=== PATIENT | female | born 1980 | race Caucasian/White ===

== ENCOUNTER 2017-06-19 17:09 | Emergency (ER) | payer MEDICARE, OTHER ==
[2017-06-19 17:26] VITALS: BP 144/94; PULSE 99; RESP 18; TEMP 98
--- NOTE | 2017-06-19 17:54 | ED ---
ENT HPI - General Chief complaint: Dental/Oral Stated complaint: dental pain Time Seen by Provider: 06/19/17 17:31 Source: patient, RN notes reviewed Mode of arrival: ambulatory Limitations: no limitations - History of Present Illness Initial comments: This is a 36-year-old female who presents to the emergency department with chief complaint of dental pain. Patient states that she has been experiencing dental pain in her right lower molars for the past year and a half intermittently. Patient states that yesterday she had an increase in the pain of a right lower molar. Patient denies any drainage. She denies any radiation of pain to jaw or neck. Patient states that she does not regularly see a dentist. Denies fever, chills, chest pain, shortness of breath, abdominal pain, nausea or vomiting, constipation or diarrhea, dysuria or hematuria, numbness or tingling, headache or vision changes. - Related Data Home Medications Medication Instructions Recorded Confirmed Gabapentin 600 mg PO TID 05/07/16 05/07/16 Gabapentin [Neurontin] 400 mg PO TID 05/07/16 05/07/16 QUEtiapine [SEROquel] 100 mg PO HS 05/07/16 05/07/16 clonazePAM [KlonoPIN] 0.5 mg PO TID 05/07/16 05/07/16 rOPINIRole HCL [Requip] 0.25 mg PO HS 05/07/16 05/07/16 traZODone HCL 300 mg PO HS 05/07/16 05/07/16 Previous Rx's Medication Instructions Recorded Ibuprofen 600 mg PO Q6HR #20 tablet 06/19/17 Penicillin V Potassium [Pen Vee K] 500 mg PO QID 10 Days tab 06/19/17 Allergies Allergy/AdvReac Type Severity Reaction Status Date / Time No Known Allergies Allergy Verified 06/19/17 17:24 Review of Systems ROS Statement: Those systems with pertinent positive or pertinent negative responses have been documented in the HPI. ROS Other: All systems not noted in ROS Statement are negative. 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 History of Any Multi-Drug Resistant Organisms: None Reported Past Surgical History: Tonsillectomy Additional Past Surgical History / Comment(s): right knee surgery, Additional Past Anesthesia/Blood Transfusion Reaction / Comment(s): n/a Past Psychological History: Anxiety, Bipolar, Depression, No Psychological Hx Reported Smoking Status: Current every day smoker Past Alcohol Use History: Occasional Past Drug Use History: None Reported - Past Family History Mother Family Medical History: Hypertension General Exam - General Exam Comments Initial Comments: General: Awake and alert, well-developed; in no apparent distress. HEENT: Head atraumatic, normocephalic. Pupils are equal, round and reactive to light. Extraocular movements intact. Oropharynx moist without erythema or exudate. Poor dentition throughout with multiple fractured teeth and dental caries. Tooth #31 is fractured and black in color. No masses or areas of fluctuance noted. Neck: Supple. Normal ROM. No adenopathy. Cardiovascular: Regular rate and rhythm. No murmurs, rubs or gallops. Chest symmetrical. Respiratory: Lungs clear to auscultation bilaterally. No wheezes, rales or rhonchi. Normal respiratory effort with no use of accessory muscles. Musculoskeletal: Normal ROM, no tenderness bilateral upper and lower extremities. Ambulating normally. Skin: Mullins, warm and dry without rashes or lesions. Neurological: Alert and oriented x3. CN II-XII grossly intact. Speech is fluent and answers are appropriate. No focal neuro deficits. Psychiatric: Normal mood and affect. No overt signs of depression or anxiety noted. Limitations: no limitations Course Vital Signs 06/19/17 17:24 Temperature 98 F Pulse Rate 99 Respiratory 18 Rate Blood Pressure 144/94 O2 Sat by Pulse 95 Oximetry Medical Decision Making - Medical Decision Making This is a 36-year-old female who presents to the emergency department with chief complaint of dental pain. Tooth #31 is fractured. There is no evidence of abscess. Patient will be discharged home with a prescription for ibuprofen and antibiotics. She will be provided contact information for a dentist. Patient is in agreement with plan and voices understanding. All questions were answered. Disposition Clinical Impression: Toothache, Fracture of tooth Disposition: HOME SELF-CARE Condition: Good Instructions: Toothache (ED), Dental Caries (ED) Additional Instructions: Please follow up with the [facility] dental clinic. [facility] [id number] [address]. Phone number for new patients or for existing patients. Please take medications as prescribed. Please follow up with primary care provider within 1-2 days. Return to emergency department if symptoms should worsen or any concerns arise. Prescriptions: Ibuprofen 600 mg PO Q6HR #20 tablet Penicillin V Potassium [Pen Vee K] 500 mg PO QID 10 Days tab Referrals: None,Stated [Primary Care Provider] - 1-2 days Time of Disposition: 17:49
== END 2017-06-19 18:01 | disposition home or self-care (01) ==
LOC: EC 17:09
DX: S02.5XXA Fracture of tooth (traumatic), initial encounter for closed fracture (principal); F31.9 Bipolar disorder, unspecified; F41.9 Anxiety disorder, unspecified; F60.3 Borderline personality disorder; F17.200 Nicotine dependence, unspecified, uncomplicated; Z79.899 Other long term (current) drug therapy
CPT/HCPCS: 99282

== ENCOUNTER 2018-04-19 02:51 | Emergency (ER) | payer MEDICARE, OTHER ==
[2018-04-19] MEDS ORDERED: clonazePAM 0.5 MG TAB PO STA (03:23)
--- NOTE | 2018-04-19 04:43 | ED ---
Psych HPI - General Chief Complaint: Psychiatric Symptoms Stated Complaint: Petition Time Seen by Provider: 04/19/18 03:03 Source: patient Mode of arrival: ambulatory - History of Present Illness Initial Comments: This patient is a 37-year-old woman who presents to the hospital after being brought here by police to have psychiatric evaluation. The patient had reportedly called the third floor mental health unit to speak with her partner. When she was not allowed to speak with her partner, there was over the phone and the patient admits to making a suicidal statement. The patient however states that this was something she had just said out of anger and she states that she is not having any suicidal ideation. She is elzbieta for safety here. Complaint: other -: hour(s) Associated Psychiatric Symptoms: other History of same: Yes Improves With: none Worsens With: none Context: significant life stressor - Related Data Home Medications Medication Instructions Recorded Confirmed Gabapentin 600 mg PO TID 05/07/16 05/07/16 Gabapentin [Neurontin] 400 mg PO TID 05/07/16 05/07/16 QUEtiapine [SEROquel] 100 mg PO HS 05/07/16 05/07/16 clonazePAM [KlonoPIN] 0.5 mg PO TID 05/07/16 05/07/16 rOPINIRole HCL [Requip] 0.25 mg PO HS 05/07/16 05/07/16 traZODone HCL 300 mg PO HS 05/07/16 05/07/16 Previous Rx's Medication Instructions Recorded Ibuprofen 600 mg PO Q6HR #20 tablet 06/19/17 Penicillin V Potassium [Pen Vee K] 500 mg PO QID 10 Days tab 06/19/17 Allergies Allergy/AdvReac Type Severity Reaction Status Date / Time No Known Allergies Allergy Verified 04/19/18 02:59 Review of Systems ROS Statement: Those systems with pertinent positive or pertinent negative responses have been documented in the HPI. ROS Other: All systems not noted in ROS Statement are negative. Respiratory: Denies: cough, dyspnea Cardiovascular: Denies: chest pain Gastrointestinal: Denies: abdominal pain Skin: Denies: rash Neurological: Denies: headache Psychiatric: Reports: anxiety. 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 History of Any Multi-Drug Resistant Organisms: None Reported Past Surgical History: Tonsillectomy Additional Past Surgical History / Comment(s): right knee surgery, Additional Past Anesthesia/Blood Transfusion Reaction / Comment(s): n/a Past Psychological History: Anxiety, Bipolar, Depression, No Psychological Hx Reported Smoking Status: Current every day smoker Past Alcohol Use History: Occasional Past Drug Use History: None Reported - Past Family History Mother Family Medical History: Hypertension General Exam Limitations: no limitations General appearance: alert, in no apparent distress, anxious Head exam: Present: atraumatic, normocephalic Eye exam: Present: normal appearance Respiratory exam: Present: normal lung sounds bilaterally. Absent: respiratory distress, wheezes, rales, rhonchi, stridor Cardiovascular Exam: Present: regular rate, normal rhythm, normal heart sounds. Absent: systolic murmur, diastolic murmur, rubs, gallop GI/Abdominal exam: Present: soft. Absent: distended, tenderness, guarding, rebound, rigid, mass Extremities exam: Present: normal inspection, normal capillary refill. Absent: pedal edema, calf tenderness Back exam: Present: normal inspection. Absent: CVA tenderness (R), CVA tenderness (L) Neurological exam: Present: alert, oriented X3, normal gait Psychiatric exam: Present: anxious. Absent: depressed, flat affect, manic, homicidal ideation, suicidal ideation Skin exam: Present: warm, dry, intact, normal color. Absent: rash Course Vital Signs 04/19/18 02:54 Temperature 99 F Pulse Rate 89 Respiratory 18 Rate Blood Pressure 159/108 O2 Sat by Pulse 100 Oximetry Disposition Clinical Impression: Adjustment reaction Disposition: HOME SELF-CARE Condition: Fair Instructions: Mood Disorders (ED) Is patient prescribed a controlled substance at d/c from ED?: No Referrals: [facility] [Primary Care Provider] - 1-2 days
[2018-04-19 04:51] VITALS: BP 132/72; PULSE 88; RESP 20; TEMP 98
== END 2018-04-19 04:51 | disposition home or self-care (01) ==
LOC: EC 02:51
DX: F43.20 Adjustment disorder, unspecified (principal); F60.3 Borderline personality disorder; F31.9 Bipolar disorder, unspecified; F41.9 Anxiety disorder, unspecified; F17.200 Nicotine dependence, unspecified, uncomplicated; Z98.890 Other specified postprocedural states; Z79.899 Other long term (current) drug therapy
CPT/HCPCS: 99285

== ENCOUNTER 2018-07-12 23:56 | Emergency (ER) | payer MEDICARE, OTHER ==
[2018-07-13 00:03] VITALS: PULSE 95; RESP 18; TEMP 99.1
[2018-07-13] MEDS ORDERED: LORazepam 1 MG TAB PO STA (00:13)
--- NOTE | 2018-07-13 00:16 | ED ---
Anxiety HPI - General Source: patient Mode of arrival: ambulatory <Karlie Benitez - Last Filed: 07/13/18 01:39> <Jocelyne Montez - Last Filed: 07/13/18 02:46> - General Chief Complaint: Anxiety Stated Complaint: anxiety Time Seen by Provider: 07/13/18 00:04 - History of Present Illness Initial Comments: 37 year-old female patient presents to the emergency department today with chief complaint of increased anxiety. She states that her significant other is in the ICU after a suicide attempt which is making her very anxious and upset. States that she does have a history of anxiety and does take a daily medication for this. She denies having any abortive medications. Patient denies any suicidal or homicidal ideation. States that she just feels very anxious and upset. She denies any physical symptoms or concerns. Patient denies any recent rash, fever, chills, shortness breath, chest pain, abdominal pain, nausea, vomiting, diarrhea, constipation, back pain, numbness, tingling, dizziness, weakness, hematuria, dysuria, urinary urgency, urinary frequency, headache, visual changes, or any other complaints. (Karlie Benitez) - Related Data Home Medications: Home Medications Medication Instructions Recorded Confirmed Gabapentin 600 mg PO TID 05/07/16 05/07/16 Gabapentin [Neurontin] 400 mg PO TID 05/07/16 05/07/16 QUEtiapine [SEROquel] 100 mg PO HS 05/07/16 05/07/16 clonazePAM [KlonoPIN] 0.5 mg PO TID 05/07/16 05/07/16 rOPINIRole HCL [Requip] 0.25 mg PO HS 05/07/16 05/07/16 traZODone HCL 300 mg PO HS 05/07/16 05/07/16 Previous Rx's Medication Instructions Recorded Ibuprofen 600 mg PO Q6HR #20 tablet 06/19/17 Penicillin V Potassium [Pen Vee K] 500 mg PO QID 10 Days tab 06/19/17 Allergies/Adverse Reactions: Allergies Allergy/AdvReac Type Severity Reaction Status Date / Time No Known Allergies Allergy Verified 07/13/18 00:03 Review of Systems ROS Other: All systems not noted in ROS Statement are negative. <Karlie Benitez - Last Filed: 07/13/18 01:39> ROS Other: All systems not noted in ROS Statement are negative. <Jocelyne Montez P - Last Filed: 07/13/18 02:46> ROS Statement: Those systems with pertinent positive or pertinent negative responses have been documented in the HPI. 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 History of Any Multi-Drug Resistant Organisms: None Reported Past Surgical History: Tonsillectomy Additional Past Surgical History / Comment(s): right knee surgery, Additional Past Anesthesia/Blood Transfusion Reaction / Comment(s): n/a Past Psychological History: Anxiety, Bipolar, Depression, No Psychological Hx Reported Smoking Status: Current every day smoker Past Alcohol Use History: Occasional Past Drug Use History: None Reported - Past Family History Mother Family Medical History: Hypertension <Karlie Benitez M - Last Filed: 07/13/18 01:39> General Exam Limitations: no limitations General appearance: alert, in no apparent distress, anxious, other (Physical well-developed, well-nourished adult female patient in no acute distress. Vital signs upon presentation are temperature 99.1F, pulse 95, respirations 18 , blood pressure 182/110, pulse ox 97% on room air.) Eye exam: Present: normal appearance, PERRL, EOMI. Absent: scleral icterus, conjunctival injection, periorbital swelling ENT exam: Present: normal exam, normal oropharynx Respiratory exam: Present: normal lung sounds bilaterally. Absent: respiratory distress, wheezes, rales, rhonchi, stridor Cardiovascular Exam: Present: regular rate, normal rhythm, normal heart sounds. Absent: systolic murmur, diastolic murmur, rubs, gallop, clicks Neurological exam: Present: alert, oriented X3, CN II-XII intact Psychiatric exam: Present: anxious, other (Tearful). Absent: homicidal ideation , suicidal ideation Skin exam: Present: warm, dry, intact, normal color. Absent: rash <Karlie Benitez M - Last Filed: 07/13/18 01:39> Vital Signs 07/13/18 07/13/18 00:00 00:22 Temperature 99.1 F Pulse Rate 95 Respiratory 18 Rate Blood Pressure 182/110 138/95 O2 Sat by Pulse 97 Oximetry Medical Decision Making <Karlie Benitez - Last Filed: 07/13/18 01:39> <Jocelyne Montez - Last Filed: 07/13/18 02:46> - Medical Decision Making 37-year-old male patient presents to the emergency department today for evaluation of increased anxiety. She reports her significant other is in the ICU. States that she is feeling very anxious and upset but denies any other symptoms. Physical examination is unremarkable. We will administer Ativan here in the emergency department and discharge. She is experiencing no suicidal or homicidal ideation. She is instructed to follow-up with her primary care physician for recheck in 1-2 days. Return parameters discussed in detail. She verbalizes understanding and agrees with this plan. (Karlie Benitez) I was available for consultation in the emergency department. The history and physical exam were done by the Midlevel Provider. Medical decision making was done by the Midlevel Provider. The Midlevel Provider did not contact me for this patient's care. I was not directly involved in this patient's care. (Jocelyne Montez) Disposition Is patient prescribed a controlled substance at d/c from ED?: No Time of Disposition: 00:15 <Karlie Benitez - Last Filed: 07/13/18 01:39> <Jocelyne Montez - Last Filed: 07/13/18 02:46> Clinical Impression: Anxiety Disposition: HOME SELF-CARE Condition: Good Instructions (If sedation given, give patient instructions): Generalized Anxiety Disorder (ED) Additional Instructions: Follow up with primary care physician for recheck in 1-2 days. Return to the emergency department for any new, worsening, or concerning symptoms. Referrals: [facility] [Primary Care Provider] - 1-2 days
[2018-07-13 00:39] VITALS: BP 138/95
== END 2018-07-13 00:23 | disposition home or self-care (01) ==
LOC: EC 23:56
DX: F41.9 Anxiety disorder, unspecified (principal); F31.9 Bipolar disorder, unspecified; F17.200 Nicotine dependence, unspecified, uncomplicated; Z79.899 Other long term (current) drug therapy
CPT/HCPCS: 99283

== ENCOUNTER 2018-09-21 12:23 | Day surgery (SDC) | payer MEDICARE, OTHER ==
[2018-09-21 12:42] VITALS: TEMP 97.8
[2018-09-21] MEDS ORDERED: LIDOCAINE 1% 20 ML VIAL (10MG/ML) FOR IV START INTRADERMA PRN (12:53)
[2018-09-21] MEDS ORDERED: LACTATED RINGERS 1,000 ML IV SCH (12:53)
[2018-09-21] MEDS ORDERED: PROPOFOL 10 MG/ML 20 ML VIAL IV ONE (13:53)
[2018-09-21] MEDS ORDERED: LIDOCAINE 1% INJ 10MG/ML (20 ML MDV) ONE (13:53)
[2018-09-21] MEDS ORDERED: LACTATED RINGERS 250 ML IV ONE (13:54)
--- NOTE | 2018-09-21 14:38 | P.PCN ---
Date of Procedure: 09/21/18 Procedure(s) Performed: Procedures: 1. Esophagogastroduodenoscopy and biopsy. 2. Total colonoscopy. Preoperative diagnosis: Abdominal pain, vomiting, unexplained weight loss and iron deficiency anemia. Postoperative diagnosis: 1. Antral gastritis but no ulcers or bleeding. 2. Normal colon and terminal ileum. 3. Biopsies obtained from the duodenum, antrum and esophagus. Preparation: HalfLytely prep. Sedation: Was provided by anesthesia. Brief clinical history: The patient is a 37-year-old female who I have evaluated earlier this month in the office regarding the above complaints. She was seen by hematology who recommended both an upper endoscopy and colonoscopy. Procedure: With the patient on her left lateral decubitus position and after informed consent and adequate sedation, I passed a Olympus-GIF H190 video upper endoscope through the cricopharyngeus down the esophagus. The esophagus appeared healthy. No obvious hiatal hernia. The endoscope was then passed into the stomach which was insufflated with air and inspected in detail including the retroflex view in the cardia. There was mottling and erythema in the antrum and some friability but no obvious ulcers or bleeding. Pyloric channel, duodenal bulb, post bulbar area and descending duodenum appeared healthy. I obtained biopsies from the duodenum, antrum and esophagus then the endoscope was withdrawn and I proceeded to perform the colonoscopy. Perianal area did not show any fissures or fistulas. There were no masses felt on digital rectal examination. The Olympus CF H190L video colonoscope was then inserted in the rectum in the usual fashion and advanced to the cecum. I intubated the ileocecal valve and examined the terminal ileum. Terminal ileum and colon appeared healthy. No polyps or tumors were seen or any obvious diverticular disease or evidence of inflammatory bowel disease. I retroflexed the endoscope in the rectum before the endoscope was withdrawn. The patient tolerated the procedure well. Plan: The patient was reassured. She will follow-up up with PCP and further plans can be made based on her course and biopsy results. It is likely that her anemia is related to her monthly menstrual losses. We would be happy to see in follow-up if needed.
[2018-09-21 14:41] VITALS: BP 125/81; PULSE 56; RESP 16
== END 2018-09-21 14:52 | disposition home or self-care (01) ==
LOC: ORWHC2ENDO 12:23
DX: K31.9 Disease of stomach and duodenum, unspecified (principal); K21.0 Gastro-esophageal reflux disease with esophagitis; D50.9 Iron deficiency anemia, unspecified; R10.9 Unspecified abdominal pain; R63.4 Abnormal weight loss; Z68.24 Body mass index [BMI] 24.0-24.9, adult; J45.909 Unspecified asthma, uncomplicated; F17.210 Nicotine dependence, cigarettes, uncomplicated; F19.11 Other psychoactive substance abuse, in remission; Z79.899 Other long term (current) drug therapy; Z79.891 Long term (current) use of opiate analgesic
CPT/HCPCS: 81025; 88305; 45378; 43239; J2001; J2704

== ENCOUNTER 2020-02-03 09:27 | Inpatient (IN) | payer MEDICARE, MEDICAID ==
--- NOTE | 2020-02-03 11:50 | ED ---
General Adult HPI - General Source: patient, EMS, RN notes reviewed, old records reviewed Mode of arrival: EMS Limitations: no limitations <Rob Morton - Last Filed: 02/03/20 11:50> <George Castaneda - Last Filed: 02/03/20 17:47> - General Chief complaint: Psychiatric Symptoms Stated complaint: Mental Health Time Seen by Provider: 02/03/20 09:57 - History of Present Illness Initial comments: 39-year-old female patient presents to ED for psychiatric evaluation. Patient reports that last night she took about 6 of her Seroquel and laid in the bath hoping that she would fall asleep and drown. Patient reports that her girlfriend removed her from the bath she did not lose consciousness. Patient also reports that she injected a gram of heroin she states she thought might be a fatal dose. She reports that she is very depressed. She denies any other acute complaints. (Rob Morton) - Related Data Home Medications Medication Instructions Recorded Confirmed traZODone HCL 300 mg PO HS 05/07/16 02/03/20 Albuterol Sulfate [Proair Hfa] 2 puff INHALATION RT-Q6H PRN 02/03/20 02/03/20 Baclofen 10 mg PO DAILY PRN 02/03/20 02/03/20 Cholecalciferol [Vitamin D3 (25 5,000 unit PO DAILY 02/03/20 02/03/20 Mcg = 1000 Iu)] Ferrous Sulfate Ec 324mg 2 tab PO DAILY 02/03/20 02/03/20 Gabapentin [Neurontin] 300 mg PO TID 02/03/20 02/03/20 Lisinopril [Zestril] 10 mg PO DAILY 02/03/20 02/03/20 Loratadine [Claritin] 10 mg PO DAILY PRN 02/03/20 02/03/20 Montelukast Sodium [Singulair] 10 mg PO HS 02/03/20 02/03/20 Omeprazole 20 mg PO DAILY 02/03/20 02/03/20 Prazosin HCl 2 mg PO HS PRN 02/03/20 02/03/20 QUEtiapine FUMARATE [SEROquel] 300 mg PO HS 02/03/20 02/03/20 Varenicline Tartrate [Chantix 0.5 mg PO DIRECTED 02/03/20 02/03/20 Starter Pack] Venlafaxine HCl ER [Effexor Xr] 300 mg PO QAM 02/03/20 02/03/20 hydrOXYzine pamoate [hydrOXYzine 25 mg PO BID PRN 02/03/20 02/03/20 PAMOATE] lamoTRIgine See Taper PO DIRECTED 02/03/20 02/03/20 Allergies Allergy/AdvReac Type Severity Reaction Status Date / Time No Known Allergies Allergy Verified 02/03/20 11:54 Review of Systems ROS Other: All systems not noted in ROS Statement are negative. <Rob Morton - Last Filed: 02/03/20 11:50> ROS Other: All systems not noted in ROS Statement are negative. <George Castaneda - Last Filed: 02/03/20 17:47> ROS Statement: Those systems with pertinent positive or pertinent negative responses have been documented in the HPI. 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 History of Any Multi-Drug Resistant Organisms: None Reported Past Surgical History: Tonsillectomy Additional Past Surgical History / Comment(s): right knee surgery, Additional Past Anesthesia/Blood Transfusion Reaction / Comment(s): n/a Past Psychological History: No Psychological Hx Reported, Anxiety, Bipolar, Depression, PTSD Smoking Status: Current every day smoker Past Alcohol Use History: Occasional Past Drug Use History: Heroin, Marijuana - Past Family History Mother Family Medical History: Hypertension <Rob Morton Last Filed: 02/03/20 11:50> General Exam Limitations: no limitations <Rob Morton Last Filed: 02/03/20 11:50> Course Vital Signs 02/03/20 09:30 Temperature 98 F Pulse Rate 84 Respiratory 18 Rate Blood Pressure 138/85 O2 Sat by Pulse 98 Oximetry Medical Decision Making - Lab Data Result diagrams: 02/03/20 10:50 02/03/20 10:50 <George Castaneda - Last Filed: 02/03/20 17:47> - Medical Decision Making The patient was evaluated by the EPS service and will be admitted for inpatient treatment (George Castaneda) - Lab Data Lab Results 02/03/20 02/03/20 Range/Units 10:50 10:50 WBC 5.7 (3.8-10.6) k/uL RBC 4.35 (3.80-5.40) m/uL Hgb 11.9 (11.4-16.0) gm/dL Hct 37.8 (34.0-46.0) % MCV 86.9 (80.0-100.0) fL MCH 27.4 (25.0-35.0) pg MCHC 31.6 (31.0-37.0) g/dL RDW 13.7 (11.5-15.5) % Plt Count 105 L (150-450) k/uL Neutrophils % 69 % Lymphocytes % 19 % Monocytes % 6 % Eosinophils % 3 % Basophils % 1 % Neutrophils # 3.9 (1.3-7.7) k/uL Lymphocytes # 1.1 (1.0-4.8) k/uL Monocytes # 0.4 (0-1.0) k/uL Eosinophils # 0.2 (0-0.7) k/uL Basophils # 0.1 (0-0.2) k/uL Manual Slide Review Performed Large Platelets Present RBC Morphology Normal Hypochromasia Slight Sodium 141 (137-145) mmol/L Potassium 4.2 (3.5-5.1) mmol/L Chloride 110 H (98-107) mmol/L Carbon Dioxide 24 (22-30) mmol/L Anion Gap 7 mmol/L BUN 17 (7-17) mg/dL Creatinine 0.77 (0.52-1.04) mg/dL Est GFR (CKD-EPI)AfAm >90 (>60 ml/min/1.73 sqM) Est GFR (CKD-EPI)NonAf >90 (>60 ml/min/1.73 sqM) Glucose 102 H (74-99) mg/dL Calcium 8.9 (8.4-10.2) mg/dL Total Bilirubin 0.4 (0.2-1.3) mg/dL AST 148 H (14-36) U/L ALT 165 H (4-34) U/L Alkaline Phosphatase 55 (38-126) U/L Total Protein 6.2 L (6.3-8.2) g/dL Albumin 3.6 (3.5-5.0) g/dL Salicylates <1.0 mg/dL Acetaminophen <10.0 ug/mL Serum Alcohol <10 mg/dL Disposition <Rob Morton - Last Filed: 02/03/20 11:50> <George Castaneda - Last Filed: 02/03/20 17:47> Clinical Impression: Depression, Suicidal ideation Disposition: TRANSFER TO PSYCH HOSP/UNIT Condition: Stable
[2020-02-03 12:14] LABS: Basophils # (A) 0.1 k/uL (0-0.2); Basophils % (A) 1 %; Eosinophils # (A) 0.2 k/uL (0-0.7); Eosinophils % (A) 3 %; HCT 37.8 % (34.0-46.0); HGB 11.9 gm/dL (11.4-16.0); Hypochromasia Slight; Lymphocytes # (A) 1.1 k/uL (1.0-4.8); Lymphocytes % (A) 19 %; MCH 27.4 pg (25.0-35.0); MCHC 31.6 g/dL (31.0-37.0); MCV 86.9 fL (80.0-100.0); Mean Platelet Volume 15.6; Monocytes # (A) 0.4 k/uL (0-1.0); Monocytes % (A) 6 %; Neutrophils # (A) 3.9 k/uL (1.3-7.7); Neutrophils % (A) 69 %; Platelet Count 105 k/uL (150-450); RBC 4.35 m/uL (3.80-5.40); RDW 13.7 % (11.5-15.5); WBC 5.7 k/uL (3.8-10.6)
[2020-02-03 12:16] LABS: ALT 165 U/L (4-34); AST 148 U/L (14-36); Acetaminophen <10.0 ug/mL; African American GFR (CKD) >90 (>60 ml/min/1.73 sqM); Albumin 3.6 g/dL (3.5-5.0); Alcohol <10 mg/dL; Alkaline Phosphatase 55 U/L (38-126); Anion Gap 7 mmol/L; Blood Urea Nitrogen 17 mg/dL (7-17); Calcium 8.9 mg/dL (8.4-10.2); Carbon Dioxide 24 mmol/L (22-30); Chloride 110 mmol/L (98-107); Glucose 102 mg/dL (74-99); Non-African American GFR(CKD) >90 (>60 ml/min/1.73 sqM); Potassium 4.2 mmol/L (3.5-5.1); Salicylate <1.0 mg/dL; Sodium 141 mmol/L (137-145); Total Bilirubin 0.4 mg/dL (0.2-1.3); Total Protein 6.2 g/dL (6.3-8.2)
[2020-02-03 12:30] LABS: Large Platelets Present
[2020-02-03] MEDS ORDERED: ZIPRASIDONE 20 MG VIAL IM STA (17:08)
[2020-02-03] MEDS ORDERED: MAG HYDROX/AL HYDROX/SIMETH 30 ML CUP PO PRN (17:40)
[2020-02-03] MEDS ORDERED: MAGNESIUM HYDROXIDE 2,400 MG/10 ML CUP PO PRN (17:40)
[2020-02-03] MEDS ORDERED: LORazepam 2 MG/ML INJ IM PRN (17:44)
[2020-02-03 18:13] LABS: Amphetamine Screen,Urine Not Detected (NotDetected); Barbiturate Screen,Urine Not Detected (NotDetected); Benzodiazepines Screen,Urine Detected (NotDetected); Cocaine Screen,Urine Detected (NotDetected); Methadone Screen, Urine Not Detected (NotDetected); Opiate Screen,Urine Not Detected (NotDetected); Oxycodone Screen, Urine Not Detected (NotDetected); Phencyclidine Screen,Urine Not Detected (NotDetected); Tricyclic Antidepressant,Urine Not Detected (NotDetected); Urn Cannabinoid Scrn Not Detected (NotDetected)
[2020-02-03] MEDS: NICOTINE 21MG/24HR PATCH TRANSDERM SCH (18:45)
[2020-02-03] MEDS ORDERED: QUEtiapine 100 MG TAB PO SCH (21:00)
[2020-02-03] MEDS: LORazepam 1 MG TAB PO PRN (23:49)
[2020-02-04] MEDS: ZIPRASIDONE 20 MG VIAL IM PRN (03:13)
[2020-02-04] MEDS: NICOTINE 21MG/24HR PATCH TRANSDERM SCH (09:55)
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
[2020-02-04] MEDS: NICOTINE POLACRILEX 2 MG GUM BUCCAL PRN ×2 (16:02→19:23)
[2020-02-04] MEDS: LORazepam 1 MG TAB PO PRN (16:39)
[2020-02-04] MEDS ORDERED: ALBUTEROL INHALER 60 PUFF/8 GM INHALER (MHU) INHALATION PRN (18:18)
[2020-02-04] MEDS ORDERED: LORATADINE 10 MG TAB PO PRN (18:18)
--- NOTE | 2020-02-04 18:23 | P.MDCNMH ---
History of Present Illness H&P Date: 02/04/20 39-year-old female with PMH of asthma, neuropathy, hypertension presents to the ED for psychiatric evaluation. She has been admitted to mental health unit for further management and observation. [facility] as being consulted for medical management of this patient. Patient reports pins and needle sensation in all 4 extremities. States that this happened after developing mono. She is requesting albuterol inhaler for her history of asthma. She denies any headache, lower extremity edema, nausea or vomiting, fever or chills, cough, chest pain, shortness of breath, palpitations, changes in urination or bowel habits. No changes in appetite or weight. She denies any dizziness. Her vital signs show slightly elevated blood pressure 135/71. CBC shows low platelet count of 105. CMP shows chloride of 110, glucose of 102, AST of 148, ALT of 165. Review of Systems Pertinent positives and negatives as discussed in HPI, a complete review of systems was performed and all other systems are negative. 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 History of Any Multi-Drug Resistant Organisms: None Reported Past Surgical History: Tonsillectomy Additional Past Surgical History / Comment(s): right knee surgery, Additional Past Anesthesia/Blood Transfusion Reaction / Comment(s): n/a Past Psychological History: No Psychological Hx Reported, Anxiety, Bipolar, Depression, PTSD Smoking Status: Current every day smoker Past Alcohol Use History: Occasional Past Drug Use History: Heroin, Marijuana - Past Family History Mother Family Medical History: Hypertension Medications and Allergies Home Medications Medication Instructions Recorded Confirmed Type traZODone HCL 300 mg PO HS 05/07/02/03/20 History Albuterol Sulfate [Proair Hfa] 2 puff INHALATION RT-Q6H PRN 02/03/20 02/03/20 History Baclofen 10 mg PO DAILY PRN 02/03/20 02/03/20 History Cholecalciferol [Vitamin D3 (25 5,000 unit PO DAILY 02/03/20 02/03/20 History Mcg = 1000 Iu)] Ferrous Sulfate Ec 324mg 2 tab PO DAILY 02/03/20 02/03/20 History Gabapentin [Neurontin] 300 mg PO TID 02/03/20 02/03/20 History Lisinopril [Zestril] 10 mg PO DAILY 02/03/20 02/03/20 History Loratadine [Claritin] 10 mg PO DAILY PRN 02/03/20 02/03/20 History Montelukast Sodium [Singulair] 10 mg PO HS 02/03/20 02/03/20 History Omeprazole 20 mg PO DAILY 02/03/20 02/03/20 History Prazosin HCl 2 mg PO HS PRN 02/03/20 02/03/20 History QUEtiapine FUMARATE [SEROquel] 300 mg PO HS 02/03/20 02/03/20 History Varenicline Tartrate [Chantix 0.5 mg PO DIRECTED 02/03/20 02/03/20 History Starter Pack] Venlafaxine HCl ER [Effexor Xr] 300 mg PO QAM 02/03/20 02/03/20 History hydrOXYzine pamoate [hydrOXYzine 25 mg PO BID PRN 02/03/20 02/03/20 History PAMOATE] lamoTRIgine See Taper PO DIRECTED 02/03/20 02/03/20 History Allergies Allergy/AdvReac Type Severity Reaction Status Date / Time nicotine Allergy Intermediate Rash/Hives Verified 02/04/20 12:36 Physical Exam Vitals: Vital Signs Temp Pulse Resp BP Pulse Ox 02/04/20 02:14 98.4 F 72 16 135/71 98 02/03/20 18:40 97.4 F L 68 18 116/69 98 General: [non toxic], [no distress], [appears at stated age] Derm: [warm], [dry] Head: [atraumatic], [normocephalic], [symmetric] Eyes: [EOMI], [no lid lag], [anicteric sclera] Mouth: [no lip lesion], [mucus membranes moist] Cardiovascular: [S1S2 reg], [no murmur], [positive posterior tibial pulse bilateral], Lungs: [CTA bilateral], [no rhonchi, no rales] , [no accessory muscle use] Abdominal: [soft], [ nontender to palpation], [no guarding], [no appreciable organomegaly] Ext: [no gross muscle atrophy], [no edema], [no contractures] Neuro: [ CN II-XI grossly intact], [no focal neuro deficits] Psych: [Alert], [oriented], [appropriate affect] Cranial Nerve Examination - Cranial Nerves Cranial Nerve II- Optic: Intact Cranial Nerve III- Oculomotor: Intact Cranial Nerve IV- Trochlear: Intact Cranial Nerve V- Trigeminal: Intact Cranial Nerve - Abducens: Intact Cranial Nerve VII- Facial: Intact Cranial Nerve VIII- Auditory: Intact Cranial Nerve IX- Glossopharyngeal: Intact Cranial Nerve X- Vagus: Intact Cranial Nerve XI- Accessory: Intact Cranial Nerve XII- Hypoglossal: Intact Results CBC & Chem 7: 02/03/20 10:50 02/03/20 10:50 Assessment and Plan Assessment: Asthma Hypertension Neuropathy Seasonal ALLERGIES Transaminitis Plans: Albuterol inhaler as needed. Restart Singulair. Plans: Continue lisinopril. Plans: Resume gabapentin. Plans: Resume Claritin. Unknown etiology. Plans: Follow hepatitis panel especially given thrombocytopenia and history of IV drug use. Thank you for this consult. Please call with any additional questions or concerns.
[2020-02-04] MEDS ORDERED: PRAZOSIN 1 MG CAP PO PRN (21:00)
[2020-02-04] MEDS: OLANZapine 10 MG TAB PO SCH (21:44)
[2020-02-04] MEDS: MONTELUKAST 10 MG TAB PO SCH (21:44)
[2020-02-04] MEDS: GABAPENTIN 300 MG CAP PO SCH (21:44)
[2020-02-05] MEDS: LORazepam 1 MG TAB PO PRN ×3 (04:37→22:55)
[2020-02-05] MEDS: NICOTINE POLACRILEX 2 MG GUM BUCCAL PRN ×5 (04:38→21:16)
[2020-02-05 08:18] LABS: ALT 220 U/L (4-34); AST 249 U/L (14-36); African American GFR (CKD) >90 (>60 ml/min/1.73 sqM); Albumin 4.2 g/dL (3.5-5.0); Alkaline Phosphatase 69 U/L (38-126); Anion Gap 8 mmol/L; Blood Urea Nitrogen 12 mg/dL (7-17); Calcium 9.1 mg/dL (8.4-10.2); Carbon Dioxide 23 mmol/L (22-30); Chloride 110 mmol/L (98-107); Cholesterol 116 mg/dL (<200); Glucose 105 mg/dL (74-99); HDL Cholesterol 53 mg/dL (40-60); LDL Cholesterol,Calculated 45 mg/dL (0-99); Non-African American GFR(CKD) >90 (>60 ml/min/1.73 sqM); Potassium 4.3 mmol/L (3.5-5.1); Sodium 141 mmol/L (137-145); Total Protein 7.1 g/dL (6.3-8.2); Triglycerides 92 mg/dL (<150)
[2020-02-05 08:20] LABS: Basophils # (A) 0.1 k/uL (0-0.2); Basophils % (A) 2 %; Eosinophils # (A) 0.3 k/uL (0-0.7); Eosinophils % (A) 4 %; HCT 42.3 % (34.0-46.0); HGB 12.9 gm/dL (11.4-16.0); Hypochromasia Moderate; Lymphocytes # (A) 1.3 k/uL (1.0-4.8); Lymphocytes % (A) 17 %; MCHC 30.5 g/dL (31.0-37.0); MCV 88.4 fL (80.0-100.0); Mean Platelet Volume 13.7; Monocytes # (A) 0.5 k/uL (0-1.0); Monocytes % (A) 7 %; Neutrophils # (A) 4.8 k/uL (1.3-7.7); Neutrophils % (A) 66 %; Platelet Count 111 k/uL (150-450); RBC 4.78 m/uL (3.80-5.40); RDW 13.8 % (11.5-15.5); WBC 7.2 k/uL (3.8-10.6)
[2020-02-05] MEDS: lisinopriL 10 MG TAB PO SCH (08:32)
[2020-02-05] MEDS: FERROUS SULFATE 325 MG TAB PO SCH (08:32)
[2020-02-05] MEDS: buPROPion XL 150 MG TAB.ER.24H PO SCH (08:32)
[2020-02-05] MEDS: SERTRALINE 100 MG TAB PO SCH (08:32)
[2020-02-05] MEDS: PANTOPRAZOLE 40 MG TABLET PO SCH (08:32)
[2020-02-05] MEDS: GABAPENTIN 300 MG CAP PO SCH ×3 (08:32→21:16)
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
[2020-02-05 18:34] LABS: Hepatitis A Antibody IgM Non-Reactive (Non-Reactive); Hepatitis B Core IgM Non-Reactive (Non-Reactive); Hepatitis B Surface Antigen Non-Reactive (Non-Reactive); Hepatitis C IgG Antibody Non-Reactive (Non-Reactive)
[2020-02-05] MEDS: OLANZapine 10 MG TAB PO SCH (21:16)
[2020-02-05] MEDS: MONTELUKAST 10 MG TAB PO SCH (21:16)
[2020-02-05] MEDS: ACETAMINOPHEN TAB 325 MG TAB PO PRN (21:16)
[2020-02-06 00:14] LABS: Hemoglobin A1C 5.5 % (4.0-6.0)
[2020-02-06] MEDS: OLANZapine 5 MG TAB PO PRN (02:17)
[2020-02-06] MEDS: NICOTINE POLACRILEX 2 MG GUM BUCCAL PRN ×5 (02:17→23:08)
[2020-02-06] MEDS: lisinopriL 10 MG TAB PO SCH (08:37)
[2020-02-06] MEDS: FERROUS SULFATE 325 MG TAB PO SCH (08:37)
[2020-02-06] MEDS: PANTOPRAZOLE 40 MG TABLET PO SCH (08:37)
[2020-02-06] MEDS: buPROPion XL 150 MG TAB.ER.24H PO SCH (08:37)
[2020-02-06] MEDS: GABAPENTIN 300 MG CAP PO SCH ×3 (08:37→21:27)
[2020-02-06] MEDS: SERTRALINE 100 MG TAB PO SCH (08:38)
[2020-02-06] MEDS: LORazepam 1 MG TAB PO PRN ×2 (15:00→22:12)
[2020-02-06] MEDS: MONTELUKAST 10 MG TAB PO SCH (21:27)
[2020-02-06] MEDS: OLANZapine 10 MG TAB PO SCH (21:27)
[2020-02-06] MEDS: ZIPRASIDONE 20 MG VIAL IM PRN (23:08)
--- NOTE | 2020-02-07 09:23 | PN ---
PROGRESS NOTE DATE OF SERVICE: 02/06/2020. CHIEF COMPLAINT: The patient was admitted for depression and relapse to heroin. INTERVAL HISTORY: Patient has been doing fair. She had a quiet day yesterday. She said she was doing fairly well yesterday. Her mood was better. She had a better outlook. She attended groups. I refer the reader to group notes as the patient did have ups and downs in different groups during the day yesterday. She said she had quite a bit of anxiety last night and took Ativan 1 mg at 11:00 pm. In addition, she woke up at 2 in the morning and was apparently in a distressed state. She ended up taking Zyprexa 5 mg p.r.n. She said the Zyprexa helped her get back to sleep and she slept the rest of the night. Today she has been up. She says today her mood is somewhat down compared to yesterday. She cannot really identify issues one way or another. Overall, she feels that she has been making progress. She acknowledges that she does get stressed out some where she will get tight in her shoulders and neck. She has been cooperative with care. She tolerates her psychotropic medications. MENTAL STATUS: Patient sat without restlessness. She gave good eye contact. Psychomotor activity was a little slowed. She answered questions with brief responses. She had a somewhat anxious affect. She was a little withdrawn. Her mood was reserved. She seemed somewhat distressed though had an appropriate conversation about treatment. There was no indication of thought disorder. She voiced no thoughts of harm. Cognition was clear. ASSESSMENT: I will continue the current diagnosis and treatment plan, continue psychotropic medications the same. I reviewed psychotropic medications with the patient as noted. She is on a complex medication regimen. I encouraged the patient to avoid Ativan given her issues of substance dependence and relapse. I encouraged the patient to do a physical activity program to help relax her body. We will continue to focus on stabilization and discharge planning. MMMATHEUSL / ANTHONYN: [id number] /
[2020-02-07] MEDS: buPROPion XL 150 MG TAB.ER.24H PO SCH (09:34)
[2020-02-07] MEDS: FERROUS SULFATE 325 MG TAB PO SCH (09:34)
[2020-02-07] MEDS: lisinopriL 10 MG TAB PO SCH (09:34)
[2020-02-07] MEDS: PANTOPRAZOLE 40 MG TABLET PO SCH (09:34)
[2020-02-07] MEDS: GABAPENTIN 300 MG CAP PO SCH ×3 (09:34→21:03)
[2020-02-07] MEDS: SERTRALINE 100 MG TAB PO SCH (09:34)
[2020-02-07] MEDS: NICOTINE POLACRILEX 2 MG GUM BUCCAL PRN ×5 (09:38→21:46)
[2020-02-07] MEDS ORDERED: buPROPion XL 300 MG TAB.ER.24H PO SCH (10:30)
[2020-02-07] MEDS: LORazepam 1 MG TAB PO PRN ×2 (10:39→19:42)
[2020-02-07] MEDS: ACETAMINOPHEN TAB 325 MG TAB PO PRN (10:39)
[2020-02-07] MEDS ORDERED: buPROPion XL 150 MG TAB.ER.24H PO ONE (11:00)
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
[2020-02-07] MEDS: OLANZapine 10 MG TAB PO SCH (20:32)
[2020-02-07] MEDS: MONTELUKAST 10 MG TAB PO SCH (20:32)
[2020-02-07] MEDS: OLANZapine 5 MG TAB PO PRN (22:21)
[2020-02-07] MEDS ORDERED: ZIPRASIDONE 20 MG VIAL IM ONE (22:48)
[2020-02-07] MEDS: ZIPRASIDONE 20 MG VIAL IM PRN (22:55)
[2020-02-08] MEDS: PANTOPRAZOLE 40 MG TABLET PO SCH (08:59)
[2020-02-08] MEDS: lisinopriL 10 MG TAB PO SCH (08:59)
[2020-02-08] MEDS: FERROUS SULFATE 325 MG TAB PO SCH (08:59)
[2020-02-08] MEDS: GABAPENTIN 300 MG CAP PO SCH ×3 (08:59→20:44)
[2020-02-08] MEDS: NICOTINE POLACRILEX 2 MG GUM BUCCAL PRN ×4 (09:00→20:04)
[2020-02-08] MEDS: buPROPion XL 300 MG TAB.ER.24H PO SCH (09:00)
[2020-02-08] MEDS: SERTRALINE 100 MG TAB PO SCH (09:00)
--- NOTE | 2020-02-08 11:31 | P.PN ---
Subjective Progress Note Date: 02/08/20 Principal diagnosis: Major depression recurrent severe Polysubstance abuse Subjective: The patient did not sleep well last night and that she'll be back in the hospital shortly if she doesn't get a good night sleep otherwise she plans on going and stay with her and work hard in outpatient therapy. Objective: The patient has been attending groups noted to participate well both with patients and staff focused is fair does not need much help Staff assessment patient is up on the unit bright and social with staff was somewhat preoccupied with whether she had to go to rehab or not feeling she could go home and be able to not use substances her has been able get off of drugs and can be a support for takes care of her hygiene adequately is oriented or some place time and circumstance denies hallucinations or delusions is somewhat anxious but feels that she can get a good night's sleep she will be able to function. Assessment plan we are going to give her increased dose of Zyprexa tonight she should sleep well and discharge her Objective - Vital Signs Vital signs: Vital Signs Temp 98.4 F 02/06/20 02:21 Pulse 96 02/08/20 09:03 Resp 18 02/08/20 09:03 BP 123/69 02/08/20 09:03 Pulse Ox 98 02/04/20 02:14 - Labs CBC & Chem 7: 02/05/20 07:44 02/05/20 07:44
[2020-02-08] MEDS: LORazepam 1 MG TAB PO PRN ×2 (15:22→22:26)
[2020-02-08] MEDS: ACETAMINOPHEN TAB 325 MG TAB PO PRN (17:44)
[2020-02-08] MEDS: MONTELUKAST 10 MG TAB PO SCH (20:44)
[2020-02-08] MEDS ORDERED: OLANZapine 10 MG TAB PO SCH (21:00)
[2020-02-08] MEDS: ZIPRASIDONE 20 MG VIAL IM PRN (23:12)
--- NOTE | 2020-02-09 08:46 | P.DS ---
Providers Date of admission: 02/03/20 17:26 Expected date of discharge: 02/09/20 Attending physician: Lauren Carreon MD Consults: 02/03/20 19:44 Consult Physician Routine Consulting Provider: Johny Terry Consult Reason/Comments: medical management Do you want consulting provider notified?: Already Contacted Primary care physician: Stated None Hospital Course: Patient was admitted to the psychiatric unit on 02/02 being discharged on 02/08 Diagnosis on admission and discharge: Cruz. depression recurrent severe Polysubstance use disorder Hospital course: The patient was restarted on Zoloft at 100 a day plus Wellbutrin XL 300. She took both in the morning because slight difficulty with sleep she had been on Seroquel and changing over to olanzapine due to restless leg syndrome on olanzapine 20 she did not have restless leg syndrome but she does still has some difficulty sleeping. Trazodone worked in the past. Restless leg syndrome so were going to try Ambien 10 when necessary Groups: The patient has attended well and does participate. She is somewhat restless coming in and out but staying most of the group. She is compliant and talks with staff and patient Staff assessment: The patient is calm and composed somewhat anxious. She asked for extra Geodon last night. She is oriented to person place time and circumstance does not require help with ADLs denies suicidal or homicidal thoughts does not have any iesha psychotic symptoms she had a strange complaint that when she closes her eyes she can see things as if her eyes were open. Mental status exam: Patient is pleasant good eye contact quicker response time gait and station are normal psychomotor activity is normal self-care is good she was positive about wanting to get out and work on her relationship with . Her abstract skills are good we discussed steps in attaining her goals and she was able to retain them appreciate them and repeat them. He is not aggressive is oriented to person place time and circumstances tearfulness. She denies any suicidal or homicidal thoughts does not appear to be responding to voices Plan discharge the patient has follow-up for medications and counseling and I'll give her a month's supply of medication Assessment: Assessment: The patient is calm down a good attention logical committed to do the work necessary to make her relationship work after discharge willing to go to groups and take medication and is positive about the benefit of the medication. I believe that she is safe for discharge Health Concerns: Patient has a history of asthma but has not had much trouble in here also anemia no acute problems while in the hospital Pertinent Studies: Vital signs: Temperature 98.6 heart rate 96 respiration 18 blood pressure 123/69 Labs: Hematology was fine on 912 except for slightly and platelet count and she have 115 minutes 111 and had come up some, probably due to nutrition General chemistry showed liver enzyme problems and drug screen was positive for cocaine Procedures: None Patient Condition at Discharge: Fair Plan - Discharge Summary New Discharge Prescriptions: No Action traZODone HCL 300 mg PO HS Cholecalciferol [Vitamin D3 (25 Mcg = 1000 Iu)] 5,000 unit PO DAILY QUEtiapine FUMARATE [SEROquel] 300 mg PO HS Montelukast Sodium [Singulair] 10 mg PO HS Prazosin HCl 2 mg PO HS PRN PRN Reason: NIGHTMARES Omeprazole 20 mg PO DAILY Gabapentin [Neurontin] 300 mg PO TID Albuterol Sulfate [Proair Hfa] 2 puff INHALATION RT-Q6H PRN PRN Reason: Shortness Of Breath Lisinopril [Zestril] 10 mg PO DAILY lamoTRIgine See Taper PO DIRECTED hydrOXYzine pamoate [hydrOXYzine PAMOATE] 25 mg PO BID PRN PRN Reason: Anxiety Ferrous Sulfate Ec 324mg 2 tab PO DAILY Venlafaxine HCl ER [Effexor Xr] 300 mg PO QAM Varenicline Tartrate [Chantix Starter Pack] 0.5 mg PO DIRECTED Loratadine [Claritin] 10 mg PO DAILY PRN PRN Reason: Allergy Symptoms Baclofen 10 mg PO DAILY PRN PRN Reason: Muscle Pain Discharge Medication List traZODone HCL 300 mg PO HS 05/07/16 [History] Albuterol Sulfate [Proair Hfa] 2 puff INHALATION RT-Q6H PRN 02/03/20 [History] Baclofen 10 mg PO DAILY PRN 02/03/20 [History] Cholecalciferol [Vitamin D3 (25 Mcg = 1000 Iu)] 5,000 unit PO DAILY 02/03/20 [History] Ferrous Sulfate Ec 324mg 2 tab PO DAILY 02/03/20 [History] Gabapentin [Neurontin] 300 mg PO TID 02/03/20 [History] Lisinopril [Zestril] 10 mg PO DAILY 02/03/20 [History] Loratadine [Claritin] 10 mg PO DAILY PRN 02/03/20 [History] Montelukast Sodium [Singulair] 10 mg PO HS 02/03/20 [History] Omeprazole 20 mg PO DAILY 02/03/20 [History] Prazosin HCl 2 mg PO HS PRN 02/03/20 [History] QUEtiapine FUMARATE [SEROquel] 300 mg PO HS 02/03/20 [History] Varenicline Tartrate [Chantix Starter Pack] 0.5 mg PO DIRECTED 02/03/20 [History] Venlafaxine HCl ER [Effexor Xr] 300 mg PO QAM 02/03/20 [History] hydrOXYzine pamoate [hydrOXYzine PAMOATE] 25 mg PO BID PRN 02/03/20 [History] lamoTRIgine See Taper PO DIRECTED 02/03/20 [History] Follow up Appointment(s)/Referral(s): [facility] [Outside] - 02/10/20 2:30 pm (02-10-20 @ 2:30 with Emily Payne by phone 02-14-20 @ 9:[address] Byrd at [facility] office) None,Stated [Primary Care Provider] - 1-2 days Activity/Diet/Wound Care/Special Instructions: Activity and diet as tolerated. Avoid the use of street drugs and alcohol. Take all medications as prescribed. When you are in need of refills on your medications please contact your medical provider and/or outpatient psychiatrist to have this done. Please go to scheduled outpatient appointment for aftercare treatment. If symptoms return or become worse, call the crisis line at and/or go to the nearest emergency room for evaluation.
[2020-02-09] MEDS ORDERED: ZOLPIDEM 5 MG TAB PO PRN (08:53)
[2020-02-09] MEDS: buPROPion XL 300 MG TAB.ER.24H PO SCH (09:04)
[2020-02-09] MEDS: FERROUS SULFATE 325 MG TAB PO SCH (09:04)
[2020-02-09] MEDS: SERTRALINE 100 MG TAB PO SCH (09:05)
[2020-02-09] MEDS: PANTOPRAZOLE 40 MG TABLET PO SCH (09:05)
[2020-02-09] MEDS: lisinopriL 10 MG TAB PO SCH (09:05)
[2020-02-09] MEDS: NICOTINE POLACRILEX 2 MG GUM BUCCAL PRN (09:05)
[2020-02-09] MEDS: GABAPENTIN 300 MG CAP PO SCH (09:05)
[2020-02-09 09:08] VITALS: BP 150/78; PULSE 90; RESP 20; TEMP 99.2
== END 2020-02-09 10:14 | disposition home or self-care (01) | DRG 885 ==
LOC: EC 09:27 → 3MHU 17:26
PROVIDERS: ADMIT Psychiatry & Neurology Psychiatry; ATTEND Psychiatry & Neurology Psychiatry
DX: F33.2 Major depressive disorder, recurrent severe without psychotic features (principal); D69.42 Congenital and hereditary thrombocytopenia purpura; R45.851 Suicidal ideations; Z91.14 Patient's other noncompliance with medication regimen; F60.3 Borderline personality disorder; F19.10 Other psychoactive substance abuse, uncomplicated; J45.909 Unspecified asthma, uncomplicated; F41.9 Anxiety disorder, unspecified; F43.10 Post-traumatic stress disorder, unspecified; K21.9 Gastro-esophageal reflux disease without esophagitis; F17.200 Nicotine dependence, unspecified, uncomplicated; G25.81 Restless legs syndrome; F11.90 Opioid use, unspecified, uncomplicated; G47.9 Sleep disorder, unspecified; R74.0 Nonspecific elevation of levels of transaminase and lactic acid dehydrogenase [LDH]; G62.9 Polyneuropathy, unspecified; Z79.899 Other long term (current) drug therapy; Z98.890 Other specified postprocedural states; Z91.5 Personal history of self-harm; Z82.49 Family history of ischemic heart disease and other diseases of the circulatory system; Z81.1 Family history of alcohol abuse and dependence
CPT/HCPCS: 36415; 80053; 80061; 80074; 80306; 80320; 80329; 81025; 82075; 83036; 83520; 84443; 85025; 93005; 99285

== ENCOUNTER → 2020-02-14 | Outpatient (CLI) | payer MEDICARE, MEDICAID ==
--- NOTE | 2020-02-14 13:57 | XR ---
EXAMINATION TYPE: XR chest 2V DATE OF EXAM: 02/14/2020 COMPARISON: Prior chest x-ray 12/30/2011 HISTORY: Chest pain TECHNIQUE: Frontal and lateral views of the chest are obtained. FINDINGS: There is no focal air space opacity, pleural effusion, or pneumothorax seen. The cardiac silhouette size is within normal limits. The osseous structures are intact, there is a slight spina l curvature. IMPRESSION: No acute cardiopulmonary process.
== END | disposition home or self-care (01) ==
LOC: RADXRMAIN 12:43
PROVIDERS: ATTEND Nurse Practitioner
DX: R07.9 Chest pain, unspecified (principal)
CPT/HCPCS: 71046

== ENCOUNTER 2020-02-29 21:03 | Inpatient (IN) | payer MEDICARE, MEDICAID ==
[2020-02-29 22:40] LABS: Appearance,Urine Clear (Clear); Bilirubin,Urine Negative (Negative); Blood,Urine Negative (Negative); Color,Urine Yellow; Glucose,Urine (UA) Negative (Negative); Ketones,Urine Negative (Negative); Leukocyte Esterase,Urine Negative (Negative); Nitrite,Urine Negative (Negative); PH, Urine 6.5 (5.0-8.0); Protein,Urine Negative (Negative); Specific Gravity,Urine 1.024 (1.001-1.035)
[2020-02-29 22:54] LABS: Amphetamine Screen,Urine Not Detected (NotDetected); Barbiturate Screen,Urine Not Detected (NotDetected); Benzodiazepines Screen,Urine Detected (NotDetected); Cocaine Screen,Urine Detected (NotDetected); Methadone Screen, Urine Not Detected (NotDetected); Opiate Screen,Urine Not Detected (NotDetected); Phencyclidine Screen,Urine Not Detected (NotDetected); Tricyclic Antidepressant,Urine Not Detected (NotDetected); Urn Cannabinoid Scrn Not Detected (NotDetected)
[2020-02-29 22:55] LABS: Oxycodone Screen, Urine Not Detected (NotDetected)
--- NOTE | 2020-02-29 23:19 | ED ---
Psych HPI - General Chief Complaint: Psychiatric Symptoms Stated Complaint: Mental Health Time Seen by Provider: 02/29/20 21:10 Source: patient, EMS Mode of arrival: ambulatory - History of Present Illness Initial Comments: Patient is a 39-year-old female presenting to the emergency department for psychiatric evaluation. Patient was brought in by police and was petitioned. Patient states she is having suicidal thoughts and does have a plan to take a lot of pills or to slit her wrists. She states she is also hearing voices as well as seeing people in front of her that are not in the same room. Patient states her medications were recently changed and she does not feel like they're strong enough. She denies any homicidal thoughts. She denies any alcohol today, she states that she has had relapses in the past with other drugs. She denies any pain, recent fever or chills. She has no further complaints. - Related Data Home Medications Medication Instructions Recorded Confirmed Albuterol Sulfate [Proair Hfa] 2 puff INHALATION RT-Q6H PRN 02/03/20 03/01/20 Baclofen 10 mg PO DAILY PRN 02/03/20 03/01/20 Cholecalciferol [Vitamin D3 (25 5,000 unit PO DAILY 02/03/20 03/01/20 Mcg = 1000 Iu)] Gabapentin [Neurontin] 300 mg PO TID 02/03/20 03/01/20 Lisinopril [Zestril] 10 mg PO DAILY 02/03/20 03/01/20 Loratadine [Claritin] 10 mg PO DAILY PRN 02/03/20 03/01/20 Montelukast Sodium [Singulair] 10 mg PO HS 02/03/20 03/01/20 Omeprazole 20 mg PO DAILY 02/03/20 03/01/20 Prazosin HCl 2 mg PO HS PRN 02/03/20 03/01/20 OLANZapine 20 mg PO HS 02/29/20 03/01/20 Sertraline HCl [Zoloft] 200 mg PO DAILY 02/29/20 03/01/20 Previous Rx's Medication Instructions Recorded Ferrous Sulfate [Iron (65 MG 325 mg PO DAILY tab 02/09/20 Elemental)] Zolpidem [Ambien] 5 mg PO HS PRN 30 Days #20 tab 02/09/20 buPROPion XL [Wellbutrin XL] 300 mg PO DAILY 30 Days #30 02/09/20 tab.er.24h hydrOXYzine pamoate [hydrOXYzine 25 mg PO BID PRN 30 Days #60 cap 02/09/20 PAMOATE] Allergies Allergy/AdvReac Type Severity Reaction Status Date / Time nicotine Allergy Intermediate Rash/Hives Verified 03/01/20 01:58 Review of Systems ROS Statement: Those systems with pertinent positive or pertinent negative responses have been documented in the HPI. ROS Other: All systems not noted in ROS Statement are negative. 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 History of Any Multi-Drug Resistant Organisms: None Reported Past Surgical History: Tonsillectomy Additional Past Surgical History / Comment(s): right knee surgery, Additional Past Anesthesia/Blood Transfusion Reaction / Comment(s): n/a Past Psychological History: Anxiety, Bipolar, Depression, PTSD Smoking Status: Current every day smoker Past Alcohol Use History: Occasional Past Drug Use History: Heroin, Marijuana - Past Family History Mother Family Medical History: Hypertension General Exam - General Exam Comments Initial Comments: GENERAL: Patient is well-developed and well-nourished. Patient is nontoxic and in no acute distress. HEAD: Atraumatic, normocephalic. EYES: Pupils equal round and reactive to light, extraocular movements intact, sclera anicteric, conjunctiva are normal. Eyelids were unremarkable. ENT: TMs normal, nares patent, oropharynx clear without exudates. Moist mucous membranes. NECK: Normal range of motion, supple without lymphadenopathy or JVD. LUNGS: Unlabored respirations. Breath sounds clear to auscultation bilaterally and equal. No wheezes rales or rhonchi. HEART: Regular rate and rhythm without murmurs, rubs or gallops. ABDOMEN: Soft, nontender, normoactive bowel sounds. No guarding, no rebound. No masses appreciated. : Deferred MUSCULOSKELETAL: Normal extremities with adequate strength and normal range of motion, no pitting or edema. No clubbing or cyanosis. NEUROLOGICAL: Patient is alert and oriented x 3. Motor and sensory are also intact. Cranial nerves II through XII grossly intact. Symmetrical smile. Normal speech, normal gait. PSYCH: Normal mood. SKIN: Warm, Dry, normal turgor, no rashes or lesions noted. Limitations: no limitations Course Vital Signs 02/29/20 03/01/20 21:05 01:00 Temperature 97.8 F 98.5 F Pulse Rate 103 H 84 Respiratory 18 18 Rate Blood Pressure 117/69 124/84 O2 Sat by Pulse 98 98 Oximetry - Reevaluation(s) Reevaluation #1: 02/29/20 23:19 Patient's care was transferred to Dr. Clemente at 11:19 PM. Patient is awaiting EPS evaluation. Medical Decision Making - Medical Decision Making Patient is a 39-year-old female here for psychiatric evaluation. She was petitioned by police after stating she is having suicidal thoughts and does have a plan to take a lot of pills or slit her wrist. Denies any homicidal thoughts. Patient's urine is negative for , and is positive for benzos and cocaine. Patient was evaluated by EPS and will be admitted in the psychiatric unit. - Lab Data Result diagrams: 03/02/20 06:51 03/02/20 06:51 Lab Results 02/29/20 02/29/20 Range/Units 22:25 22:25 Urine Color Yellow Urine Appearance Clear (Clear) Urine pH 6.5 (5.0-8.0) Ur Specific [place] 1.024 (1.001-1.035) Urine Protein Negative (Negative) Urine Glucose (UA) Negative (Negative) Urine Ketones Negative (Negative) Urine Blood Negative (Negative) Urine Nitrite Negative (Negative) Urine Bilirubin Negative (Negative) Urine Urobilinogen 2.0 (<2.0) mg/dL Ur Leukocyte Esterase Negative (Negative) Urine HCG, Qual Not Detected (Not Detectd) Urine Opiates Screen Not Detected (NotDetected) Ur Oxycodone Screen Not Detected (NotDetected) Urine Methadone Screen Not Detected (NotDetected) Ur Propoxyphene Screen Not Detected (NotDetected) Ur Barbiturates Screen Not Detected (NotDetected) U Tricyclic Antidepress Not Detected (NotDetected) Ur Phencyclidine Scrn Not Detected (NotDetected) Ur Amphetamines Screen Not Detected (NotDetected) U Methamphetamines Scrn Not Detected (NotDetected) U Benzodiazepines Scrn Detected H (NotDetected) Urine Cocaine Screen Detected H (NotDetected) U Marijuana (THC) Screen Not Detected (NotDetected) Disposition Clinical Impression: Suicidal ideation Disposition: TRANSFER TO PSYCH HOSP/UNIT
[2020-03-01] MEDS ORDERED: LORazepam 1 MG TAB PO STA (00:20)
[2020-03-01] MEDS ORDERED: MAGNESIUM HYDROXIDE 2,400 MG/10 ML CUP PO PRN (01:40)
[2020-03-01] MEDS ORDERED: ACETAMINOPHEN TAB 325 MG TAB PO PRN (01:40)
[2020-03-01] MEDS ORDERED: PRAZOSIN 1 MG CAP PO PRN (01:46)
[2020-03-01] MEDS ORDERED: ALBUTEROL NEBULIZED 2.5 MG/3 ML INHALATION PRN (01:46)
[2020-03-01] MEDS ORDERED: BACLOFEN 10 MG TAB PO PRN (01:46)
[2020-03-01] MEDS ORDERED: LORATADINE 10 MG TAB PO PRN (01:46)
--- NOTE | 2020-03-01 02:03 | P.EN ---
notified by RN of new consult, however, patient not appropriate for evaluation at this time due to sedation please notify [facility] physicians group when patient is ready
[2020-03-01] MEDS: hydrOXYzine pamoate 25 MG CAP PO PRN ×3 (03:10→22:56)
[2020-03-01] MEDS: NICOTINE POLACRILEX 2 MG GUM BUCCAL PRN ×4 (04:29→22:01)
[2020-03-01] MEDS: lisinopriL 10 MG TAB PO SCH (07:35)
[2020-03-01] MEDS: CHOLECALCIFEROL 1,000 UNIT TAB PO SCH (07:35)
[2020-03-01] MEDS: GABAPENTIN 300 MG CAP PO SCH ×4 (07:37→21:59)
[2020-03-01] MEDS: PANTOPRAZOLE 40 MG TABLET PO SCH (07:37)
[2020-03-01] MEDS: FERROUS SULFATE 325 MG TAB PO SCH (07:37)
[2020-03-01] MEDS: ZIPRASIDONE 20 MG VIAL IM PRN (07:50)
[2020-03-01] MEDS ORDERED: buPROPion XL 300 MG TAB.ER.24H PO SCH (09:00)
--- NOTE | 2020-03-01 12:27 | P.HP ---
Psychiatric H&P - . H&P Date: 03/01/20 History & Physical: Allergies Allergy/AdvReac Type Severity Reaction Status Date / Time nicotine Allergy Intermediate Rash/Hives Verified 03/01/20 01:58 Vital Signs Temp 98.2 F 03/01/20 01:10 Pulse 97 03/01/20 07:40 Resp 14 03/01/20 01:10 BP 134/70 03/01/20 07:40 Pulse Ox 96 03/01/20 01:10 Intake & Output 02/29/20 03/01/20 03/01/20 18:59 06:59 18:59 Weight 84.623 kg Laboratory Last Values Urine Color Yellow 02/29/20 22:25 Urine Appearance Clear (Clear) 02/29/20 22:25 Urine pH 6.5 (5.0-8.0) 02/29/20 22:25 Ur Specific [place] 1.024 (1.001-1.035) 02/29/20 22:25 Urine Protein Negative (Negative) 02/29/20 22:25 Urine Glucose (UA) Negative (Negative) 02/29/20 22:25 Urine Ketones Negative (Negative) 02/29/20 22:25 Urine Blood Negative (Negative) 02/29/20 22:25 Urine Nitrite Negative (Negative) 02/29/20 22:25 Urine Bilirubin Negative (Negative) 02/29/20 22:25 Urine Urobilinogen 2.0 mg/dL (<2.0) 02/29/20 22:25 Ur Leukocyte Esterase Negative (Negative) 02/29/20 22:25 Urine HCG, Qual Not Detected (Not Detectd) 02/29/20 22:25 Urine Opiates Screen Not Detected (NotDetected) 02/29/20 22:25 Ur Oxycodone Screen Not Detected (NotDetected) 02/29/20 22:25 Urine Methadone Screen Not Detected (NotDetected) 02/29/20 22:25 Ur Propoxyphene Screen Not Detected (NotDetected) 02/29/20 22:25 Ur Barbiturates Screen Not Detected (NotDetected) 02/29/20 22:25 U Tricyclic Antidepress Not Detected (NotDetected) 02/29/20 22:25 Ur Phencyclidine Scrn Not Detected (NotDetected) 02/29/20 22:25 Ur Amphetamines Screen Not Detected (NotDetected) 02/29/20 22:25 U Methamphetamines Scrn Not Detected (NotDetected) 02/29/20 22:25 U Benzodiazepines Scrn Detected (NotDetected) H 02/29/20 22:25 Urine Cocaine Screen Detected (NotDetected) H 02/29/20 22:25 U Marijuana (THC) Screen Not Detected (NotDetected) 02/29/20 22:25 03/01/20 12:18 IDENTIFYING DATA: Patient is a 39-year-old female with a history of polysubstance abuse who currently lives with her and now as has 4 children that were taken away from her. Patient currently collects Social Security and is unemployed. HPI: Patient presented to the hospital for a psychiatric evaluation brought in by the police. Patient was endorsing suicidal thoughts with a plan to cut her wrists and overdose. Patient was apparently complaining of auditory halluc inations and visual hallucinations stating that she was seeing people in front of her in the ER. Patient did claim to ER staff that her medications that recently been changed. Patient's UDS is positive for benzodiazepines and cocaine. Patient had received a IM Geodon earlier this morning prior to being interviewed for agitation and acute psychosis. Patient was seen by mortgage or loan underwriter in the quiet room as patient was attending asleep. Patient initially appeared to be confused and lethargic and question mortgage or loan underwriter several times "what happened to me". She claims that she was remembering wandering down the hallways however does not know why she is in the hospital. She had slurred speech during the conversation. She attempted to walk briefly however stumbled and had to sit back down. She states that she was having "weird thoughts" and states that her mood has been up and down. She also described ongoing depression and anxiety. She states that her sleep has been poor. She spoke about abusing Xanax as she had "old prescriptions" and when questioned about her other drug use patient denied any other drug use and denied any cocaine use. Patient denies any current suicidal or homicidal ideations intent or plan. At this time patient denies any auditory or visual hallucinations. Patient denies any flight of ideas racing thoughts and increased in goal directed behavior. Patient admits to using Xanax more than what's prescribed and also claims to use cigarettes. She currently denies using any other recreational drugs however does have a history of heroin and marijuana abuse along with cocaine abuse. PAST PSYCHIATRIC HISTORY: Patient states that she has history of bipolar disorder and borderline personality disorder along with polysubstance abuse. Patient was previously on Zyprexa, Zoloft and Vistaril. Patient has been psychiatrically hospitalized several times in the past. Patient currently follows up with Dr. lFores at [facility]. She is claiming that she is had "many suicide attempts" in the past however was guarded. PMH: Asthma ALLERGIES: as per EMR CHEMICAL DEPENDENCY HISTORY: as per HPI FAMILY PSYCHIATRIC/SUBSTANCE USE HISTORY: denies SOCIAL HISTORY: Patient was born and raised in [place] and now currently lives in [place]. She states that she committed high school is not currently working at this time and is collecting Social Security. She states that she lives in a house with her and is had 4 children the past however they have been taken away. She claims that she has a legal history in [facility] 2 years ago for fraud and assault.. MENTAL STATUS EXAM: General Appearance: Patient appears to be stated age is lethargic, difficult to redirect and appears to be confused at times. Patient appears to have poor hygiene and grooming. Behavior: Patient is seated without any agitated behavior. Stumbling and lethargic/confused. Speech: Patient's speech is Slurred speech Mood/Affect: Patient reports their mood is "up and down", affect is congruent and constricted. Suicidality/Homicidality: Patient denies having any homicidal ideation intent or plan. Denies any suicidal ideations intent or plan Perceptions: Patient denies any visual hallucinations and denies any auditory hallucinations Though content/process: Positive content, poverty of speech. Guarded/evasive. Denies any delusions. Memory and concentration: AOX3, poor attention span. Cannot spell "WORLD" backwards Judgment and insight: Chronically poor STRENGTHS/WEAKNESSES: strength is that patient is resilient. Weakness is that patient has poor judgment and is impulsive INTELLECT: average IMPRESSIONS: Bipolar disorder, current episode depressed Borderline personality disorder Cocaine abuse Benzodiazepine abuse Nicotine dependence PLAN: -Patient is admitted under voluntary status to [facility] for stabilization of psychiatric symptoms and safety. Patient has not signed medication consent and is placed in patient's chart. -Medications : Will start patient on Zyprexa 10 mg daily at bedtime for mood stabilization/insomnia. Will also start patient on Prozac 20 mg daily for mood/anxiety. Continue with Vistaril when necessary for anxiety. -Geodon IM PRN for agitation/aggression -Patient was counselled on substance abuse and was superficial about her drug use and desire to cut back. -Patient was informed of the risks, benefits and side effects of the medication and patient verbally consented to taking the medications. Patient signed med consent form and was placed in chart. -Internal Medicine consult to perform medical evaluation and physical. -NRT - nicotine patch -SW on board for discharge planning. Encourage patient to participate in groups to work on coping skills. Patient is currently on a WILL order through [facility]. Patient has relapsed back on drugs and will offer patient rehab when she is improved psychiatrically. 03/01/20 12:25 03/01/20 12:26
[2020-03-01] MEDS: FLUoxetine HCL 20 MG CAP PO SCH ×3 (12:37→16:52)
[2020-03-01] MEDS ORDERED: OLANZapine 10 MG TAB PO SCH (21:00)
[2020-03-01] MEDS: MONTELUKAST 10 MG TAB PO SCH (21:59)
[2020-03-01] MEDS: OLANZapine 10 MG TAB PO SCH (21:59)
[2020-03-02] MEDS: NICOTINE POLACRILEX 2 MG GUM BUCCAL PRN ×3 (06:16→23:58)
[2020-03-02 07:43] LABS: HCT 39.6 % (34.0-46.0); HGB 12.4 gm/dL (11.4-16.0); Hypochromasia Moderate; MCH 28.8 pg (25.0-35.0); MCHC 31.4 g/dL (31.0-37.0); MCV 91.7 fL (80.0-100.0); Platelet Count 100 k/uL (150-450); RBC 4.32 m/uL (3.80-5.40); RDW 14.6 % (11.5-15.5); WBC 7.9 k/uL (3.8-10.6)
[2020-03-02 07:54] LABS: ALT 138 U/L (4-34); AST 124 U/L (14-36); African American GFR (CKD) >90 (>60 ml/min/1.73 sqM); Albumin 3.7 g/dL (3.5-5.0); Alkaline Phosphatase 62 U/L (38-126); Anion Gap 7 mmol/L; Bilirubin, Delta 0.4 mg/dL (0.0-0.2); Bilirubin,Unconjugated 0.2 mg/dL (0.0-1.1); Blood Urea Nitrogen 13 mg/dL (7-17); Carbon Dioxide 22 mmol/L (22-30); Chloride 111 mmol/L (98-107); Cholesterol 151 mg/dL (<200); Glucose 100 mg/dL (74-99); HDL Cholesterol 66 mg/dL (40-60); LDL Cholesterol,Calculated 67 mg/dL (0-99); Non-African American GFR(CKD) >90 (>60 ml/min/1.73 sqM); Potassium 4.5 mmol/L (3.5-5.1); Sodium 140 mmol/L (137-145); Total Bilirubin 0.6 mg/dL (0.2-1.3); Total Protein 6.5 g/dL (6.3-8.2); Triglycerides 92 mg/dL (<150)
[2020-03-02] MEDS: FERROUS SULFATE 325 MG TAB PO SCH (08:01)
[2020-03-02] MEDS: FLUoxetine HCL 20 MG CAP PO SCH (08:01)
[2020-03-02] MEDS: PANTOPRAZOLE 40 MG TABLET PO SCH (08:01)
[2020-03-02] MEDS: CHOLECALCIFEROL 1,000 UNIT TAB PO SCH (08:01)
[2020-03-02] MEDS: GABAPENTIN 300 MG CAP PO SCH ×3 (08:01→21:53)
[2020-03-02] MEDS: lisinopriL 10 MG TAB PO SCH (08:01)
[2020-03-02 08:54] LABS: Band Neutrophils % 2 %; Basophils # (M) 0.08 k/uL (0-0.2); Eosinophils # (M) 0.47 k/uL (0-0.7); Lymphocytes # (M) 1.34 k/uL (1.0-4.8); Monocytes # (M) 0.47 k/uL (0-1.0); Neutrophils % (M) 68 %; Nucleated Red Blood Cells 0 /100 WBC (0-0); Total Cells Counted 100
[2020-03-02 09:03] LABS: Large Platelets Present
[2020-03-02] MEDS ORDERED: ZIPRASIDONE 20 MG VIAL IM ONE (11:05)
[2020-03-02] MEDS ORDERED: WATER FOR INJECTION, STERILE 10 ML IV ONE (11:05)
[2020-03-02] MEDS: hydrOXYzine pamoate 25 MG CAP PO PRN ×2 (11:07→23:56)
[2020-03-02] MEDS: ZIPRASIDONE 20 MG VIAL IM PRN (11:11)
[2020-03-02 11:36] LABS: Hemoglobin A1C 5.3 % (4.0-6.0)
[2020-03-02] MEDS: OLANZapine 5 MG TAB PO SCH ×2 (12:51→17:13)
[2020-03-02] MEDS ORDERED: OLANZapine 5 MG TAB PO SCH ×2 (14:00→21:00)
--- NOTE | 2020-03-02 16:32 | PN ---
PROGRESS NOTE DATE OF SERVICE: 03/02/2020 CHIEF COMPLAINT: The patient had auditory and visual hallucinations. She had depression with suicidal thoughts of cutting her wrists and overdose. She was positive for benzodiazepines and cocaine. INTERVAL HISTORY: The patient has been doing fair. She had a quiet day yesterday. She comes out in the day area. She wonders about. She will interact some with others. She has on and off complaints of anxiety. She received some p.r.n. medications yesterday including Geodon in the morning for agitation and Vistaril in the evening for anxiety. She did not attend any groups yesterday. She slept fair today, she has been up. She attended groups today. In one group the note read "the patient while supportive of others in sharing openly appeared defeated due to return to hospital and decline after discharge. The patient notes a long history of substance use issues including marijuana, opioids, cocaine, methamphetamine and benzodiazepines on her last admission of February 03. She apparently had overdosed on its Seroquel and said she injected a g of heroin, which she thought might be fatal. On discharge in spite of her substance use issues, she was prescribed Ambien 5 mg a day. She saw Sayed he had on February 13. Saylara noted that she had been taking Ambien 10 mg a day. She also stated that coming into her last hospital stay, she had taken an excessive amount of Xanax stating stating "I was high on Xanax. They say I took 20 Xanax. I was calling police and ambulance showed up in took me to the hospital." Noted the patient had been on Suboxone since August 2018 and when off Suboxone with her last prescription being October 21, 2019. Patient stated that she had a diagnosis of seizure disorder. 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 She stated she was in the basement of her house and having a full conversation with her , though the was not there. She has also made the statement as follows "doesn't understand point of being alive, thoughts about killing people to stop their suffering." Patient acknowledged that she has not used cocaine at least 1 time within the last day or 2 leading up to this hospitalization. She stated that she had otherwise not been using abusive substances. She acknowledged continued to have struggle with depression and worthless feelings. She dates that back to the last 6 months at least. She said medicines that have worked the best for her have included Effexor and Cymbalta. She stated she had a period of being clean of all abusive substances for about 18 months, during a and . She notes that she has been sleeping poorly. Physical complaints have included swollen lymph nodes, sore throat and a diagnosis of EBV. I had a telephone conversation with the patient's on speaker phone with the patient. The was aware that she had done the cocaine. The confirmed the recent events that she had been apparently sleeping and then had in usual events of seeing flashes and people. She acknowledged that the patient has had some people that she has had contacts with that likely had provided drugs to her. The two of them have had conflicts in their relationship including relating to other people that the felt were a bad influence on her. At her last [facility] appointment on the , she was prescribed Zyprexa 20 mg a day and Zoloft 100 mg a day. The patient reported no problems or issues with her current psychotropic medications. MENTAL STATUS: Patient was quite restless. She answered questions with direct responses at times. Her answers were vague and she was unable to provide accurate details. She did have complaint of memory issues. Her affect was blunted. Her mood depressed. She was moderately distressed. There was no immediate evidence of thought disorder, though she described hallucinations and delusional thoughts leading up to her hospitalization. She acknowledged some passive thoughts about being better off , though she denied any plan or impulse. On cognitive exam, she did make an effort to answer formal cognitive questions. She also stated during the interview that she could not remember specific details over the last several days leading up to her hospitalization. ASSESSMENT: I will continue the current diagnosis and treatment plan. Will continue to make efforts to engage the patient in individual and group therapeutic activities. I will discontinue p.r.n. Ativan given the patient's long-term substance use history. Patient has been having some anxiety complaints, I will add Zyprexa 5 mg in the morning, 5 mg in the afternoon in addition to her 10 mg at bedtime. This would be equivalent to the dose that she received at [facility] of 20 mg a day. I will continue Prozac 20 mg a day. I had an extensive discussion with the patient regarding substance withdrawal issues. She likely is in the early acute withdrawal from multiple abusive substances that led up to her last hospitalization February 03 as well as her current hospitalization. We discussed time course of withdrawal and nonpharmacologic interventions to help manage early withdrawal over the next 6-12 weeks. We discussed a therapeutic walking program and other activities to help manage withdrawal. We will focus on stabilization and discharge planning. CHAR / ANTHONYN: [id number] /
[2020-03-02] MEDS: MONTELUKAST 10 MG TAB PO SCH (21:53)
[2020-03-02] MEDS: OLANZapine 10 MG TAB PO SCH (21:53)
[2020-03-03] MEDS: ZIPRASIDONE 20 MG VIAL IM PRN ×2 (01:23→16:08)
[2020-03-03] MEDS: NICOTINE POLACRILEX 2 MG GUM BUCCAL PRN ×5 (03:31→22:35)
[2020-03-03] MEDS: PANTOPRAZOLE 40 MG TABLET PO SCH (08:22)
[2020-03-03] MEDS: lisinopriL 10 MG TAB PO SCH (08:23)
[2020-03-03] MEDS: FERROUS SULFATE 325 MG TAB PO SCH (08:23)
[2020-03-03] MEDS: CHOLECALCIFEROL 1,000 UNIT TAB PO SCH (08:23)
[2020-03-03] MEDS: GABAPENTIN 300 MG CAP PO SCH ×3 (08:23→21:20)
[2020-03-03] MEDS: FLUoxetine HCL 20 MG CAP PO SCH (08:23)
[2020-03-03] MEDS: OLANZapine 5 MG TAB PO SCH ×2 (08:24→13:35)
--- NOTE | 2020-03-03 11:13 | PN ---
PROGRESS NOTE DATE OF SERVICE: 03/03/2020 CHIEF COMPLAINT: The patient had auditory and visual hallucination. She had depression with suicidal thoughts of cutting her wrists and overdose. She was positive for benzodiazepines and cocaine. INTERVAL HISTORY: Patient has been doing fair. She had a quiet day yesterday. She attended 2 groups. At times she did seem quite distracted in the groups. She also made references to her poor self-esteem. She comes out in the day area. She will interact some with others. She tends to have a quiet, reserved manner. She said she barely slept at all last night. Nursing documented that as of 6 am she had slept 45 minutes in intervals. She was out and engaging in conversation with staff. Today she remains up. She has been out in the day area. She was seen early in the morning. She noted that her mood is fair. She continues to have some down mood. When I discussed issues about her substance use, she acknowledged that she was not fully aware of what was going on with her previous admission, at that time in January she said she had done some heroin, though did not recall doing Xanax. Today she said she remembered that someone had a handful of Xanax and she just started taking one after another, though really was not clear how much she had taken in total as she essentially had a blackout. She says since the discharge February 08, she tends to minimize the substance use that she has had. She is concerned about weight gain on her last admission. Her weight was 176 pounds. on this admission, it is 186 pounds. She is aware that Zyprexa has likely increased her appetite, though she was not aware how much her eating habits may have changed. She otherwise tolerates her psychotropic medications. MENTAL STATUS: Patient sat with a little restlessness. She gave good eye contact. She answered questions appropriately. Her thoughts were clear. She was interactive. Her affect was a little constricted. Her mood was quiet and not clearly down or depressed. She smiled a little during the interview. There was no indication of thought disorder. She voiced no thoughts of harm. Cognition was clear. ASSESSMENT: I will continue the current diagnosis and treatment plan. I will initiate trazodone 100 mg at bedtime for sleep. I discussed at length issues related to Zyprexa and appetite increase. Patient does feel that she could work on better managing her diet and that her appetite has not increased to the point of her not being able to manage her food intake. At this point, she said that she would continue on Zyprexa to help primarily with early withdrawal from her abusive substances. We again discussed that the target date for her would be on Halloween when she could at anticipate at least a moderate relief from acute withdrawal symptoms. We discussed that Prozac at this point is not likely to have significant benefit on her mood, though beyond Halloween if she remains free of abusive substances, she may start seeing more benefit. Also beyond that point, she may be able to taper off Zyprexa without too much difficulty. We will continue to focus on stabilization and discharge planning. CHAR / ANTHONYN: [id number] /
[2020-03-03] MEDS: hydrOXYzine pamoate 25 MG CAP PO PRN ×2 (13:35→21:53)
[2020-03-03] MEDS: BENZOCAINE/MENTHOL LOZENG 1 EACH LOZENGE MUCOUS MEM PRN (14:29)
--- NOTE | 2020-03-03 17:18 | P.MDCNMH ---
History of Present Illness H&P Date: 03/03/20 39-year-old female with PMH of asthma, hypertension, EBV infection presentsto the ED for psychiatric evaluation. She is admitted to mental health unit for further observation and management. Son physicians has been consulted for medical management of this patient. Patient reports being diagnosed with EBV over the summer. She reports swollen lymph nodes as seen on previous computed tomography scan that was ordered for her. She is requesting lozenges for sore throat. She denies any abdominal pain. She denies any headache, lower extremity edema, nausea or vomiting, fever or chills, cough, chest pain, shortness of breath, palpitations, changes in urination or bowel habits. No changes in appetite or weight. She denies any dizziness, numbness/weakness/tingling of extremities. Her vital signs remained stable. CBC shows platelet count of 100. CMP shows chloride of 111, glucose of 100, bilirubin of 0.4, AST of 124, ALT 138. Lipid panel shows HDL of 66. UDS positive for benzodiazepine and cocaine. Review of Systems Pertinent positives and negatives as discussed in HPI, a complete review of systems was performed and all other systems are negative. 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 History of Any Multi-Drug Resistant Organisms: None Reported Past Surgical History: Tonsillectomy Additional Past Surgical History / Comment(s): right knee surgery, Additional Past Anesthesia/Blood Transfusion Reaction / Comment(s): n/a Past Psychological History: Anxiety, Bipolar, Depression, PTSD Smoking Status: Current every day smoker Past Alcohol Use History: Occasional Past Drug Use History: Heroin, Marijuana - Past Family History Mother Family Medical History: Hypertension Medications and Allergies Home Medications Medication Instructions Recorded Confirmed Type RX: Albuterol Sulfate [Proair Hfa] 2 puff INHALATION RT-Q6H PRN 02/03/20 03/01/20 History RX: Baclofen 10 mg PO DAILY PRN 02/03/20 03/01/20 History RX: Cholecalciferol [Vitamin D3 5,000 unit PO DAILY 02/03/20 03/01/20 History (25 Mcg = 1000 Iu)] RX: Gabapentin [Neurontin] 300 mg PO TID 02/03/20 03/01/20 History RX: Lisinopril [Zestril] 10 mg PO DAILY 02/03/20 03/01/20 History RX: Loratadine [Claritin] 10 mg PO DAILY PRN 02/03/20 03/01/20 History RX: Montelukast Sodium [Singulair] 10 mg PO HS 02/03/20 03/01/20 History RX: Omeprazole 20 mg PO DAILY 02/03/20 03/01/20 History RX: Prazosin HCl 2 mg PO HS PRN 02/03/20 03/01/20 History RX: Ferrous Sulfate [Iron (65 MG 325 mg PO DAILY tab 02/09/20 03/01/20 Rx Elemental)] RX: Zolpidem [Ambien] 5 mg PO HS PRN 30 Days #20 tab 02/09/20 03/01/20 Rx RX: buPROPion XL [Wellbutrin XL] 300 mg PO DAILY 30 Days #30 02/09/20 03/01/20 Rx tab.er.24h RX: hydrOXYzine pamoate 25 mg PO BID PRN 30 Days #60 cap 02/09/20 03/01/20 Rx [hydrOXYzine PAMOATE] RX: OLANZapine 20 mg PO HS 02/29/20 03/01/20 History Sertraline HCl [Zoloft] 200 mg PO DAILY 02/29/20 03/01/20 History Allergies Allergy/AdvReac Type Severity Reaction Status Date / Time nicotine Allergy Intermediate Rash/Hives Verified 03/01/20 01:58 Physical Exam Vitals: Vital Signs Temp Pulse Resp BP Pulse Ox 03/03/20 04:47 98.2 F 84 17 128/71 98 General: [non toxic], [no distress], [appears at stated age] Derm: [warm], [dry] Head: [atraumatic], [normocephalic], [symmetric] Eyes: [EOMI], [no lid lag], [anicteric sclera] Mouth: [no lip lesion], [mucus membranes moist] Cardiovascular: [S1S2 reg], [no murmur], [positive DP pulse bilateral], Lungs: [CTA bilateral], [no rhonchi, no rales] , [no accessory muscle use] Abdominal: [soft], [ nontender to palpation], [no guarding], [no appreciable organomegaly] Ext: [no gross muscle atrophy], [no edema], [no contractures] Neuro: [ CN II-XI grossly intact], [no focal neuro deficits] Psych: [Alert], [oriented], [appropriate affect] Cranial Nerve Examination - Cranial Nerves Cranial Nerve II- Optic: Intact Cranial Nerve III- Oculomotor: Intact Cranial Nerve IV- Trochlear: Intact Cranial Nerve V- Trigeminal: Intact Cranial Nerve - Abducens: Intact Cranial Nerve VII- Facial: Intact Cranial Nerve VIII- Auditory: Intact Cranial Nerve IX- Glossopharyngeal: Intact Cranial Nerve X- Vagus: Intact Cranial Nerve XI- Accessory: Intact Cranial Nerve XII- Hypoglossal: Intact Results CBC & Chem 7: 03/02/20 06:51 03/02/20 06:51 Assessment and Plan Assessment: Sore throat Asthma Hypertension Polysubstance abuse Elevated liver enzymes Thrombocytopenia Likely related to recent diagnosis of EBV. Plans: Cepachol lozenges as needed. Plans: Albuterol inhaler as needed. Plans: Continue lisinopril. Monitor vitals, adjust medications if necessary. UDS positive for benzodiazepine and cocaine. Plans: Ativan as needed for agitation. Patient advised to quit. Unknown etiology. Plans: Obtain hepatitis panel. Unknown etiology. No signs of bleeding. Plans: Obtain hepatitis panel. Continue to monitor. Thank you for this consult. Please call with additional questions or concerns.
[2020-03-03] MEDS ORDERED: BENZTROPINE MESYLATE 1 MG TAB PO PRN ×2 (18:27→19:53)
[2020-03-03] MEDS ORDERED: BENZTROPINE MESYLATE 1 MG TAB PO ONE (20:00)
[2020-03-03] MEDS: MONTELUKAST 10 MG TAB PO SCH (21:12)
[2020-03-03] MEDS: traZODone HCL 100 MG TAB PO SCH (21:12)
[2020-03-03] MEDS: OLANZapine 10 MG TAB PO SCH (21:13)
[2020-03-04] MEDS: BENZOCAINE/MENTHOL LOZENG 1 EACH LOZENGE MUCOUS MEM PRN ×5 (01:27→18:39)
[2020-03-04] MEDS: hydrOXYzine pamoate 25 MG CAP PO PRN ×4 (03:58→21:54)
[2020-03-04] MEDS: NICOTINE POLACRILEX 2 MG GUM BUCCAL PRN ×6 (05:07→20:39)
[2020-03-04] MEDS: PANTOPRAZOLE 40 MG TABLET PO SCH (08:47)
[2020-03-04] MEDS: CHOLECALCIFEROL 1,000 UNIT TAB PO SCH (08:47)
[2020-03-04] MEDS: FLUoxetine HCL 20 MG CAP PO SCH (08:49)
[2020-03-04] MEDS: FERROUS SULFATE 325 MG TAB PO SCH (08:49)
[2020-03-04] MEDS: GABAPENTIN 300 MG CAP PO SCH ×3 (08:50→20:39)
[2020-03-04] MEDS: lisinopriL 10 MG TAB PO SCH (08:50)
[2020-03-04] MEDS: OLANZapine 5 MG TAB PO SCH (09:40)
--- NOTE | 2020-03-04 09:41 | P.PN ---
Progress Note - Text Progress Note Date: 03/04/20 Interval history: Patient was seen wandering the hallways and was directable and agreeable to speak with creative services writer. Patient expresses that she has been feeling some muscle tightness around her jaw and throat which she attributes to the increase in Zyprexa as well as requiring Geodon to help her with some agitation. She states that Cogentin has been beneficial. At this time patient denies any suicidal or homicidal ideations intent or plan. Denies any Auditory or visual casanova llucinations. She has been adherent with her medications. She appears to be somewhat med seeking and requesting if she can get something stronger than Vistaril. She does report restlessness at night. Mental status exam: General Appearance: Patient appears to be stated age is alert, directable, and cooperative. Behavior: No agitated behavior. Patient is calm and directable Speech: Patient's speech is fluent and nonpressured. Mood/Affect: Mood is improving mildly, affect is congruent and constricted. Suicidality/Homicidality: Patient denies having any suicidal or homicidal ideation intent or plan. Perceptions: Patient denies any auditory or visual hallucinations. Though content/process: There is no evidence of any delusional thought content and thought process is linear and goal-directed. Memory and concentration: AOX3, grossly intact for the purposes of this session Judgment and insight: improving mildly Assessment/Plan: Continue with current diagnosis. Patient continues to meet criteria for inpatient psychiatric admission for symptom stabilization and safety. We will discontinue patient's daytime Zyprexa and continue Zyprexa 10 mg at bedtime. We will continue Cogentin as needed at this time. No other psychiatric medication adjustment. Discussed with patient decreasing the frequency at which she receives Geodon as it may contribute to akathisia and other EPS symptoms. Monitor for medication compliance and for any psychotropic medication side effects. Will continue to monitor ongoing response to treatment. Encouraged participation in milieu.
[2020-03-04] MEDS: BENZTROPINE MESYLATE 1 MG TAB PO PRN ×3 (10:31→20:39)
[2020-03-04 13:32] LABS: Hepatitis A Antibody IgM Non-Reactive (Non-Reactive); Hepatitis B Core IgM Non-Reactive (Non-Reactive); Hepatitis B Surface Antigen Non-Reactive (Non-Reactive); Hepatitis C IgG Antibody Reactive (Non-Reactive)
--- NOTE | 2020-03-04 15:09 | P.PN ---
Subjective Progress Note Date: 03/04/20 Principal diagnosis: elevated liver function patient is a 39-year-old female admitted to the mental health unit. We saw her for medical H&P yesterday and noted that liver enzymes were elevated and subsequently a ordered hepatitis profile. Patient seen and examined. She reports that she's been having some right upper quadrant pain intermittently. She does have a history of intravenous drug use and had to use. She has been having some fatigue which she had attributed to casanova denise mono early in the summer. General: [non toxic], [no distress], [appears at stated age] Derm: [warm], [dry] Head: [atraumatic], [normocephalic], [symmetric] Eyes: [EOMI], [no lid lag], [anicteric sclera] Mouth: [no lip lesion], [mucus membranes moist] Hepatitis C antibody positive with transaminitis -Suspect recent transmission of hepatitis C as her antibody was negative approximately one month ago and checked -We'll need outpatient follow-up with gastroenterology ORALIA Ware -Patient is aware of diagnosis need for treatment -Patient is aware that she is infected and needs to be careful to prevent transmission -We'll print patient informational packet on hepatitis C. chronic conditions: Asthma Hypertension Polysubstance abuse Chronic thrombocytopenia Thank you for allowing us to participate in the care of this pleasant patient. Do not hesitate to contact us with questions. Someone can be reached from the [facility] hospitalist group all hours of the day at [phone] or via [employer]. Objective - Vital Signs Vital signs: Vital Signs Temp 98.3 F 03/04/20 06:26 Pulse 80 03/04/20 06:26 Resp 16 03/04/20 06:26 BP 138/90 03/04/20 06:26 Pulse Ox 97 03/03/20 20:12 - Labs CBC & Chem 7: 03/02/20 06:51 03/02/20 06:51 Labs: Abnormal Lab Results - Last 24 Hours (Table) 03/04/20 Range/Units 07:14 Hep C IgG Ab Reactive H (Non-Reactive)
[2020-03-04] MEDS: traZODone HCL 100 MG TAB PO SCH (20:39)
[2020-03-04] MEDS: OLANZapine 10 MG TAB PO SCH (20:39)
[2020-03-04] MEDS: MONTELUKAST 10 MG TAB PO SCH (20:40)
[2020-03-05] MEDS: BENZOCAINE/MENTHOL LOZENG 1 EACH LOZENGE MUCOUS MEM PRN ×3 (00:49→21:21)
[2020-03-05] MEDS: CHOLECALCIFEROL 1,000 UNIT TAB PO SCH (07:39)
[2020-03-05] MEDS: PANTOPRAZOLE 40 MG TABLET PO SCH (07:39)
[2020-03-05] MEDS: FERROUS SULFATE 325 MG TAB PO SCH (07:40)
[2020-03-05] MEDS: FLUoxetine HCL 20 MG CAP PO SCH (07:40)
[2020-03-05] MEDS: GABAPENTIN 300 MG CAP PO SCH ×3 (07:40→21:20)
[2020-03-05] MEDS: lisinopriL 10 MG TAB PO SCH (07:41)
[2020-03-05] MEDS: NICOTINE POLACRILEX 2 MG GUM BUCCAL PRN ×3 (07:42→21:20)
[2020-03-05 07:43] VITALS: RESP 20
[2020-03-05] MEDS: MAG HYDROX/AL HYDROX/SIMETH 30 ML CUP PO PRN ×2 (09:16→22:08)
[2020-03-05] MEDS: BENZTROPINE MESYLATE 1 MG TAB PO PRN ×2 (10:03→16:13)
[2020-03-05] MEDS: hydrOXYzine pamoate 25 MG CAP PO PRN ×2 (10:03→16:13)
--- NOTE | 2020-03-05 10:57 | P.PN ---
Progress Note - Text Progress Note Date: 03/05/20 Interval history: Patient was seen wandering the hallways and was directable and agreeable to speak with blog writer. Patient reports ongoing issues with restlessness. She states that this has been ongoing even prior to this admission. She has expressed mild EPS symptoms yesterday say that they're slightly better with the addition of benztropine. At this time patient denies any suicidal or homicidal ideations intent or plan. Denies any Auditory or visual hallucinations. Patient denies any side effects from the medications and has been compliant with meds. Mental status exam: General Appearance: Patient appears to be stated age is alert, directable, and cooperative. Behavior: No agitated behavior. Patient is calm and directable Speech: Patient's speech is fluent and nonpressured. Mood/Affect: Mood is improving mildly, affect is congruent and constricted. Suicidality/Homicidality: Patient denies having any suicidal or homicidal ideation intent or plan. Perceptions: Patient denies any auditory or visual hallucinations. Though content/process: There is no evidence of any delusional thought content and thought process is linear and goal-directed. Memory and concentration: AOX3, grossly intact for the purposes of this session Judgment and insight: improving mildly Assessment/Plan: Continue with current diagnosis. Patient continues to meet criteria for inpatient psychiatric admission for symptom stabilization and safety. Patient will be maintained on current psychotropic medication regimen. Consider the addition of propranolol for possible akathisia. Monitor for medication compliance and for any psychotropic medication side effects. Will con tinue to monitor ongoing response to treatment. Encouraged participation in milieu.
[2020-03-05] MEDS: OLANZapine 10 MG TAB PO SCH (21:20)
[2020-03-05] MEDS: traZODone HCL 100 MG TAB PO SCH (21:20)
[2020-03-05] MEDS: MONTELUKAST 10 MG TAB PO SCH (21:21)
[2020-03-06] MEDS: NICOTINE POLACRILEX 2 MG GUM BUCCAL PRN ×4 (01:46→22:18)
[2020-03-06] MEDS: BENZOCAINE/MENTHOL LOZENG 1 EACH LOZENGE MUCOUS MEM PRN ×3 (01:46→22:18)
[2020-03-06] MEDS: FLUoxetine HCL 20 MG CAP PO SCH (08:18)
[2020-03-06] MEDS: GABAPENTIN 300 MG CAP PO SCH ×3 (08:18→22:18)
[2020-03-06] MEDS: FERROUS SULFATE 325 MG TAB PO SCH (08:18)
[2020-03-06] MEDS: PANTOPRAZOLE 40 MG TABLET PO SCH (08:18)
[2020-03-06] MEDS: lisinopriL 10 MG TAB PO SCH (08:18)
[2020-03-06] MEDS: CHOLECALCIFEROL 1,000 UNIT TAB PO SCH (08:18)
[2020-03-06] MEDS: MAG HYDROX/AL HYDROX/SIMETH 30 ML CUP PO PRN (08:38)
[2020-03-06] MEDS: busPIRone HCl 10 MG TAB PO SCH ×2 (10:34→20:31)
[2020-03-06] MEDS: PROPRANOLOL 20 MG TAB PO SCH ×2 (10:34→20:31)
--- NOTE | 2020-03-06 11:28 | P.PN ---
Progress Note - Text Progress Note Date: 03/06/20 Interval History: Patient was seen sitting in a group this morning and was directable and agreea ble to speak with typewriter ribbon winder in the office. Patient appeared to be calmer and more appropriate typewriter ribbon winder today during the interview. She spoke significantly today about her substance use issues and states that "I keep on messing up with heroin". She went on to describe having a friend that comes over to her house that "gets me high for free". She claims that she has struggled on Suboxone in the past and does not want to go back onto it. She was fairly open to going to rehab at this point. She did speak of having significant restlessness/anxiety during the day and finding it hard to concentrate in group. She states that she is agreeable ever medications adjusted and to try BuSpar and propranolol. She states that she had poor sleep last night approximately one to 2 hours and was agreeable to have her trazodone increased. She states that she is getting along with most people on the unit and states that her mood has been gradually improving. She admits to fair energy during the day. At this time patient denies any suicidal or homical ideations, intent or plan. Patient denies any auditory, visual hallucinations and denies any paranoia or delusions. Patient denies any side effects from the medications and has been compliant with meds. Mental Status Exam: General Appearance: Patient appears to be stated age is l more directable today, superficial at times. Patient appears to have improving hygiene and grooming. Behavior: Patient is seated without any agitated behavior. Speech: Patient's speech is fluent with normal rate. Mood/Affect: Patient reports their mood is "a bit better", affect is congruent and constricted. Suicidality/Homicidality: Patient denies having any homicidal ideation intent or plan. Denies any suicidal ideations intent or plan Perceptions: Patient denies any visual hallucinations and denies any auditory hallucinations Though content/process: Patient is superficial at times, more goal oriented and logical today. Denies any delusions. Memory and concentration: AOX3, poor attention span. Judgment and insight: Chronically poor, improving mildly Assessment Bipolar disorder, current episode depressed Borderline personality disorder Cocaine abuse Benzodiazepine abuse Nicotine dependence Plan: -Patient continues to meet criteria for inpatient psychiatric admission for symptom stabilization and safety. Patient has signed adult voluntary form and was placed in patient's chart. -Medications: Patient is agreeable to continue on with Zyprexa 10 mg nightly for mood stabilization/insomnia. Increased trazodone to 150 mg daily at bedtime for mood/insomnia. Increase Prozac to 40 mg daily for mood/anxiety. Cogentin when necessary for EPS prophylaxis. Vistaril was discontinued as it is not helping with anxiety and will start BuSpar 10 mg twice a day for anxiety. Will start propranolol 20 mg twice a day for akathisia/restlessness. -When necessary Geodon for agitation/aggression. -NRT - nicotine patch -SW on board for discharge planning. Encouraged the patient to participate in milieu. Patient is currently on a WILL order through [facility]. Patient has relapsed back on drugs and will offer patient rehab upon discharge. Likely discharge in 2-3 days.
[2020-03-06] MEDS: ZIPRASIDONE 20 MG VIAL IM PRN (19:28)
[2020-03-06] MEDS: BENZTROPINE MESYLATE 1 MG TAB PO PRN (19:29)
[2020-03-06] MEDS: MONTELUKAST 10 MG TAB PO SCH (20:31)
[2020-03-06] MEDS: OLANZapine 10 MG TAB PO SCH (20:31)
[2020-03-06] MEDS ORDERED: traZODone HCL 50 MG TAB PO SCH (21:00)
[2020-03-07] MEDS: NICOTINE POLACRILEX 2 MG GUM BUCCAL PRN ×4 (00:37→19:47)
[2020-03-07] MEDS: hydrOXYzine pamoate 25 MG CAP PO PRN (01:13)
[2020-03-07] MEDS: BENZOCAINE/MENTHOL LOZENG 1 EACH LOZENGE MUCOUS MEM PRN ×2 (03:46→15:35)
[2020-03-07] MEDS: FLUoxetine HCL 20 MG CAP PO SCH (11:04)
[2020-03-07] MEDS: GABAPENTIN 300 MG CAP PO SCH ×3 (11:04→21:33)
[2020-03-07] MEDS: FERROUS SULFATE 325 MG TAB PO SCH (11:04)
[2020-03-07] MEDS: CHOLECALCIFEROL 1,000 UNIT TAB PO SCH (11:04)
[2020-03-07] MEDS: PANTOPRAZOLE 40 MG TABLET PO SCH (11:04)
[2020-03-07] MEDS: busPIRone HCl 10 MG TAB PO SCH ×3 (11:05→21:33)
[2020-03-07] MEDS: PROPRANOLOL 20 MG TAB PO SCH ×2 (11:05→21:33)
[2020-03-07] MEDS: lisinopriL 10 MG TAB PO SCH (11:05)
--- NOTE | 2020-03-07 11:07 | P.PN ---
Progress Note - Text Progress Note Date: 03/07/20 Interval History: Patient was seen lying in bed this morning and was directable and agreeable to speak with ad copy writer in the office. Patient appeared to be calmer and more appropriate ad copy writer today during the interview. patient continues to have limited insight in judgment and today claims that she is refusing to go to rehab She claims that she feels she cannot be away from her for 2 long as she is scared that she will become depressed and relapsed on drugs. She claims that she had poor sleep last night and "didn't sleep a wink" Kendy states that today she feels anxious and irritable. She did speak of having significant anxiety during the day and finding it hard to concentrate in group. She states that she is getting along with most people on the unit and states that her mood has been gradually improving. At this time patient denies any suicidal or homical ideations, intent or plan. Patient denies any auditory, visual hallucinations and denies any paranoia or delusions. Patient denies any side effects from the medications and has been compliant with meds. Mental Status Exam: General Appearance: Patient appears to be stated age is directable today, superficial at times. Patient appears to have improving hygiene and grooming. Behavior: Patient is seated without any agitated behavior. superficial. Speech: Patient's speech is fluent with normal rate. Mood/Affect: Patient reports their mood is "a bit better", affect is congruent Suicidality/Homicidality: Patient denies having any homicidal ideation intent or plan. Denies any suicidal ideations intent or plan Perceptions: Patient denies any visual hallucinations and denies any auditory hallucinations Though content/process: Patient is superficial at times, more goal oriented and logical today. Denies any delusions. Memory and concentration: AOX3, poor attention span. Judgment and insight: Chronically poor, improving mildly Assessment Bipolar disorder, current episode depressed Borderline personality disorder Cocaine abuse Benzodiazepine abuse Nicotine dependence Plan: -Patient continues to meet criteria for inpatient psychiatric admission for symptom stabilization and safety. Patient has signed adult voluntary form and was placed in patient's chart. -Medications: continue with Zyprexa 10 mg nightly for mood stabilization/insomnia. Increased trazodone to 200 mg daily at bedtime for mood/insomnia. continue Prozac to 40 mg daily for mood/anxiety. Cogentin when necessary for EPS prophylaxis. increased BuSpar 15 mg twice a day for anxiety. continue with propranolol 20 mg twice a day for akathisia/restlessness. -When necessary Geodon for agitation/aggression. -NRT - nicotine patch -SW on board for discharge planning. Encouraged the patient to participate in milieu. Patient is currently on a WILL order through [facility]. PAtient is currently refusing rehab at this time which is the recommendation from [facility] therefore a non-compliance form will be filed with court by [facility] and patient will have to appear in court after discharge.
[2020-03-07] MEDS: MAG HYDROX/AL HYDROX/SIMETH 30 ML CUP PO PRN (11:40)
[2020-03-07 17:21] VITALS: TEMP 99.1
[2020-03-07] MEDS ORDERED: MELATONIN 5 MG TABLET PO SCH (21:00)
[2020-03-07] MEDS ORDERED: traZODone HCL 100 MG TAB PO SCH (21:00)
[2020-03-07] MEDS ORDERED: busPIRone HCl 5 MG TAB PO SCH (21:00)
[2020-03-07] MEDS: MONTELUKAST 10 MG TAB PO SCH (21:33)
[2020-03-07] MEDS: OLANZapine 10 MG TAB PO SCH (21:34)
[2020-03-08] MEDS: CHOLECALCIFEROL 1,000 UNIT TAB PO SCH (09:07)
[2020-03-08] MEDS: busPIRone HCl 10 MG TAB PO SCH (09:08)
[2020-03-08] MEDS: PANTOPRAZOLE 40 MG TABLET PO SCH (09:08)
[2020-03-08] MEDS: lisinopriL 10 MG TAB PO SCH (09:08)
[2020-03-08] MEDS: PROPRANOLOL 20 MG TAB PO SCH (09:08)
[2020-03-08] MEDS: GABAPENTIN 300 MG CAP PO SCH (09:08)
[2020-03-08] MEDS: FLUoxetine HCL 20 MG CAP PO SCH (09:08)
[2020-03-08] MEDS: FERROUS SULFATE 325 MG TAB PO SCH (09:08)
[2020-03-08] MEDS: NICOTINE POLACRILEX 2 MG GUM BUCCAL PRN (09:10)
--- NOTE | 2020-03-08 09:51 | P.DS ---
Providers Date of admission: 03/01/20 01:03 Expected date of discharge: 03/08/20 Attending physician: Ajay Ann MD Consults: 03/01/20 01:40 Consult Physician Routine Consulting Provider: Johny Terry Consult Reason/Comments: For H & P for Medical Follow Up Do you want consulting provider notified?: Yes Primary care physician: [facility] - Discharge Diagnosis(es) (1) Bipolar disorder current episode depressed Current Visit: Yes Status: Acute Priority: High (2) Borderline personality disorder Current Visit: Yes Status: Acute Priority: Medium (3) Cocaine abuse Current Visit: Yes Status: Acute Priority: Medium (4) Benzodiazepine abuse Current Visit: Yes Status: Acute Priority: Medium (5) Nicotine dependence Current Visit: Yes Status: Acute Priority: Low Hospital Course: Admission HPI: Patient is a 39-year-old female with a history of polysubstance abuse who currently lives with her and now as has 4 children that were taken away from her. Patient currently collects Social Security and is unemployed. Patient presented to the hospital for a psychiatric evaluation brought in by the police. Patient was endorsing suicidal thoughts with a plan to cut her wrists and overdose. Patient was apparently complaining of auditory hallucinations and visual hallucinations stating that she was seeing people in front of her in the ER. Patient did claim to ER staff that her medications that recently been changed. Patient's UDS is positive for benzodiazepines and cocaine. Patient had received a IM Geodon earlier this morning prior to being interviewed for agitation and acute psychosis. Patient was seen by designer/writer in the quiet room as patient was attending asleep. Patient initially appeared to be confused and lethargic and question designer/writer several times "what happened to me". She claims that she was remembering wandering down the hallways however does not know why she is in the hospital. She had slurred speech during the conversation. She attempted to walk briefly however stumbled and had to sit back down. She states that she was having "weird thoughts" and states that her mood has been up and down. She also described ongoing depression and anxiety. She states that her sleep has been poor. She spoke about abusing Xanax as she had "old prescriptions" and when questioned about her other drug use patient denied any other drug use and denied any cocaine use. Patient denies any current suicidal or homicidal ideations intent or plan. At this time patient denies any auditory or visual hallucinations. Patient denies any flight of ideas racing thoughts and increased in goal directed behavior. Patient admits to using Xanax more than what's prescribed and also claims to use cigarettes. She currently denies using any other recreational drugs however does have a history of heroin and marijuana abuse along with cocaine abuse. Hospital course: Upon admission to the unit patient was initially bizarre, depressed and disorganized. Patient was however directable and agreeable to commence treatment. Patient got along well with other patients on the unit and followed unit protocol. Patient was compliant with the medications and denied any side effects throughout hospital course. Patient was started on Zyprexa and titrated up to a dose of 10 mg daily at bedtime for mood stabilization/insomnia, patient was also started on trazodone increased to a dose of 200 mg daily at bedtime for insomnia/mood, Prozac was started and increased to a dose of 40 mg daily for mood/anxiety. Patient was also placed on Cogentin when necessary for EPS prophylaxis and also started on BuSpar titrated up to dose of 10 mg 3 times a day for anxiety. Propranolol was also started 20 mg twice a day for akathisia/restlessness.. Patient spoke of her stressors and engaged in therapy both group and individual. Patient was also seen by medical team for history and physical exam. Throughout the course of the hospitalization patient gradually improved with regards to mood, anxiety, sleep and became future oriented with improved insight and judgment. On the day of discharge patient denied any suicidal or homicidal ideations intent or plan denied any auditory or visual hallucinations. Patient endorsed wanting to live for her health and her . The patient denied any access to guns or weapons. Patient denied any paranoia and did not endorse any delusions. Patient does have a significant history of substance abuse and was counseled on abstaining from all substances including alcohol and marijuana. Patient was offered several times during the course of hospitalization however declined inpatient substance-abuse rehab. Patient is on an active WILL treatment in order and is refusing rehab therefore [facility] will be filing for noncompliance to treatment to the court and patient will have to attend court date in the near future. Patient was also counseled on the medications and need for regular compliance and was encouraged to follow-up with their outpatient appointment for mental health and also for primary care. Mental status exam: General Appearance: Patient appears to be stated age is alert, pleasant, and cooperative. Patient is in no acute distress and has improved hygiene and grooming Behavior: Patient is calmly seated without any agitated behavior. Speech: Patient's speech is fluent and nonpressured. Mood/Affect: Patient reports their mood is "good", affect is congruent and euthymic. Suicidality/Homicidality: Patient denies having any suicidal or homicidal ideation intent or plan. Perceptions: Patient denies any auditory or visual hallucinations. Though content/process: There is no evidence of any delusional thought content and thought process is linear and goal-directed. Memory and concentration: AOX3, grossly intact for the purposes of this session. Can spell "WORLD" backwards correctly. Judgment and insight: chronically poor, however has improved with guarded prognosis Impression: Polar disorder, current episode depressed Borderline personality disorder Cocaine abuse Nicotine dependence Benzodiazepine abuse Plan: -Continue with discharge today as patient has improved and stabilized psychiatrically and is not currently an imminent threat to herself and/or ot hers. Patient will remain at chronically elevated risk for harm to self and/or others due to her impulsivity and polysubstance abuse. -Continue medications: Continue with Zyprexa 10 mg daily at bedtime for mood stabilization/insomnia, trazodone 200 mg nightly for mood/insomnia, Prozac 40 mg daily for mood/anxiety, BuSpar 10 mg 3 times a day for anxiety, Cogentin 1 mg daily for EPS prophylaxis when necessary, propranolol 20 mg twice a day for akathisia -Patient was counseled on the need for medication compliance and appropriate follow-up at mental health and also primary care for medical issues. Patient verbalized understanding and agreed. -Social work to arrange for and conduct family meeting to ensure safety upon discharge and answer any questions/concerns. Social work also to arrange for patients follow up appointments with [facility] for psychiatric care along with follow up with primary care provider. -Patient counseled on abstaining from recreational drugs and marijuana and alcohol. Was informed/educated on the adverse effects on their physical and mental health. Patient verbally agreed and understood. Patient was offered substance abuse treatment however declined at this time. Patient is on an active WILL treatment in order and is refusing rehab therefore [facility] will be filing for noncompliance to treatment to the court and patient will have to attend court date in the near future. -Patient was instructed to return to the hospital or seek immediate medical care if their psychiatric or medical symptoms do worsen or reoccur. Allergies Allergy/AdvReac Type Severity Reaction Status Date / Time nicotine Allergy Intermediate Rash/Hives Verified 03/01/20 01:58 Laboratory Results WBC 7.9 k/uL (3.8-10.6) 03/02/20 06:51 RBC 4.32 m/uL (3.80-5.40) 03/02/20 06:51 Hgb 12.4 gm/dL (11.4-16.0) 03/02/20 06:51 Hct 39.6 % (34.0-46.0) 03/02/20 06:51 MCV 91.7 fL (80.0-100.0) 03/02/20 06:51 MCH 28.8 pg (25.0-35.0) 03/02/20 06:51 MCHC 31.4 g/dL (31.0-37.0) 03/02/20 06:51 RDW 14.6 % (11.5-15.5) 03/02/20 06:51 Plt Count 100 k/uL (150-450) L 03/02/20 06:51 Neutrophils % (Manual) 68 % 03/02/20 06:51 Band Neuts % (Manual) 2 % 03/02/20 06:51 Lymphocytes % (Manual) 17 % 03/02/20 06:51 Monocytes % (Manual) 6 % 03/02/20 06:51 Eosinophils % (Manual) 6 % 03/02/20 06:51 Basophils % (Manual) 1 % 03/02/20 06:51 Neutrophils # (Manual) 5.50 k/uL (1.3-7.7) 03/02/20 06:51 Lymphocytes # (Manual) 1.34 k/uL (1.0-4.8) 03/02/20 06:51 Monocytes # (Manual) 0.47 k/uL (0-1.0) 03/02/20 06:51 Eosinophils # (Manual) 0.47 k/uL (0-0.7) 03/02/20 06:51 Basophils # (Manual) 0.08 k/uL (0-0.2) 03/02/20 06:51 Nucleated RBCs 0 /100 WBC (0-0) 03/02/20 06:51 Manual Slide Review Performed 03/02/20 06:51 Large Platelets Present 03/02/20 06:51 Hypochromasia Moderate 03/02/20 06:51 Sodium 140 mmol/L (137-145) 03/02/20 06:51 Potassium 4.5 mmol/L (3.5-5.1) 03/02/20 06:51 Chloride 111 mmol/L (98-107) H 03/02/20 06:51 Carbon Dioxide 22 mmol/L (22-30) 03/02/20 06:51 Anion Gap 7 mmol/L 03/02/20 06:51 BUN 13 mg/dL (7-17) 03/02/20 06:51 Creatinine 0.68 mg/dL (0.52-1.04) 03/02/20 06:51 Est GFR (CKD-EPI)AfAm >90 (>60 ml/min/1.73 sqM) 03/02/20 06:51 Est GFR (CKD-EPI)NonAf >90 (>60 ml/min/1.73 sqM) 03/02/20 06:51 Glucose 100 mg/dL (74-99) H 03/02/20 06:[address] Glu mg/dL 105 03/02/20 06:51 Hemoglobin A1c 5.3 % (4.0-6.0) 03/02/20 06:51 Calcium 9.0 mg/dL (8.4-10.2) 03/02/20 06:51 Total Bilirubin 0.6 mg/dL (0.2-1.3) 03/02/20 06:51 Conjugated Bilirubin 0.0 mg/dL (0.0-0.3) 03/02/20 06:51 Unconjugated Bilirubin 0.2 mg/dL (0.0-1.1) 03/02/20 06:51 Delta Bilirubin 0.4 mg/dL (0.0-0.2) H 03/02/20 06:51 AST 124 U/L (14-36) H 03/02/20 06:51 ALT 138 U/L (4-34) H 03/02/20 06:51 Alkaline Phosphatase 62 U/L (38-126) 03/02/20 06:51 Total Protein 6.5 g/dL (6.3-8.2) 03/02/20 06:51 Albumin 3.7 g/dL (3.5-5.0) 03/02/20 06:51 Triglycerides 92 mg/dL (<150) 03/02/20 06:51 Cholesterol 151 mg/dL (<200) 03/02/20 06:51 LDL Cholesterol, Calc 67 mg/dL (0-99) 03/02/20:51 HDL Cholesterol 66 mg/dL (40-60) H 03/02/20 06:51 TSH 0.700 mIU/L (0.465-4.680) 03/02/20 06:51 Urine Color Yellow 02/29/20: Urine Appearance Clear (Clear) 02/29/20: Urine pH 6.5 (5.0-8.0) 02/29/20: Ur Specific [place] 1.024 (1.001-1.035) 02/29/20 22:25 Urine Protein Negative (Negative) 02/29/20: Urine Glucose (UA) Negative (Negative) 02/29/20 22:25 Urine Ketones Negative (Negative) 02/29/20 22:25 Urine Blood Negative (Negative) 02/29/20:25 Urine Nitrite Negative (Negative) 02/29/20: Urine Bilirubin Negative (Negative) 02/29/20 22:25 Urine Urobilinogen 2.0 mg/dL (<2.0) 02/29/20 22:25 Ur Leukocyte Esterase Negative (Negative) 02/29/20 22:25 Urine HCG, Qual Not Detected (Not Detectd) 02/29/20 22:25 Urine Opiates Screen Not Detected (NotDetected) 02/29/20 22:25 Ur Oxycodone Screen Not Detected (NotDetected) 02/29/20 22:25 Urine Methadone Screen Not Detected (NotDetected) 02/29/20 22:25 Ur Propoxyphene Screen Not Detected (NotDetected) 02/29/20 22:25 Ur Barbiturates Screen Not Detected (NotDetected) 02/29/20 22:25 U Tricyclic Antidepress Not Detected (NotDetected) 02/29/20 22:25 Ur Phencyclidine Scrn Not Detected (NotDetected) 02/29/20 22:25 Ur Amphetamines Screen Not Detected (NotDetected) 02/29/20 22:25 U Methamphetamines Scrn Not Detected (NotDetected) 02/29/20 22:25 U Benzodiazepines Scrn Detected (NotDetected) H 02/29/20 22:25 Urine Cocaine Screen Detected (NotDetected) H 02/29/20 22:25 U Marijuana (THC) Screen Not Detected (NotDetected) 02/29/20 22:25 Hepatitis A IgM Ab Non-Reactive (Non-Reactive) 03/04/20 07:14 Hep Bs Antigen Non-Reactive (Non-Reactive) 03/04/20 07:14 Hep B Core IgM Ab Non-Reactive (Non-Reactive) 03/04/20 07:14 Hep C IgG Ab Reactive (Non-Reactive) H 03/04/20 07:14 Vital Signs Temp 99.1 F 03/07/20 17:20 Pulse 73 03/08/20 09:05 Resp 20 03/07/20 11:05 BP 124/64 03/08/20 09:05 Pulse Ox 96 03/07/20 11:05 Abnormal Labs 02/29/20 03/02/20 03/02/20 22:25 06:51 06:51 Plt Count 100 L Chloride 111 H Glucose 100 H Delta Bilirubin 0.4 H AST 124 H ALT 138 H HDL Cholesterol 66 H U Benzodiazepines Scrn Detected H Urine Cocaine Screen Detected H Hep C IgG Ab 03/04/20 07:14 Plt Count Chloride Glucose Delta Bilirubin AST ALT HDL Cholesterol U Benzodiazepines Scrn Urine Cocaine Screen Hep C IgG Ab Reactive H Patient Condition at Discharge: Stable Plan - Discharge Summary New Discharge Prescriptions: New busPIRone HCl [Buspar] 10 mg PO TID 30 Days tab Benzocaine/Menthol Lozeng [Cepacol lozenge] 1 each MUCOUS MEM Q4HR PRN 14 Days lozenge PRN Reason: Sore Throat Benztropine Mesylate [Cogentin] 1 mg PO DAILY PRN #14 tab PRN Reason: Extrapyramidal Effects traZODone HCL [Desyrel] 200 mg PO HS 30 Days tab Propranolol [Inderal] 20 mg PO BID 30 Days tab Ferrous Sulfate [Iron (65 MG Elemental)] 325 mg PO DAILY 30 Days tab Melatonin 5 mg PO HS 30 Days tablet Gabapentin [Neurontin] 300 mg PO TID #14 cap Nicotine Polacrilex [Nicorette] 2 mg BUCCAL Q2HR PRN 30 Days gum PRN Reason: Nicotine Cravings Pantoprazole [Protonix] 40 mg PO DAILY@0730 30 Days tablet.dr FLUoxetine HCL [PROzac] 40 mg PO DAILY 30 Days cap Acetaminophen Tab [Tylenol] 650 mg PO Q4HR PRN tab PRN Reason: Pain/Discomfort hydrOXYzine pamoate [Vistaril] 25 mg PO Q6HR PRN cap PRN Reason: Anxiety Cholecalciferol [Vitamin D3 (25 Mcg = 1000 Iu)] 5,000 unit PO DAILY 30 Days tab lisinopriL [Zestril] 10 mg PO DAILY 30 Days tab OLANZapine [ZyPREXA] 10 mg PO HS 30 Days tab Continue Albuterol Sulfate [Proair Hfa] 2 puff INHALATION RT-Q6H PRN PRN Reason: Shortness Of Breath Loratadine [Claritin] 10 mg PO DAILY PRN PRN Reason: Allergy Symptoms Baclofen 10 mg PO DAILY PRN 14 Days tab PRN Reason: Muscle Pain Montelukast Sodium [Singulair] 10 mg PO HS 30 Days tab Discontinued Cholecalciferol [Vitamin D3 (25 Mcg = 1000 Iu)] 5,000 unit PO DAILY Prazosin HCl 2 mg PO HS PRN PRN Reason: NIGHTMARES Omeprazole 20 mg PO DAILY Gabapentin [Neurontin] 300 mg PO TID Lisinopril [Zestril] 10 mg PO DAILY Zolpidem [Ambien] 5 mg PO HS PRN 30 Days #20 tab PRN Reason: Insomnia Ferrous Sulfate [Iron (65 MG Elemental)] 325 mg PO DAILY tab buPROPion XL [Wellbutrin XL] 300 mg PO DAILY 30 Days #30 tab.er.24h hydrOXYzine pamoate [hydrOXYzine PAMOATE] 25 mg PO BID PRN 30 Days #60 cap PRN Reason: Anxiety Sertraline HCl [Zoloft] 200 mg PO DAILY OLANZapine 20 mg PO HS Discharge Medication List Albuterol Sulfate [Proair Hfa] 2 puff INHALATION RT-Q6H PRN 02/03/20 [History] Loratadine [Claritin] 10 mg PO DAILY PRN 02/03/20 [History] Acetaminophen Tab [Tylenol] 650 mg PO Q4HR PRN tab 03/08/20 [Rx] Baclofen 10 mg PO DAILY PRN 14 Days tab 03/08/20 [Rx] Benzocaine/Menthol Lozeng [Cepacol lozenge] 1 each MUCOUS MEM Q4HR PRN 14 Days lozenge 03/08/20 [Rx] Benztropine Mesylate [Cogentin] 1 mg PO DAILY PRN #14 tab 03/08/20 [Rx] Cholecalciferol [Vitamin D3 (25 Mcg = 1000 Iu)] 5,000 unit PO DAILY 30 Days tab 03/08/20 [Rx] FLUoxetine HCL [PROzac] 40 mg PO DAILY 30 Days cap 03/08/20 [Rx] Ferrous Sulfate [Iron (65 MG Elemental)] 325 mg PO DAILY 30 Days tab 03/08/20 [Rx] Gabapentin [Neurontin] 300 mg PO TID #14 cap 03/08/20 [Rx] Melatonin 5 mg PO HS 30 Days tablet 03/08/20 [Rx] Montelukast Sodium [Singulair] 10 mg PO HS 30 Days tab 03/08/20 [Rx] Nicotine Polacrilex [Nicorette] 2 mg BUCCAL Q2HR PRN 30 Days gum 03/08/20 [Rx] OLANZapine [ZyPREXA] 10 mg PO HS 30 Days tab 03/08/20 [Rx] Pantoprazole [Protonix] 40 mg PO DAILY@0730 30 Days tablet. 03/08/20 [Rx] Propranolol [Inderal] 20 mg PO BID 30 Days tab 03/08/20 [Rx] busPIRone HCl [Buspar] 10 mg PO TID 30 Days tab 03/08/20 [Rx] hydrOXYzine pamoate [Vistaril] 25 mg PO Q6HR PRN cap 03/08/20 [Rx] lisinopriL [Zestril] 10 mg PO DAILY 30 Days tab 03/08/20 [Rx] traZODone HCL [Desyrel] 200 mg PO HS 30 Days tab 03/08/20 [Rx] Follow up Appointment(s)/Referral(s): [facility] [Outside] - 03/13/20 11:30 am (03-13-20 @ 11:[address] Byrd at [facility] office 03-14-20 @ 4:00 with Jennifer Lima by phone) Maci Puentes PAC [REFERRING] - 1 Week [facility] [Primary Care Provider] - 1-2 days Patient Instructions/Handouts: Hepatitis C (GEN) Activity/Diet/Wound Care/Special Instructions: Activity and diet as tolerated. Avoid the use of street drugs and alcohol. Take all medications as prescribed. When you are in need of refills on your medications please contact your medical provider and/or outpatient psychiatrist to have this done. Please go to scheduled outpatient appointment for aftercare treatment. If symptoms return or become worse, call the crisis line at and/or go to the nearest emergency room for evaluation. Discharge Disposition: HOME SELF-CARE
[2020-03-08 09:56] VITALS: BP 124/64; PULSE 73
== END 2020-03-08 11:15 | disposition home or self-care (01) | DRG 885 ==
LOC: EC 21:03 → 3MHU 03-01 01:03
PROVIDERS: ADMIT Psychiatry & Neurology Psychiatry; ATTEND Psychiatry & Neurology Psychiatry
DX: F31.30 Bipolar disorder, current episode depressed, mild or moderate severity, unspecified (principal); G40.919 Epilepsy, unspecified, intractable, without status epilepticus; D69.6 Thrombocytopenia, unspecified; F17.200 Nicotine dependence, unspecified, uncomplicated; F43.10 Post-traumatic stress disorder, unspecified; F60.3 Borderline personality disorder; I10 Essential (primary) hypertension; J45.909 Unspecified asthma, uncomplicated; F22 Delusional disorders; B19.20 Unspecified viral hepatitis C without hepatic coma; F14.10 Cocaine abuse, uncomplicated; F13.10 Sedative, hypnotic or anxiolytic abuse, uncomplicated; G47.00 Insomnia, unspecified; Z79.899 Other long term (current) drug therapy; Z88.8 Allergy status to other drugs, medicaments and biological substances; Z90.49 Acquired absence of other specified parts of digestive tract; Z98.890 Other specified postprocedural states; Z82.49 Family history of ischemic heart disease and other diseases of the circulatory system; Z91.19 Patient's noncompliance with other medical treatment and regimen
CPT/HCPCS: 80053; 80061; 80074; 80306; 81003; 81025; 82075; 82248; 83036; 84443; 85025; 99285

== ENCOUNTER 2020-04-23 02:55 | Emergency (ER) | payer MEDICARE, OTHER ==
--- NOTE | 2020-04-23 03:36 | ED ---
Overdose HPI - General Source: patient, EMS Mode of arrival: EMS - History of Present Illness Complaint: accidental overdose -: minutes(s) Intent: want to go to sleep How Overdose Was Discovered: family/friend present at time <Justus Gaviria - Last Filed: 04/23/20 03:37> <George Castaneda - Last Filed: 04/23/20 09:57> - General Chief Complaint: Overdose Stated Complaint: Overdose Time Seen by Provider: 04/23/20 02:57 - History of Present Illness Initial Comments: This patient is a 39-year-old woman brought by ambulance to be evaluated after suspected overdose. The patient's had phoned EMS as the patient was report edly unresponsive. EMS arrived and did give Narcan and the patient became awake and alert. When I interview the patient, she states that she has been having difficulty sleeping. She states that she is not a habitual user but states that she does take street drugs to help her sleep. She asked if she needed go home and we discussed the risk of Narcan wearing off she stated that she did not care if she went to sleep and didn't wake up. She states she has had long-standing depression related to the inability sleep. (Justus Gaviria) - Related Data Home Medications Medication Instructions Recorded Confirmed Albuterol Sulfate [Proair Hfa] 2 puff INHALATION RT-Q6H PRN 02/03/20 04/23/20 Loratadine [Claritin] 10 mg PO DAILY PRN 02/03/20 04/23/20 Benzocaine/Menthol Lozeng [Cepacol 1 lozenge MUCOUS MEM Q4HR PRN 04/23/20 04/23/20 lozenge] Gabapentin [Neurontin] 400 mg PO TID 04/23/20 04/23/20 Venlafaxine HCl [Effexor XR] See Taper PO DIRECTED 04/23/20 04/23/20 hydrOXYzine pamoate [Vistaril] 25 mg PO DAILY PRN 04/23/20 04/23/20 traZODone HCL [Desyrel] 300 mg PO HS PRN 04/23/20 04/23/20 Previous Rx's Medication Instructions Recorded Acetaminophen Tab [Tylenol] 650 mg PO Q4HR PRN tab 03/08/20 Baclofen 10 mg PO DAILY PRN 14 Days tab 03/08/20 Benztropine Mesylate [Cogentin] 1 mg PO DAILY PRN #14 tab 03/08/20 Cholecalciferol [Vitamin D3 (25 5,000 unit PO DAILY 30 Days tab 03/08/20 Mcg = 1000 Iu)] FLUoxetine HCL [PROzac] 40 mg PO DAILY 30 Days cap 03/08/20 Ferrous Sulfate [Iron (65 MG 325 mg PO DAILY 30 Days tab 03/08/20 Elemental)] Melatonin 5 mg PO HS 30 Days tablet 03/08/20 Montelukast Sodium [Singulair] 10 mg PO HS 30 Days tab 03/08/20 Nicotine Polacrilex [Nicorette] 2 mg BUCCAL Q2HR PRN 30 Days gum 03/08/20 OLANZapine [ZyPREXA] 10 mg PO HS 30 Days tab 03/08/20 Pantoprazole [Protonix] 40 mg PO DAILY@0730 30 Days 03/08/20 tablet. Propranolol [Inderal] 20 mg PO BID 30 Days tab 03/08/20 busPIRone HCl [Buspar] 10 mg PO TID 30 Days tab 03/08/20 lisinopriL [Zestril] 10 mg PO DAILY 30 Days tab 03/08/20 Allergies Allergy/AdvReac Type Severity Reaction Status Date / Time nicotine Allergy Intermediate Rash/Hives Verified 03/01/20 01:58 Review of Systems ROS Other: All systems not noted in ROS Statement are negative. Constitutional: Denies: fever, chills, weakness Eyes: Denies: vision change Respiratory: Denies: cough, dyspnea Cardiovascular: Denies: chest pain, palpitations, edema Gastrointestinal: Reports: abdominal pain, nausea. Denies: vomiting, diarrhea Genitourinary: Denies: dysuria, hematuria Musculoskeletal: Denies: back pain Skin: Denies: rash Neurological: Reports: headache. Denies: weakness, numbness, paresthesias Psychiatric: Reports: depression, suicidal thoughts. Denies: auditory hallucinations, visual hallucinations, homicidal thoughts <Justus Gaviria - Last Filed: 04/23/20 03:37> ROS Other: All systems not noted in ROS Statement are negative. <George Castaneda - Last Filed: 04/23/20 09:57> ROS Statement: Those systems with pertinent positive or pertinent negative responses have been documented in the HPI. 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 History of Any Multi-Drug Resistant Organisms: None Reported Past Surgical History: Tonsillectomy Additional Past Surgical History / Comment(s): right knee surgery, Additional Past Anesthesia/Blood Transfusion Reaction / Comment(s): n/a Past Psychological History: Anxiety, Bipolar, Depression, PTSD Smoking Status: Current every day smoker Past Alcohol Use History: Occasional Past Drug Use History: Heroin, Marijuana - Past Family History Mother Family Medical History: Hypertension <EveretteJustus - Last Filed: 04/23/20 03:37> General Exam General appearance: alert, in no apparent distress Head exam: Present: atraumatic, normocephalic Eye exam: Present: normal appearance. Absent: scleral icterus, conjunctival injection ENT exam: Present: normal oropharynx Respiratory exam: Present: normal lung sounds bilaterally. Absent: respiratory distress, wheezes, rales, rhonchi, stridor Cardiovascular Exam: Present: regular rate, normal rhythm, normal heart sounds. Absent: systolic murmur, diastolic murmur, rubs, gallop GI/Abdominal exam: Present: soft. Absent: distended, tenderness, guarding, rebound, rigid, mass Extremities exam: Present: normal inspection, normal capillary refill. Absent: pedal edema, calf tenderness Neurological exam: Present: alert Psychiatric exam: Present: depressed, flat affect, suicidal ideation. Absent: agitated, anxious, manic, homicidal ideation Skin exam: Present: warm, dry, intact, normal color. Absent: rash <EveretteJustus - Last Filed: 04/23/20 03:37> Course Vital Signs 04/23/20 04/23/20 02:58 07:42 Temperature 97.8 F 97.9 F Pulse Rate 73 69 Respiratory 14 16 Rate Blood Pressure 132/96 116/79 O2 Sat by Pulse 96 97 Oximetry Medical Decision Making - EKG Data -: EKG Interpreted by Me EKG shows normal: sinus rhythm, axis (Normal), intervals (Normal), QRS complexes, ST-T waves (Normal) Rate: normal (Rate 73 bpm) <Justus Gaviria - Last Filed: 04/23/20 03:37> <George Castaneda - Last Filed: 11/29/20 09:57> - Medical Decision Making Patient is resting currently throughout the morning was evaluated by the EPS service found not to be wrist herself or anyone else at this time. She'll be discharged (George Castaneda) Disposition <Justus Gaviria - Last Filed: 04/23/20 03:37> Is patient prescribed a controlled substance at d/c from ED?: No <George Castaneda - Last Filed: 04/23/20 09:57> Clinical Impression: Accidental drug overdose Disposition: HOME SELF-CARE Condition: Good Instructions (If sedation given, give patient instructions): Adult Overdose (ED) Referrals: [facility] [Primary Care Provider] - 1-2 days
[2020-04-23] MEDS ORDERED: ONDANSETRON 4 MG/2 ML VIAL IVP STA (03:50)
[2020-04-23] MEDS ORDERED: IBUPROFEN 600 MG TAB PO STA (03:50)
[2020-04-23 07:44] VITALS: PULSE 69
[2020-04-23 10:36] VITALS: BP 102/67; RESP 18; TEMP 98.7
== END 2020-04-23 10:36 | disposition home or self-care (01) ==
LOC: EC 02:55
DX: T50.991A Poisoning by other drugs, medicaments and biological substances, accidental (unintentional), initial encounter (principal); R45.851 Suicidal ideations; F32.9 Major depressive disorder, single episode, unspecified; J45.909 Unspecified asthma, uncomplicated; F41.9 Anxiety disorder, unspecified; F43.10 Post-traumatic stress disorder, unspecified; F17.200 Nicotine dependence, unspecified, uncomplicated; Z79.51 Long term (current) use of inhaled steroids; Z79.899 Other long term (current) drug therapy; Z88.5 Allergy status to narcotic agent
CPT/HCPCS: 82075; 96374; 99285; J2405; 93005

== ENCOUNTER 2020-04-29 23:58 | Emergency (ER) | payer MEDICARE, OTHER ==
[2020-04-30 00:07] VITALS: BP 135/88; PULSE 92; RESP 22; TEMP 99.1
--- NOTE | 2020-04-30 00:40 | ED ---
Psych HPI - General Chief Complaint: Psychiatric Symptoms Stated Complaint: Mental health Time Seen by Provider: 04/30/20 00:09 Source: patient, police, RN notes reviewed, old records reviewed Mode of arrival: ambulatory - History of Present Illness Initial Comments: This is a 39-year-old female brought by EMS and PD under court petition for psychiatric evaluation history of psychiatric illness. Patient denying active abuse. Patient did have an overdose a few days ago which prompted meeting with counselor which then prompted the court order. Patient denies homicidal or s uicidal thoughts currently. MD Complaint: feels depressed, other (Patient not suicidal no more depressed and an average day) Associated Psychiatric Symptoms: depression History of same: Yes Quality: intermittent Improves With: none Worsens With: none Context: recent drug abuse Associated Symptoms: denies other symptoms Treatments Prior to Arrival: placed on mental health hold - Related Data Home Medications Medication Instructions Recorded Confirmed Albuterol Sulfate [Proair Hfa] 2 puff INHALATION RT-Q6H PRN 02/03/20 04/23/20 Loratadine [Claritin] 10 mg PO DAILY PRN 02/03/20 04/23/20 Benzocaine/Menthol Lozeng [Cepacol 1 lozenge MUCOUS MEM Q4HR PRN 04/23/20 04/23/20 lozenge] Gabapentin [Neurontin] 400 mg PO TID 04/23/20 04/23/20 Venlafaxine HCl [Effexor XR] See Taper PO DIRECTED 04/23/20 04/23/20 hydrOXYzine pamoate [Vistaril] 25 mg PO DAILY PRN 04/23/20 04/23/20 traZODone HCL [Desyrel] 300 mg PO HS PRN 04/23/20 04/23/20 Previous Rx's Medication Instructions Recorded Acetaminophen Tab [Tylenol] 650 mg PO Q4HR PRN tab 03/08/20 Baclofen 10 mg PO DAILY PRN 14 Days tab 03/08/20 Benztropine Mesylate [Cogentin] 1 mg PO DAILY PRN #14 tab 03/08/20 Cholecalciferol [Vitamin D3 (25 5,000 unit PO DAILY 30 Days tab 03/08/20 Mcg = 1000 Iu)] FLUoxetine HCL [PROzac] 40 mg PO DAILY 30 Days cap 03/08/20 Ferrous Sulfate [Iron (65 MG 325 mg PO DAILY 30 Days tab 03/08/20 Elemental)] Melatonin 5 mg PO HS 30 Days tablet 03/08/20 Montelukast Sodium [Singulair] 10 mg PO HS 30 Days tab 03/08/20 Nicotine Polacrilex [Nicorette] 2 mg BUCCAL Q2HR PRN 30 Days gum 03/08/20 OLANZapine [ZyPREXA] 10 mg PO HS 30 Days tab 03/08/20 Pantoprazole [Protonix] 40 mg PO DAILY@0730 30 Days 03/08/20 tablet. Propranolol [Inderal] 20 mg PO BID 30 Days tab 03/08/20 busPIRone HCl [Buspar] 10 mg PO TID 30 Days tab 03/08/20 lisinopriL [Zestril] 10 mg PO DAILY 30 Days tab 03/08/20 Allergies Allergy/AdvReac Type Severity Reaction Status Date / Time No Known Allergies Allergy Verified 04/30/20 00:07 Review of Systems ROS Statement: Those systems with pertinent positive or pertinent negative responses have been documented in the HPI. ROS Other: All systems not noted in ROS Statement are negative. 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 MOno, leandro Horne History of Any Multi-Drug Resistant Organisms: None Reported Past Surgical History: Tonsillectomy Additional Past Surgical History / Comment(s): right knee surgery, Additional Past Anesthesia/Blood Transfusion Reaction / Comment(s): n/a Past Psychological History: Anxiety, Bipolar, Depression, PTSD Smoking Status: Current every day smoker Past Alcohol Use History: Occasional Past Drug Use History: Heroin, Marijuana - Past Family History Mother Family Medical History: Hypertension General Exam Limitations: no limitations General appearance: alert, in no apparent distress Head exam: Present: atraumatic, normocephalic, normal inspection Eye exam: Present: normal appearance, PERRL, EOMI. Absent: scleral icterus, conjunctival injection, periorbital swelling ENT exam: Present: normal exam, mucous membranes moist Neck exam: Present: normal inspection. Absent: tenderness, meningismus, lymphadenopathy Respiratory exam: Present: normal lung sounds bilaterally. Absent: respiratory distress, wheezes, rales, rhonchi, stridor Cardiovascular Exam: Present: regular rate, normal rhythm, normal heart sounds. Absent: systolic murmur, diastolic murmur, rubs, gallop, clicks GI/Abdominal exam: Present: soft, normal bowel sounds. Absent: distended, tenderness, guarding, rebound, rigid Extremities exam: Present: normal inspection, full ROM, normal capillary refill. Absent: tenderness, pedal edema, joint swelling, calf tenderness Back exam: Present: normal inspection Neurological exam: Present: alert, oriented X3, CN II-XII intact Psychiatric exam: Present: normal affect, normal mood Skin exam: Present: warm, dry, intact, normal color. Absent: rash Course Vital Signs 04/30/20 00:02 Temperature 99.1 F Pulse Rate 92 Respiratory 22 Rate Blood Pressure 135/88 O2 Sat by Pulse 96 Oximetry - Reevaluation(s) Reevaluation #1: 04/30/20 01:13 Medical records reviewed Reevaluation #2: 04/30/20 01:13 Medical clear for psychiatric evaluation Reevaluation #3: 04/30/20 01:13 Patient seen and evaluated by psychiatry here in the emergency department, she is made stable for discharge, she not homicidal or suicidal Medical Decision Making - Medical Decision Making 89 female DF for evaluation of crepitation regarding depression suicidal thoughts. Patient is without any issues here in the ER, significantly with psychiatry deemed stable for discharge home Disposition Clinical Impression: Depression, Bipolar disorder current episode depressed Disposition: HOME SELF-CARE Condition: Fair Instructions (If sedation given, give patient instructions): Depression (ED) Is patient prescribed a controlled substance at d/c from ED?: No Referrals: [facility] [Primary Care Provider] - 1-2 days
== END 2020-04-30 01:33 | disposition home or self-care (01) ==
LOC: EC 23:58
DX: F31.30 Bipolar disorder, current episode depressed, mild or moderate severity, unspecified (principal); J45.909 Unspecified asthma, uncomplicated; F41.9 Anxiety disorder, unspecified; F17.200 Nicotine dependence, unspecified, uncomplicated; Z79.899 Other long term (current) drug therapy
CPT/HCPCS: 82075; 99284

== ENCOUNTER 2020-06-15 05:04 | Inpatient (IN) | payer MEDICARE, MEDICAID ==
--- NOTE | 2020-06-15 06:43 | ED ---
Psych HPI - General Chief Complaint: Psychiatric Symptoms Stated Complaint: Mental Health Time Seen by Provider: 06/15/20 06:02 Source: patient, RN notes reviewed, old records reviewed Mode of arrival: ambulatory Limitations: no limitations - History of Present Illness Initial Comments: This is a 39-year-old female DF for evaluation of psychiatric illness. Patient comes in with known history of polysubstance abuse. Patient has denied any recent drug abuse. Patient does states she is depressed and suicidal and wouldn't kill himself by overdose MD Complaint: suicidal ideation, feels depressed -: unknown Associated Psychiatric Symptoms: depression, suicidal ideation History of same: Yes Quality: constant, getting worse Improves With: none Worsens With: drug use Context: recent drug abuse, significant life stressor Associated Symptoms: denies other symptoms Treatments Prior to Arrival: placed on mental health hold If Self Harm: admits thoughts of self harm - Related Data Home Medications Medication Instructions Recorded Confirmed Albuterol Sulfate [Proair Hfa] 2 puff INHALATION RT-Q6H PRN 02/03/20 06/15/20 Loratadine [Claritin] 10 mg PO DAILY PRN 02/03/20 06/15/20 Gabapentin [Neurontin] 400 mg PO TID 04/23/20 06/15/20 traZODone HCL [Desyrel] 300 mg PO HS 04/23/20 06/15/20 Docusate [Colace] 100 mg PO BID 06/15/20 06/15/20 Ferrous Sulfate [Iron (65 MG 650 mg PO DAILY 06/15/20 06/15/20 Elemental)] Naltrexone HCl [Revia] 50 mg PO DAILY 06/15/20 06/15/20 Omeprazole 20 mg PO DAILY 06/15/20 06/15/20 Polyethylene Glycol 3350 [Miralax] 17 gm PO DAILY PRN 06/15/20 06/15/20 Venlafaxine HCl [Effexor XR] See Taper PO DAILY 06/15/20 06/15/20 Previous Rx's Medication Instructions Recorded Cholecalciferol [Vitamin D3 (25 5,000 unit PO DAILY 30 Days tab 03/08/20 Mcg = 1000 Iu)] Montelukast Sodium [Singulair] 10 mg PO HS 30 Days tab 03/08/20 lisinopriL [Zestril] 10 mg PO DAILY 30 Days tab 03/08/20 Allergies Allergy/AdvReac Type Severity Reaction Status Date / Time No Known Allergies Allergy Verified 06/15/20 07:37 Review of Systems ROS Statement: Those systems with pertinent positive or pertinent negative responses have been documented in the HPI. ROS Other: All systems not noted in ROS Statement are negative. 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 MOno, leandro Horne History of Any Multi-Drug Resistant Organisms: None Reported Past Surgical History: Tonsillectomy Additional Past Surgical History / Comment(s): right knee surgery, Additional Past Anesthesia/Blood Transfusion Reaction / Comment(s): n/a Past Psychological History: Anxiety, Bipolar, Depression, PTSD Smoking Status: Current every day smoker Past Alcohol Use History: Occasional Past Drug Use History: Heroin, Marijuana - Past Family History Mother Family Medical History: Hypertension General Exam Limitations: no limitations General appearance: alert, in no apparent distress Head exam: Present: atraumatic, normocephalic, normal inspection Eye exam: Present: normal appearance, PERRL, EOMI. Absent: scleral icterus, conjunctival injection, periorbital swelling ENT exam: Present: normal exam, mucous membranes moist Neck exam: Present: normal inspection. Absent: tenderness, meningismus, lymphadenopathy Respiratory exam: Present: normal lung sounds bilaterally. Absent: respiratory distress, wheezes, rales, rhonchi, stridor Cardiovascular Exam: Present: regular rate, normal rhythm, normal heart sounds. Absent: systolic murmur, diastolic murmur, rubs, gallop, clicks GI/Abdominal exam: Present: soft, normal bowel sounds. Absent: distended, tenderness, guarding, rebound, rigid Extremities exam: Present: normal inspection, full ROM, normal capillary refill. Absent: tenderness, pedal edema, joint swelling, calf tenderness Back exam: Present: normal inspection Neurological exam: Present: alert, oriented X3, CN II-XII intact Psychiatric exam: Present: normal affect, normal mood Skin exam: Present: warm, dry, intact, normal color. Absent: rash Course Vital Signs 06/15/20 06/15/20 05:08 10:24 Temperature 98.3 F 97.9 F Pulse Rate 91 88 Respiratory 18 16 Rate Blood Pressure 137/91 128/89 O2 Sat by Pulse 97 98 Oximetry - Reevaluation(s) Reevaluation #1: 06/15/20 06:39 Medical record is reviewed Reevaluation #2: 06/15/20 06:39 Patient clear for psychiatric evaluation Medical Decision Making - Medical Decision Making 39 female to the ED for mental health, will admit for psychiatric evaluation and treatment. - Lab Data Result diagrams: 06/16/20 10:35 06/16/20 10:35 Lab Results 06/15/20 06/15/20 Range/Units 08:26 08:26 Urine Color Yellow Urine Appearance Cloudy H (Clear) Urine pH 5.5 (5.0-8.0) Ur Specific [place] 1.018 (1.001-1.035) Urine Protein Negative (Negative) Urine Glucose (UA) Negative (Negative) Urine Ketones Negative (Negative) Urine Blood Negative (Negative) Urine Nitrite Negative (Negative) Urine Bilirubin Negative (Negative) Urine Urobilinogen <2.0 (<2.0) mg/dL Ur Leukocyte Esterase Negative (Negative) Urine RBC <1 (0-5) /hpf Urine WBC 2 (0-5) /hpf Ur Squamous Epith Cells 4 (0-4) /hpf Hyaline Casts 1 (0-2) /lpf Urine Mucus Rare H (None) /hpf Urine HCG, Qual Not Detected (Not Detectd) Urine Opiates Screen Detected H (NotDetected) Ur Oxycodone Screen Not Detected (NotDetected) Urine Methadone Screen Not Detected (NotDetected) Ur Propoxyphene Screen Not Detected (NotDetected) Ur Barbiturates Screen Not Detected (NotDetected) U Tricyclic Antidepress Not Detected (NotDetected) Ur Phencyclidine Scrn Not Detected (NotDetected) Ur Amphetamines Screen Not Detected (NotDetected) U Methamphetamines Scrn Not Detected (NotDetected) U Benzodiazepines Scrn Detected H (NotDetected) Urine Cocaine Screen Detected H (NotDetected) U Marijuana (THC) Screen Detected H (NotDetected) Disposition Clinical Impression: Suicidal ideation, Depression, Borderline personality disorder, Overdose Disposition: TRANSFER TO PSYCH HOSP/UNIT Condition: Fair Is patient prescribed a controlled substance at d/c from ED?: No
[2020-06-15 08:36] LABS: Appearance,Urine Cloudy (Clear); Bilirubin,Urine Negative (Negative); Blood,Urine Negative (Negative); Color,Urine Yellow; Glucose,Urine (UA) Negative (Negative); Hyaline Casts,Urine 1 /lpf (0-2); Ketones,Urine Negative (Negative); Leukocyte Esterase,Urine Negative (Negative); Mucus,Urine Rare /hpf; Nitrite,Urine Negative (Negative); PH, Urine 5.5 (5.0-8.0); Protein,Urine Negative (Negative); RBC,Urine <1 /hpf (0-5); Specific Gravity,Urine 1.018 (1.001-1.035); Squamous Epithelial Cell,Urine 4 /hpf (0-4); Urobilinogen,Urine <2.0 mg/dL (<2.0); WBC,Urine 2 /hpf (0-5)
[2020-06-15 08:45] LABS: Cocaine Screen,Urine Detected (NotDetected); Opiate Screen,Urine Detected (NotDetected); Phencyclidine Screen,Urine Not Detected (NotDetected); Urn Cannabinoid Scrn Detected (NotDetected)
[2020-06-15 08:46] LABS: Amphetamine Screen,Urine Not Detected (NotDetected); Barbiturate Screen,Urine Not Detected (NotDetected); Benzodiazepines Screen,Urine Detected (NotDetected); Methadone Screen, Urine Not Detected (NotDetected); Oxycodone Screen, Urine Not Detected (NotDetected); Tricyclic Antidepressant,Urine Not Detected (NotDetected)
[2020-06-15] MEDS ORDERED: MAGNESIUM HYDROXIDE 2,400 MG/10 ML CUP PO PRN (11:02)
[2020-06-15] MEDS ORDERED: LORazepam 1 MG TAB PO PRN (11:02)
[2020-06-15] MEDS ORDERED: HALOPERIDOL LACTATE 5 MG/ML 1 ML VIAL ONE (11:04)
[2020-06-15] MEDS ORDERED: LORazepam 2 MG/ML INJ ONE (11:05)
[2020-06-15] MEDS ORDERED: LORATADINE 10 MG TAB PO PRN (11:06)
[2020-06-15] MEDS ORDERED: HALOPERIDOL LACTATE 5 MG/ML 1 ML VIAL IM PRN (11:08)
[2020-06-15] MEDS ORDERED: LORazepam 2 MG/ML INJ IM PRN (11:08)
[2020-06-15] MEDS ORDERED: haloperidoL 5 MG TAB PO PRN (11:16)
[2020-06-15] MEDS: NICOTINE 14MG/24HR PATCH TRANSDERM SCH (11:17)
[2020-06-15] MEDS ORDERED: HALOPERIDOL LACTATE 5 MG/ML 1 ML VIAL IM STA (12:46)
--- NOTE | 2020-06-15 13:32 | P.HP ---
Psychiatric H&P - . H&P Date: 06/15/20 History & Physical: Allergies Allergy/AdvReac Type Severity Reaction Status Date / Time No Known Allergies Allergy Verified 06/15/20 07:37 Vital Signs Temp 97.9 F 06/15/20 10:24 Pulse 88 06/15/20 10:24 Resp 16 06/15/20 10:24 BP 128/89 06/15/20 10:24 Pulse Ox 98 06/15/20 10:24 Intake & Output 06/14/20 06/15/20 06/15/20 18:59 06:59 18:59 Weight 81.647 kg Laboratory Last Values Urine Color Yellow 06/15/20 08:26 Urine Appearance Cloudy (Clear) H 06/15/20 08:26 Urine pH 5.5 (5.0-8.0) 06/15/20 08:26 Ur Specific [place] 1.018 (1.001-1.035) 06/15/20 08:26 Urine Protein Negative (Negative) 06/15/20 08:26 Urine Glucose (UA) Negative (Negative) 06/15/20 08:26 Urine Ketones Negative (Negative) 06/15/20 08:26 Urine Blood Negative (Negative) 06/15/20 08:26 Urine Nitrite Negative (Negative) 06/15/20 08:26 Urine Bilirubin Negative (Negative) 06/15/20 08:26 Urine Urobilinogen <2.0 mg/dL (<2.0) 06/15/20 08:26 Ur Leukocyte Esterase Negative (Negative) 06/15/20 08:26 Urine RBC <1 /hpf (0-5) 06/15/20 08:26 Urine WBC 2 /hpf (0-5) 06/15/20 08:26 Ur Squamous Epith Cells 4 /hpf (0-4) 06/15/20 08:26 Hyaline Casts 1 /lpf (0-2) 06/15/20 08:26 Urine Mucus Rare /hpf (None) H 06/15/20 08:26 Urine HCG, Qual Not Detected (Not Detectd) 06/15/20 08:26 Urine Opiates Screen Detected (NotDetected) H 06/15/20 08:26 Ur Oxycodone Screen Not Detected (NotDetected) 06/15/20 08:26 Urine Methadone Screen Not Detected (NotDetected) 06/15/20 08:26 Ur Propoxyphene Screen Not Detected (NotDetected) 06/15/20 08:26 Ur Barbiturates Screen Not Detected (NotDetected) 06/15/20 08:26 U Tricyclic Antidepress Not Detected (NotDetected) 06/15/20 08:26 Ur Phencyclidine Scrn Not Detected (NotDetected) 06/15/20 08:26 Ur Amphetamines Screen Not Detected (NotDetected) 06/15/20 08:26 U Methamphetamines Scrn Not Detected (NotDetected) 06/15/20 08:26 U Benzodiazepines Scrn Detected (NotDetected) H 06/15/20 08:26 Urine Cocaine Screen Detected (NotDetected) H 06/15/20 08:26 U Marijuana (THC) Screen Detected (NotDetected) H 06/15/20 08:26 06/15/20 12:39 IDENTIFYING DATA: Patient is a 39-year-old female with a history of polysubstance abuse who currently lives with her and now as has 4 children that were taken away from her. Patient currently collects Social Security and is unemployed. HPI: Patient presented to the hospital and apparently walked into the ER and was endorsing depression and suicidal thoughts according to ER report. Patient has a chronic history of bipolar disorder and polysubstance abuse and has been hospitalized several times. Patient's UDS was positive for benzodiazepines, cocaine, THC and opiates. Patient was admitted to the mental health floor for evaluation and treatment. Patient was given prn medications IM for agitation and aggression. Patient was noted by nursing staff to be pacing the hallways and acting bizarre and aggressive towards others. She appears to have poor hygiene and grooming. Patient was seen wandering the hallways and agreeable to speak briefly in her room. Patient appeared to be agitated and responding to internal stimuli. She also was confused and did not know where she was. She had poor frustration tolerance and asked adjusto writer operator why she is here on the unit. She demanded discharge. She was illogical and bizarre. She denied any paranoia and did not endorse any delusions. She did not endorse any auditory or visual hallucinations and denies any suicidal or homicidal ideations intent or plan tod ay. She is currently smoking cigarettes and abusing several recreational drugs. PAST PSYCHIATRIC HISTORY: Patient states that she has history of bipolar disorder and borderline personality disorder along with polysubstance abuse. Patient was previously on Zyprexa, Zoloft and Vistaril. Patient has been psychiatrically hospitalized several times in the past. Patient currently follows up with Dr. Byrd at [facility]. She has a hx of several suicide attempts in the past. PMH: Asthma ALLERGIES: as per EMR CHEMICAL DEPENDENCY HISTORY: as per HPI FAMILY PSYCHIATRIC/SUBSTANCE USE HISTORY: denies SOCIAL HISTORY: Patient was born and raised in [place] and now currently lives in [place]. she completed high school is not currently working at this time and is collecting Social Security. She lives in a house with her and is had 4 children the past however they have been taken away. She claims that she has a legal history in alf 2 years ago for fraud and assault. MENTAL STATUS EXAM: General Appearance: Patient appears to be stated age is lethargic, difficult to redirect and appears to be confused at times. Patient appears to have poor hygiene and grooming. Behavior: Patient is seated without any agitated behavior. Stumbling and lethargic/confused. Speech: Patient's speech is Slurred speech Mood/Affect: Patient reports their mood is "not good", affect is congruent and constricted. Suicidality/Homicidality: Patient denies having any homicidal ideation intent or plan. Denies any suicidal ideations intent or plan Perceptions: Patient denies any visual hallucinations and denies any auditory hallucinations Though content/process: poverty of speech. Guarded/evasive. illogical. Denies any delusions. Memory and concentration: Unable to participate in cognitive exam Judgment and insight: Chronically poor STRENGTHS/WEAKNESSES: strength is that patient is resilient. Weakness is that patient has poor judgment and is impulsive INTELLECT: average IMPRESSIONS: Bipolar disorder unspecified Borderline personality disorder opioid use disorder, currently in withdrawal cannabis abuse Benzodiazepine abuse Nicotine dependence PLAN: -Patient is admitted under voluntary status to MHU for stabilization of psychiatric symptoms and safety. Patient refused to sign for medication consent and is placed in patient's chart. -Medications : Will start patient on Zyprexa 10 mg daily at bedtime for mood stabilization/insomnia. Will also start patient on Prozac 20 mg daily for mood/anxiety tomorrow. start buspar 10mg tid for anxiety. -Zyprexa IM PRN for agitation/aggression. -Patient was counselled on substance abuse and was superficial about her drug use and desire to cut back -Patient was informed of the risks, benefits and side effects of the medication and patient verbally consented to taking the medications. Patient signed med consent form and was placed in chart. -Internal Medicine consult to perform medical evaluation and physical. -NRT - nicotine patch -SW on board for discharge planning. Encourage patient to participate in groups to work on coping skills. Patient is currently on a WILL order, will check when it is active until. Patient has relapsed back on drugs and will offer patient rehab when she is improved psychiatrically. 06/15/20 13:31
[2020-06-15] MEDS: cloNIDine HCL 0.1 MG TAB PO PRN (14:30)
[2020-06-15] MEDS ORDERED: OLANZapine 10 MG VIAL IM PRN (16:00)
[2020-06-15] MEDS: OLANZapine 10 MG TAB PO SCH ×3 (22:35→23:07)
[2020-06-15] MEDS: DOCUSATE 100 MG CAP PO SCH ×3 (22:35→23:07)
[2020-06-15] MEDS: MONTELUKAST 10 MG TAB PO SCH ×3 (22:35→23:07)
[2020-06-15] MEDS: busPIRone HCl 10 MG TAB PO SCH ×3 (22:35→23:07)
[2020-06-16] MEDS: CHOLECALCIFEROL 25 MCG (1000 IU) TABLET PO SCH (09:30)
[2020-06-16] MEDS: lisinopriL 10 MG TAB PO SCH ×2 (09:30→09:38)
[2020-06-16] MEDS: FERROUS SULFATE 325 MG TAB PO SCH (09:30)
[2020-06-16] MEDS: DOCUSATE 100 MG CAP PO SCH ×2 (09:30→21:24)
[2020-06-16] MEDS: FLUoxetine HCL 20 MG CAP PO SCH ×2 (09:30→09:39)
[2020-06-16] MEDS: busPIRone HCl 10 MG TAB PO SCH ×3 (09:30→21:24)
[2020-06-16] MEDS: NICOTINE 14MG/24HR PATCH TRANSDERM SCH (09:30)
[2020-06-16] MEDS ORDERED: OLANZapine 7.5 MG TAB PO PRN (10:02)
--- NOTE | 2020-06-16 10:02 | P.PN ---
Progress Note - Text Progress Note Date: 06/16/20 Interval History: Patient was seen laying in her bed today. Patient appeared to be fairly alberta rgic this morning and was difficult to awaken. She states that she did not want to get out of bed today however was appearing to be more calmer and attempting to cooperate with aligner typewriter. She continues to appear to be confused and bizarre. She answered only some questions appropriately. She has poor/minimal insight and judgment. She states that she came in to the hospital because "I'm sick of being sick". She states that she is currently living with her at home. She admitted to drug abuse prior to coming in the hospital. She states that she is feeling confused however was alert and oriented to her name and also place however does not know today's date. She states her mood is depressed and was having fleeting thoughts of suicide however no intent or plan. She claims that she was able to sleep fairly throughout the night and has been taking her medications. At this time patient denies any homical ideations, intent or plan. Patient denies any auditory, visual hallucinations and denies any paranoia or delusions. Mental Status Exam: General Appearance: Patient appears to be stated age is lethargic, difficult to engage with in conversation and appears to be confused at times. Patient appears to have poor hygiene and grooming. Behavior: Patient is lying in bed without any agitated behavior. lethargic/confused. Speech: Patient's speech is Slurred speech. concrete Mood/Affect: Patient reports their mood is "depressed", affect is congruent and constricted. Suicidality/Homicidality: Patient denies having any homicidal ideation intent or plan. Denies any suicidal ideations intent or plan Perceptions: Patient denies any visual hallucinations and denies any auditory hallucinations Though content/process: poverty of speech. Guarded/evasive. illogical. Denies any delusions. Memory and concentration: Unable to participate in cognitive exam Judgment and insight: Chronically poor Assessment Bipolar disorder unspecified Borderline personality disorder opioid use disorder, currently in withdrawal cannabis abuse Benzodiazepine abuse Nicotine dependence Plan: -Patient continues to meet criteria for inpatient psychiatric admission for symptom stabilization and safety. Patient has not signed medication consent and was placed in patient's chart. Patient is currently on active treatment order which expires in June 2020. -Medications: Continue Zyprexa 10 mg daily at bedtime for mood stabilization/insomnia. Continue with Prozac 20 mg daily for mood/anxiety, BuSpar 10 mg 3 times a day for anxiety. -When necessary Zyprexa IM for agitation/aggression. -NRT - nicotine patch -SW on board for discharge planning. Encouraged the patient to participate in milieu. Patient is currently on a WILL order, will check when it is active until. Patient has relapsed back on drugs and will offer patient rehab when she is improved psychiatrically.
[2020-06-16 11:23] LABS: Basophils # (A) 0.1 k/uL (0-0.2); Basophils % (A) 1 %; Eosinophils # (A) 0.2 k/uL (0-0.7); Eosinophils % (A) 4 %; HCT 43.8 % (34.0-46.0); HGB 13.7 gm/dL (11.4-16.0); Lymphocytes # (A) 1.2 k/uL (1.0-4.8); Lymphocytes % (A) 20 %; MCH 27.7 pg (25.0-35.0); MCHC 31.3 g/dL (31.0-37.0); MCV 88.4 fL (80.0-100.0); Mean Platelet Volume 13.8; Monocytes # (A) 0.3 k/uL (0-1.0); Monocytes % (A) 5 %; Neutrophils # (A) 4.1 k/uL (1.3-7.7); Neutrophils % (A) 68 %; RBC 4.95 m/uL (3.80-5.40); RDW 15.2 % (11.5-15.5)
[2020-06-16 11:39] LABS: Platelet Count 86 k/uL (150-450)
[2020-06-16 11:40] LABS: Large Platelets Present
[2020-06-16 12:09] LABS: ALT 77 U/L (4-34); AST 98 U/L (14-36); African American GFR (CKD) >90 (>60 ml/min/1.73 sqM); Albumin 3.7 g/dL (3.5-5.0); Alkaline Phosphatase 50 U/L (38-126); Anion Gap 5 mmol/L; Blood Urea Nitrogen 18 mg/dL (7-17); Calcium 9.4 mg/dL (8.4-10.2); Carbon Dioxide 24 mmol/L (22-30); Chloride 110 mmol/L (98-107); Glucose 89 mg/dL (74-99); Non-African American GFR(CKD) >90 (>60 ml/min/1.73 sqM); Potassium 4.1 mmol/L (3.5-5.1); Sodium 139 mmol/L (137-145); Total Bilirubin 0.7 mg/dL (0.2-1.3); Total Protein 6.7 g/dL (6.3-8.2)
[2020-06-16] MEDS: ACETAMINOPHEN TAB 325 MG TAB PO PRN (18:22)
[2020-06-16] MEDS: MAG HYDROX/AL HYDROX/SIMETH 30 ML CUP PO PRN (18:22)
[2020-06-16] MEDS: NICOTINE POLACRILEX 2 MG GUM BUCCAL PRN (20:04)
[2020-06-16] MEDS: OLANZapine 10 MG TAB PO SCH (21:24)
[2020-06-16] MEDS: MONTELUKAST 10 MG TAB PO SCH (21:24)
[2020-06-16] MEDS: GABAPENTIN 400 MG CAP PO SCH (21:26)
--- NOTE | 2020-06-16 23:05 | P.MDCNMH ---
History of Present Illness H&P Date: 06/16/20 Chief Complaint: medical evaluation 39 year old female with polysubstance abuse, and depression patient comes in with depression, suicidal ideation, and history of polysubst ance abuse. she reports overwhelming life stressors. she otherwise denies any active medical issues. denies any fever, chills, URI symptom, GI symptoms. patient does report history of thrombocytopenia , hepatitis C. and also reports history of restless legs. Review of Systems Pertinent positives as noted in HPI. 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 MOno, leandro Horne History of Any Multi-Drug Resistant Organisms: None Reported Past Surgical History: Tonsillectomy Additional Past Surgical History / Comment(s): right knee surgery, Additional Past Anesthesia/Blood Transfusion Reaction / Comment(s): n/a Past Psychological History: Anxiety, Bipolar, Depression, PTSD Smoking Status: Current every day smoker Past Alcohol Use History: Occasional Past Drug Use History: Heroin, Marijuana - Past Family History Mother Family Medical History: Hypertension Medications and Allergies Home Medications Medication Instructions Recorded Confirmed Type Albuterol Sulfate [Proair Hfa] 2 puff INHALATION RT-Q6H PRN 02/03/20 06/15/20 History Loratadine [Claritin] 10 mg PO DAILY PRN 02/03/20 06/15/20 History Cholecalciferol [Vitamin D3 (25 5,000 unit PO DAILY 30 Days tab 03/08/20 Rx Mcg = 1000 Iu)] Montelukast Sodium [Singulair] 10 mg PO HS 30 Days tab 03/08/20 06/15/20 Rx lisinopriL [Zestril] 10 mg PO DAILY 30 Days tab 03/08/20 06/15/20 Rx Gabapentin [Neurontin] 400 mg PO TID 04/23/20 06/15/20 History traZODone HCL [Desyrel] 300 mg PO HS 04/23/20 06/15/20 History Docusate [Colace] 100 mg PO BID 06/15/20 06/15/20 History Ferrous Sulfate [Iron (65 MG 650 mg PO DAILY 06/15/20 06/15/20 History Elemental)] Naltrexone HCl [Revia] 50 mg PO DAILY 06/15/20 06/15/20 History Omeprazole 20 mg PO DAILY 06/15/20 06/15/20 History Polyethylene Glycol 3350 [Miralax] 17 gm PO DAILY PRN 06/15/20 06/15/20 History Venlafaxine HCl [Effexor XR] See Taper PO DAILY 06/15/20 06/15/20 History Allergies Allergy/AdvReac Type Severity Reaction Status Date / Time No Known Allergies Allergy Verified 06/15/20 07:37 Physical Exam Vitals: Vital Signs Temp Pulse Resp BP 06/16/20 18:34 97.6 F 06/16/20 09:39 9 F L 16 100/58 06/16/20 07:36 96 134/75 06/15/20 23:11 97 132/77 Constitutional: No acute distress, conversant, pleasant Eyes: Anicteric sclerae, moist conjunctiva, Pupils equal round reactive to light ENMT: NC/AT Oropharynx clear, no erythema, or exudates Neck: Supple, FROM, no masses, or JVD No carotid bruits No thyromegaly Lungs: Clear to auscultation Clear to percussion Normal respiratory effort, no accessory muscle use Cardiovascular: Heart regular in rate and rhythm, No murmurs, gallops, or rubs No peripheral edema Abdominal: Soft Nontender, no guarding, rebound or rigidity Abdomen moving with respiration Normoactive bowel sounds No hepatomegaly, No splenomegaly No palpable mass No abdominal wall hernia noted Skin: Normal temperature, tone, texture, turgor No induration No subcutaneous nodules No rash, lesions No ulcers Extremities: No digital cyanosis No clubbing Pedal pulses intact and symmetrical Radial pulses intact and symmetrical No calf tenderness Psychiatric: Alert and oriented to person, place and time depreseed affect fair judgement Neuro Muscles Strength 5/5 in all 4 extremities Sensation to light touch grossly present throughout Cranial nerves II-XII grossly intact No focal sensory deficits Lymphatics: no palpable cervical or supraclavicular , or inguinal lymph nodes Cranial Nerve Examination - Cranial Nerves Cranial Nerve II- Optic: Intact Cranial Nerve III- Oculomotor: Intact Cranial Nerve IV- Trochlear: Intact Cranial Nerve V- Trigeminal: Intact Cranial Nerve - Abducens: Intact Cranial Nerve VII- Facial: Intact Cranial Nerve VIII- Auditory: Intact Cranial Nerve IX- Glossopharyngeal: Intact Cranial Nerve X- Vagus: Intact Cranial Nerve XI- Accessory: Intact Cranial Nerve XII- Hypoglossal: Intact Results CBC & Chem 7: 06/16/20 10:35 06/16/20 10:35 Labs: Abnormal Lab Results - Last 24 Hours (Table) 06/16/20 06/16/20 Range/Units 10:35 10:35 Plt Count 86 L (150-450) k/uL Chloride 110 H (98-107) mmol/L BUN 18 H (7-17) mg/dL AST 98 H (14-36) U/L ALT 77 H (4-34) U/L Assessment and Plan Assessment: depression , suicide ideation polysubstance abuse management per psych elevated liver enzymes, possible history of hepatitis C check hepatitis panel thrombocytopenia , could be secondary to hepatitis C no evidence of bleeding restless leg syndrome check iron profile GOal ferritin > 75, if lower , then replace with PO iron supplement Follow-up labs Thank you for allowing us to participate in the care of this patient. We will follow peripherally. Do not hesitate to contact us with questions. Someone can be reached from the [facility] hospitalist group at all hours of the day at [phone].
[2020-06-17] MEDS: NICOTINE POLACRILEX 2 MG GUM BUCCAL PRN ×4 (03:00→18:23)
[2020-06-17] MEDS: busPIRone HCl 10 MG TAB PO SCH ×3 (08:17→21:00)
[2020-06-17] MEDS: FLUoxetine HCL 20 MG CAP PO SCH (08:17)
[2020-06-17] MEDS: CHOLECALCIFEROL 25 MCG (1000 IU) TABLET PO SCH (08:19)
[2020-06-17] MEDS: GABAPENTIN 400 MG CAP PO SCH ×3 (08:19→21:00)
[2020-06-17] MEDS: DOCUSATE 100 MG CAP PO SCH ×2 (08:19→20:59)
[2020-06-17] MEDS: lisinopriL 10 MG TAB PO SCH (08:19)
[2020-06-17] MEDS: NICOTINE 14MG/24HR PATCH TRANSDERM SCH (08:19)
[2020-06-17] MEDS: ACETAMINOPHEN TAB 325 MG TAB PO PRN ×4 (08:19→23:22)
[2020-06-17] MEDS: FERROUS SULFATE 325 MG TAB PO SCH (08:19)
[2020-06-17 09:39] LABS: % Iron Saturation 23.89 (12.00-45.00)
[2020-06-17 09:47] LABS: Ferritin 75.7 ng/mL (10.0-291.0)
--- NOTE | 2020-06-17 10:29 | P.PN ---
Progress Note - Text Progress Note Date: 06/17/20 Interval History: Patient was seen taking part in group today. Patient was directable and agree able to speak to read in the office. She appears to be more cooperative today however was medication seeking. Patient was preoccupied with controlled medication such as Neurontin and Ativan and Xanax and wanting doctor to prescribe this for her at nighttime. She claims that she has had insomnia issues for several years now and claims that "that's the only thing that works for me". She states that last night she was unable to sleep "at all" and claims that she was wandering the hallways and now feels very tired. She states that her mood is "not that good because I can't sleep". She states that she has been trying to go to groups and concentrate However she is not able to do this due to her lack of sleep last night. At this time patient denies any homical ideations, intent or plan. Patient denies any auditory, visual hallucinations and denies any paranoia or delusions. Mental Status Exam: General Appearance: Patient appears to be stated age is lethargic, directable however is manipulative. Patient appears to have improving hygiene and grooming. Behavior: Patient is lying in bed without any agitated behavior. Directable Speech: Patient's speech is fluent, nonpressured. Mood/Affect: Patient reports their mood is "not good", affect is congruent and constricted. Suicidality/Homicidality: Patient denies having any homicidal ideation intent or plan. Denies any suicidal ideations intent or plan Perceptions: Patient denies any visual hallucinations and denies any auditory hallucinations Though content/process: poverty of speech. Guarded/evasive. Preoccupied with her medications and obtaining controlled medications from Memory and concentration: Alert and oriented 3, fair attention span. Judgment and insight: Chronically poor Assessment Bipolar disorder unspecified Borderline personality disorder opioid use disorder, currently in withdrawal cannabis abuse Benzodiazepine abuse Nicotine dependence Plan: -Patient continues to meet criteria for inpatient psychiatric admission for symptom stabilization and safety. Patient has not signed medication consent and was placed in patient's chart. Patient is currently on active treatment order which expires in June 2020. -Medications: Discontinued Zyprexa at this time is patient claims is causing her restless leg symptoms and not helping with sleep. Started doxepin 10 mg daily at bedtime for insomnia/mood. Discontinued Prozac at this time. Continue with BuSpar 10 mg 3 times a day for anxiety. Added Benadryl 50 mg daily at bedtime when necessary for insomnia. Added Requip 0.5 mg daily at bedtime for restless leg symptoms. -When necessary Zyprexa IM and PO for agitation/aggression. -NRT - nicotine patch -SW on board for discharge planning. Encouraged the patient to participate in milieu. Patient is currently on a WILL order. Patient has relapsed back on drugs and will offer patient rehab when she is improved psychiatrically.
[2020-06-17 10:55] LABS: Hepatitis A Antibody IgM Non-Reactive (Non-Reactive); Hepatitis B Core IgM Non-Reactive (Non-Reactive); Hepatitis B Surface Antigen Non-Reactive (Non-Reactive); Hepatitis C IgG Antibody Reactive (Non-Reactive)
[2020-06-17] MEDS: IBUPROFEN 600 MG TAB PO PRN ×2 (12:32→21:34)
[2020-06-17] MEDS ORDERED: WATER FOR INJECTION, STERILE 10 ML IV ONE (15:55)
[2020-06-17] MEDS: MONTELUKAST 10 MG TAB PO SCH (20:59)
[2020-06-17] MEDS ORDERED: DOXEPIN 10 MG CAP PO SCH ×2 (21:00)
[2020-06-17] MEDS: diphenhydrAMINE 50 MG CAP PO PRN (21:34)
[2020-06-17] MEDS ORDERED: OLANZapine 10 MG VIAL IM STA ×2 (23:53→23:56)
[2020-06-18] MEDS: NICOTINE POLACRILEX 2 MG GUM BUCCAL PRN ×3 (01:56→21:52)
[2020-06-18] MEDS: IBUPROFEN 600 MG TAB PO PRN ×2 (07:50→19:01)
[2020-06-18] MEDS: NICOTINE 14MG/24HR PATCH TRANSDERM SCH (07:50)
[2020-06-18] MEDS: busPIRone HCl 10 MG TAB PO SCH ×3 (07:51→21:52)
[2020-06-18] MEDS: DOCUSATE 100 MG CAP PO SCH ×2 (07:51→20:29)
[2020-06-18] MEDS: GABAPENTIN 400 MG CAP PO SCH ×3 (07:51→21:51)
[2020-06-18] MEDS: FERROUS SULFATE 325 MG TAB PO SCH (07:51)
[2020-06-18] MEDS: CHOLECALCIFEROL 25 MCG (1000 IU) TABLET PO SCH (07:52)
[2020-06-18] MEDS: lisinopriL 10 MG TAB PO SCH (07:52)
[2020-06-18] MEDS ORDERED: OLANZapine 10 MG VIAL IM PRN (10:32)
[2020-06-18] MEDS: ACETAMINOPHEN TAB 325 MG TAB PO PRN ×2 (12:44→21:51)
--- NOTE | 2020-06-18 12:46 | P.PN ---
Progress Note - Text Progress Note Date: 06/18/20 Interval History: Patient was seen lying in her bed this morning sleeping and handbook writer returned la ter on in the afternoon to speak with handbook writer who was agreeable to speak with handbook writer in her room. She appears to be tired today and states that "I didn't sleep much at all last night". She states that she was pacing the hallway and that her feet were hurting and was starting to get agitated on the unit. She states that "nothing works" regarding her sleep. She appeared to be frustrated at times during the interview and was asking about several different medication options. She did appear to be more cooperative with handbook writer today and have a calmer affect. Process Assistant spoke with patient about the option of Depakote and nighttime and increasing her doxepin which patient was agreeable to. She states that she is not on control however she does not plan on getting in the future and handbook writer discussed the possibility of neurological and try to teratogenic effects of Depakote on the fetus if she does become and to speak with her outpatient psychiatrist about this medication. She states that her mood is "hopeless" today and continues to endorse depression. She states that she has been trying to go to groups and concentrate however states that she is having racing thoughts at times. At this time patient denies any homical ideations, intent or plan. Patient denies any auditory, visual hallucinations and denies any paranoia or delusions. Mental Status Exam: General Appearance: Patient appears to be stated age is lethargic, directable however is more cooperative today. Patient appears to have improving hygiene and grooming. Behavior: Patient is lying in bed without any agitated behavior. Directable and more cooperative today. Speech: Patient's speech is fluent, nonpressured. Mood/Affect: Patient reports their mood is "hopeless" and endorsing depression, affect is congruent and constricted. Suicidality/Homicidality: Patient denies having any homicidal ideation intent or plan. Denies any suicidal ideations intent or plan Perceptions: Patient denies any visual hallucinations and denies any auditory hallucinations Though content/process: poverty of speech and content. Preoccupied with her medications and obtaining controlled medications. Memory and concentration: Alert and oriented 3, fair attention span. Judgment and insight: Chronically poor, improving mildly Assessment Bipolar disorder unspecified Borderline personality disorder opioid use disorder, currently in withdrawal cannabis abuse Benzodiazepine abuse Nicotine dependence Plan: -Patient continues to meet criteria for inpatient psychiatric admission for symptom stabilization and safety. Patient has not signed medication consent and was placed in patient's chart. Patient is currently on active treatment order which expires in June 2020. -Medications: Increased doxepin 20 mg daily at bedtime for insomnia/mood. Continue with BuSpar 10 mg 3 times a day for anxiety. Continue with Benadryl 50 mg daily at bedtime when necessary for insomnia. Continue Requip 0.5 mg daily at bedtime for restless leg symptoms. Added Depakote ER 1000 mg daily at bedtime for mood stabilization/aggression/insomnia. Patient was warned of the side effects including possibly teratogenic effects however patient states that she does not plan on getting in the future. -When necessary Zyprexa IM and PO for agitation/aggression. -NRT - nicotine patch -SW on board for discharge planning. Encouraged the patient to participate in milieu. Patient is currently on a WILL order. Patient has relapsed back on drugs and will offer patient rehab when she is improved psychiatrically.
[2020-06-18] MEDS: MAG HYDROX/AL HYDROX/SIMETH 30 ML CUP PO PRN (14:58)
[2020-06-18] MEDS: diphenhydrAMINE 50 MG CAP PO PRN (17:13)
[2020-06-18] MEDS: ALBUTEROL HFA INHALER INHALATION PRN (17:59)
[2020-06-18] MEDS ORDERED: BENZTROPINE MESYLATE 1 MG TAB PO ONE (18:17)
[2020-06-18] MEDS: MONTELUKAST 10 MG TAB PO SCH (20:30)
[2020-06-18] MEDS ORDERED: DOXEPIN 10 MG CAP PO SCH (21:00)
[2020-06-18] MEDS ORDERED: DIVALPROEX ER 500 MG TAB.ER.24H PO SCH (21:00)
[2020-06-18] MEDS: cloNIDine HCL 0.1 MG TAB PO PRN (23:05)
[2020-06-19] MEDS: NICOTINE POLACRILEX 2 MG GUM BUCCAL PRN ×3 (04:36→22:46)
[2020-06-19] MEDS ORDERED: OLANZapine 10 MG TAB PO PRN (07:07)
[2020-06-19] MEDS: NICOTINE 14MG/24HR PATCH TRANSDERM SCH (08:39)
[2020-06-19] MEDS: busPIRone HCl 10 MG TAB PO SCH (08:39)
[2020-06-19] MEDS: GABAPENTIN 400 MG CAP PO SCH ×3 (08:40→20:46)
[2020-06-19] MEDS: IBUPROFEN 600 MG TAB PO PRN (08:40)
[2020-06-19] MEDS: FERROUS SULFATE 325 MG TAB PO SCH (08:40)
[2020-06-19] MEDS: lisinopriL 10 MG TAB PO SCH (08:40)
[2020-06-19] MEDS: CHOLECALCIFEROL 25 MCG (1000 IU) TABLET PO SCH (08:40)
[2020-06-19] MEDS: DOCUSATE 100 MG CAP PO SCH ×2 (08:40→20:46)
[2020-06-19] MEDS: MAG HYDROX/AL HYDROX/SIMETH 30 ML CUP PO PRN (10:17)
[2020-06-19] MEDS: ACETAMINOPHEN TAB 325 MG TAB PO PRN (11:21)
[2020-06-19] MEDS ORDERED: BENZTROPINE 2 MG/2 ML AMP IM PRN (12:22)
--- NOTE | 2020-06-19 13:29 | P.PN ---
Progress Note - Text Progress Note Date: 06/19/20 Interval History: Patient was seen lying in her bed today and was agreeable to speak with jingle writer in the office. Patient was able to take her benadrly prn last night and did not need zyprexa IM and was able to fall asleep at 1230am. Patient claims that she was furious at the nurse yesterday for "lying to me" about calling the doctor. She states that she was not trying to "look for medications" and was attempting to sleep on her own. Patient was irritable at times during the interview and f airly argumentative towards jingle writer. She continues to be impulsive at times. She states that her mood is "fine" however has an incongruent affect. She appears to have an improvement in her hygiene and grooming. She asked several questions about her medications and what she will be taking for sleep tonight. She continues to demonstrate poor insight and judgment when speaking about her substance abuse and also her substance use order which she has currently violated. She claims that she does not want to go to [facility] and states that "I'll hide out if the police come to look for me". At this time patient denies any homical ideations, intent or plan. Patient denies any auditory, visual hallucinations and denies any paranoia or delusions. Mental Status Exam: General Appearance: Patient appears to be stated age is alert, argumentative today. Patient appears to have improving hygiene and grooming. Behavior: Patient is lying in bed without any agitated behavior. Directable however was argumentative and uncooperative today. Speech: Patient's speech is fluent, nonpressured. Mood/Affect: Patient reports their mood is "ok", affect is incongruent Suicidality/Homicidality: Patient denies having any homicidal ideation intent or plan. Denies any suicidal ideations intent or plan Perceptions: Patient denies any visual hallucinations and denies any auditory hallucinations Though content/process: poverty of speech and content. Preoccupied with her medications and obtaining controlled medications. Minimizing her need for hospitalization and treatment. Memory and concentration: Alert and oriented 3, fair attention span. Judgment and insight: Chronically poor Assessment Bipolar disorder unspecified Borderline personality disorder opioid use disorder, currently in withdrawal cannabis abuse Benzodiazepine abuse Nicotine dependence Plan: -Patient continues to meet criteria for inpatient psychiatric admission for symptom stabilization and safety. Patient has not signed medication consent and was placed in patient's chart. Patient is currently on active treatment order which expires in June 2020. -Medications: Increased doxepin 25 mg daily at bedtime for insomnia/mood. Increased BuSpar 15 mg 3 times a day for anxiety. Continue with Benadryl 50 mg daily at bedtime when necessary for insomnia. Added Cogentin 1 mg daily when necessary for EPS reaction. Continue Requip 0.5 mg daily at bedtime for restless leg symptoms. Increased Depakote ER 1500 mg daily at bedtime for mood stabilization/aggression/insomnia. -When necessary Zyprexa IM and PO for agitation/aggression. -NRT - nicotine patch -SW on board for discharge planning. Encouraged the patient to participate in milieu. Patient is currently on a WILL order. Patient has relapsed back on drugs and violated her substance use order. Patient at this time is claiming that she does not want to go to rehab or a sober house upon discharge. We'll continue communications with the courts. Likely discharge in 2-3 days.
[2020-06-19] MEDS: busPIRone HCl 5 MG TAB PO SCH ×2 (15:56→20:46)
[2020-06-19] MEDS: ALBUTEROL HFA INHALER INHALATION PRN (19:36)
[2020-06-19] MEDS: DIVALPROEX ER 500 MG TAB.ER.24H PO SCH (20:46)
[2020-06-19] MEDS: MONTELUKAST 10 MG TAB PO SCH (20:46)
[2020-06-19] MEDS ORDERED: DOXEPIN 25 MG CAP PO SCH (21:00)
[2020-06-19] MEDS: cloNIDine HCL 0.1 MG TAB PO PRN (21:30)
[2020-06-19] MEDS: diphenhydrAMINE 50 MG CAP PO PRN (23:49)
[2020-06-20] MEDS: NICOTINE POLACRILEX 2 MG GUM BUCCAL PRN ×4 (04:17→20:12)
[2020-06-20] MEDS: ALBUTEROL HFA INHALER INHALATION PRN (05:22)
[2020-06-20] MEDS: FERROUS SULFATE 325 MG TAB PO SCH (07:58)
[2020-06-20] MEDS: NICOTINE 14MG/24HR PATCH TRANSDERM SCH (07:58)
[2020-06-20] MEDS: lisinopriL 10 MG TAB PO SCH (07:58)
[2020-06-20] MEDS: busPIRone HCl 5 MG TAB PO SCH ×3 (07:58→20:08)
[2020-06-20] MEDS: CHOLECALCIFEROL 25 MCG (1000 IU) TABLET PO SCH (07:58)
[2020-06-20] MEDS: DOCUSATE 100 MG CAP PO SCH ×2 (07:58→20:21)
[2020-06-20] MEDS: GABAPENTIN 400 MG CAP PO SCH ×3 (07:59→20:08)
[2020-06-20] MEDS ORDERED: traZODone HCL 100 MG TAB PO PRN (10:35)
[2020-06-20] MEDS ORDERED: haloperidoL 5 MG TAB PO PRN (11:02)
[2020-06-20] MEDS ORDERED: HALOPERIDOL LACTATE 5 MG/ML 1 ML VIAL IM PRN (11:02)
[2020-06-20] MEDS ORDERED: diphenhydrAMINE 50 MG/ML 1 ML VIAL IM PRN (11:03)
[2020-06-20] MEDS ORDERED: OLANZapine 7.5 MG TAB PO ONE (11:08)
--- NOTE | 2020-06-20 11:16 | P.PN ---
Progress Note - Text Progress Note Date: 06/20/20 Interval History: Patient was seen sitting in on a group today and was agreeable to speak with maxi corbett in the office. Patient was initially guarded with pattern chart writer and superficial about her day yesterday. She states that "everything's fine I'm okay". She claimed initially that she slept fairly last night however when pattern chart writer asked her to clarify she states that "I only got 2 hours". She states that she feels the doxepin has not been helping her and claims that she feels frustrated with her medications. She states that "I can't shut my brain off". She was fairly argumentative with pattern chart writer about her medications and states that "you don't believe anything I say I wanted different doctor". She then proceeded to call pattern chart writer a "quack". She continues to be impulsive at times and appears to be frustrated. She states that her mood is "fine" however has an incongruent affect. She appears to have an improvement in her hygiene and grooming. She continues to demonstrate very poor insight and judgment when speaking about her substance abuse and also her substance use order which she has currently violated. She continues to state that she wants to go home and does not want to go to a [facility]. At this time patient denies any homical ideations, intent or plan. Patient denies any auditory, visual hallucinations and denies any paranoia or delusions. Mental Status Exam: General Appearance: Patient appears to be stated age is alert, argumentative today. Superficial at times. Patient appears to have improving hygiene and grooming. Behavior: Patient is lying in bed without any agitated behavior. Directable however was argumentative Speech: Patient's speech is fluent, nonpressured. Mood/Affect: Patient reports their mood is "fine", affect is incongruent Suicidality/Homicidality: Patient denies having any homicidal ideation intent or plan. Denies any suicidal ideations intent or plan Perceptions: Patient denies any visual hallucinations and denies any auditory hallucinations Though content/process: poverty of speech and content. Preoccupied with obtaining controlled medications and also with discharge back home. Minimizing her need for hospitalization and treatment. Memory and concentration: Alert and oriented 3, fair attention span. Judgment and insight: Chronically poor and impulsive Assessment Bipolar disorder unspecified Borderline personality disorder opioid use disorder, currently in withdrawal cannabis abuse Benzodiazepine abuse Nicotine dependence Plan: -Patient continues to meet criteria for inpatient psychiatric admission for symptom stabilization and safety. Patient has not signed medication consent and was placed in patient's chart. Patient is currently on active treatment order which expires in June 2020. -Medications: Discontinue doxepin. Continue with BuSpar 15 mg 3 times a day for anxiety. Continue with Benadryl 50 mg daily at bedtime when necessary for insomnia. Continue with Cogentin 1 mg daily when necessary for EPS reaction. Continue Requip 0.5 mg daily at bedtime for restless leg symptoms. Continue with Depakote ER 1500 mg daily at bedtime for mood stabilization/aggression/insomnia. Added trazodone 100 mg daily at bedtime +100 mg when necessary for insomnia. -When necessary Haldol IM and PO + Benadryl IM for agitation/aggression. -NRT - nicotine patch - on board for discharge planning. Encouraged the patient to participate in milieu. Patient is currently on a WILL order. Patient has relapsed back on drugs and violated her substance use order. Patient at this time is claiming that she does not want to go to rehab or a sober house upon discharge. We'll continue communications with the courts and with [facility] to enforce that patient be discharged to a [facility]. Banquet Chef spoke with Dr. Byrd over the phone today for further collateral and to collaborate care and who also agrees that patient should be going to a [facility] and is a high risk to relapse and be rehospitalized if she does not.
[2020-06-20] MEDS: DIVALPROEX ER 500 MG TAB.ER.24H PO SCH (20:08)
[2020-06-20] MEDS: MONTELUKAST 10 MG TAB PO SCH (20:08)
[2020-06-20] MEDS ORDERED: DOXEPIN 25 MG CAP PO SCH (21:00)
[2020-06-20] MEDS ORDERED: traZODone HCL 100 MG TAB PO SCH (21:00)
[2020-06-20] MEDS: IBUPROFEN 600 MG TAB PO PRN (21:27)
[2020-06-20] MEDS: diphenhydrAMINE 50 MG CAP PO PRN (23:19)
[2020-06-21] MEDS: NICOTINE POLACRILEX 2 MG GUM BUCCAL PRN ×4 (00:34→21:25)
[2020-06-21 07:03] VITALS: RESP 16
[2020-06-21] MEDS: NICOTINE 14MG/24HR PATCH TRANSDERM SCH (08:20)
[2020-06-21] MEDS: GABAPENTIN 400 MG CAP PO SCH ×3 (08:21→20:55)
[2020-06-21] MEDS: busPIRone HCl 5 MG TAB PO SCH ×3 (08:21→20:52)
[2020-06-21] MEDS: CHOLECALCIFEROL 25 MCG (1000 IU) TABLET PO SCH (08:21)
[2020-06-21] MEDS: lisinopriL 10 MG TAB PO SCH (08:21)
[2020-06-21] MEDS: FERROUS SULFATE 325 MG TAB PO SCH (08:21)
[2020-06-21] MEDS: DOCUSATE 100 MG CAP PO SCH ×2 (08:21→20:54)
--- NOTE | 2020-06-21 10:09 | P.PN ---
Progress Note - Text Progress Note Date: 06/21/20 Interval History: Patient was seen wandering the hallways this morning and was agreeable to speak with financial underwriter in the office. Patient appeared to be calmer today with financial underwriter and more appropriate during the conversation. She states that she is feeling better today and states that she was apologetic for yesterday as she was feeling very irritable. She claims that "that's what happens when I can't sleep". She states that she was talking with her girlfriend over the phone yesterday and was yelling at her and states that "does not like me". She claims that the trazodone helped her sleep last night and had to take 200 mg total. She appears to have an improvement in her hygiene and grooming. She continues to demonstrate very poor insight and judgment when speaking about her substance abuse and also her substance use order however today states that she is more willing to go to either rehab or the [facility] upon discharge however states that "it's up to the housing court judge to decide that". At this time patient denies any homical ideations, intent or plan. Patient denies any auditory, visual hallucinations and denies any paranoia or delusions. Mental Status Exam: General Appearance: Patient appears to be stated age is alert, more directable today. Superficial. Patient appears to have improving hygiene and grooming. Behavior: Patient is lying in bed without any agitated behavior. More directable today Speech: Patient's speech is fluent, nonpressured. Mood/Affect: Patient reports their mood is "ok", affect is congruent Suicidality/Homicidality: Patient denies having any homicidal ideation intent or plan. Denies any suicidal ideations intent or plan Perceptions: Patient denies any visual hallucinations and denies any auditory hallucinations Though content/process: poverty of speech and content. Preoccupied with discharge. Minimizing her need for hospitalization and treatment, improving mildly Memory and concentration: Alert and oriented 3, fair attention span. Judgment and insight: Chronically poor and impulsive, improving mildly Assessment Bipolar disorder unspecified Borderline personality disorder opioid use disorder, currently in withdrawal cannabis abuse Benzodiazepine abuse Nicotine dependence Plan: -Patient continues to meet criteria for inpatient psychiatric admission for symptom stabilization and safety. Patient has not signed medication consent and was placed in patient's chart. Patient is currently on active treatment order which expires in June 2020. -Medications: Continue with BuSpar 15 mg 3 times a day for anxiety. Continue with Benadryl 50 mg daily at bedtime when necessary for insomnia. Continue with Cogentin 1 mg daily when necessary for EPS reaction. Continue Requip 0.5 mg daily at bedtime for restless leg symptoms. Continue with Depakote ER 1500 mg daily at bedtime for mood stabilization/aggression/insomnia. Changed trazodone 200 mg daily at bedtime for insomnia/mood. -When necessary Haldol IM and PO + Benadryl IM for agitation/aggression. -NRT - nicotine patch -SW on board for discharge planning. Encouraged the patient to participate in milieu. Patient is currently on a WILL order. Patient has relapsed back on drugs and violated her substance use order. Surfacing Machine Operator spoke with Dr. Byrd over the phone today for further collateral and to collaborate care and who also agrees that patient should be going to a [facility] and is a high risk to relapse and be rehospitalized if she does not. At this time patient is willing to either go to a [facility] or substance rehab
[2020-06-21] MEDS: DIVALPROEX ER 500 MG TAB.ER.24H PO SCH (20:52)
[2020-06-21] MEDS: MONTELUKAST 10 MG TAB PO SCH (20:52)
[2020-06-21] MEDS ORDERED: traZODone HCL 100 MG TAB PO SCH (21:00)
[2020-06-21] MEDS: diphenhydrAMINE 50 MG CAP PO PRN (22:38)
[2020-06-22 06:55] VITALS: BP 112/57; PULSE 71
[2020-06-22] MEDS: NICOTINE 14MG/24HR PATCH TRANSDERM SCH (08:17)
[2020-06-22] MEDS: busPIRone HCl 5 MG TAB PO SCH (08:18)
[2020-06-22] MEDS: lisinopriL 10 MG TAB PO SCH (08:18)
[2020-06-22] MEDS: FERROUS SULFATE 325 MG TAB PO SCH (08:18)
[2020-06-22] MEDS: CHOLECALCIFEROL 25 MCG (1000 IU) TABLET PO SCH (08:18)
[2020-06-22] MEDS: GABAPENTIN 400 MG CAP PO SCH (08:18)
[2020-06-22] MEDS: DOCUSATE 100 MG CAP PO SCH (08:19)
[2020-06-22] MEDS: NICOTINE POLACRILEX 2 MG GUM BUCCAL PRN (08:20)
--- NOTE | 2020-06-22 09:22 | P.DS ---
Providers Date of admission: 06/15/20 10:26 Expected date of discharge: 06/22/20 Attending physician: Ajay Ann MD Consults: 06/15/20 11:02 Consult Physician Routine Consulting Provider: Johny Physician Consult Reason/Comments: H & P and medical care Do you want consulting provider notified?: Yes Primary care physician: [facility] [place] - Discharge Diagnosis(es) (1) Bipolar disorder, mixed Current Visit: Yes Status: Acute Priority: High (2) Borderline personality disorder Current Visit: Yes Status: Acute Priority: Medium (3) Opioid abuse Current Visit: Yes Status: Acute Priority: High (4) Cannabis use disorder, mild, abuse Current Visit: Yes Status: Acute Priority: Medium (5) Benzodiazepine abuse Current Visit: Yes Status: Acute Priority: Medium (6) Nicotine dependence Current Visit: Yes Status: Acute Priority: Low Hospital Course: Admission HPI: Admission note was completed by telegraphic typewriter installer "Patient is a 39-year-old female with a history of polysubstance abuse who currently lives with her and now as has 4 children that were taken away from her. Patient currently collects Social Security and is unemployed. Patient presented to the hospital and apparently walked into the ER and was endorsing depression and suicidal thoughts according to ER report. Patient has a chronic history of bipolar disorder and polysubstance abuse and has been hospitalized several times. Patient's UDS was positive for benzodiazepines, cocaine, THC and opiates. Patient was admitted to the mental health floor for evaluation and treatment. Patient was given prn medications IM for agitation and aggression. Patient was noted by nursing staff to be pacing the hallways and acting bizarre and aggressive towards others. She appears to have poor hygiene and grooming. Patient was seen wandering the hallways and agreeable to speak briefly in her room. Patient appeared to be agitated and responding to internal stimuli. She also was confused and did not know where she was. She had poor frustration tolerance and asked telegraphic typewriter installer why she is here on the unit. She demanded discharge. She was illogical and bizarre. She denied any paranoia and did not endorse any delusions. She did not endorse any auditory or visual hallucinations and denies any suicidal or homicidal ideations intent or plan today. She is currently smoking cigarettes and abusing several recreational drugs." Hospital course: Upon admission to the unit patient was initially bizarre, aggressive and confused. Patient was however directable and agreeable to commence treatment and signed adult voluntary form. Patient eventually got along well with other patients on the unit and followed unit protocol. Patient was compliant with the medications. Patient was started on BuSpar 15 mg 3 times a day for anxiety, Benadryl 50 mg daily at bedtime when necessary for insomnia, Requip 0.5 mg daily at bedtime for restless leg symptoms, Depakote ER 1500 mg daily at bedtime for mood stabilization/aggression/insomnia, trazodone 200 mg daily at bedtime for mood/insomnia. The decision was made to discontinue Zyprexa and doxepin due to patient reporting ineffectiveness. Patient spoke of her stressors and engaged in therapy both group and individual. Patient was also seen by medical team for history and physical exam. Throughout the course of the hospitalization patient gradually improved with regards to mood lability, aggression, anxiety, sleep. Patient's insight and judgment showed some modest improvement however remains chronically poor with regards to her treatment order, her need for psychiatric care and also her need for substance abuse treatment. Patient had claimed that even though she is on the substance use disorder that she will not be going to rehab and will "look into" going to a [facility]-quarter house and await the bottle line worker's decision during Court next week. On the day of discharge patient denied any suicidal or homicidal ideations intent or plan denied any auditory or visual hallucinations. Patient endorsed wanting to live for her future and her family. The patient denied any access to guns or weapons. Patient denied any paranoia and did not endorse any delusions. Patient does have a significant history of substance abuse and was counseled on abstaining from all substances including alcohol and marijuana. Patient was offered however declined inpatient substance- abuse rehab. Patient was also counseled on the medications and need for regular compliance and was encouraged to follow-up with their outpatient appointment for mental health and also for primary care. Mental status exam: General Appearance: Patient appears to be overweight, stated age is alert, directable, and superficially cooperative. Patient is in no acute distress and has improved hygiene and grooming Behavior: Patient is calmly seated without any agitated behavior. Superficially cooperative. Speech: Patient's speech is fluent and nonpressured. Mood/Affect: Patient reports their mood is "better", affect is congruent Suicidality/Homicidality: Patient denies having any suicidal or homicidal ideation intent or plan. Perceptions: Patient denies any auditory or visual hallucinations. Though content/process: There is no evidence of any delusional thought content and thought process is linear and goal-directed. Memory and concentration: AOX3, grossly intact for the purposes of this session. Can spell "WORLD" backwards correctly. Judgment and insight: chronically poor, however has improved with guarded prognosis Impression: Bipolar disorder, current episode mixed Borderline personality disorder Opioid abuse Cannabis use disorder Benzodiazepine abuse Nicotine dependence Plan: -Continue with discharge today as patient has improved and stabilized psychiatrically and is not currently an imminent threat to herself and/or others. Patient will remain at chronically elevated risk for harm to self and/or others due to her impulsivity, chronically poor insight and judgment and polysubstance abuse. -Continue medications: Continue with BuSpar 15 mg 3 times a day for anxiety, Benadryl 50 mg daily at bedtime when necessary for insomnia, Requip 0.5 mg daily at bedtime for restless leg symptoms, Depakote ER 1500 mg daily at bedtime for mood stabilization/aggression/insomnia, trazodone 200 mg daily at bedtime for insomnia/mood. -Patient was counseled on the need for medication compliance and appropriate follow-up at mental health and also primary care for medical issues. Patient verbalized understanding and agreed. -Social work to help arrange for discharge today. workers compensation analyst contacted [facility] about patient's violation of her substance use court order however the order was not enforced and patient refused to go to rehab or the [facility]-quarter house as recommended by the order. Instead she wants to be discharged back home and appear in court next week with Performance Instructor Neeraj. Social work also to arrange for patients follow up appointments with [facility] for psychiatric care along with follow up with primary care provider. Would recommend that patient be added to the ACT team -Patient was informed of her hepatitis C status and she states that she is aware of this and is planning to follow up with her PCP. -Patient counseled on abstaining from recreational drugs and marijuana and alcohol. Was informed/educated on the adverse effects on their physical and mental health. Patient verbally agreed and understood. Patient was offered substance abuse treatment however declined at this time. -Patient was instructed to return to the hospital or seek immediate medical care if their psychiatric or medical symptoms do worsen or reoccur. Allergies Allergy/AdvReac Type Severity Reaction Status Date / Time No Known Allergies Allergy Verified 06/15/20 07:37 Laboratory Results WBC 6.0 k/uL (3.8-10.6) 06/16/20 10:35 RBC 4.95 m/uL (3.80-5.40) 06/16/20 10:35 Hgb 13.7 gm/dL (11.4-16.0) 06/16/20 10:35 Hct 43.8 % (34.0-46.0) 06/16/20 10:35 MCV 88.4 fL (80.0-100.0) 06/16/20 10:35 MCH 27.7 pg (25.0-35.0) 06/16/20 10:35 MCHC 31.3 g/dL (31.0-37.0) 06/16/20 10:35 RDW 15.2 % (11.5-15.5) 06/16/20 10:35 Plt Count 86 k/uL (150-450) L 06/16/20 10:35 MPV 13.8 06/16/20 10:35 Neutrophils % 68 % 06/16/20 10:35 Lymphocytes % 20 % 06/16/20 10:35 Monocytes % 5 % 06/16/20 10:35 Eosinophils % 4 % 06/16/20 10:35 Basophils % 1 % 06/16/20 10:35 Neutrophils # 4.1 k/uL (1.3-7.7) 06/16/20 10:35 Lymphocytes # 1.2 k/uL (1.0-4.8) 06/16/20 10:35 Monocytes # 0.3 k/uL (0-1.0) 06/16/20 10:35 Eosinophils # 0.2 k/uL (0-0.7) 06/16/20 10:35 Basophils # 0.1 k/uL (0-0.2) 06/16/20 10:35 Manual Slide Review Performed 06/16/20 10:35 Large Platelets Present 06/16/20 10:35 Sodium 139 mmol/L (137-145) 06/16/20 10:35 Potassium 4.1 mmol/L (3.5-5.1) 06/16/20 10:35 Chloride 110 mmol/L (98-107) H 06/16/20 10:35 Carbon Dioxide 24 mmol/L (22-30) 06/16/20 10:35 Anion Gap 5 mmol/L 06/16/20 10:35 BUN 18 mg/dL (7-17) H 06/16/20 10:35 Creatinine 0.60 mg/dL (0.52-1.04) 06/16/20 10:35 Est GFR (CKD-EPI)AfAm >90 (>60 ml/min/1.73 sqM) 06/16/20 10:35 Est GFR (CKD-EPI)NonAf >90 (>60 ml/min/1.73 sqM) 06/16/20 10:35 Glucose 89 mg/dL (74-99) 06/16/20 10:35 Calcium 9.4 mg/dL (8.4-10.2) 06/16/20 10:35 Iron 102 ug/dL (50-170) 06/17/20 00:22 TIBC 427 ug/dL (228-460) 06/17/20 00:22 % Saturation 23.89 (12.00-45.00) 06/17/20 00:22 Ferritin 75.7 ng/mL (10.0-291.0) 06/17/20 00:22 Total Bilirubin 0.7 mg/dL (0.2-1.3) 06/16/20 10:35 AST 98 U/L (14-36) H 06/16/20 10:35 ALT 77 U/L (4-34) H 06/16/20 10:35 Alkaline Phosphatase 50 U/L (38-126) 06/16/20 10:35 Total Protein 6.7 g/dL (6.3-8.2) 06/16/20 10:35 Albumin 3.7 g/dL (3.5-5.0) 06/16/20 10:35 TSH 1.170 mIU/L (0.465-4.680) 06/16/20 10:35 Urine Color Yellow 06/15/20 08:26 Urine Appearance Cloudy (Clear) H 06/15/20 08:26 Urine pH 5.5 (5.0-8.0) 06/15/20 08:26 Ur Specific Keyser 1.018 (1.001-1.035) 06/15/20 08:26 Urine Protein Negative (Negative) 06/15/20 08:26 Urine Glucose (UA) Negative (Negative) 06/15/20 08:26 Urine Ketones Negative (Negative) 06/15/20 08:26 Urine Blood Negative (Negative) 06/15/20 08:26 Urine Nitrite Negative (Negative) 06/15/20 08:26 Urine Bilirubin Negative (Negative) 06/15/20 08:26 Urine Urobilinogen <2.0 mg/dL (<2.0) 06/15/20 08:26 Ur Leukocyte Esterase Negative (Negative) 06/15/20 08:26 Urine RBC <1 /hpf (0-5) 06/15/20 08:26 Urine WBC 2 /hpf (0-5) 06/15/20 08:26 Ur Squamous Epith Cells 4 /hpf (0-4) 06/15/20 08:26 Hyaline Casts 1 /lpf (0-2) 06/15/20 08:26 Urine Mucus Rare /hpf (None) H 06/15/20 08:26 Urine HCG, Qual Not Detected (Not Detectd) 06/15/20 08:26 Urine Opiates Screen Detected (NotDetected) H 06/15/20 08:26 Ur Oxycodone Screen Not Detected (NotDetected) 06/15/20 08:26 Urine Methadone Screen Not Detected (NotDetected) 06/15/20 08:26 Ur Propoxyphene Screen Not Detected (NotDetected) 06/15/20 08:26 Ur Barbiturates Screen Not Detected (NotDetected) 06/15/20 08:26 U Tricyclic Antidepress Not Detected (NotDetected) 06/15/20 08:26 Ur Phencyclidine Scrn Not Detected (NotDetected) 06/15/20 08:26 Ur Amphetamines Screen Not Detected (NotDetected) 06/15/20 08:26 U Methamphetamines Scrn Not Detected (NotDetected) 06/15/20 08:26 U Benzodiazepines Scrn Detected (NotDetected) H 06/15/20 08:26 Urine Cocaine Screen Detected (NotDetected) H 06/15/20 08:26 U Marijuana (THC) Screen Detected (NotDetected) H 06/15/20 08:26 Coronavirus (PCR) Not Detected (Not Detectd) 06/15/20 16:20 Hepatitis A IgM Ab Non-Reactive (Non-Reactive) 06/17/20 00:22 Hep Bs Antigen Non-Reactive (Non-Reactive) 06/17/20 00:22 Hep B Core IgM Ab Non-Reactive (Non-Reactive) 06/17/20 00:22 Hep C IgG Ab Reactive (Non-Reactive) A 06/17/20 00:22 Patient Condition at Discharge: Stable Plan - Discharge Summary New Discharge Prescriptions: New diphenhydrAMINE [Benadryl] 50 mg PO HS PRN 14 Days cap PRN Reason: Insomnia busPIRone HCL [Buspar] 15 mg PO TID 14 Days tablet Loratadine [Claritin] 10 mg PO DAILY PRN tab PRN Reason: Allergy Symptoms Divalproex ER [Depakote ER] 1,500 mg PO HS 14 Days tab.er.24h traZODone HCL [Desyrel] 200 mg PO HS 14 Days tab Nicotine 14Mg/24Hr Patch [Habitrol] 1 patch TRANSDERM DAILY 14 Days patch Ferrous Sulfate [Iron (65 MG Elemental)] 650 mg PO DAILY tab Ibuprofen [Motrin] 600 mg PO TID PRN tab PRN Reason: Mild Pain Nicotine Polacrilex [Nicorette] 2 mg BUCCAL Q4HR PRN 14 Days gum PRN Reason: Nicotine Cravings rOPINIRole HCL [Requip] 0.5 mg PO HS 14 Days tab Montelukast [Singulair] 10 mg PO HS tab Acetaminophen Tab [Tylenol] 650 mg PO Q4HR PRN tab PRN Reason: Pain/Discomfort lisinopriL [Zestril] 10 mg PO DAILY tab Continue Albuterol Sulfate [Proair Hfa] 2 puff INHALATION RT-Q6H PRN PRN Reason: Shortness Of Breath Cholecalciferol [Vitamin D3 (25 Mcg = 1000 Iu)] 5,000 unit PO DAILY 30 Days tab Gabapentin [Neurontin] 400 mg PO TID Discontinued Loratadine [Claritin] 10 mg PO DAILY PRN PRN Reason: Allergy Symptoms lisinopriL [Zestril] 10 mg PO DAILY 30 Days tab Montelukast Sodium [Singulair] 10 mg PO HS 30 Days tab traZODone HCL [Desyrel] 300 mg PO HS Omeprazole 20 mg PO DAILY Polyethylene Glycol 3350 [Miralax] 17 gm PO DAILY PRN PRN Reason: Constipation Naltrexone HCl [Revia] 50 mg PO DAILY Docusate [Colace] 100 mg PO BID Ferrous Sulfate [Iron (65 MG Elemental)] 650 mg PO DAILY Venlafaxine HCl [Effexor XR] See Taper PO DAILY Discharge Medication List Albuterol Sulfate [Proair Hfa] 2 puff INHALATION RT-Q6H PRN 02/03/20 [History] Cholecalciferol [Vitamin D3 (25 Mcg = 1000 Iu)] 5,000 unit PO DAILY 30 Days tab 03/08/20 [Rx] Gabapentin [Neurontin] 400 mg PO TID 04/23/20 [History] Acetaminophen Tab [Tylenol] 650 mg PO Q4HR PRN tab 06/22/20 [Rx] Divalproex ER [Depakote ER] 1,500 mg PO HS 14 Days tab.er.24h 06/22/20 [Rx] Ferrous Sulfate [Iron (65 MG Elemental)] 650 mg PO DAILY tab 06/22/20 [Rx] Ibuprofen [Motrin] 600 mg PO TID PRN tab 06/22/20 [Rx] Loratadine [Claritin] 10 mg PO DAILY PRN tab 06/22/20 [Rx] Montelukast [Singulair] 10 mg PO HS tab 06/22/20 [Rx] Nicotine 14Mg/24Hr Patch [Habitrol] 1 patch TRANSDERM DAILY 14 Days patch 06/22/20 [Rx] Nicotine Polacrilex [Nicorette] 2 mg BUCCAL Q4HR PRN 14 Days gum 06/22/20 [Rx] busPIRone HCL [Buspar] 15 mg PO TID 14 Days tablet 06/22/20 [Rx] diphenhydrAMINE [Benadryl] 50 mg PO HS PRN 14 Days cap 06/22/20 [Rx] lisinopriL [Zestril] 10 mg PO DAILY tab 06/22/20 [Rx] rOPINIRole HCL [Requip] 0.5 mg PO HS 14 Days tab 06/22/20 [Rx] traZODone HCL [Desyrel] 200 mg PO HS 14 Days tab 06/22/20 [Rx] Follow up Appointment(s)/Referral(s): [facility] [Outside] - 06/26/20 10:00 am (06-26-20 @ 10:00 with Emily Payne by phone 06-27-20 @ 4:00 with Jennifer Lima by phone 06-28-20 @ 12:[address] Byrd at [facility] office) [facility] [Primary Care Provider] - 1-2 days Patient Instructions/Handouts: How to Stop Smoking (DC), Mood Disorders (DC), Benzodiazepine Overdose (DC) Activity/Diet/Wound Care/Special Instructions: Activity and diet as tolerated. Avoid the use of street drugs and alcohol. Take all medications as prescribed. When you are in need of refills on your medications please contact your medical provider and/or outpatient psychiatrist to have this done. Please go to scheduled outpatient appointment for aftercare treatment. If symptoms return or become worse, call the crisis line at and/or go to the nearest emergency room for evaluation. Discharge Disposition: HOME SELF-CARE
[2020-06-22 10:47] VITALS: TEMP 98.1
== END 2020-06-22 10:50 | disposition home or self-care (01) | DRG 885 ==
LOC: EC 05:04 → 3MHU 10:26
PROVIDERS: ADMIT Psychiatry & Neurology Psychiatry; ATTEND Psychiatry & Neurology Psychiatry
DX: F31.60 Bipolar disorder, current episode mixed, unspecified (principal); R45.851 Suicidal ideations; F11.10 Opioid abuse, uncomplicated; F12.10 Cannabis abuse, uncomplicated; F13.10 Sedative, hypnotic or anxiolytic abuse, uncomplicated; B19.20 Unspecified viral hepatitis C without hepatic coma; F17.210 Nicotine dependence, cigarettes, uncomplicated; F43.10 Post-traumatic stress disorder, unspecified; Z20.822 Contact with and (suspected) exposure to COVID-19; F60.3 Borderline personality disorder; G25.81 Restless legs syndrome; G47.00 Insomnia, unspecified; J45.909 Unspecified asthma, uncomplicated; Z91.5 Personal history of self-harm; Z82.49 Family history of ischemic heart disease and other diseases of the circulatory system; Z79.899 Other long term (current) drug therapy
CPT/HCPCS: 80053; 80074; 80306; 81001; 81025; 82075; 82728; 83540; 83550; 84443; 85025; 87635; 99285

== ENCOUNTER 2020-07-07 21:08 | Emergency (ER) | payer MEDICARE, OTHER ==
[2020-07-07 21:20] VITALS: BP 113/81; PULSE 87; RESP 16; TEMP 99.3
--- NOTE | 2020-07-07 21:36 | ED ---
Psych HPI - General Chief Complaint: Psychiatric Symptoms Stated Complaint: Grab Setter Order Time Seen by Provider: 07/07/20 21:21 Source: patient Mode of arrival: ambulatory - History of Present Illness Initial Comments: 39-year-old feel presents today for chief complaint of brought in by police for pickup order. Patient states she missed an appointment with her psychiatrist Dr. Byrd she states she did reschedule his appointment however there must have been a miscommunication. Patient states she is brought in today secondary to missing this appointment. Patient states she's been compliant with her medications as well as her appointments aside from having to reschedule the most recent. Denies any complaints, denies suicidal and homicidal ideations. patient appears well, very cooperative and pleasant. Does not appear acutely psychotic. - Related Data Home Medications Medication Instructions Recorded Confirmed Albuterol Sulfate [Proair Hfa] 2 puff INHALATION RT-Q6H PRN 02/03/20 06/15/20 Gabapentin [Neurontin] 400 mg PO TID 04/23/20 06/15/20 Previous Rx's Medication Instructions Recorded Cholecalciferol [Vitamin D3 (25 5,000 unit PO DAILY 30 Days tab 03/08/20 Mcg = 1000 Iu)] Acetaminophen Tab [Tylenol] 650 mg PO Q4HR PRN tab 06/22/20 Divalproex ER [Depakote ER] 1,500 mg PO HS 14 Days tab.er.24h 06/22/20 Ferrous Sulfate [Iron (65 MG 650 mg PO DAILY tab 06/22/20 Elemental)] Ibuprofen [Motrin] 600 mg PO TID PRN tab 06/22/20 Loratadine [Claritin] 10 mg PO DAILY PRN tab 06/22/20 Montelukast [Singulair] 10 mg PO HS tab 06/22/20 Nicotine 14Mg/24Hr Patch [Habitrol] 1 patch TRANSDERM DAILY 14 Days 06/22/20 patch Nicotine Polacrilex [Nicorette] 2 mg BUCCAL Q4HR PRN 14 Days gum 06/22/20 busPIRone HCL [Buspar] 15 mg PO TID 14 Days tablet 06/22/20 diphenhydrAMINE [Benadryl] 50 mg PO HS PRN 14 Days cap 06/22/20 lisinopriL [Zestril] 10 mg PO DAILY tab 06/22/20 rOPINIRole HCL [Requip] 0.5 mg PO HS 14 Days tab 06/22/20 traZODone HCL [Desyrel] 200 mg PO HS 14 Days tab 06/22/20 Allergies Allergy/AdvReac Type Severity Reaction Status Date / Time No Known Allergies Allergy Verified 07/07/20 21:20 Review of Systems ROS Statement: Those systems with pertinent positive or pertinent negative responses have been documented in the HPI. ROS Other: All systems not noted in ROS Statement are negative. 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 MOno, leandro Horne History of Any Multi-Drug Resistant Organisms: None Reported Past Surgical History: Tonsillectomy Additional Past Surgical History / Comment(s): right knee surgery, Additional Past Anesthesia/Blood Transfusion Reaction / Comment(s): n/a Past Psychological History: Anxiety, Bipolar, Depression, PTSD Smoking Status: Current every day smoker Past Alcohol Use History: Occasional Past Drug Use History: Heroin, Marijuana - Past Family History Mother Family Medical History: Hypertension General Exam - General Exam Comments Initial Comments: General: The patient is awake and alert, in no distress Eye: Pupils are equal, round and reactive to light, extra-ocular movements are intact. No nystagmus. There is normal conjunctiva bilaterally. No signs of icterus. Cardiovascular: There is a regular rate and rhythm. No murmur, rub or gallop is appreciated. Respiratory: Lungs are clear to auscultation, respirations are non-labored, breath sounds are equal. No wheezes, stridor, rales, or rhonchi. Gastrointestinal: Soft, non-distended, non-tender abdomen without masses or organomegaly noted. There is no rebound or guarding present. Musculoskeletal: Normal ROM, no tenderness. Strength 5/5. Sensation intact. Radial pulses equal bilaterally 2+. Neurological: A&O x 3. CN II-XII intact grossly, There are no obvious motor or sensory deficits. Coordination appears grossly intact. Speech is normal. Skin: Skin is warm and dry and no rashes or lesions are noted. Psychiatric: Cooperative, appropriate mood & affect, normal judgment. Limitations: no limitations Course Vital Signs 07/07/20 21:17 Temperature 99.3 F Pulse Rate 87 Respiratory 16 Rate Blood Pressure 113/81 O2 Sat by Pulse 96 Oximetry Medical Decision Making - Medical Decision Making Pt medically clear. does not appear psychotic. pt missed appointment. patient evaluated by EPS who contacted psychiatrist and Mobile crisis unit and it was deemed patient was safe for discharge. at this time patient does not appear psychotic nor a threat to herself or others and will be discharged with psychiatry f/u. Disposition Clinical Impression: Encounter for psychiatric assessment Disposition: HOME SELF-CARE Condition: Good Is patient prescribed a controlled substance at d/c from ED?: No [facility] - 1-2 days Time of Disposition: 21:36
== END 2020-07-07 21:41 | disposition home or self-care (01) ==
LOC: EC 21:08
DX: Z13.39 Encounter for screening examination for other mental health and behavioral disorders (principal); J45.909 Unspecified asthma, uncomplicated; F41.9 Anxiety disorder, unspecified; F31.9 Bipolar disorder, unspecified; F17.200 Nicotine dependence, unspecified, uncomplicated; Z79.899 Other long term (current) drug therapy
CPT/HCPCS: 82075; 99284

== ENCOUNTER 2021-07-02 19:58 | Emergency (ER) | payer MEDICARE, OTHER ==
[2021-07-02 20:14] VITALS: BP 138/97; PULSE 107; RESP 18; TEMP 98.1
[2021-07-02] MEDS ORDERED: LIDOCAINE 1% INJ 10MG/ML (20 ML MDV) SQ ONE (23:03)
[2021-07-02] MEDS ORDERED: SULFAMETHOX-TMP 800-160MG 1 EACH TAB PO STA (23:05)
[2021-07-02] MEDS ORDERED: CEPHALEXIN 500 MG CAP PO STA (23:05)
--- NOTE | 2021-07-03 00:26 | ED ---
General Adult HPI - General Chief complaint: Skin/Abscess/Foreign Body Stated complaint: Boil under arm Source: patient Mode of arrival: ambulatory Limitations: no limitations - History of Present Illness Initial comments: 40 year old female presents emergency Department with multiple abscesses under her left arm. States that they have been present for the past month. She was previously seen at [facility] and had incision and drainage of 1 abscess. She was placed on Bactrim at that time and finished the course. States that the wounds never healed and she subsequently developed 3 additional lesions. Has been getting some purulent drainage. Denies history of MRSA. No fevers. No involvement of the other axilla or groin. - Related Data Home Medications Medication Instructions Recorded Confirmed Albuterol Sulfate [Proair Hfa] 2 puff INHALATION RT-Q6H PRN 02/03/20 06/15/20 Gabapentin [Neurontin] 400 mg PO TID 04/23/20 06/15/20 Previous Rx's Medication Instructions Recorded Cholecalciferol [Vitamin D3 (25 5,000 unit PO DAILY 30 Days tab 03/08/20 Mcg = 1000 Iu)] Acetaminophen Tab [Tylenol] 650 mg PO Q4HR PRN tab 06/22/20 Divalproex ER [Depakote ER] 1,500 mg PO HS 14 Days tab.er.24h 06/22/20 Ferrous Sulfate [Iron (65 MG 650 mg PO DAILY tab 06/22/20 Elemental)] Ibuprofen [Motrin] 600 mg PO TID PRN tab 06/22/20 Loratadine [Claritin] 10 mg PO DAILY PRN tab 06/22/20 Montelukast [Singulair] 10 mg PO HS tab 06/22/20 Nicotine 14Mg/24Hr Patch [Habitrol] 1 patch TRANSDERM DAILY 14 Days 06/22/20 patch Nicotine Gum (Polacrilex) 2 mg BUCCAL Q4HR PRN 14 Days gum 06/22/20 [Nicorette] busPIRone HCL [Buspar] 15 mg PO TID 14 Days tablet 06/22/20 diphenhydrAMINE [Benadryl] 50 mg PO HS PRN 14 Days cap 06/22/20 lisinopriL [Zestril] 10 mg PO DAILY tab 06/22/20 rOPINIRole HCL [Requip] 0.5 mg PO HS 14 Days tab 06/22/20 traZODone HCL [Desyrel] 200 mg PO HS 14 Days tab 06/22/20 Cephalexin [Keflex] 500 mg PO Q6HR #28 cap 07/03/21 Sulfamethox-Tmp 800-160Mg [Bactrim 2 tab PO Q12HR #28 tab 07/03/21 DS 800-160 mg] Allergies Allergy/AdvReac Type Severity Reaction Status Date / Time No Known Allergies Allergy Verified 07/02/21 20:14 Review of Systems ROS Statement: Those systems with pertinent positive or pertinent negative responses have been documented in the HPI. ROS Other: All systems not noted in ROS Statement are negative. 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 MOno, leandro Horne History of Any Multi-Drug Resistant Organisms: None Reported Past Surgical History: Tonsillectomy Additional Past Surgical History / Comment(s): right knee surgery, Additional Past Anesthesia/Blood Transfusion Reaction / Comment(s): n/a Past Psychological History: Anxiety, Bipolar, Depression, PTSD Smoking Status: Current every day smoker Past Alcohol Use History: Occasional Past Drug Use History: Heroin, Marijuana - Past Family History Mother Family Medical History: Hypertension General Exam Limitations: no limitations Course Vital Signs 07/02/21 20:10 Temperature 98.1 F Pulse Rate 107 H Respiratory 18 Rate Blood Pressure 138/97 O2 Sat by Pulse 96 Oximetry Medical Decision Making - Medical Decision Making Upon arrival patient's placed into room 23. There are history of physical exam is performed. Incision and drainage is performed of the patient's for axillary abscesses. Cultures obtained. Patient will be started on Bactrim and Keflex. Instructed to place warm compresses to the site and expressed the lesions for any further drainage. Recommend that she follow up with her primary care doctor within 2-4 days for reevaluation. Return for any worsening symptoms. Agree with the treatment plan was discharged in stable condition Disposition Clinical Impression: Skin abscess Disposition: HOME SELF-CARE Condition: Stable Instructions (If sedation given, give patient instructions): Abscess (ED), Abscess Incision and Drainage (DC) Additional Instructions: Please follow-up with your pcp in 2-4 days. Return to the ED for any new or worsening symptoms. Place warm compresses to the site and continue to express the wounds. Don't shave until areas are healed Prescriptions: Sulfamethox-Tmp 800-160Mg [Bactrim DS 800-160 mg] 2 tab PO Q12HR #28 tab Cephalexin [Keflex] 500 mg PO Q6HR #28 cap Is patient prescribed a controlled substance at d/c from ED?: No Referrals: [facility] [Primary Care Provider] - 1-2 days Time of Disposition: 00:25
== END 2021-07-03 00:35 | disposition home or self-care (01) ==
LOC: EC 19:58
DX: L02.412 Cutaneous abscess of left axilla (principal); J45.909 Unspecified asthma, uncomplicated; F31.9 Bipolar disorder, unspecified; F41.9 Anxiety disorder, unspecified; F17.200 Nicotine dependence, unspecified, uncomplicated; F11.90 Opioid use, unspecified, uncomplicated; F12.90 Cannabis use, unspecified, uncomplicated; Z79.51 Long term (current) use of inhaled steroids; Z79.899 Other long term (current) drug therapy
CPT/HCPCS: 87070; 87205; 10060; 99283; J2001

== ENCOUNTER 2021-11-16 22:32 | Emergency (ER) | payer MEDICARE, OTHER ==
[2021-11-17 00:08] VITALS: BP 137/93; PULSE 68; RESP 16; TEMP 98.1
--- NOTE | 2021-11-17 00:09 | ED ---
Skin/Abscess/FB HPI - General Stated complaint: LT arm abscess Time Seen by Provider: 11/17/21 00:06 Source: patient Mode of arrival: ambulatory Limitations: no limitations - History of Present Illness Initial comments: Becky frias MD complaint: rash, abscess/boil -: days(s) Tetanus Up to Date: yes Location: LUE Consistency: constant Improves with: none Worsens with: none Context: none Associated symptoms: fever Treatments Prior to Arrival: attempted to drain pus at home - Related Data Home Medications Medication Instructions Recorded Confirmed Albuterol Sulfate [Proair Hfa] 2 puff INHALATION RT-Q6H PRN 02/03/20 06/15/20 Gabapentin [Neurontin] 400 mg PO TID 04/23/20 06/15/20 Previous Rx's Medication Instructions Recorded Cholecalciferol [Vitamin D3 (25 5,000 unit PO DAILY 30 Days tab 03/08/20 Mcg = 1000 Iu)] Acetaminophen Tab [Tylenol] 650 mg PO Q4HR PRN tab 06/22/20 Divalproex ER [Depakote ER] 1,500 mg PO HS 14 Days tab.er.24h 06/22/20 Ferrous Sulfate [Iron (65 MG 650 mg PO DAILY tab 06/22/20 Elemental)] Ibuprofen [Motrin] 600 mg PO TID PRN tab 06/22/20 Loratadine [Claritin] 10 mg PO DAILY PRN tab 06/22/20 Montelukast [Singulair] 10 mg PO HS tab 06/22/20 Nicotine 14Mg/24Hr Patch [Habitrol] 1 patch TRANSDERM DAILY 14 Days 06/22/20 patch Nicotine Gum (Polacrilex) 2 mg BUCCAL Q4HR PRN 14 Days gum 06/22/20 [Nicorette] busPIRone HCL [Buspar] 15 mg PO TID 14 Days tablet 06/22/20 diphenhydrAMINE [Benadryl] 50 mg PO HS PRN 14 Days cap 06/22/20 lisinopriL [Zestril] 10 mg PO DAILY tab 06/22/20 rOPINIRole HCL [Requip] 0.5 mg PO HS 14 Days tab 06/22/20 traZODone HCL [Desyrel] 200 mg PO HS 14 Days tab 06/22/20 Cephalexin [Keflex] 500 mg PO Q6HR #28 cap 07/03/21 Sulfamethox-Tmp 800-160Mg [Bactrim 2 tab PO Q12HR #28 tab 07/03/21 DS 800-160 mg] Ibuprofen [Motrin] 600 mg PO Q8HR PRN #20 tab 11/17/21 Sulfamethox-Tmp 800-160Mg [Bactrim 2 each PO Q12HR #28 tab 11/17/21 Ds] Allergies Allergy/AdvReac Type Severity Reaction Status Date / Time No Known Allergies Allergy Verified 11/17/21 00:04 Review of Systems ROS Statement: Those systems with pertinent positive or pertinent negative responses have been documented in the HPI. ROS Other: All systems not noted in ROS Statement are negative. Constitutional: Reports: fever. 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 MOno, leandro Horne History of Any Multi-Drug Resistant Organisms: None Reported Date of last positivie culture/infection: 07/03/21 MDRO Source:: AXILLA MRSA Past Surgical History: Tonsillectomy Additional Past Surgical History / Comment(s): right knee surgery, Additional Past Anesthesia/Blood Transfusion Reaction / Comment(s): n/a Past Psychological History: Anxiety, Bipolar, Depression, PTSD Smoking Status: Current every day smoker Past Alcohol Use History: Occasional Past Drug Use History: Heroin, Marijuana - Past Family History Mother Family Medical History: Hypertension General Exam General appearance: alert, in no apparent distress Head exam: Present: atraumatic, normocephalic Eye exam: Present: normal appearance Respiratory exam: Present: normal lung sounds bilaterally. Absent: respiratory distress, wheezes, rales, rhonchi, stridor Cardiovascular Exam: Present: regular rate, normal rhythm, normal heart sounds. Absent: systolic murmur, diastolic murmur, rubs, gallop Course Vital Signs 11/17/21 00:04 Temperature 98.1 F Pulse Rate 68 Respiratory 16 Rate Blood Pressure 137/93 O2 Sat by Pulse 98 Oximetry Medical Decision Making - Medical Decision Making Patient's 41-year-old woman with forearm infection. She appears to have drained most of the fluid collection at home prior to coming in. There is no fluctuance. Discussed appropriate further care and follow-up and started antibiotic Disposition Clinical Impression: Cellulitis Disposition: HOME SELF-CARE Condition: Good Instructions (If sedation given, give patient instructions): Cellulitis (ED) Prescriptions: Sulfamethox-Tmp 800-160Mg [Bactrim Ds] 2 each PO Q12HR #28 tab Ibuprofen [Motrin] 600 mg PO Q8HR PRN #20 tab PRN Reason: Pain Is patient prescribed a controlled substance at d/c from ED?: No Referrals: [facility] [Primary Care Provider] - 1-2 days
[2021-11-17] MEDS ORDERED: SULFAMETHOX-TMP 800-160MG 1 EACH TAB PO STA (00:30)
[2021-11-17] MEDS ORDERED: IBUPROFEN 600 MG TAB PO STA (02:05)
== END 2021-11-17 02:27 | disposition home or self-care (01) ==
LOC: EC 22:32
DX: L03.114 Cellulitis of left upper limb (principal); J45.909 Unspecified asthma, uncomplicated; F17.200 Nicotine dependence, unspecified, uncomplicated

== ENCOUNTER 2022-06-05 17:45 | Inpatient (IN) | payer MEDICARE, MEDICAID ==
[2022-06-05 21:55] LABS: Appearance,Urine Clear (Clear); Bilirubin,Urine Negative (Negative); Blood,Urine Negative (Negative); Color,Urine Light Yellow; Glucose,Urine (UA) Negative (Negative); Ketones,Urine Negative (Negative); Leukocyte Esterase,Urine Negative (Negative); Nitrite,Urine Negative (Negative); Protein,Urine Negative (Negative); Specific Gravity,Urine 1.006 (1.001-1.035); Urobilinogen,Urine <2.0 mg/dL (<2.0)
[2022-06-05 22:04] LABS: Amphetamine Screen,Urine Detected (NotDetected); Benzodiazepines Screen,Urine Detected (NotDetected); Cocaine Screen,Urine Detected (NotDetected); Methadone Screen, Urine Not Detected (NotDetected); Opiate Screen,Urine Not Detected (NotDetected); Phencyclidine Screen,Urine Not Detected (NotDetected); Tricyclic Antidepressant,Urine Detected (NotDetected); Urn Cannabinoid Scrn Not Detected (NotDetected)
[2022-06-05 22:05] LABS: Barbiturate Screen,Urine Not Detected (NotDetected); Oxycodone Screen, Urine Not Detected (NotDetected)
--- NOTE | 2022-06-05 22:26 | ED ---
Psych HPI - General Chief Complaint: Psychiatric Symptoms Stated Complaint: mental health Time Seen by Provider: 06/05/22 18:30 Source: patient Mode of arrival: ambulatory - History of Present Illness Initial Comments: 41-year-old female with past medical history of borderline personality disorder who presents to the emergency department reporting suicidal ideations. She states that she has not taken her medications in 2 weeks. States that this is partially due to [facility] "not delivering her medications last week because they thought she was incarcerated." Reports that the week before that she was not taking her medications as directed. She has been increasingly more depressed. Using cocaine because of depression. Has suicidal thoughts with plan that she could take all of her medications. States that she is hopeless and "hopes that she doesn't wake up in the morning". She denies alcohol use. No homicidal ideations. No hallucinations. No other alleviating, precipitating or modifying factors - Related Data Home Medications Medication Instructions Recorded Confirmed Albuterol Sulfate [Proair Hfa] 2 puff INHALATION RT-Q6H PRN 02/03/20 06/05/22 Buprenorphine/Naloxone 8Mg/2Mg 3 film SL DAILY 06/05/22 06/05/22 [Suboxone 8-2Mg Film] Cholecalciferol [Vitamin D3 (125 125 mcg PO DAILY 06/05/22 06/05/22 Mcg = 5000 Iu)] Loratadine [Claritin] 10 mg PO DAILY 06/05/22 06/05/22 Melatonin 5 mg PO HS PRN 06/05/22 06/05/22 Montelukast [Singulair] 10 mg PO DAILY 06/05/22 06/05/22 Omeprazole [PriLOSEC] 20 mg PO DAILY 06/05/22 06/05/22 Previous Rx's Medication Instructions Recorded Ferrous Sulfate [Iron (65 MG 650 mg PO DAILY tab 06/22/20 Elemental)] Doxepin [SINEquan] 50 mg PO HS 1 Days #15 cap 06/11/22 Gabapentin [Neurontin] 200 mg PO TID 15 Days #45 cap 06/11/22 QUEtiapine [SEROquel] 300 mg PO HS 30 Days #45 tablet 06/11/22 Allergies Allergy/AdvReac Type Severity Reaction Status Date / Time No Known Allergies Allergy Verified 06/05/22 18:18 Review of Systems ROS Statement: Those systems with pertinent positive or pertinent negative responses have been documented in the HPI. ROS Other: All systems not noted in ROS Statement are negative. 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 MOno, leandro Horne History of Any Multi-Drug Resistant Organisms: None Reported Date of last positivie culture/infection: 07/03/21 MDRO Source:: AXILLA MRSA Past Surgical History: Tonsillectomy Additional Past Surgical History / Comment(s): right knee surgery, Additional Past Anesthesia/Blood Transfusion Reaction / Comment(s): n/a Past Psychological History: Anxiety, Bipolar, Depression, PTSD Smoking Status: Current every day smoker Past Alcohol Use History: Occasional Past Drug Use History: Heroin, Marijuana - Past Family History Mother Family Medical History: Hypertension General Exam General appearance: alert, in no apparent distress Head exam: Present: atraumatic, normocephalic, normal inspection Eye exam: Present: normal appearance, PERRL, EOMI. Absent: scleral icterus, conjunctival injection, periorbital swelling ENT exam: Present: normal exam, mucous membranes moist Neck exam: Present: normal inspection. Absent: tenderness, meningismus, lymphadenopathy Respiratory exam: Present: normal lung sounds bilaterally. Absent: respiratory distress, wheezes, rales, rhonchi, stridor Cardiovascular Exam: Present: regular rate, normal rhythm, normal heart sounds. Absent: systolic murmur, diastolic murmur, rubs, gallop, clicks GI/Abdominal exam: Present: soft, normal bowel sounds. Absent: distended, tenderness, guarding, rebound, rigid Extremities exam: Present: normal inspection, full ROM, normal capillary refill. Absent: tenderness, pedal edema, joint swelling, calf tenderness Back exam: Present: normal inspection Neurological exam: Present: alert, oriented X3, CN II-XII intact Psychiatric exam: Present: depressed, flat affect Skin exam: Present: warm, dry, intact, normal color. Absent: rash Course Vital Signs 06/05/22 18:15 Temperature 98.0 F Pulse Rate 69 Respiratory 16 Rate Blood Pressure 151/73 O2 Sat by Pulse 98 Oximetry Medical Decision Making - Medical Decision Making Was pt. sent in by a medical professional or institution? [facility] Did you speak to anyone other than the patient for history? no Did you review nursing and triage notes? yes and I agree Were old charts reviewed? yes, previous hospitalizations Differential Diagnosis? depression, anxiety, SI, HI, drug use, alcoholism EKG interpreted by me (3pts min.)? no X-rays interpreted by me (1pt min.)? no CT interpreted by me (1pt min.)? no U/S interpreted by me (1pt. min.)? no What testing was considered but not performed? (CT, X-rays, U/S, labs)? Why? none What meds were considered but not given? Why? none Did you discuss the management of the patient with other professionals? EPS nurse Did you reconcile home meds? yes Was smoking cessation discussed for >3mins.? no Was critical care preformed (if so, how long)? no Were there social determinants of health that impacted care today? How? (Homelessness, low income, unemployed, alcoholism, drug addiction, transportation, low edu. Level, literacy, decrease access to med. care, group home, rehab)? no Was there de-escalation of care discussed even if they declined? (Discuss DNR or withdrawal of care, Hospice)? no What co-morbidities impacted this encounter? (DM, HTN, Smoking, COPD, CAD, Cancer, CVA, Hep., AIDS, mental health diagnosis, sleep apnea, morbid obesity)? borderline personality disorder Was patient admitted / discharged? Upon arrival patient is placed into room 13. Thorough history and physical exam was performed. Patient is not intoxicated. She will be evaluated by EPS and we are currently awaiting the recommendations Undiagnosed new problem with uncertain prognosis? yes Drug Therapy requiring intensive monitoring for toxicity (Heparin, Nitro, Insulin, Cardizem)? no Were any procedures done? no Diagnosis/symptom? acute depression Acute, or Chronic, or Acute on Chronic? acute on chronic Uncomplicated (without systemic symptoms) or Complicated (systemic symptoms)? complicated Side effects of treatment? sedation Exacerbation, Progression, or Severe Exacerbation] exacerbation Poses a threat to life or bodily function? yes - Lab Data Lab Results 06/05/22 06/05/22 06/05/22 Range/Units 21:01 21:31 21:31 Urine Color Light Yellow Urine Appearance Clear (Clear) Urine pH 6.0 (5.0-8.0) Ur Specific [place] 1.006 (1.001-1.035) Urine Protein Negative (Negative) Urine Glucose (UA) Negative (Negative) Urine Ketones Negative (Negative) Urine Blood Negative (Negative) Urine Nitrite Negative (Negative) Urine Bilirubin Negative (Negative) Urine Urobilinogen <2.0 (<2.0) mg/dL Ur Leukocyte Esterase Negative (Negative) Urine HCG, Qual Not Detected (Not Detectd) Urine Opiates Screen Not Detected (NotDetected) Ur Oxycodone Screen Not Detected (NotDetected) Urine Methadone Screen Not Detected (NotDetected) Ur Propoxyphene Screen Not Detected (NotDetected) Ur Barbiturates Screen Not Detected (NotDetected) U Tricyclic Antidepress Detected H (NotDetected) Ur Phencyclidine Scrn Not Detected (NotDetected) Ur Amphetamines Screen Detected H (NotDetected) U Methamphetamines Scrn Detected H (NotDetected) U Benzodiazepines Scrn Detected H (NotDetected) Urine Cocaine Screen Detected H (NotDetected) U Marijuana (THC) Screen Not Detected (NotDetected) Coronavirus (PCR) Not Detected (Not Detectd) Disposition Clinical Impression: Depression Disposition: ADMITTED IP TO THIS [facility] Condition: Stable Is patient prescribed a controlled substance at d/c from ED?: No
[2022-06-05] MEDS ORDERED: MAGNESIUM HYDROXIDE 2,400 MG/10 ML CUP PO PRN (23:13)
[2022-06-05] MEDS ORDERED: MAG HYDROX/AL HYDROX/SIMETH 30 ML CUP PO PRN (23:13)
[2022-06-05] MEDS ORDERED: HALOPERIDOL LACTATE 5 MG/ML 1 ML VIAL IM PRN (23:20)
[2022-06-05] MEDS ORDERED: ALBUTEROL INHALER 60 PUFF/8 GM INHALER (MHU) INHALATION PRN (23:21)
[2022-06-05] MEDS ORDERED: QUEtiapine 50 MG TAB PO PRN (23:21)
[2022-06-05] MEDS ORDERED: haloperidoL 5 MG TAB PO PRN (23:23)
[2022-06-05] MEDS ORDERED: LORazepam 2 MG/ML INJ IM PRN (23:24)
[2022-06-06] MEDS: NICOTINE GUM (POLACRILEX) 2 MG GUM BUCCAL PRN ×6 (00:41→22:15)
[2022-06-06] MEDS: PANTOPRAZOLE 40 MG TABLET PO SCH (08:42)
[2022-06-06] MEDS: PERPHENAZINE 4 MG TAB PO SCH ×2 (08:42→21:34)
[2022-06-06] MEDS: MONTELUKAST 10 MG TAB PO SCH (08:42)
[2022-06-06] MEDS: AMITRIPTYLINE HCL 25 MG TAB PO SCH ×3 (08:42→21:34)
[2022-06-06] MEDS ORDERED: NON FORMULARY DRUG (Buprenorphine/Naloxone 8mg/2mg 1 EACH Film) SUBLINGUAL SCH (09:00)
[2022-06-06] MEDS ORDERED: NICOTINE 14MG/24HR PATCH TRANSDERM SCH (09:00)
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
[2022-06-06] MEDS ORDERED: BUPRENORPHINE SUBLINGUAL SCH (16:00)
[2022-06-06] MEDS ORDERED: NALOXONE SUBLINGUAL SCH (16:00)
[2022-06-06] MEDS: BUPRENORPHINE-NALOX 8-2 MG TAB 1 EACH TAB.SUBL SL SCH ×2 (16:08→21:33)
[2022-06-06] MEDS: QUEtiapine 100 MG TAB PO SCH (21:34)
--- NOTE | 2022-06-07 02:36 | P.PN ---
Progress Note - Text Progress Note Date: 06/06/22 patient refused medical evaluation
[2022-06-07] MEDS: PERPHENAZINE 4 MG TAB PO SCH ×2 (08:46→21:43)
[2022-06-07] MEDS: PANTOPRAZOLE 40 MG TABLET PO SCH (08:46)
[2022-06-07] MEDS: MONTELUKAST 10 MG TAB PO SCH (08:47)
[2022-06-07] MEDS: BUPRENORPHINE-NALOX 8-2 MG TAB 1 EACH TAB.SUBL SL SCH ×3 (08:47→21:43)
[2022-06-07] MEDS: AMITRIPTYLINE HCL 25 MG TAB PO SCH ×3 (08:47→21:43)
--- NOTE | 2022-06-07 11:35 | P.PN ---
Progress Note - Text Progress Note Date: 06/07/22 Interval History: Patient was seen resting in bed and was directable and agreeable to speak with process description writer in her room., The patient is not reporting any suicidal or homicidal ideation, intention, and/or plan. She is not reporting any auditory or visual hallucinations. She denies any paranoia or other delusions. She reports that she feels "tired." This provider discussed with the patient a possible transition to Prolixin decanoate due to her history of nonadherence to t reatment. The patient states that when she is on her psychotropic medications, she feels like the medications make her feel "blah." However, the patient was reminded that she is currently admitted on to the psychiatric unit due to her history of nonadherence with treatment and she initially came in with a desire to take medications again. Patient's reasoning is inconsistent. She denies any withdrawal symptoms. She reports no medical issues or concerns. Mental Status Exam: General Appearance: Patient appears to be stated age is alert, directable, and cooperative. Behavior: Patient is calmly seated without any agitated behavior. Speech: Patient's speech is fluent and nonpressured. Mood/Affect: Mood is improving mildly, affect is congruent and constricted. Suicidality/Homicidality: Patient denies having any suicidal or homicidal ideation intent or plan. Perceptions: Patient denies any visual hallucinations and denies any auditory hallucinations Though content/process: There is no evidence of any delusional thought content and thought process is linear and goal-directed. Memory and concentration: AOX3, grossly intact for the purposes of this session Judgment and insight: Improving mildly Vital Signs Temp 98.5 F 06/07/22 06:42 Pulse 58 L 06/07/22 06:42 Resp 14 06/07/22 06:42 BP 105/58 06/07/22 06:42 Pulse Ox 100 06/06/22 01:07 FiO2 Assessment Bipolar 2 disorder, mixed episode Borderline personality disorder Opiate use disorder, on agonist therapy. Stimulant use disorder Tobacco use disorder Plan: -Patient continues to meet criteria for inpatient psychiatric admission for symptom stabilization and safety. Patient has signed adult voluntary form and medication consent and was placed in patient's chart. -Medications: Perphenazine 4 mg by mouth twice a day for mood stabilization Seroquel 100 mg by mouth at bedtime for mood stabilization -Patient is currently undergoing dual psychotic treatment. Initial plan to transition her to Prolixin decanoate is met with hesitancy by the patient. We'll continue current regimen for now and likely taper Seroquel in the outpatient setting. Elavil 25 mg by mouth 3 times a day for depression/anxiety -When necessary Ativan and Haldol for agitation/aggression. -NRT - nicotine patch -SW on board for discharge planning. Encouraged the patient to participate in milieu.
[2022-06-07] MEDS: NICOTINE GUM (POLACRILEX) 2 MG GUM BUCCAL PRN ×2 (14:30→18:18)
--- NOTE | 2022-06-07 14:49 | P.MDCNMH ---
<Luciano Nettles - Last Filed: 06/07/22 14:34> History of Present Illness H&P Date: 06/07/22 History of Presenting Illness: Patient is a 41-year-old female with a past medical history asthma/COPD, polysubstance abuse, borderline personality disorder, bipolar disorder, anxiety, and depression. She is currently admitted to the inpatient until health unit and we have been consulted for medical management and medical H&P for this admission. Patient seen and fully evaluated on mental health unit. She was alert and oriented 4. Ambulatory with a steady gait. Patient admits to history of substance abuse. She reports she is a recovering IVDA with heroin and currently on Suboxone but admits to occasional crack cocaine and methamphetamine use/abuse with last time using being just prior to admission. Patient reports long-standing history of asthma/COPD and reports to continued smoking one pack of cigarettes daily. Patient reports using her rescue inhaler about one time per week. Patient denies any alcohol use and denies any further drug use. Patient reports difficulties with anxiety but currently denies having any visual or auditory hallucinations and denies having any suicidal or homicidal ideations. Patient denies having any headache, dizziness, lightheadedness, chest pain, palpitations, shortness of breath, or any other complaints at this time. Laboratory results reviewed: Urine drug screen positive for cocaine, benzodiazepines, methamphetamines, phencyclidine, and tricyclics. Urine hCG was negative for . Urinalysis negative for infection. Review of systems: Pertinent positives and negatives as discussed in HPI, a complete review of systems was performed and all other systems are negative. Physical exam: Vital signs reviewed and stable. General: Nontoxic, no distress and appears stated age. Derm: Skin warm and dry, normal coloration for ethnicity. Head: Atraumatic, normocephalic and symmetric. Eyes: EOMs intact, no lid lag, and anicteric sclera Mouth: no lip lesions, mucus membranes moist Cardiovascular: regular rate and rhythm with normal S1S2, no murmur Lungs: Respirations even, regular, and unlabored on room air. Lungs CTA bilaterally, no rhonchi, no rales, no wheezing, and no accessory muscle usage. Abdominal: soft, nontender to palpation, no guarding, no appreciable organomegaly Ext: ROM intact. No gross muscle atrophy, no edema, no contractures Neuro: Speech clear, face symmetrical and CN II-XII grossly intact with no noted focal neuro deficits. GCS 15. Psych: Alert and oriented to person, place, time, and situation. Appropriate and pleasant affect. Patient, and cooperative throughout assessment. Assessment and Plan of Care: Polysubstance abuse -Discussed with patient that it is highly recommended cessation of polysubstance abuse Including crack cocaine and methamphetamines. History of IVDA with heroin -Patient on Suboxone, this medication was continued by primary admitting psychiatric team. Mild persistent asthma with COPD and continued nicotine dependence -Recommend smoking cessation. -Nicotine patch -Recommend continuation of Symbicort and albuterol rescue inhaler to be used as needed for wheezing and/or shortness of breath. Borderline personality disorder Bipolar disorder Anxiety Depression -Management per primary admitting psychiatric team. Thank you for allowing us to participate in the care of this pleasant patient. Do not hesitate to contact us with questions. Someone can be reached from the [facility] hospitalist group all hours of the day at [phone] or via [employer]. 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 MOno, leandro Horne History of Any Multi-Drug Resistant Organisms: None Reported Date of last positivie culture/infection: 07/03/21 MDRO Source:: AXILLA MRSA Past Surgical History: Tonsillectomy Additional Past Surgical History / Comment(s): right knee surgery, Past Anesthesia/Blood Transfusion Reactions: No Reported Reaction Additional Past Anesthesia/Blood Transfusion Reaction / Comment(s): n/a Past Psychological History: Anxiety, Bipolar, Depression, PTSD Smoking Status: Current every day smoker Past Alcohol Use History: Occasional Past Drug Use History: Heroin, Marijuana - Past Family History Mother Family Medical History: Hypertension Medications and Allergies Home Medications Medication Instructions Recorded Confirmed Type Albuterol Sulfate [Proair Hfa] 2 puff INHALATION RT-Q6H PRN 02/03/20 06/05/22 History Ferrous Sulfate [Iron (65 MG 650 mg PO DAILY tab 06/22/20 06/05/22 Rx Elemental)] Nicotine Gum (Polacrilex) 2 mg BUCCAL Q4HR PRN 14 Days gum 06/22/20 06/05/22 Rx [Nicorette] Amitriptyline HCl [Elavil] 25 mg PO TID 06/05/22 06/05/22 History Buprenorphine/Naloxone 8Mg/2Mg 3 film SL DAILY 06/05/22 06/05/22 History [Suboxone 8-2Mg Film] Cholecalciferol [Vitamin D3 (125 125 mcg PO DAILY 06/05/22 06/05/22 History Mcg = 5000 Iu)] Loratadine [Claritin] 10 mg PO DAILY 06/05/22 06/05/22 History Melatonin 5 mg PO HS PRN 06/05/22 06/05/22 History Montelukast [Singulair] 10 mg PO DAILY 06/05/22 06/05/22 History Omeprazole [PriLOSEC] 20 mg PO DAILY 06/05/22 06/05/22 History Perphenazine [Trilafon] 4 mg PO BID 06/05/22 06/05/22 History QUEtiapine FUMARATE [SEROquel] 25 - 50 mg PO HS PRN 06/05/22 06/05/22 History Allergies Allergy/AdvReac Type Severity Reaction Status Date / Time No Known Allergies Allergy Verified 06/05/22 18:18 Physical Exam Vitals: Vital Signs Temp Pulse Resp BP 06/07/22 06:42 98.5 F 58 L 14 105/58 Cranial Nerve Examination - Cranial Nerves Cranial Nerve II- Optic: Intact Cranial Nerve III- Oculomotor: Intact Cranial Nerve IV- Trochlear: Intact Cranial Nerve V- Trigeminal: Intact Cranial Nerve - Abducens: Intact Cranial Nerve VII- Facial: Intact Cranial Nerve VIII- Auditory: Intact Cranial Nerve IX- Glossopharyngeal: Intact Cranial Nerve X- Vagus: Intact Cranial Nerve XI- Accessory: Intact Cranial Nerve XII- Hypoglossal: Intact <Shayy Dias - Last Filed: 06/07/22 19:18> History of Present Illness Luciano Nettles NP rendered care for this patient independently, reviewed the findings and plan as documented in the note above. I did not physically speak with or examine the patient on this date. Physical Exam Osteopathic Statement: *. No significant issues noted on an osteopathic structural exam other than those noted in the History and Physical/Consult. Vitals: Vital Signs Temp Pulse Resp BP 06/07/22 06:42 98.5 F 58 L 14 105/58
[2022-06-07] MEDS: QUEtiapine 100 MG TAB PO SCH (21:43)
[2022-06-07] MEDS: FERROUS SULFATE 325 MG TAB PO SCH (21:43)
[2022-06-08] MEDS: BUPRENORPHINE-NALOX 8-2 MG TAB 1 EACH TAB.SUBL SL SCH ×3 (08:50→20:43)
[2022-06-08] MEDS: PANTOPRAZOLE 40 MG TABLET PO SCH (08:51)
[2022-06-08] MEDS: FERROUS SULFATE 325 MG TAB PO SCH ×2 (08:51→20:43)
[2022-06-08] MEDS: AMITRIPTYLINE HCL 25 MG TAB PO SCH ×3 (08:51→20:43)
[2022-06-08] MEDS: MONTELUKAST 10 MG TAB PO SCH (08:51)
[2022-06-08] MEDS: PERPHENAZINE 4 MG TAB PO SCH ×2 (08:51→20:43)
[2022-06-08] MEDS: NICOTINE GUM (POLACRILEX) 2 MG GUM BUCCAL PRN ×3 (14:18→23:07)
[2022-06-08] MEDS: ACETAMINOPHEN TAB 325 MG TAB PO PRN (15:02)
[2022-06-08] MEDS: LORazepam 1 MG TAB PO PRN ×2 (15:02→20:55)
--- NOTE | 2022-06-08 16:15 | P.PN ---
Subjective Progress Note Date: 06/08/22 Principal diagnosis: PRogress note SHe was seen inperson and admission note and rpogress note was reviewed. She complained of being in a foggy state simialr to her resposne yesterday. She wwas lying in her bed when she was isnterviewed. She denied she exhibited loss of appetitle and decline in energy. She was not preoccupied with suicidal or homocidal ideaiton. She was not hallucination. She was ill convinced of her need to eb restarted on depot Rx to prvent further releaspe No outstanding management problem was identified. Diagnosis: Schizoaffective disroder, psychotic subtype, in relasep at admission MSE> she was slightly drowsy when lying in bed. cohrent in her speech. POverty of content of her speech. She was lacking motvation to improve her behavioral activation of participating in social groups on the unit. Affect; slightly blunted congruent with her thought content. She was evasive regarding her admission context. No hallucinations. She was not having any suicidal or homicidal ideations. Thought rpocess: poverty of contetn of speech. No loosening of assocation, Cognition. Oriented insight and judgement rated as highly marginal . management: She continued to fulfil the inpatient admission criteria She required stabilization for her to resume community living onces she was reastarted on Depot Rx reinforce her need to be on [facility] psychotropic Rx. . risk and benefits ration be highly distorted in her reality testing communicate with [facility] regarding update and enlarge her socail support system Objective - Vital Signs Vital signs: Vital Signs Temp 97.8 F 06/08/22 06:00 Pulse 55 L 06/08/22 06:00 Resp 17 06/08/22 06:00 BP 98/58 06/08/22 06:00 Pulse Ox 96 06/08/22 06:00 FiO2
[2022-06-08] MEDS: QUEtiapine 100 MG TAB PO SCH (20:43)
[2022-06-09] MEDS: NICOTINE GUM (POLACRILEX) 2 MG GUM BUCCAL PRN ×7 (01:12→21:41)
[2022-06-09] MEDS: LORazepam 1 MG TAB PO PRN ×4 (02:24→19:58)
[2022-06-09] MEDS: FERROUS SULFATE 325 MG TAB PO SCH ×2 (08:53→20:19)
[2022-06-09] MEDS: PANTOPRAZOLE 40 MG TABLET PO SCH (08:53)
[2022-06-09] MEDS: AMITRIPTYLINE HCL 25 MG TAB PO SCH ×3 (08:53→20:18)
[2022-06-09] MEDS: PERPHENAZINE 4 MG TAB PO SCH ×2 (08:53→20:18)
[2022-06-09] MEDS: MONTELUKAST 10 MG TAB PO SCH (08:53)
[2022-06-09] MEDS: BUPRENORPHINE-NALOX 8-2 MG TAB 1 EACH TAB.SUBL SL SCH ×3 (08:53→20:37)
--- NOTE | 2022-06-09 19:49 | P.PN ---
Subjective Progress Note Date: 06/09/22 Principal diagnosis: She was seen for review of her profress. her clinical picture varied as she later admitted she was heavily invovled in opiate use and may have been on opiate agonist therapy. She no longer exhbited any psycotic features with no hypomanic or active psychotic symptoms. The diagnosis of schizoaffective disorder will be revised to reflect the comorbid polysubstance use. She essentiall has undergo protracted withdrawal . Objective; More animlated and lucid , engaging readily at the session she talked about her discharge planning and her previous invovlement with opiate medicaiton assisted treatment which protected agianst her bipolar disroder acrive symptoms; No side effect was rerproted. Diagnosis; Atypical Bipolar disorder type II. comorbid substance use : opiate use in remission management :She asked for discharge. with sustained response, I would leave the discharge to my colleague > she was aware of the plan and discharge involved outpatient follow up. Objective - Vital Signs Vital signs: Vital Signs Temp 97.8 F 06/09/22 01:12 Pulse 87 06/09/22 08:56 Resp 16 06/09/22 01:12 BP 110/70 06/09/22 08:56 Pulse Ox 97 06/09/22 01:12 FiO2
[2022-06-09] MEDS: GABAPENTIN 100 MG CAP PO SCH (20:18)
[2022-06-09] MEDS: QUEtiapine 100 MG TAB PO SCH (20:19)
[2022-06-10] MEDS: LORazepam 1 MG TAB PO PRN ×4 (00:57→19:08)
[2022-06-10] MEDS: NICOTINE GUM (POLACRILEX) 2 MG GUM BUCCAL PRN ×8 (01:27→21:55)
[2022-06-10] MEDS: MONTELUKAST 10 MG TAB PO SCH (08:52)
[2022-06-10] MEDS: BUPRENORPHINE-NALOX 8-2 MG TAB 1 EACH TAB.SUBL SL SCH ×3 (08:52→20:47)
[2022-06-10] MEDS: AMITRIPTYLINE HCL 25 MG TAB PO SCH (08:52)
[2022-06-10] MEDS: PERPHENAZINE 4 MG TAB PO SCH ×2 (08:52→20:27)
[2022-06-10] MEDS: FERROUS SULFATE 325 MG TAB PO SCH ×2 (08:52→20:28)
[2022-06-10] MEDS: PANTOPRAZOLE 40 MG TABLET PO SCH (08:53)
[2022-06-10] MEDS: GABAPENTIN 100 MG CAP PO SCH ×3 (08:54→20:29)
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
[2022-06-10] MEDS ORDERED: QUEtiapine 100 MG TAB PO SCH (21:00)
[2022-06-10] MEDS ORDERED: DOXEPIN 25 MG CAP PO SCH (21:00)
[2022-06-10] MEDS: ACETAMINOPHEN TAB 325 MG TAB PO PRN (22:44)
[2022-06-11] MEDS: NICOTINE GUM (POLACRILEX) 2 MG GUM BUCCAL PRN ×3 (00:03→09:28)
[2022-06-11] MEDS: ACETAMINOPHEN TAB 325 MG TAB PO PRN (02:37)
[2022-06-11] MEDS: LORazepam 1 MG TAB PO PRN (02:37)
[2022-06-11 05:05] VITALS: BP 126/75; PULSE 110; RESP 17; TEMP 97.7
[2022-06-11] MEDS: PANTOPRAZOLE 40 MG TABLET PO SCH (08:37)
[2022-06-11] MEDS: FERROUS SULFATE 325 MG TAB PO SCH (08:37)
[2022-06-11] MEDS: MONTELUKAST 10 MG TAB PO SCH (08:37)
[2022-06-11] MEDS: GABAPENTIN 100 MG CAP PO SCH (08:37)
[2022-06-11] MEDS: BUPRENORPHINE-NALOX 8-2 MG TAB 1 EACH TAB.SUBL SL SCH (08:38)
[2022-06-11] MEDS: PERPHENAZINE 4 MG TAB PO SCH (08:39)
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
== END 2022-06-11 12:48 | disposition home or self-care (01) | DRG 885 ==
LOC: EC 17:45 → 3MHU 23:08
PROVIDERS: ADMIT Psychiatry & Neurology Psychiatry; ATTEND Psychiatry & Neurology Psychiatry
DX: F31.60 Bipolar disorder, current episode mixed, unspecified (principal); F11.20 Opioid dependence, uncomplicated; R45.851 Suicidal ideations; Z20.822 Contact with and (suspected) exposure to COVID-19; Z28.21 Immunization not carried out because of patient refusal; F60.2 Antisocial personality disorder; J45.20 Mild intermittent asthma, uncomplicated; Z76.5 Malingerer [conscious simulation]; F15.10 Other stimulant abuse, uncomplicated; F19.10 Other psychoactive substance abuse, uncomplicated; F41.9 Anxiety disorder, unspecified; J44.9 Chronic obstructive pulmonary disease, unspecified; R25.1 Tremor, unspecified; F14.10 Cocaine abuse, uncomplicated; F17.210 Nicotine dependence, cigarettes, uncomplicated; F43.10 Post-traumatic stress disorder, unspecified; F60.3 Borderline personality disorder; F60.89 Other specific personality disorders; R45.850 Homicidal ideations; Z79.899 Other long term (current) drug therapy; Z82.49 Family history of ischemic heart disease and other diseases of the circulatory system; Z91.51 Personal history of suicidal behavior; Z71.51 Drug abuse counseling and surveillance of drug abuser; Z71.6 Tobacco abuse counseling; Z81.8 Family history of other mental and behavioral disorders; Z86.69 Personal history of other diseases of the nervous system and sense organs; Z86.14 Personal history of Methicillin resistant Staphylococcus aureus infection; Z56.0 Unemployment, unspecified
CPT/HCPCS: 80306; 81003; 81025; 87635; 99285

== ENCOUNTER 2022-06-20 22:53 | Observation (INO) | payer MEDICARE, OTHER ==
--- NOTE | 2022-06-20 23:09 | ED ---
Chest Pain HPI - General Chief Complaint: Chest Pain Stated Complaint: chest pain Time Seen by Provider: 06/20/22 23:07 Source: patient, family, RN notes reviewed, old records reviewed Mode of arrival: ambulatory Limitations: no limitations - History of Present Illness Initial Comments: This is a 41-year-old female to the emergency department for evaluation today. Patient has no significant medical history complaining of left-sided chest pain left arm pain left arm numbness and tingling worse with movement worse with exertion. Shortness of breath mild sweating at times her pain is still worse. Patient does have family history of heart disease, patient has no history of high blood pressure doesn't history of high cholesterol, no diabetes and is a smoker MD Complaint: chest pain -: hour(s) Onset: during rest, during exertion Pain Location: substernal Pain Radiation: none Severity: moderate Severity scale (1-10): 5 Quality: tightness Consistency: constant Improves With: nothing Worsens With: nothing Anginal Symptoms: nausea Other Symptoms: cough Treatments Prior to Arrival: none - Related Data Home Medications Medication Instructions Recorded Confirmed Albuterol Sulfate [Proair Hfa] 2 puff INHALATION RT-Q6H PRN 02/03/20 06/05/22 Buprenorphine/Naloxone 8Mg/2Mg 3 film SL DAILY 06/05/22 06/05/22 [Suboxone 8-2Mg Film] Cholecalciferol [Vitamin D3 (125 125 mcg PO DAILY 06/05/22 06/05/22 Mcg = 5000 Iu)] Loratadine [Claritin] 10 mg PO DAILY 06/05/22 06/05/22 Melatonin 5 mg PO HS PRN 06/05/22 06/05/22 Montelukast [Singulair] 10 mg PO DAILY 06/05/22 06/05/22 Omeprazole [PriLOSEC] 20 mg PO DAILY 06/05/22 06/05/22 Previous Rx's Medication Instructions Recorded Ferrous Sulfate [Iron (65 MG 650 mg PO DAILY tab 06/22/20 Elemental)] Doxepin [SINEquan] 50 mg PO HS 1 Days #15 cap 06/11/22 Gabapentin [Neurontin] 200 mg PO TID 15 Days #45 cap 06/11/22 QUEtiapine [SEROquel] 300 mg PO HS 30 Days #45 tablet 06/11/22 Allergies Allergy/AdvReac Type Severity Reaction Status Date / Time haloperidol [From Haldol] Allergy Anaphylaxis Verified 06/20/22 22:59 Review of Systems ROS Statement: Those systems with pertinent positive or pertinent negative responses have been documented in the HPI. ROS Other: All systems not noted in ROS Statement are negative. 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 MOno, leandro Horne History of Any Multi-Drug Resistant Organisms: None Reported Date of last positivie culture/infection: 07/03/21 MDRO Source:: AXILLA MRSA Past Surgical History: Tonsillectomy Additional Past Surgical History / Comment(s): right knee surgery, Past Anesthesia/Blood Transfusion Reactions: No Reported Reaction Additional Past Anesthesia/Blood Transfusion Reaction / Comment(s): n/a Past Psychological History: Anxiety, Bipolar, Depression, PTSD Smoking Status: Current every day smoker Past Alcohol Use History: Occasional Past Drug Use History: Heroin, Marijuana - Past Family History Mother Family Medical History: Hypertension General Exam Limitations: no limitations General appearance: alert, in no apparent distress Head exam: Present: atraumatic, normocephalic, normal inspection Eye exam: Present: normal appearance, PERRL, EOMI. Absent: scleral icterus, conjunctival injection, periorbital swelling ENT exam: Present: normal exam, mucous membranes moist Neck exam: Present: normal inspection. Absent: tenderness, meningismus, lymphadenopathy Respiratory exam: Present: normal lung sounds bilaterally. Absent: respiratory distress, wheezes, rales, rhonchi, stridor Cardiovascular Exam: Present: regular rate, normal rhythm, normal heart sounds. Absent: systolic murmur, diastolic murmur, rubs, gallop, clicks GI/Abdominal exam: Present: soft, normal bowel sounds. Absent: distended, tenderness, guarding, rebound, rigid Extremities exam: Present: normal inspection, full ROM, normal capillary refill. Absent: tenderness, pedal edema, joint swelling, calf tenderness Back exam: Present: normal inspection Neurological exam: Present: alert, oriented X3, CN II-XII intact Psychiatric exam: Present: normal affect, normal mood Skin exam: Present: warm, dry, intact, normal color. Absent: rash Course Vital Signs 06/20/22 22:55 Temperature 98.1 F Pulse Rate 80 Respiratory 16 Rate Blood Pressure 148/99 O2 Sat by Pulse 99 Oximetry - Reevaluation(s) Reevaluation #1: 06/20/22 23:08 Medical record is reviewed Reevaluation #2: 06/20/22 23:08 Patient is informed of results and questions are answered Reevaluation #3: 06/21/22 01:18 Patient informed results questions have been answered Reevaluation #4: 06/20/22 23:08 Differential Chest Pain: Stable Angina, Unstable Angina, STEMI, NSTEMI Aortic Dissection, Pneumothorax, Musculoskeletal, Esophageal Spasm GERD, Cholecystitis, Pancreatitis, Zoster, this is not meant to be an all-inclusive list. Reevaluation #5: 06/20/22 23:08 Was pt. sent in by a medical professional or institution? @ -[by , PA, SALES SUPPORT REP, urgent care, hospital, or skilled nursing] Did you speak to anyone other than the patient for history? @ -[EMS, parent, family, police, friend?] Did you review nursing and triage notes? @ -[agree or disagree, why?] Were old charts reviewed? @ -[outside hosp., previous admissions, EMS record, old EKG, old radiological studies, urgent care reports/EKGs, skilled nursing records?] Differential Diagnosis? @ -[chest pain, altered mental status abdominal pain women, abdominal pain men, vaginal bleeding, weakness, fever, dyspnea, syncope, headache, dizziness, GI bleed, back pain, seizure] EKG interpreted by me (3pts min.)? @ -[none] X-rays interpreted by me (1pt min.)? @ -[none] CT interpreted by me (1pt min.)? @ -[none] U/S interpreted by me (1pt. min.)? @ -[none] What testing was considered but not performed? (CT, X-rays, U/S, labs)? Why? @ [CT, X-rays, U/S, labs? Why?] What meds were considered but not given? Why? @ -[none] Did you discuss the management of the patient with other professionals? @ -[professionals i.e. , PA, SALES SUPPORT REP, Lab, RT, Psych Nurse, Plant Production Worker, Traffic Worker, Teacher, Mechanical Product Design Engineer, family caseworker? Give summary] Did you reconcile home meds? @ -[none] Was smoking cessation discussed for >3mins.? @ -[none] Was critical care preformed (if so, how long)? @ -[none] Were there social determinants of health that impacted care today? How? (Homelessness, low income, unemployed, alcoholism, drug addiction, transportation, low edu. Level, literacy, decrease access to med. care, intermediate, rehab)? @ -[Homelessness, low income, unemployed, alcoholism, drug addiction, transportation, low edu. Level, literacy, decrease access to med. care, intermediate, rehab?] Was there de-escalation of care discussed even if they declined? (Discuss DNR or withdrawal of care, Hospice)? @ -[Discuss DNR or withdrawal of care, Hospice?] What co-morbidities impacted this encounter? (DM, HTN, Smoking, COPD, CAD, Cancer, CVA, Hep., AIDS, mental health diagnosis, sleep apnea, morbid obesity)? @ -[DM, HTN, Smoking, COPD, CAD, Cancer, CVA, Hep., AIDS, mental health diagnosis, sleep apnea, morbid obesity?] Was patient admitted / discharged? @ -[hospital course] Undiagnosed new problem with uncertain prognosis? @ -[none] Drug Therapy requiring intensive monitoring for toxicity (Heparin, Nitro, Insulin, Cardizem)? @ -[none] Were any procedures done? @ -[none] Diagnosis/symptom? @ -[default] Acute, or Chronic, or Acute on Chronic? @ -[default] Uncomplicated (without systemic symptoms) or Complicated (systemic symptoms)? @ -[default] Side effects of treatment? @ -[none] Exacerbation, Progression, or Severe Exacerbation] @ -[no] Poses a threat to life or bodily function? @ -[no] Chest Pain MDM - MDM 41 female will be admitted for chest pain observation, chest pain currently episodic. Currently resolved. Patient home in for cardiology to evaluate Disposition Clinical Impression: Atypical chest pain, Chest pain Disposition: ADMITTED IP TO THIS [facility] Condition: Undetermined Instructions (If sedation given, give patient instructions): Chest Pain (ED) Is patient prescribed a controlled substance at d/c from ED?: No Referrals: [facility] [Primary Care Provider] - 1-2 days Time of Disposition: 01:20
--- NOTE | 2022-06-21 | XR ---
EXAMINATION TYPE: XR chest 2V DATE OF EXAM: 06/20/2022 COMPARISON: 02/14/2020 HISTORY: Respiratory TECHNIQUE: 2 views FINDINGS: Heart and mediastinum are normal. Lungs are clear. Diaphragm is normal. Bony thorax appears normal there are chest leads. IMPRESSION: Normal chest. No change.
[2022-06-21 00:04] LABS: Basophils # (A) 0.1 k/uL (0-0.2); Basophils % (A) 1 %; Eosinophils # (A) 0.2 k/uL (0-0.7); Eosinophils % (A) 4 %; HCT 37.9 % (34.0-46.0); HGB 12.2 gm/dL (11.4-16.0); Lymphocytes # (A) 1.5 k/uL (1.0-4.8); Lymphocytes % (A) 31 %; MCH 26.9 pg (25.0-35.0); MCHC 32.2 g/dL (31.0-37.0); MCV 83.5 fL (80.0-100.0); Monocytes # (A) 0.2 k/uL (0-1.0); Monocytes % (A) 5 %; Neutrophils # (A) 2.7 k/uL (1.3-7.7); Neutrophils % (A) 57 %; RBC 4.54 m/uL (3.80-5.40); RDW 14.7 % (11.5-15.5); WBC 4.7 k/uL (3.8-10.6)
[2022-06-21 00:19] LABS: ALT 48 U/L (4-34); AST 43 U/L (14-36); African American GFR (CKD) >90 (>60 ml/min/1.73 sqM); Albumin 4.5 g/dL (3.5-5.0); Alkaline Phosphatase 44 U/L (38-126); Anion Gap 8 mmol/L; Blood Urea Nitrogen 13 mg/dL (7-17); Calcium 9.4 mg/dL (8.4-10.2); Carbon Dioxide 26 mmol/L (22-30); Chloride 107 mmol/L (98-107); Glucose 90 mg/dL (74-99); Lipase 105 U/L (23-300); Magnesium 1.9 mg/dL (1.6-2.3); Non-African American GFR(CKD) >90 (>60 ml/min/1.73 sqM); Potassium 4.2 mmol/L (3.5-5.1); Sodium 141 mmol/L (137-145); Total Bilirubin 0.5 mg/dL (0.2-1.3); Total Protein 7.7 g/dL (6.3-8.2)
[2022-06-21 00:24] LABS: INR 1.1 (<1.2); Partial Thromboplastin Time 25.5 sec (22.0-30.0); Prothrombin Time 11.6 sec (9.0-12.0)
[2022-06-21 00:45] LABS: Large Platelets Present; Platelet Count 89 k/uL (150-450)
[2022-06-21] MEDS ORDERED: NALOXONE 0.4 MG/ML 1 ML VIAL IV PRN (01:16)
[2022-06-21] MEDS ORDERED: ONDANSETRON 4 MG/2 ML VIAL IVP PRN (01:16)
[2022-06-21] MEDS ORDERED: MORPHINE SULFATE 4 MG/ML SYRINGE IV PRN (01:16)
[2022-06-21] MEDS ORDERED: SODIUM CHLORIDE 0.9% 1,000 ML IV SCH (01:30)
[2022-06-21] MEDS ORDERED: ALBUTEROL NEBULIZED 2.5 MG/3 ML INHALATION PRN (05:44)
--- NOTE | 2022-06-21 05:53 | P.HPIM ---
History of Present Illness H&P Date: 06/21/22 Chief Complaint: chest pain 41 year old female with intermittent asthma patient coming in due to chest pain . she reports having off / on episode of short lived chest pain for the past 1 year, however, she felt it was getting worse over the past 2 days , not related to activity , pain was over the left side, associated with heart racing, felt pressure like 6/10 in severity , associated with palpitations, no profuse sweating , no SOB, no nausea or vomting, no wheezing . pain was waxing and waning , she denies any cardiac history in the past , patient quit smoking 1 month ago, denies any illicit drugs or alcohol , denies any history of blood clots, no recent travel or hospital stay workup in the ED showed elevated liver enzymes , trops negative , vital signs st able , CXR no acute pathology , EKG no acute ST changes patient does admit to history of IVDA . Review of Systems Pertinent positives as noted in HPI. 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 [place], leandro Horne History of Any Multi-Drug Resistant Organisms: None Reported Date of last positivie culture/infection: 07/03/21 MDRO Source:: AXILLA MRSA Past Surgical History: Tonsillectomy Additional Past Surgical History / Comment(s): right knee surgery, Past Anesthesia/Blood Transfusion Reactions: No Reported Reaction Additional Past Anesthesia/Blood Transfusion Reaction / Comment(s): n/a Past Psychological History: Anxiety, Bipolar, Depression, PTSD Smoking Status: Current some day smoker Past Alcohol Use History: Occasional Past Drug Use History: Heroin, Marijuana - Past Family History Mother Family Medical History: Hypertension Medications and Allergies Home Medications Medication Instructions Recorded Confirmed Type Albuterol Sulfate [Proair Hfa] 2 puff INHALATION RT-Q6H PRN 02/03/20 06/05/22 History Ferrous Sulfate [Iron (65 MG 650 mg PO DAILY tab 06/22/20 06/05/22 Rx Elemental)] Buprenorphine/Naloxone 8Mg/2Mg 3 film SL DAILY 06/05/22 06/05/22 History [Suboxone 8-2Mg Film] Cholecalciferol [Vitamin D3 (125 125 mcg PO DAILY 06/05/22 06/05/22 History Mcg = 5000 Iu)] Loratadine [Claritin] 10 mg PO DAILY 06/05/22 06/05/22 History Melatonin 5 mg PO HS PRN 06/05/22 06/05/22 History Montelukast [Singulair] 10 mg PO DAILY 06/05/22 06/05/22 History Omeprazole [PriLOSEC] 20 mg PO DAILY 06/05/22 06/05/22 History Doxepin [SINEquan] 50 mg PO HS 1 Days #15 cap 06/11/22 Rx Gabapentin [Neurontin] 200 mg PO TID 15 Days #45 cap 06/11/22 Rx QUEtiapine [SEROquel] 300 mg PO HS 30 Days #45 tablet 06/11/22 Rx Allergies Allergy/AdvReac Type Severity Reaction Status Date / Time haloperidol [From Haldol] Allergy Anaphylaxis Verified 06/20/22 22:59 Physical Exam Vitals: Vital Signs Temp Pulse Pulse Resp BP BP BP 06/21/22 02:42 98.4 F 59 L 19 161/91 143/98 06/21/22 01:57 58 L 16 143/100 06/20/22 22:55 98.1 F 80 16 148/99 Pulse Ox 06/21/22 02:42 99 06/21/22 01:57 98 06/20/22 22:55 99 Intake and Output 06/20/22 06/20/22 06/21/22 14:59 22:59 06:59 Other: Weight 77.111 kg 77.111 kg Constitutional: No acute distress, conversant, pleasant Eyes: Anicteric sclerae, moist conjunctiva, Pupils equal round reactive to light ENMT: NC/AT Oropharynx clear, no erythema, or exudates Neck: Supple, no masses, or JVD No carotid bruits No thyromegaly Lungs: Clear to auscultation Clear to percussion Normal respiratory effort, no accessory muscle use Cardiovascular: Heart regular in rate and rhythm, No murmurs, gallops, or rubs No peripheral edema Abdominal: Soft Nontender, no guarding, rebound or rigidity Abdomen moving with respiration Normoactive bowel sounds No hepatomegaly, No splenomegaly No palpable mass No abdominal wall hernia noted Skin: Normal temperature, tone, texture, turgor No induration No subcutaneous nodules No rash, lesions No ulcers Extremities: No digital cyanosis No clubbing Pedal pulses intact and symmetrical Radial pulses intact and symmetrical No calf tenderness Psychiatric: Alert and oriented to person, place and time Appropriate affect fair judgement Neuro Muscles Strength 5/5 in all 4 extremities Sensation to light touch grossly present throughout Cranial nerves II-XII grossly intact Lymphatics: no palpable cervical or supraclavicular lymph nodes Results CBC & Chem 7: 06/20/22 23:36 06/20/22 23:36 Labs: Abnormal Lab Results - Last 24 Hours (Table) 06/20/22 06/20/22 Range/Units 23:36 23:36 Plt Count 89 L (150-450) k/uL AST 43 H (14-36) U/L ALT 48 H (4-34) U/L Assessment and Plan Assessment: chest pain cardiac consult EKG no acute ST changes Trops negative CXR no acute pathology aspirin daily check lipid panel pain control monitor vital signs cardiac tele check TSH elevated liver enzymes h/o IVDA check hepatitis panel full code dvt ppx heparin sc tid
[2022-06-21] MEDS ORDERED: PANTOPRAZOLE 40 MG TABLET PO SCH (07:30)
[2022-06-21] MEDS ORDERED: MONTELUKAST 10 MG TAB PO SCH (09:00)
[2022-06-21] MEDS ORDERED: ASPIRIN 81 MG PO SCH (09:00)
[2022-06-21] MEDS ORDERED: amLODIPine 10 MG TAB PO SCH (09:00)
[2022-06-21] MEDS: HEPARIN SODIUM,PORCINE/PF 5,000 UNIT/0.5 ML SYRINGE SQ SCH ×2 (09:06→15:55)
--- NOTE | 2022-06-21 10:43 | CONS ---
CONSULTATION CHIEF COMPLAINT: Chest pain. HISTORY OF PRESENT ILLNESS: Lashay is a 41-year-old lady with history of borderline personality disorder. There is intermittent asthma, who presented to hospital complaining of chest pain. She has been having chest discomfort for the last 1 year, but that has gotten somewhat worse over the last 2 days. It is precordial, mild intensity associated with some palpitations, but there is no history of shortness of breath or diaphoresis. No definite radiation to neck, arm, or back. She has history of smoking that she states she quit a month ago. There is no history of hypertension, diabetes, dyslipidemia. There is prior history of intravenous drug abuse. MEDICATIONS: At the moment include, 1. Albuterol. 2. Iron. 3. Suboxone. 4. Singulair. 5. Claritin. 6. Prilosec. 7. Doxepin. 8. Neurontin. ALLERGIES: As charted. FAMILY HISTORY: Negative for premature coronary artery disease. SOCIAL HISTORY: Negative for current smoking. There is a prior history of drug abuse. REVIEW OF SYSTEMS: A review of systems has been performed. Pertinents are as Documented. PHYSICAL EXAMINATION: GENERAL: The patient is afebrile. VITAL SIGNS: Stable. NECK: There is no jugular venous distention. Carotid upstroke is normal. There is no bruit. CHEST: Reveals good air entry bilaterally. HEART: Reveals first and second heart sounds. No gallop. No murmur. No rub. ABDOMEN: Soft, nontender. EXTREMITIES: Did not reveal any edema. Peripheral pulses are felt. LABORATORY DATA: Labs show that the hemoglobin is normal at 12.2, potassium is 4.2. Three sets of troponins are negative. D-dimer is negative. ASSESSMENT AND PLAN: Precordial chest pain. The patient's chest discomfort is atypical. I will obtain a stress test and echocardiogram on her. If this is negative, she can be discharged home and she will follow up with her primary care. MMODL / IJN: [id number] /
[2022-06-21 11:45] LABS: Chol/HDL Ratio 2.75 Ratio; LDL Cholesterol,Calculated 91.8 mg/dL (0.0-131.0)
[2022-06-21 11:56] LABS: Hepatitis A Antibody IgM Nonreactive (Nonreactive); Hepatitis B Core IgM Nonreactive (Nonreactive); Hepatitis B Surface Antigen Nonreactive (Nonreactive); Hepatitis C IgG Antibody Reactive (Nonreactive)
--- NOTE | 2022-06-21 12:02 | CA ---
Exercise Stress Test Report Name: Lashay De La Rosa Exam Date: 06/21/2022 11:24 Exam Location: [place] Stress Ht (in): 65 Wt (lb): 170 BSA: 1.85 Ordering Phys: Christian Wolf MD Referring Phys: RICCARDO, Technologist: Leonel Gomez Age: 41 Gender: F : 1980 Procedure CPT: Indications: CP ICD-10 Codes: Patient History: Chest Pain Medications: Meds past 24 hrs: Pretest Chest Pain: STRESS TEST Harlan Protocol Exercise Duration (min:sec): 09:[address] Depressions (mm): Angina Score: Liz Score: Resting HR (bpm): 58 Peak HR (bpm): 148 Resting BP (mmHg): 134 / 91 Peak BP (mmHg): 206 / 116 MPHR: 179 Target HR: 152 % MPHR: 83 METS: 10.6 Total Dose: Peak Dose: Atropine: Double Product: 10095 BP Response: Stress Termination: Patient stepped off of the treadmill Stress Symptoms: No chest pain or symptoms Stress Summary: ECG ANALYSIS Resting ECG: Normal sinus rhythm normal axis normal intervals Stress ECG: Patient exercised on Harlan protocol for 9 minutes achieving 10 mets 85% of predicted maximal heart rate without chest pain or diagnostic ST segment depression CONCLUSIONS Good exercise tolerance Negative stress test by EKG criteria Dr. Christian Wolf MD (Electronically Signed) Final Date: 21 June 2022 12:01
[2022-06-21 15:15] VITALS: BP 132/77; PULSE 69; RESP 16; TEMP 97.7
--- NOTE | 2022-06-21 16:39 | CA ---
Transthoracic Echo Report Name: Lashay De La Rosa Age: 41 Gender: F : 1980 Exam Date: 06/21/2022 13:00 Exam Location: [place] Echo Ht (in): 65 Wt (lb): 170 Ordering Physician: Christian Wolf MD ([id number]) Attending/Referring Phys: Maryann SHELTON [id number] Android Developer Norma Vasquez RDCS Procedure CPT: Indications: Chest Pain Cardiac Hx: Technical Quality: Fair Contrast 1: Total Dose (mL): Contrast 2: Total Dose (mL): MEASUREMENTS (Male / Female) Normal Values 2D ECHO LV Diastolic Diameter PLAX 4.8 cm 4.2 - 5.9 / 3.9 - 5.3 cm LV Systolic Diameter PLAX 3.1 cm IVS Diastolic Thickness 1.1 cm 0.6 - 1.0 / 0.6 - 0.9 cm LVPW Diastolic Thickness 1.1 cm 0.6 - 1.0 / 0.6 - 0.9 cm LV Relative Wall Thickness 0.5 RV Internal Dim ED PLAX 3.0 cm LA Volume 27.0 cm??? 18 - 58 / 22 - 52 cm??? M-MODE Aortic Root Diameter MM 3.1 cm LA Systolic Diameter MM 3.1 cm LA Ao Ratio MM 1.0 AV Cusp Separation MM 2.1 cm DOPPLER AV Peak Velocity 138.7 cm/s AV Peak Gradient 7.7 mmHg LVOT Peak Velocity 76.4 cm/s LVOT Peak Gradient 2.3 mmHg MV Area PHT 4.0 cm??? Mitral E Point Velocity 107.6 cm/s Mitral A Point Velocity 70.6 cm/s Mitral E to A Ratio 1.5 MV Deceleration Time 187.9 ms MV E' Velocity 7.6 cm/s Mitral E to MV E' Ratio 14.1 TR Peak Velocity 169.8 cm/s TR Peak Gradient 11.5 mmHg Right Ventricular Systolic Press 16.5 mmHg FINDINGS Left Ventricle M Normal left ventricular systolic function with no obvious regional wall motion abnormalities. Normal left ventricular diastolic filling pattern. Left ventricular cavity size normal. Left ventricular ejection fraction is estimated at 55-60 %. Right Ventricle Normal right ventricular size. Right ventricular systolic pressure within normal limits. Right Atrium Normal right atrial size. Left Atrium Normal left atrial size. Mitral Valve Structurally normal mitral valve. Mild mitral regurgitation. Aortic Valve Trileaflet aortic valve. No aortic valve stenosis or regurgitation. Tricuspid Valve Structurally normal tricuspid valve. Mild tricuspid regurgitation. Pulmonic Valve Trace pulmonic regurgitation. Pericardium No pericardial effusion. Aorta Normal size aortic root and proximal ascending aorta. CONCLUSIONS Normal LV systolic function Mild mitral regurgitation Previewed by: Dr. Christian Wolf MD (Electronically Signed) Final Date: 21 June 2022 16:39
--- NOTE | 2022-06-21 18:14 | P.DS ---
Providers Date of admission: 06/21/22 01:16 Expected date of discharge: 06/21/22 Attending physician: Jamarcus Shipman MD Consults: 06/21/22 01:16 Consult Physician Routine Consulting Provider: Jessica Crandall Consult Reason/Comments: cp Do you want consulting provider notified?: Yes Primary care physician: [facility] Hospital Course: Discharge Diagnosis: Chest pain, acute coronary event ruled out. Troponins trended all negative at less than 0.0123 draws. EKG sinus mechanism. Echo normal EF of 55-60%. Stres s test negative. Cardiology recommending outpatient follow-up in our office in 2 weeks. Hypertension. Patient started on amlodipine 10 mg daily. Vital signs stable with blood pressure 132/77 and heart rate of 69 upon discharge. Elevated liver enzymes with history of IVDA. Hepatitis C IgG antibody was reactive. Orders placed for hepatitis C virus RNA quantitative and hepatitis C virus genotype to be completed. Patient will need to follow up outpatient with infectious disease for these results and further management and if needed treatment options. History of IVDA with heroin. Continue home Suboxone Hospital Course: Patient is a very pleasant 41-year-old female with a past medical history of mild intermittent asthma on Singulair and Ventolin inhalers, borderline personality disorder, anxiety, type: Disorder, depression and previous IVDA with heroin currently on Suboxone. She presented to the emergency department with a chief complaint of chest pain. Patient reports intermittent chest pains occurring sporadically over the past year but reports over the past 2 days she has felt this pain much more often and was accompanied by palpitations feeling as though her heart was racing. She underwent full evaluation in the emergency department. An EKG was completed upon arrival showing normal sinus rhythm at 63 bpm with no noted T-wave or ST abnormalities showing no signs of acute ischemia when personally reviewed and interpreted. Chest x-ray negative for acute cardiopulmonary process. Labs completed and reviewed. CBC unremarkable. D- dimer negative at 0.38. CMP also unremarkable with the exception of mildly elevated AST of 43 and ALT of 48. Troponin negative at less than 0.012. Patient admitted under our services with consultation to cardiology at this time. Troponins trended overnight all negative at less than 0.0123 draws. Lipid profile was unremarkable. She was started on amlodipine 10 mg daily secondary to elevated blood pressures. Echocardiogram completed revealing normal EF of 55-60%. Patient was evaluated by cardiology and taken for a cardiac stress test and it was reported that patient had good exercise tolerance and a negative stress test by EKG criteria. Cardiology recommended patient follow-up outpatient in the office in 2 weeks. Secondary to Elevated liver enzymes with patient history of IVDA. Hepatitis panel was ordered and Hepatitis C IgG antibody was reactive. Orders placed for hepatitis C virus RNA quantitative and hepatitis C virus genotype to be drawn prior to discharge. Pat ient will need to follow up outpatient with infectious disease for these results and further management including treatment options if needed. Medically, patient is stable for discharge with blood pressure 132/77, heart rate 69, respiratory rate 16, SpO2 of 99% on room air. Patient discharged home with a prescription for amlodipine and follow up outpatient with PCP in 1-2 days and cardiology in 2 weeks. Physical exam: Vital signs reviewed and stable. General: Nontoxic, no distress and appears stated age. Derm: Skin warm and dry, normal coloration for ethnicity. Head: Atraumatic, normocephalic and symmetric. Eyes: EOMs intact, no lid lag, and anicteric sclera Mouth: no lip lesions, mucus membranes moist Cardiovascular: regular rate and rhythm with normal S1S2, no murmur, positive posterior tibial pulses bilaterally, and cap refill < 2 seconds. Lungs: Respirations even, regular, and unlabored on room air. Lungs CTA bilaterally, no rhonchi, no rales, no wheezing, and no accessory muscle usage. Abdominal: soft, nontender to palpation, no guarding, no appreciable organomegaly Ext: ROM intact. No gross muscle atrophy, no edema, no contractures Neuro: Speech clear, face symmetrical and CN II-XII grossly intact with no noted focal neuro deficits Psych: Alert and oriented to person, place, time, and situation. Appropriate and pleasant affect. A total of 31 minutes of time were spent preparing this complex discharge summary. Pt was discharged on 06/21/22 at 5:53 PM. I reviewed the documentation as provided by the MICAH above, who is the original author of this note. I agree with the documented assessment and plan, with the following changes: none Patient Condition at Discharge: Stable Plan - Discharge Summary New Discharge Prescriptions: New amLODIPine [Norvasc] 10 mg PO DAILY 30 Days #30 tab Continue Albuterol Sulfate [Proair Hfa] 2 puff INHALATION RT-Q6H PRN PRN Reason: Shortness Of Breath Ferrous Sulfate [Iron (65 MG Elemental)] 650 mg PO DAILY tab Montelukast [Singulair] 10 mg PO DAILY Cholecalciferol [Vitamin D3 (125 Mcg = 5000 Iu)] 125 mcg PO DAILY Buprenorphine/Naloxone 8Mg/2Mg [Suboxone 8-2Mg Film] 3 film SL DAILY Doxepin [SINEquan] 50 mg PO HS 1 Days #15 cap Omeprazole [PriLOSEC] 20 mg PO DAILY Melatonin 5 mg PO HS PRN PRN Reason: Insomnia Loratadine [Claritin] 10 mg PO DAILY Gabapentin [Neurontin] 200 mg PO TID 15 Days #45 cap QUEtiapine [SEROquel] 300 mg PO HS 30 Days #45 tablet Discharge Medication List Albuterol Sulfate [Proair Hfa] 2 puff INHALATION RT-Q6H PRN 02/03/20 [History] Ferrous Sulfate [Iron (65 MG Elemental)] 650 mg PO DAILY tab 06/22/20 [Rx] Buprenorphine/Naloxone 8Mg/2Mg [Suboxone 8-2Mg Film] 3 film SL DAILY 06/05/22 [History] Cholecalciferol [Vitamin D3 (125 Mcg = 5000 Iu)] 125 mcg PO DAILY 06/05/22 [History] Loratadine [Claritin] 10 mg PO DAILY 06/05/22 [History] Melatonin 5 mg PO HS PRN 06/05/22 [History] Montelukast [Singulair] 10 mg PO DAILY 06/05/22 [History] Omeprazole [PriLOSEC] 20 mg PO DAILY 06/05/22 [History] Doxepin [SINEquan] 50 mg PO HS 1 Days #15 cap 06/11/22 [Rx] Gabapentin [Neurontin] 200 mg PO TID 15 Days #45 cap 06/11/22 [Rx] QUEtiapine [SEROquel] 300 mg PO HS 30 Days #45 tablet 06/11/22 [Rx] amLODIPine [Norvasc] 10 mg PO DAILY 30 Days #30 tab 06/21/22 [Rx] Follow up Appointment(s)/Referral(s): [facility] - 1-2 days Romana Byrd MD [STAFF PHYSICIAN] - 1 Week Christian Wolf MD [STAFF PHYSICIAN] - 2 Weeks Patient Instructions/Handouts: Chest Pain (DC), Hepatitis C (DC), Hypertension (DC) Activity/Diet/Wound Care/Special Instructions: Activity: As tolerated. Take breaks as needed. Diet: Heart healthy and carb consistent diet. Avoid salts, or foods with hidden salts such as canned or boxed foods and frozen dinners. Extra salt makes your heart work harder and traps the fluid in your body for longer. Special Instructions: Take all of your medications as directed and remember to keep all of your doctor's appointments and follow-up as needed. We completed a hepatitis panel as your liver enzymes were slightly elevated and your hepatitis C IgG antibody was reactive, this means that you have been exposed to hepatitis C at some point in time. To verify or confirm active hepatitis C infection we have ordered additional labs to be completed and you will need to follow up with infectious disease specialist, Dr. Byrd to discuss these results and if needed a further plan of care. Thank you for allowing us to participate in your care, it was truly a pleasure having you for our patient!!! Discharge Disposition: HOME SELF-CARE
== END 2022-06-21 20:10 | disposition home or self-care (01) ==
LOC: EC 22:53 → 6NMEDSUR 06-21 01:16
PROVIDERS: ADMIT Internal Medicine; ATTEND Internal Medicine
DX: R07.89 Other chest pain (principal); I10 Essential (primary) hypertension; J45.20 Mild intermittent asthma, uncomplicated; R00.0 Tachycardia, unspecified; R00.2 Palpitations; I34.0 Nonrheumatic mitral (valve) insufficiency; R74.01 Elevation of levels of liver transaminase levels; D64.9 Anemia, unspecified; F31.9 Bipolar disorder, unspecified; F43.10 Post-traumatic stress disorder, unspecified; F60.3 Borderline personality disorder; F41.9 Anxiety disorder, unspecified; Z20.5 Contact with and (suspected) exposure to viral hepatitis; Z79.891 Long term (current) use of opiate analgesic; Z79.899 Other long term (current) drug therapy; Z88.8 Allergy status to other drugs, medicaments and biological substances; Z86.14 Personal history of Methicillin resistant Staphylococcus aureus infection; Z98.890 Other specified postprocedural states; Z87.891 Personal history of nicotine dependence; Z87.898 Personal history of other specified conditions; Z86.19 Personal history of other infectious and parasitic diseases; Z82.49 Family history of ischemic heart disease and other diseases of the circulatory system
CPT/HCPCS: 99285 ×2; 96372; 36415; 93005; 93017; 93306; 85379; 83880; 80061; 87522; 80053; 80074; 84443; 83690; 83735; 84484 ×2; 85025; 85610; 85730; 71046; G0378; J1644

== ENCOUNTER 2022-09-11 18:25 | Emergency (ER) | payer MEDICARE, OTHER ==
[2022-09-11] MEDS ORDERED: DEXAMETHASONE SOD PHOSPHATE 10 MG/ML 1 ML VIAL IM STA (19:18)
--- NOTE | 2022-09-11 19:49 | ED ---
ENT HPI - General Chief complaint: Dental/Oral Stated complaint: ENT Time Seen by Provider: 09/11/22 18:57 Source: patient, RN notes reviewed Mode of arrival: ambulatory Limitations: no limitations - History of Present Illness Initial comments: This is a 41-year-old female who presents to the emergency department for pain and swelling to the left side of the jaw. States that this has been present for the last 3 days. She also has a sore throat making it difficult to swallow. Denies any dental pain or history of dental infections. She has had similar problems in the past, however they've always gone away on their own and they have never been this severe. denies any fevers or chills. Denies any fevers, chills, cough, dyspnea, chest pain, palpitations, abdominal pain, nausea, vomiting, diarrhea, back pain, or headaches. MD complaint: other (left sided jaw pain) Onset/Timin -: days(s) - Related Data Home Medications Medication Instructions Recorded Confirmed Albuterol Sulfate [Proair Hfa] 2 puff INHALATION RT-Q6H PRN 02/03/20 06/21/22 Buprenorphine/Naloxone 8Mg/2Mg 3 film SL DAILY 06/05/22 06/21/22 [Suboxone 8-2Mg Film] Cholecalciferol [Vitamin D3 (125 125 mcg PO DAILY 06/05/22 06/21/22 Mcg = 5000 Iu)] Loratadine [Claritin] 10 mg PO DAILY 06/05/22 06/21/22 Melatonin 5 mg PO HS PRN 06/05/22 06/21/22 Montelukast [Singulair] 10 mg PO DAILY 06/05/22 06/21/22 Omeprazole [PriLOSEC] 20 mg PO DAILY 06/05/22 06/21/22 Previous Rx's Medication Instructions Recorded Ferrous Sulfate [Iron (65 MG 650 mg PO DAILY tab 06/22/20 Elemental)] Doxepin [SINEquan] 50 mg PO HS 1 Days #15 cap 06/11/22 Gabapentin [Neurontin] 200 mg PO TID 15 Days #45 cap 06/11/22 QUEtiapine [SEROquel] 300 mg PO HS 30 Days #45 tablet 06/11/22 amLODIPine [Norvasc] 10 mg PO DAILY 30 Days #30 tab 06/21/22 Amoxic-Pot Clav 875-125Mg 1 tab PO BID 10 Days #20 tab 09/11/22 [Augmentin 875-125] Ibuprofen 600 mg PO Q8H PRN #15 tab 09/11/22 Allergies Allergy/AdvReac Type Severity Reaction Status Date / Time haloperidol [From Haldol] AdvReac Body Verified 09/11/22 18:46 Cramps per OASIS Review of Systems ROS Statement: Those systems with pertinent positive or pertinent negative responses have been documented in the HPI. ROS Other: All systems not noted in ROS Statement are negative. 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 [place], leandro Horne History of Any Multi-Drug Resistant Organisms: None Reported Date of last positivie culture/infection: 07/03/21 MDRO Source:: AXILLA MRSA Past Surgical History: Tonsillectomy Additional Past Surgical History / Comment(s): left knee surgery Past Anesthesia/Blood Transfusion Reactions: No Reported Reaction Additional Past Anesthesia/Blood Transfusion Reaction / Comment(s): n/a Past Psychological History: Anxiety, Bipolar, Depression, PTSD Smoking Status: Vaper Past Alcohol Use History: Occasional Past Drug Use History: Heroin, Marijuana - Past Family History Mother Family Medical History: Hypertension General Exam Limitations: no limitations General appearance: alert, in no apparent distress Head exam: Present: atraumatic, normocephalic, normal inspection ENT exam: Present: other (Tender palpable lump in the left submental region. Scattered dental caries. No evidence of gingivitis or chipped teeth. Posterior pharyngeal erythema. No swelling at the floor of the mouth or tongue elevation.) Respiratory exam: Present: normal lung sounds bilaterally. Absent: respiratory distress, wheezes, rales, rhonchi, stridor Cardiovascular Exam: Present: regular rate, normal rhythm, normal heart sounds. Absent: systolic murmur, diastolic murmur, rubs, gallop, clicks Neurological exam: Present: alert, oriented X3, CN II-XII intact Psychiatric exam: Present: normal affect, normal mood Skin exam: Present: warm, dry, intact, normal color. Absent: rash Course Vital Signs 09/11/22 09/11/22 18:44 20:42 Temperature 98.5 F 98.9 F Pulse Rate 104 H 76 Respiratory 20 16 Rate Blood Pressure 138/85 136/72 O2 Sat by Pulse 99 97 Oximetry Medical Decision Making - Medical Decision Making This is a 41-year-old female who presents to the emergency department for left- sided jaw pain. Was pt. sent in by a medical professional or institution? @ -No Did you speak to anyone other than the patient for history? @ -No Did you review nursing and triage notes? @ -Yes, and I agree, it is accurate with regards to the patient's symptoms. Were old charts reviewed? @ -No Differential Diagnosis? @ -Differential Jaw Pain: Dental abscess, chipped tooth, dental carries, vicente's angina, lymphadenopathy, strep throat, trigeminal neuralgia, trismus, TMJ, this is not meant to be an all-inclusive list. What testing was considered but not performed? (CT, X-rays, U/S, labs)? Why? @ -None What meds were considered but not given? Why? @ -None Did you discuss the management of the patient with other professionals? @ -No Did you reconcile home meds? @ -No Was smoking cessation discussed for >3mins.? @ -No Was critical care preformed (if so, how long)? @ -No Were there social determinants of health that impacted care today? How? (Homelessness, low income, unemployed, alcoholism, drug addiction, transportation, low edu. Level, literacy, decrease access to med. care, group home, rehab)? @ -No Was there de-escalation of care discussed even if they declined? (Discuss DNR or withdrawal of care, Hospice)? @ -No What co-morbidities impacted this encounter? (DM, HTN, Smoking, COPD, CAD, C ancer, CVA, Hep., AIDS, mental health diagnosis, sleep apnea, morbid obesity)? @ -None Was patient admitted / discharged? @ -Discharged. Ultrasound of the lump on the left side of the jaw obtained. Findings consistent with an enlarged submandibular gland suggestive of sialoadenitis. Findings reviewed with the patient. She was given IM Decadron in the emergency department. Prescriptions for Augmentin and ibuprofen provided with dosing instructions reviewed. Advised she alternate with ibuprofen and Tylenol and apply warm compresses. She is advised to avoid the Augmentin for now and to start taking it if she develops fevers, overlying erythema, or the lump gets larger. She is also advised to suck on hard candy such as lemon drops to stimulate saliva production. Information for ENT follow-up provided as well. Instructed her to contact them for a follow-up appointment. Undiagnosed new problem with uncertain prognosis? @ -None Drug Therapy requiring intensive monitoring for toxicity (Heparin, Nitro, Insulin, Cardizem)? @ -None Were any procedures done? @ -None Diagnosis/symptom? @ -Sialoadenitis Acute, or Chronic, or Acute on Chronic? @ -Acute Uncomplicated (without systemic symptoms) or Complicated (systemic symptoms)? @ -Uncomplicated Side effects of treatment? @ -None Exacerbation, Progression, or Severe Exacerbation] @ -Not applicable Poses a threat to life or bodily function? @ -No Return precautions reviewed in depth, the patient is instructed to return to the emergency department with any new, worsening, or concerning symptoms. Patient verbalized understanding. This case was discussed in detail with the attending ED physician, Dr. Gaviria. Presentation, findings, and treatment plan discussed in detail as well. - Radiology Data Radiology results: report reviewed, image reviewed Disposition Clinical Impression: Sialoadenitis of submandibular gland Disposition: HOME SELF-CARE Instructions (If sedation given, give patient instructions): Sialoadenitis (ED) Additional Instructions: Return to the emergency department with any new, worsening, or concerning symptoms. Take the antibiotics as prescribed for 10 days if you develop fevers, overlying redness, or the area gets larger. Alternate with ibuprofen and Tylenol as needed for pain relief. Apply warm compresses. Also suck on hard candy like lemon drops to stimulate saliva production. Contact ENT as listed below for a follow-up appointment and reevaluation of symptoms. Prescriptions: Amoxic-Pot Clav 875-125Mg [Augmentin 875-125] 1 tab PO BID 10 Days #20 tab Ibuprofen 600 mg PO Q8H PRN #15 tab PRN Reason: Pain Is patient prescribed a controlled substance at d/c from ED?: No Referrals: [facility] [Primary Care Provider] - 1-2 days Kai Fuller DO [Doctor of Osteopathic Medicine] - 1-2 days
--- NOTE | 2022-09-11 20:11 | US ---
EXAMINATION TYPE: US thyroid st tissue head/neck DATE OF EXAM: 09/11/2022 COMPARISON: NONE CLINICAL INDICATION: Female, 41 years old with history of Mass on left side of jaw; Lump on left side of jaw. Pt states it comes and goes, but is more painful now. Technique: Grayscale imaging of the neck in the area of palpable abnormality. Findings: The lump in in the area of the left parotid gland. Left parotid gland appears heterogeneous and enlarged compared to right side. IMPRESSION: Heterogenous enlarged left submandibular gland. Correlate for sialoadenitis.
[2022-09-11] MEDS ORDERED: IBUPROFEN 600 MG STARTER PACK 4 TAB BTL PO STA (20:20)
[2022-09-11] MEDS ORDERED: AMOXIC-POT CLAV 875MG STARTER PACK 2 TAB BTL PO STA (20:20)
[2022-09-11] MEDS ORDERED: ACET/COD 300 MG/30 MG STARTER PACK 6 TAB BTL PO STA (20:20)
[2022-09-11 20:43] VITALS: BP 136/72; PULSE 76; RESP 16; TEMP 98.9
== END 2022-09-11 20:50 | disposition home or self-care (01) ==
LOC: EC 18:25
DX: K11.20 Sialoadenitis, unspecified (principal); J45.909 Unspecified asthma, uncomplicated; F41.9 Anxiety disorder, unspecified; F31.9 Bipolar disorder, unspecified; F17.290 Nicotine dependence, other tobacco product, uncomplicated; F11.90 Opioid use, unspecified, uncomplicated; F12.90 Cannabis use, unspecified, uncomplicated; Z79.899 Other long term (current) drug therapy; Z88.8 Allergy status to other drugs, medicaments and biological substances
CPT/HCPCS: 76536; 99283; 96372; J1100

== ENCOUNTER 2022-10-14 22:00 | Emergency (ER) | payer MEDICARE, OTHER ==
--- NOTE | 2022-10-14 22:11 | ED ---
General Adult HPI - General Source: RN notes reviewed <Amrita Hurst - Last Filed: 10/14/22 22:11> <George Glaser - Last Filed: 10/15/22 00:39> - General Stated complaint: Headache, Nausea Time Seen by Provider: 10/14/22 22:11 - History of Present Illness Initial comments: 42-year-old female with no significant past medical history presents to the emergency department with a complaint of headache. She reports headache for months. She reports coming symptoms of nausea and vomiting that started today. (Amrita Hurst) 42-year-old female presents for evaluation of left-sided headache. No focal numbness or weakness. Headache is been intermittent over the past several months and the patient does not have a primary care physician that she's been able to see but does have an appointment for 2 weeks. No fever. She had some associated photophobia as well as nausea and vomiting. (George Glaser) - Related Data Home Medications Medication Instructions Recorded Confirmed Albuterol Sulfate [Proair Hfa] 2 puff INHALATION RT-Q6H PRN 02/03/20 09/18/22 Buprenorphine/Naloxone 8Mg/2Mg 3 film SL DAILY 06/05/22 09/18/22 [Suboxone 8-2Mg Film] Cholecalciferol [Vitamin D3 (125 125 mcg PO DAILY 06/05/22 09/18/22 Mcg = 5000 Iu)] Loratadine [Claritin] 10 mg PO DAILY 06/05/22 09/18/22 Melatonin 5 mg PO HS PRN 06/05/22 09/18/22 Montelukast [Singulair] 10 mg PO DAILY 06/05/22 09/18/22 Omeprazole [PriLOSEC] 20 mg PO DAILY 06/05/22 09/18/22 Previous Rx's Medication Instructions Recorded Ferrous Sulfate [Iron (65 MG 650 mg PO DAILY tab 06/22/20 Elemental)] Amoxic-Pot Clav 875-125Mg 1 tab PO BID 10 Days #20 tab 09/11/22 [Augmentin 875-125] [place] Carbonate 450 mg PO HS 30 Days #90 cap 09/27/22 Nicotine Gum (Polacrilex) 2 mg BUCCAL Q2HR PRN 30 Days #120 09/27/22 [Nicorette] pieceofgum QUEtiapine FUMARATE [SEROquel] 300 mg PO HS 30 Days #30 tab 09/27/22 Venlafaxine HCl ER [Effexor XR] 225 mg PO DAILY 30 Days #90 cap 09/27/22 Allergies Allergy/AdvReac Type Severity Reaction Status Date / Time haloperidol [From Haldol] AdvReac Body Verified 09/18/22 21:04 Cramps per OASIS Review of Systems ROS Other: All systems not noted in ROS Statement are negative. <Amrita Hurst - Last Filed: 10/14/22 22:11> ROS Other: All systems not noted in ROS Statement are negative. <George Glaser - Last Filed: 10/15/22 00:39> ROS Statement: Those systems with pertinent positive or pertinent negative responses have been documented in the HPI. 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 [place], leandro Horne History of Any Multi-Drug Resistant Organisms: MRSA Date of last positivie culture/infection: 07/03/21 MDRO Source:: Axilla Past Surgical History: Tonsillectomy Additional Past Surgical History / Comment(s): left knee surgery Past Anesthesia/Blood Transfusion Reactions: No Reported Reaction Additional Past Anesthesia/Blood Transfusion Reaction / Comment(s): n/a Past Psychological History: Anxiety, Bipolar, Depression, PTSD Smoking Status: Vaper Past Alcohol Use History: Occasional Past Drug Use History: Heroin, Marijuana - Past Family History Mother Family Medical History: Hypertension <Amrita Hurst - Last Filed: 10/14/22 22:11> General Exam <Amrita Hurst - Last Filed: 10/14/22 22:11> General appearance: alert, in no apparent distress Head exam: Present: atraumatic, normocephalic Eye exam: Present: normal appearance, PERRL ENT exam: Present: normal exam Neck exam: Present: normal inspection. Absent: tenderness, meningismus Respiratory exam: Present: normal lung sounds bilaterally. Absent: respiratory distress, wheezes Cardiovascular Exam: Present: regular rate, normal rhythm GI/Abdominal exam: Present: soft. Absent: distended, tenderness, guarding Extremities exam: Present: normal inspection, normal capillary refill. Absent: pedal edema Neurological exam: Present: alert, oriented X3, CN II-XII intact. Absent: motor sensory deficit Psychiatric exam: Present: normal affect, normal mood Skin exam: Present: warm, dry, intact. Absent: cyanosis <George Glaser - Last Filed: 10/15/22 00:39> - General Exam Comments Initial Comments: Visual Physical Exam Vital signs reviewed General: Well-appearing, nontoxic, no acute distress. Head: Normocephalic, atraumatic Eyes: PERRLA, EOMI ENT: Airway patent Chest: Nonlabored breathing Skin: No visual rash, normal skin tone Neuro: Alert and oriented 3 Musculoskeletal: No gross abnormalities (Amrita Hurst) Course <George Glaser - Last Filed: 10/15/22 00:39> Vital Signs 10/14/22 10/15/22 22:10 00:33 Temperature 98.4 F Pulse Rate 89 63 Respiratory 16 18 Rate Blood Pressure 168/100 159/95 O2 Sat by Pulse 97 98 Oximetry - Reevaluation(s) Reevaluation #1: 10/15/22 00:38 Blood pressure is elevated, patient does not have a history of hypertension. She will monitor blood pressure closely and report this to the primary care physician in 2 weeks when she has her appointment. (George Glaser) Medical Decision Making - Lab Data Result diagrams: 10/14/22 22:38 10/14/22 22:38 <George Glaser - Last Filed: 10/15/22 00:39> - Medical Decision Making Was pt. sent in by a medical professional or institution (, PA, SPECTACLE [employer]ER, urgent care, hospital, or intermediate...) When possible be specific @ -No Did you speak to anyone other than the patient for history (EMS, parent, family, police, friend...)? What history was obtained from this source @ -No Did you review nursing and triage notes (agree or disagree)? Why? @ -I reviewed and agree with nursing and triage notes Were old charts reviewed (outside hosp., previous admission, EMS record, old EKG, old radiological studies, urgent care reports/EKG's, intermediate records)? Report findings @ -No old charts were reviewed Differential Diagnosis (chest pain, altered mental status, abdominal pain women, abdominal pain men, vaginal bleeding, weakness, fever, dyspnea, syncope, headache, dizziness, GI bleed, back pain, seizure, CVA, palpatations, mental health, musculoskeletal)? @ -not applicable EKG interpreted by me (3pts min.). @ -As above X-rays interpreted by me (1pt min.). @ -None done CT interpreted by me (1pt min.). @Reviewed and interpreted by myself, negative for intracranial hemorrhage or mass effect U/S interpreted by me (1pt. min.). @ -None done What testing was considered but not performed or refused? (CT, X-rays, U/S, labs)? Why? @ -None What meds were considered but not given or refused? Why? @ -None Did you discuss the management of the patient with other professionals (professionals i.e. , PA, S[employer]ACLE [employer], lab, RT, psych nurse, socially responsible investment adviser, belly dump driver, teacher, fisheries technical officer, watch caser)? Give summary @ -No Was smoking cessation discussed for >3mins.? @ -No Was critical care preformed (if so, how long)? @ -No Were there social determinants of health that impacted care today? How? (Homelessness, low income, unemployed, alcoholism, drug addiction, transportation, low edu. Level, literacy, decrease access to med. care, [facility], rehab)? @ -No Was there de-escalation of care discussed even if they declined (Discuss DNR or withdrawal of care, Hospice)? DNR status @ -No What co-morbidities impacted this encounter? (DM, HTN, Smoking, COPD, CAD, Ca ncer, CVA, ARF, Chemo, Hep., AIDS, mental health diagnosis, sleep apnea, morbid obesity)? @ -None Was patient admitted / discharged? Hospital course, mention meds given and route, prescriptions, significant lab abnormalities, going to OR and other pertinent info. @ -22-year-old female with intermittent left-sided headache with associated sy mptoms of nausea vomiting and light sensitivity. Patient had not previously had imaging or any evaluation for headaches. She has an appointment with her new primary care physician in [address] brain was ordered and was negative for intracranial hemorrhage or mass effect. Patient had normal laboratory testing with the exception of a chronic from cytopenia. Patient is stable for discharge from the emergency department with outpatient follow-up. Undiagnosed new problem with uncertain prognosis? @ -No Drug Therapy requiring intensive monitoring for toxicity (Heparin, Nitro, Insulin, Cardizem)? @ -No Were any procedures done? @ -No Diagnosis/symptom? @Headache Acute, or Chronic, or Acute on Chronic? @Acute Uncomplicated (without systemic symptoms) or Complicated (systemic symptoms)? @ -Uncomplicated Side effects of treatment? @ -No Exacerbation, Progression, or Severe Exacerbation? @ -No Poses a threat to life or bodily function? How? (Chest pain, [place], [place], pneumonia, PE, COPD, DKA, ARF, appy, cholecystitis, CVA, Diverticulitis, Homicidal, Suicidal, threat to staff... and all critical care pts) @ -No (George Glaser) - Lab Data Lab Results 10/14/22 10/14/22 10/14/22 Range/Units 22:38 22:38 22:38 WBC 6.0 (3.8-10.6) k/uL RBC 4.65 (3.80-5.40) m/uL Hgb 12.2 (11.4-16.0) gm/dL Hct 38.2 (34.0-46.0) % MCV 82.3 (80.0-100.0) fL MCH 26.3 (25.0-35.0) pg MCHC 32.0 (31.0-37.0) g/dL RDW 16.0 H (11.5-15.5) % Plt Count 83 L (150-450) k/uL MPV 13.7 Neutrophils % 62 % Lymphocytes % 25 % Monocytes % 5 % Eosinophils % 4 % Basophils % 1 % Neutrophils # 3.7 (1.3-7.7) k/uL Lymphocytes # 1.5 (1.0-4.8) k/uL Monocytes # 0.3 (0-1.0) k/uL Eosinophils # 0.2 (0-0.7) k/uL Basophils # 0.1 (0-0.2) k/uL Sodium (137-145) mmol/L Potassium (3.5-5.1) mmol/L Chloride (98-107) mmol/L Carbon Dioxide (22-30) mmol/L Anion Gap mmol/L BUN (7-17) mg/dL Creatinine (0.52-1.04) mg/dL Est GFR (CKD-EPI)AfAm (>60 ml/min/1.73 sqM) Est GFR (CKD-EPI)NonAf (>60 ml/min/1.73 sqM) Glucose (74-99) mg/dL Calcium (8.4-10.2) mg/dL Total Bilirubin (0.2-1.3) mg/dL AST (14-36) U/L ALT (4-34) U/L Alkaline Phosphatase (38-126) U/L Total Protein (6.3-8.2) g/dL Albumin (3.5-5.0) g/dL Urine Color Yellow Urine Appearance Cloudy H (Clear) Urine pH 5.0 (5.0-8.0) Ur Specific [place] 1.022 (1.001-1.035) Urine Protein Negative (Negative) Urine Glucose (UA) Negative (Negative) Urine Ketones Negative (Negative) Urine Blood Negative (Negative) Urine Nitrite Negative (Negative) Urine Bilirubin Negative (Negative) Urine Urobilinogen <2.0 (<2.0) mg/dL Ur Leukocyte Esterase Negative (Negative) Urine RBC 1 (0-5) /hpf Urine WBC 4 (0-5) /hpf Ur Squamous Epith Cells 17 H (0-4) /hpf Amorphous Sediment Occasional H (None) /hpf Urine Mucus Rare H (None) /hpf Urine HCG, Qual Not Detected (Not Detectd) Influenza Type A (PCR) (Not Detectd) Influenza Type B (PCR) (Not Detectd) RSV (PCR) (Not Detectd) SARS-CoV-2 (PCR) (Not Detectd) 10/14/22 10/14/22 Range/Units 22:38 22:38 WBC (3.8-10.6) k/uL RBC (3.80-5.40) m/uL Hgb (11.4-16.0) gm/dL Hct (34.0-46.0) % MCV (80.0-100.0) fL MCH (25.0-35.0) pg MCHC (31.0-37.0) g/dL RDW (11.5-15.5) % Plt Count (150-450) k/uL MPV Neutrophils % % Lymphocytes % % Monocytes % % Eosinophils % % Basophils % % Neutrophils # (1.3-7.7) k/uL Lymphocytes # (1.0-4.8) k/uL Monocytes # (0-1.0) k/uL Eosinophils # (0-0.7) k/uL Basophils # (0-0.2) k/uL Sodium 137 (137-145) mmol/L Potassium 3.9 (3.5-5.1) mmol/L Chloride 102 (98-107) mmol/L Carbon Dioxide 24 (22-30) mmol/L Anion Gap 11 mmol/L BUN 12 (7-17) mg/dL Creatinine 0.62 (0.52-1.04) mg/dL Est GFR (CKD-EPI)AfAm >90 (>60 ml/min/1.73 sqM) Est GFR (CKD-EPI)NonAf >90 (>60 ml/min/1.73 sqM) Glucose 105 H (74-99) mg/dL Calcium 9.4 (8.4-10.2) mg/dL Total Bilirubin 0.5 (0.2-1.3) mg/dL AST 35 (14-36) U/L ALT 32 (4-34) U/L Alkaline Phosphatase 45 (38-126) U/L Total Protein 7.7 (6.3-8.2) g/dL Albumin 4.5 (3.5-5.0) g/dL Urine Color Urine Appearance (Clear) Urine pH (5.0-8.0) Ur Specific [place] (1.001-1.035) Urine Protein (Negative) Urine Glucose (UA) (Negative) Urine Ketones (Negative) Urine Blood (Negative) Urine Nitrite (Negative) Urine Bilirubin (Negative) Urine Urobilinogen (<2.0) mg/dL Ur Leukocyte Esterase (Negative) Urine RBC (0-5) /hpf Urine WBC (0-5) /hpf Ur Squamous Epith Cells (0-4) /hpf Amorphous Sediment (None) /hpf Urine Mucus (None) /hpf Urine HCG, Qual (Not Detectd) Influenza Type A (PCR) Not Detected (Not Detectd) Influenza Type B (PCR) Not Detected (Not Detectd) RSV (PCR) Not Detected (Not Detectd) SARS-CoV-2 (PCR) Not Detected (Not Detectd) Disposition <Amrita Hurst - Last Filed: 10/14/22 22:11> Is patient prescribed a controlled substance at d/c from ED?: No Time of Disposition: 00:34 <George Glaser - Last Filed: 10/15/22 00:39> Clinical Impression: Headache Disposition: HOME SELF-CARE Condition: Fair Instructions (If sedation given, give patient instructions): Acute Headache (ED) Referrals: [facility] [Primary Care Provider] - 1-2 days
[2022-10-14 22:12] VITALS: TEMP 98.4
[2022-10-14 22:53] LABS: ALT 32 U/L (4-34); AST 35 U/L (14-36); African American GFR (CKD) >90 (>60 ml/min/1.73 sqM); Albumin 4.5 g/dL (3.5-5.0); Alkaline Phosphatase 45 U/L (38-126); Anion Gap 11 mmol/L; Blood Urea Nitrogen 12 mg/dL (7-17); Calcium 9.4 mg/dL (8.4-10.2); Carbon Dioxide 24 mmol/L (22-30); Chloride 102 mmol/L (98-107); Glucose 105 mg/dL (74-99); Non-African American GFR(CKD) >90 (>60 ml/min/1.73 sqM); Potassium 3.9 mmol/L (3.5-5.1); Sodium 137 mmol/L (137-145); Total Bilirubin 0.5 mg/dL (0.2-1.3); Total Protein 7.7 g/dL (6.3-8.2)
[2022-10-14 22:56] LABS: Basophils # (A) 0.1 k/uL (0-0.2); Basophils % (A) 1 %; Eosinophils # (A) 0.2 k/uL (0-0.7); Eosinophils % (A) 4 %; HCT 38.2 % (34.0-46.0); HGB 12.2 gm/dL (11.4-16.0); Lymphocytes # (A) 1.5 k/uL (1.0-4.8); Lymphocytes % (A) 25 %; MCH 26.3 pg (25.0-35.0); MCV 82.3 fL (80.0-100.0); Mean Platelet Volume 13.7; Monocytes # (A) 0.3 k/uL (0-1.0); Monocytes % (A) 5 %; Neutrophils # (A) 3.7 k/uL (1.3-7.7); Neutrophils % (A) 62 %; RBC 4.65 m/uL (3.80-5.40)
[2022-10-14 22:58] LABS: Platelet Count 83 k/uL (150-450)
[2022-10-14 23:01] LABS: Amorphous Sediment,Urine Occasional /hpf; Appearance,Urine Cloudy (Clear); Bilirubin,Urine Negative (Negative); Blood,Urine Negative (Negative); Color,Urine Yellow; Glucose,Urine (UA) Negative (Negative); Ketones,Urine Negative (Negative); Leukocyte Esterase,Urine Negative (Negative); Mucus,Urine Rare /hpf; Nitrite,Urine Negative (Negative); Protein,Urine Negative (Negative); RBC,Urine 1 /hpf (0-5); Specific Gravity,Urine 1.022 (1.001-1.035); Squamous Epithelial Cell,Urine 17 /hpf (0-4); Urobilinogen,Urine <2.0 mg/dL (<2.0); WBC,Urine 4 /hpf (0-5)
--- NOTE | 2022-10-15 00:12 | CT ---
EXAMINATION TYPE: CT brain wo con DATE OF EXAM: 10/15/2022 COMPARISON: 05/12/2015 INDICATION: HEADACHE X COUPLE WEEKS, CONSTANT, LT SIDE DLP: 1099.6 mGycm, Automated exposure control for dose reduction was used. CONTRAST: None CT of the brain is performed utilizing 3 mm thick sections through the posterior fossa and 3 mm thick sections through the remaining calvarium. Study is performed within 24 hours of arrival to the hosp [place]. No abnormal hyperdensity is present to suggest an acute intracranial hemorrhage. No mass lesion is evident. No acute infarcts are evident. Ventricles and sulci are appropriate for the patient age. Paranasal sinuses and mastoid air cells within the [id number] are clear. IMPRESSIONS: 1. No acute intracranial process. Follow-up MRI can be performed as clinically indicated.
[2022-10-15 00:34] VITALS: BP 159/95; PULSE 63; RESP 18
== END 2022-10-15 01:34 | disposition home or self-care (01) ==
LOC: EC 22:00
DX: R51.9 Headache, unspecified (principal); J45.909 Unspecified asthma, uncomplicated; F41.9 Anxiety disorder, unspecified; F31.9 Bipolar disorder, unspecified; F17.290 Nicotine dependence, other tobacco product, uncomplicated; F12.90 Cannabis use, unspecified, uncomplicated; F11.90 Opioid use, unspecified, uncomplicated; Z79.899 Other long term (current) drug therapy; Z20.822 Contact with and (suspected) exposure to COVID-19; Z88.8 Allergy status to other drugs, medicaments and biological substances
CPT/HCPCS: 36415; 70450; 80053; 81001; 81025; 85025; 87636; 99284

== ENCOUNTER 2023-01-02 06:24 | Emergency (ER) | payer MEDICAID, MEDICARE ==
[2023-01-02 06:32] VITALS: BP 152/103; PULSE 80; RESP 18; TEMP 98.1
--- NOTE | 2023-01-02 06:51 | ED ---
Extremity Problem HPI - General Chief complaint: Extremity Problem,Nontraumatic Stated complaint: Right Wrist Pain Time Seen by Provider: 01/02/23 06:35 Source: patient, RN notes reviewed Mode of arrival: ambulatory Limitations: no limitations - Related Data Home Medications Medication Instructions Recorded Confirmed Albuterol Sulfate [Proair Hfa] 2 puff INHALATION RT-Q6H PRN 02/03/20 09/18/22 Buprenorphine/Naloxone 8Mg/2Mg 3 film SL DAILY 06/05/22 09/18/22 [Suboxone 8-2Mg Film] Cholecalciferol [Vitamin D3 (125 125 mcg PO DAILY 06/05/22 09/18/22 Mcg = 5000 Iu)] Loratadine [Claritin] 10 mg PO DAILY 06/05/22 09/18/22 Melatonin 5 mg PO HS PRN 06/05/22 09/18/22 Montelukast [Singulair] 10 mg PO DAILY 06/05/22 09/18/22 Omeprazole [PriLOSEC] 20 mg PO DAILY 06/05/22 09/18/22 Previous Rx's Medication Instructions Recorded Ferrous Sulfate [Iron (65 MG 650 mg PO DAILY tab 06/22/20 Elemental)] Amoxic-Pot Clav 875-125Mg 1 tab PO BID 10 Days #20 tab 09/11/22 [Augmentin 875-125] [place] Carbonate 450 mg PO HS 30 Days #90 cap 09/27/22 Nicotine Gum (Polacrilex) 2 mg BUCCAL Q2HR PRN 30 Days #120 09/27/22 [Nicorette] pieceofgum QUEtiapine FUMARATE [SEROquel] 300 mg PO HS 30 Days #30 tab 09/27/22 Venlafaxine HCl ER [Effexor XR] 225 mg PO DAILY 30 Days #90 cap 09/27/22 Allergies Allergy/AdvReac Type Severity Reaction Status Date / Time haloperidol [From Haldol] AdvReac Body Verified 01/02/23 06:29 Cramps per OASIS Review of Systems ROS Statement: Those systems with pertinent positive or pertinent negative responses have been documented in the HPI. ROS Other: All systems not noted in ROS Statement are negative. 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 [place], [place] History of Any Multi-Drug Resistant Organisms: MRSA Date of last positivie culture/infection: 07/03/21 MDRO Source:: Axilla Past Surgical History: Tonsillectomy Additional Past Surgical History / Comment(s): left knee surgery Past Anesthesia/Blood Transfusion Reactions: No Reported Reaction Additional Past Anesthesia/Blood Transfusion Reaction / Comment(s): n/a Past Psychological History: Anxiety, Bipolar, Depression, PTSD Smoking Status: Vaper Past Alcohol Use History: Occasional Past Drug Use History: Cocaine, Heroin, Marijuana - Past Family History Mother Family Medical History: Hypertension General Exam Limitations: no limitations General appearance: alert, in no apparent distress Head exam: Present: atraumatic, normocephalic, normal inspection Eye exam: Present: normal appearance, PERRL, EOMI. Absent: scleral icterus, conjunctival injection, periorbital swelling ENT exam: Present: normal exam, normal oropharynx, mucous membranes moist Neck exam: Present: normal inspection, full ROM. Absent: tenderness, meningismus, lymphadenopathy Respiratory exam: Present: normal lung sounds bilaterally. Absent: respiratory distress, wheezes, rales, rhonchi, stridor Cardiovascular Exam: Present: regular rate, normal rhythm, normal heart sounds. Absent: systolic murmur, diastolic murmur, rubs, gallop, clicks Extremities exam: Present: other (Full range of motion bilateral hands, wrist, neurovascular intact with equal radial pulses Refill less than 2 seconds there is old scarring noted on wrist bilaterally) Skin exam: Present: warm, dry, intact, normal color. Absent: rash Course Vital Signs 01/02/23 06:29 Temperature 98.1 F Pulse Rate 80 Respiratory 18 Rate Blood Pressure 152/103 O2 Sat by Pulse 98 Oximetry Medical Decision Making - Medical Decision Making Was pt. sent in by a medical professional or institution (, PA, PUBLIC RELATIONS SPECIALIST, urgent care, hospital, or [facility]...) When possible be specific @ -No Did you speak to anyone other than the patient for history (EMS, parent, family, police, friend...)? What history was obtained from this source @ -No Did you review nursing and triage notes (agree or disagree)? Why? @ -I reviewed and agree with nursing and triage notes Were old charts reviewed (outside hosp., previous admission, EMS record, old EKG, old radiological studies, urgent care reports/EKG's, [facility] records)? Report findings @ -No old charts were reviewed Differential Diagnosis (chest pain, altered mental status, abdominal pain women, abdominal pain men, vaginal bleeding, weakness, fever, dyspnea, syncope, headache, dizziness, GI bleed, back pain, seizure, CVA, palpatations, mental health, musculoskeletal)? @ -Wrist sprain, fracture, chronic pain, carpal tunnel EKG interpreted by me (3pts min.). @ -None X-rays interpreted by me (1pt min.). @ -None done CT interpreted by me (1pt min.). @ -None done U/S interpreted by me (1pt. min.). @ -None done What testing was considered but not performed or refused? (CT, X-rays, U/S, labs)? Why? @ -None What meds were considered but not given or refused? Why? @ -None Did you discuss the management of the patient with other professionals (professionals i.e. , PA, PUBLIC RELATIONS SPECIALIST, lab, RT, psych nurse, social work professor, concrete sculptor, teacher, dog license officer supervisor, spring encaser)? Give summary @ -No Was smoking cessation discussed for >3mins.? @ -No Was critical care preformed (if so, how long)? @ -No Were there social determinants of health that impacted care today? How? (Homelessness, low income, unemployed, alcoholism, drug addiction, transportation, low edu. Level, literacy, decrease access to med. care, shelter, rehab)? @ -No Was there de-escalation of care discussed even if they declined (Discuss DNR or withdrawal of care, Hospice)? DNR status @ -No What co-morbidities impacted this encounter? (DM, HTN, Smoking, COPD, CAD, Cancer, CVA, ARF, Chemo, Hep., AIDS, mental health diagnosis, sleep apnea, morbid obesity)? @ -None Was patient admitted / discharged? Hospital course, mention meds given and route, prescriptions, significant lab abnormalities, going to OR and other pertinent info. @ -Patient is neurovascularly intact with no obvious injuries. X-ray was not performed as there is no dramatic injury patient symptoms may related to carpal tunnel. Patient did admit to recent drug use at this time of the pain, paresthesias starting may be related. Patient advised to follow-up with PCP, orthopedics return parameters were discussed. Patient has no other complaints or neurological symptoms. Undiagnosed new problem with uncertain prognosis? @ -No Drug Therapy requiring intensive monitoring for toxicity (Heparin, Nitro, Insulin, Cardizem)? @ -No Were any procedures done? @ -No Diagnosis/symptom? @ -Carpal tunnel, wrist pain Acute, or Chronic, or Acute on Chronic? @ -Acute Uncomplicated (without systemic symptoms) or Complicated (systemic symptoms)? @ -uncomplicated Side effects of treatment? @ -No Exacerbation, Progression, or Severe Exacerbation? @ -No Poses a threat to life or bodily function? How? (Chest pain, [place], [place], pneumonia, PE, COPD, DKA, ARF, appy, cholecystitis, CVA, Diverticulitis, Homicidal, Suicidal, threat to staff... and all critical care pts) @ -No Disposition Clinical Impression: Wrist pain, Carpal tunnel syndrome Disposition: HOME SELF-CARE Condition: Stable Instructions (If sedation given, give patient instructions): Wrist Injury (ED) Additional Instructions: Please return to the Emergency Department if symptoms worsen or any other concerns. Is patient prescribed a controlled substance at d/c from ED?: No Referrals: [facility] [Primary Care Provider] - 1-2 days Rob Ch MD [STAFF PHYSICIAN] - 1-2 days Time of Disposition: 06:51
== END 2023-01-02 07:06 | disposition home or self-care (01) ==
LOC: EC 06:24
DX: G56.01 Carpal tunnel syndrome, right upper limb (principal); J45.909 Unspecified asthma, uncomplicated; Z79.899 Other long term (current) drug therapy; Z88.8 Allergy status to other drugs, medicaments and biological substances
CPT/HCPCS: 99283

== ENCOUNTER 2023-09-15 14:38 | Emergency (ER) | payer MEDICARE, OTHER ==
[2023-09-15 15:11] VITALS: TEMP 98.1
--- NOTE | 2023-09-15 15:40 | ED ---
General Adult HPI - General Chief complaint: Head Injury Stated complaint: Head Injury, Dizzy Time Seen by Provider: 09/15/23 15:25 Source: patient, RN notes reviewed, old records reviewed Mode of arrival: ambulatory Limitations: no limitations - History of Present Illness Initial comments: This is a 42-year-old female who presents to the emergency department stating that 3 days ago she hit her head on a metal piece that flopped [id number] for a padlock and hit on the side of the head she had a small area that bled. Patient states she comes in today because that area is tender in the left side of her neck is sore when she moves it. Patient thinks maybe she hurt it when she hit her head on the metal. Patient states she does have a headache but she had a headache prior to hitting her head. Patient also states she has been dizzy but she has had a history of vertigo. Patient states that was ongoing prior to hitting her head. Patient has no bleeding or redness from the ear there is no drainage from the area and there is been no fevers. - Related Data Home Medications Medication Instructions Recorded Confirmed Albuterol Sulfate [Proair Hfa] 2 puff INHALATION RT-Q6H PRN 02/03/20 09/18/22 Buprenorphine/Naloxone 8Mg/2Mg 3 film SL DAILY 06/05/22 09/18/22 [Suboxone 8-2Mg Film] Cholecalciferol [Vitamin D3 (125 125 mcg PO DAILY 06/05/22 09/18/22 Mcg = 5000 Iu)] Loratadine [Claritin] 10 mg PO DAILY 06/05/22 09/18/22 Melatonin 5 mg PO HS PRN 06/05/22 09/18/22 Montelukast [Singulair] 10 mg PO DAILY 06/05/22 09/18/22 Omeprazole [PriLOSEC] 20 mg PO DAILY 06/05/22 09/18/22 Previous Rx's Medication Instructions Recorded Ferrous Sulfate [Iron (65 MG 650 mg PO DAILY tab 06/22/20 Elemental)] Amoxic-Pot Clav 875-125Mg 1 tab PO BID 10 Days #20 tab 09/11/22 [Augmentin 875-125] [place] Carbonate 450 mg PO HS 30 Days #90 cap 09/27/22 Nicotine Gum (Polacrilex) 2 mg BUCCAL Q2HR PRN 30 Days #120 09/27/22 [Nicorette] pieceofgum QUEtiapine FUMARATE [SEROquel] 300 mg PO HS 30 Days #30 tab 09/27/22 Venlafaxine HCl ER [Effexor XR] 225 mg PO DAILY 30 Days #90 cap 09/27/22 Meclizine [Antivert] 25 mg PO TID #5 tab 09/15/23 Allergies Allergy/AdvReac Type Severity Reaction Status Date / Time haloperidol [From Haldol] AdvReac Body Verified 09/15/23 14:43 Cramps per OASIS Review of Systems ROS Statement: Those systems with pertinent positive or pertinent negative responses have been documented in the HPI. ROS Other: All systems not noted in ROS Statement are negative. 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 [place], [place] History of Any Multi-Drug Resistant Organisms: MRSA Date of last positivie culture/infection: 07/03/21 MDRO Source:: Axilla Past Surgical History: Tonsillectomy Additional Past Surgical History / Comment(s): left knee surgery Past Anesthesia/Blood Transfusion Reactions: No Reported Reaction Additional Past Anesthesia/Blood Transfusion Reaction / Comment(s): n/a Past Psychological History: Anxiety, Bipolar, Depression, PTSD Smoking Status: Vaper Past Alcohol Use History: Occasional Past Drug Use History: Cocaine, Heroin, Marijuana - Past Family History Mother Family Medical History: Hypertension General Exam - General Exam Comments Initial Comments: GENERAL: Patient is well-developed and well-nourished. Patient is nontoxic and well- hydrated and is in no acute distress. ENT: Neck is soft and supple. No significant lymphadenopathy is noted. Oropharynx is clear. Moist mucous membranes. Neck has full range of motion without eliciting any pain. Patient has some mild tenderness of the trapezius muscle on the left EYES: The sclera were anicteric and conjunctiva were pink and moist. Extraocular movements were intact and pupils were equal round and reactive to light. Eyelids were unremarkable. PULMONARY: Unlabored respirations. Good breath sounds bilaterally. No audible rales rhonchi or wheezing was noted. CARDIOVASCULAR: There is a regular rate and rhythm without any murmurs gallops or rubs. ABDOMEN: Soft and nontender with normal bowel sounds. SKIN: There is a small scab about half a centimeter in the temporal region on the right that is not erythematous or tender or swollen. NEUROLOGIC: Patient is alert and oriented x3. Cranial nerves II through XII are grossly intact. Motor and sensory are also intact. Normal speech, volume and content. Symmetrical smile. MUSCULOSKELETAL: Normal extremities with adequate strength and full range of motion. LYMPHATICS: No significant lymphadenopathy is noted PSYCHIATRIC: Normal psychiatric evaluation. Limitations: no limitations Course Vital Signs 09/15/23 14:41 Temperature 98.1 F Pulse Rate 84 Respiratory 20 Rate Blood Pressure 138/97 O2 Sat by Pulse 98 Oximetry Disposition Clinical Impression: Minor head trauma, Abrasion of scalp, Dizziness Disposition: HOME SELF-CARE Instructions (If sedation given, give patient instructions): Abrasion (ED), Concussion (ED), Vertigo (ED) Prescriptions: Meclizine [Antivert] 25 mg PO TID #5 tab Is patient prescribed a controlled substance at d/c from ED?: No [facility] - 1-2 days Time of Disposition: 15:40
[2023-09-15] MEDS: DIPH,PERTUS(ACELL)TETVAC-LF 0.5 ML VIAL IM ONE (15:59)
[2023-09-15] MEDS: KETOROLAC 15 MG/ML 1 ML VIAL IM STA (16:00)
[2023-09-15 16:35] VITALS: BP 144/92; PULSE 79; RESP 18
== END 2023-09-15 16:15 | disposition home or self-care (01) ==
LOC: EC 14:38
DX: S00.01XA Abrasion of scalp, initial encounter (principal); R42 Dizziness and giddiness; F17.290 Nicotine dependence, other tobacco product, uncomplicated; F12.90 Cannabis use, unspecified, uncomplicated; F14.90 Cocaine use, unspecified, uncomplicated; Z88.8 Allergy status to other drugs, medicaments and biological substances; Z23 Encounter for immunization; W22.09XA Striking against other stationary object, initial encounter
CPT/HCPCS: 90715; 99283; 96372; 90471; J1885

== ENCOUNTER 2023-10-16 04:14 | Inpatient (IN) | payer MEDICARE, MEDICAID ==
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
[2023-10-16 05:14] LABS: Amphetamine Screen,Urine Not Detected (NotDetected); Barbiturate Screen,Urine Not Detected (NotDetected); Benzodiazepines Screen,Urine Detected (NotDetected); Cocaine Screen,Urine Not Detected (NotDetected); Methadone Screen, Urine Not Detected (NotDetected); Opiate Screen,Urine Not Detected (NotDetected); Oxycodone Screen, Urine Not Detected (NotDetected); Phencyclidine Screen,Urine Not Detected (NotDetected); Tricyclic Antidepressant,Urine Not Detected (NotDetected); Urn Cannabinoid Scrn Not Detected (NotDetected)
[2023-10-16 06:00] LABS: Basophils # (A) 0.1 k/uL (0-0.2); Basophils % (A) 1 %; Eosinophils # (A) 0.1 k/uL (0-0.7); Eosinophils % (A) 2 %; HCT 39.3 % (34.0-46.0); HGB 12.8 gm/dL (11.4-16.0); Lymphocytes # (A) 1.7 k/uL (1.0-4.8); Lymphocytes % (A) 24 %; MCH 29.7 pg (25.0-35.0); MCHC 32.5 g/dL (31.0-37.0); MCV 91.2 fL (80.0-100.0); Mean Platelet Volume 14.8; Monocytes # (A) 0.2 k/uL (0-1.0); Monocytes % (A) 3 %; Neutrophils # (A) 4.9 k/uL (1.3-7.7); Neutrophils % (A) 69 %; RBC 4.31 m/uL (3.80-5.40); RDW 14.1 % (11.5-15.5); WBC 7.2 k/uL (3.8-10.6)
[2023-10-16 06:02] LABS: Platelet Count 92 k/uL (150-450)
[2023-10-16 06:11] LABS: ALT 54 U/L (4-34); AST 43 U/L (14-36); Acetaminophen <10.0 ug/mL; African American GFR (CKD) >90 (>60 ml/min/1.73 sqM); Albumin 4.1 g/dL (3.5-5.0); Alkaline Phosphatase 54 U/L (38-126); Anion Gap 4 mmol/L; Blood Urea Nitrogen 13 mg/dL (7-17); Calcium 9.1 mg/dL (8.4-10.2); Carbon Dioxide 26 mmol/L (22-30); Chloride 110 mmol/L (98-107); Glucose 143 mg/dL (74-99); Non-African American GFR(CKD) >90 (>60 ml/min/1.73 sqM); Potassium 3.7 mmol/L (3.5-5.1); Salicylate <1.0 mg/dL; Sodium 140 mmol/L (137-145); Total Bilirubin 0.4 mg/dL (0.2-1.3); Total Protein 6.9 g/dL (6.3-8.2)
[2023-10-16] MEDS ORDERED: ACETAMINOPHEN TAB 325 MG TAB PO PRN (14:39)
[2023-10-16] MEDS ORDERED: LORazepam 2 MG/ML INJ IM PRN (14:39)
[2023-10-16] MEDS ORDERED: MAG HYDROX/AL HYDROX/SIMETH 355 ML BOTTLE PO PRN (14:39)
[2023-10-16] MEDS: FERROUS SULFATE 325 MG TAB PO SCH (16:29)
[2023-10-16] MEDS: NICOTINE 21MG/24HR PATCH TRANSDERM SCH (16:33)
[2023-10-16] MEDS: LORazepam 1 MG TAB PO PRN (20:10)
[2023-10-16] MEDS: NICOTINE GUM (POLACRILEX) 2 MG GUM BUCCAL PRN (21:26)
[2023-10-16 22:41] LABS: Appearance,Urine Clear (Clear); Bilirubin,Urine Negative (Negative); Blood,Urine Negative (Negative); Color,Urine Colorless; Glucose,Urine (UA) Negative (Negative); Ketones,Urine Negative (Negative); Protein,Urine Negative (Negative); Specific Gravity,Urine 1.011 (1.001-1.035); Urobilinogen,Urine <2.0 mg/dL (<2.0)
[2023-10-16 22:42] LABS: Leukocyte Esterase,Urine Negative (Negative); Nitrite,Urine Negative (Negative)
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
[2023-10-17] MEDS: FOLIC ACID-VIT B COMPLEX-VIT C 1 CAP PO SCH (09:55)
[2023-10-17] MEDS: CHOLECALCIFEROL 125 MCG (5000 IU) TABLET PO SCH (09:55)
[2023-10-17 10:43] LABS: Chol/HDL Ratio 2.39 Ratio; LDL Cholesterol,Calculated 73.6 mg/dL (0.0-131.0)
[2023-10-17] MEDS: QUEtiapine 100 MG TAB PO SCH (21:00)
[2023-10-17] MEDS: MELATONIN 5 MG TABLET PO PRN (21:00)
--- NOTE | 2023-10-18 07:05 | P.MDCNMH ---
History of Present Illness H&P Date: 10/18/23 Chief Complaint: Medical evaluation 43-year-old female with history of asthma, borderline personality Patient coming in for evaluation by law enforcement for mental health evaluation patient has paranoid ideation feeling that people are following her and watching her she feels being followed and watched by police and [place]. She reports that she was in alf for the past 6 months since she left alf he used cocaine once. However she is concerned regarding the paranoid ideation she is at a point where keeping a knife with her to protect the house and the family Medically speaking patient reports feeling a lump under her left mandible tender to palpation denies any fevers chills sore throat coughing runny nose nausea vomiting difficulty swallowing, denies any weight loss or night sweats review of systems Pertinent positives as noted in HPI. All other systems were reviewed and are negative on exam Constitutional: No acute distress, cooperative Lungs: Clear to auscultation Clear to percussion Normal respiratory effort, no accessory muscle use Cardiovascular: Heart regular in rate and rhythm, No murmurs, gallops, or rubs No peripheral edema Abdominal: Soft Nontender, no guarding, rebound or rigidity Abdomen moving with respiration Normoactive bowel sounds Extremities: No digital cyanosis No clubbing Pedal pulses intact and symmetrical Radial pulses intact and symmetrical No calf tenderness Psychiatric: Alert and oriented to person, place and time Neuro Muscles Strength 5/5 in all 4 extremities Sensation to light touch grossly present throughout Cranial nerves II-XII grossly intact Past Medical History Past Medical History: Asthma Additional Past Medical History / Comment(s): anemia, borderline personality di sorder; 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 [place], [place] History of Any Multi-Drug Resistant Organisms: MRSA Date of last positivie culture/infection: 07/03/21 MDRO Source:: [place] Past Surgical History: Tonsillectomy Additional Past Surgical History / Comment(s): left knee surgery Past Anesthesia/Blood Transfusion Reactions: No Reported Reaction Additional Past Anesthesia/Blood Transfusion Reaction / Comment(s): n/a Past Psychological History: Anxiety, Bipolar, Depression, PTSD Smoking Status: Vaper Past Alcohol Use History: Occasional Past Drug Use History: Cocaine, Heroin, Marijuana - Past Family History Mother Family Medical History: Hypertension Medications and Allergies Home Medications Medication Instructions Recorded Confirmed Type Cholecalciferol [Vitamin D3 (125 125 mcg PO DAILY 06/05/22 10/16/23 History Mcg = 5000 Iu)] Melatonin 5 - 10 mg PO HS PRN 06/05/22 10/16/23 History Ferrous Sulfate [Iron (65 MG 325 mg PO DAILY 10/16/23 10/16/23 History Elemental)] Vitamin B Complex 1 cap PO DAILY 10/16/23 10/16/23 History Allergies Allergy/AdvReac Type Severity Reaction Status Date / Time haloperidol [From Haldol] AdvReac Body Verified 10/16/23 10:14 Cramps/muscle cramps Physical Exam Vitals: Vital Signs Temp Pulse Resp BP 10/18/23 06:41 96.8 F L 77 14 89/50 Cranial Nerve Examination - Cranial Nerves Cranial Nerve II- Optic: Intact Cranial Nerve III- Oculomotor: Intact Cranial Nerve IV- Trochlear: Intact Cranial Nerve V- Trigeminal: Intact Cranial Nerve - Abducens: Intact Cranial Nerve VII- Facial: Intact Cranial Nerve VIII- Auditory: Intact Cranial Nerve IX- Glossopharyngeal: Intact Cranial Nerve X- Vagus: Intact Cranial Nerve XI- Accessory: Intact Cranial Nerve XII- Hypoglossal: Intact Results CBC & Chem 7: 10/16/23 05:53 10/16/23 05:53 Labs: Abnormal Lab Results - Last 24 Hours (Table) 10/16/23 Range/Units 05:53 HDL Cholesterol 71.20 H (40.00-60.00) mg/dL Assessment and Plan Assessment: Paranoid ideation Management per psych patient feels a lump in the left submandibular area, painful and getting bigger per her report check neck soft tissue US which showed small hypoechoic lesion suspicious of lymph node Consider outpatient follow-up in 3 months expecting complete resolution of his reactive to mild infection if it does not resolve or gets bigger consider biopsy Blood work reviewed unremarkable hemoglobin 12.8 white count 7.2 Sodium 140 potassium 3.7 BUN 13 creatinine 0.69 LDL 170 HDL 71 TSH 1.2 Urine analysis unremarkable Urine drug screen positive for marijuana Stable from medical standpoint Thank you for this consultation
[2023-10-18] MEDS: ZIPRASIDONE 20 MG VIAL IM PRN (14:00)
--- NOTE | 2023-10-18 16:45 | P.PN ---
Progress Note - Text Progress Note Date: 10/18/23 Interval history: Patient was seen asleep in bed and was passively engaged in assessment on awakening. Per nurse note from earlier today, patient was paranoid and escalating: "Pt up on unit, appears paranoid, she reports that DTF planted a person to follow her and watch her up here. She states that one of the patients is that person. She thinks that the phone is bugged, people are taking pictures of her, she is getting more anxious and agitated, she feels someone is taking her stuff and putting it places on the unit (her hair bands) she states she is going to put her deoderant on her things and then sniff peoples hands to see if they took it. Pt is given Geodon 20mg IM in right upper hip and Ativan 2mg PO for paranoia and anxiety, she is willing to take the meds, reports "yes, I am tired of feeling this way."" So far today, patient has required Ativan 2 mg po x 2 and Geodon 20 mg IM x 1 for paranoia and anxiety. Yesterday she required Ativan 2 mg po x 3 for anxiety. At this time patient denies any suicidal or homicidal ideation intent or plan. She denies any auditory or visual hallucinations, but was clearly paranoid earlier this afternoon believing people are following her. Patient denies any side effects from the medications and has been compliant with meds. She denies any concerns currently. Mental status exam: General Appearance: Patient appears to be stated age, hairstyle in [place] with buzzed in the back, tattoos Behavior: Patient was asleep in bed and is passively engaged on awakening. Speech: Patient's speech is fluent and non-pressured. Mood/Affect: Mood has irritable edge, affect is congruent and constricted. Suicidality/Homicidality: Patient denies having any suicidal or homicidal ideation intent or plan. Perceptions: Patient denies any auditory or visual hallucinations currently, but was clearly paranoid about being seeing someone watching her earlier today. Though content/process: There is evidence of paranoid delusional thought content (see above) and thought process is generally linear. Memory and concentration: AOX3, grossly intact for the purposes of this session Judgment and insight: poor Assessment/Plan: Continue with current diagnosis. Patient continues to meet criteria for inpatient psychiatric admission for symptom stabilization and safety. Increase Seroquel from 100 mg QHS to 200 mg QHS starting tonight for psychosis. Geodon/Ativan PRN for psychosis/anxiety. Monitory for respiratory depression. Monitor for medication compliance and for any psychotropic medication side effects. Will continue to monitor ongoing response to treatment. Encouraged participation in milieu.
[2023-10-18] MEDS: QUEtiapine 200 MG TAB PO SCH (22:04)
--- NOTE | 2023-10-19 11:46 | US ---
EXAMINATION TYPE: US thyroid st tissue head/neck DATE OF EXAM: 10/19/2023 COMPARISON: EXAMINATION TYPE: US thyroid st tissue head/neck DATE OF EXAM: 10/19/2023 COMPARISON: NONE CLINICAL INDICATION: Female, 43 years old with history of Pt feels lump in left submandibular area; L eft lump neck. TECHNIQUE: Time linear array sonography over the palpable abnormality left neck and FINDINGS: Scanned lump area submandibular area hypoechoic area seen measuring .5 x .7 x .7 cm. IMPRESSION: 1. Small hypoechoic circumscribed area of the palpable region may be a lymph node. Follow-up as clini galdino indicated.
--- NOTE | 2023-10-19 21:15 | P.PN ---
Progress Note - Text Progress Note Date: 10/19/23 Interval history: Patient was seen asleep in bed and awakens easily on calling her name. She reports she was feeling increasingly paranoid this afternoon, believed other patients were watching her. She was given Geodon 20 mg IM x 1 this afternoon for paranoia and anxiety and went to take a nap. She also required Ativan 2 mg po x 1 for anxiety this morning for anxiety. At this time patient denies any suicidal or homicidal ideation intent or plan. She denies any auditory or visual hallucinations, but was clearly paranoid earlier this afternoon believing people are watching her. Patient denies any side effects from the medications and has been compliant with meds. She slept 3+ hours last night but had also slept yesterday afternoon after getting PRN IM Geodon yesterday afternoon. Mental status exam: General Appearance: Patient appears to be stated age, hairstyle in [place] with buzzed in the back, tattoos Behavior: Patient was asleep in bed and awakens easily on calling her name. Speech: Patient's speech is fluent and non-pressured. Mood/Affect: Mood is improving, affect is congruent and constricted. Suicidality/Homicidality: Patient denies having any suicidal or homicidal ideation intent or plan. Perceptions: Patient denies any auditory or visual hallucinations currently, but was clearly paranoid about being seeing someone watching her earlier today. Though content/process: There is evidence of paranoid delusional thought content (see above) and thought process is generally linear. Memory and concentration: AOX3, grossly intact for the purposes of this session Judgment and insight: poor Assessment/Plan: Continue with current diagnosis. Patient continues to meet criteria for inpatient psychiatric admission for symptom stabilization and safety. Increase Seroquel from 200 mg QHS to 300 mg QHS starting tonight for psychosis. For tomorrow, start Seroquel 50 mg QAM with plan to increase as tolerated. Geodon/Ativan PRN for psychosis/anxiety. Monitory for respiratory depression. Monitor for medication compliance and for any psychotropic medication side effects. Will continue to monitor ongoing response to treatment. Encouraged participation in milieu.
[2023-10-19] MEDS: QUEtiapine 100 MG TAB PO SCH (21:39)
[2023-10-20] MEDS: QUEtiapine 50 MG TAB PO SCH (08:47)
--- NOTE | 2023-10-20 10:28 | P.PN ---
Progress Note - Text Progress Note Date: 10/20/23 Interval history: Patient was seen in the hallway, and agreeable to talk to the database report writer in the office. Patient had just got out of the shower. She is endorsing some paranoia, about people watching her. She believes that there is a co-patient on the unit that was in halfway with her, that was put on the unit to watch her. Patient is going to groups, and her appetite is good. States she is a bit sleepy today, and she is sleeping good at night. At this time patient denies any suicidal or homicidal ideation intent or plan. She denies any auditory or visual hallucinations. Patient denies any side effects from the medications and has been compliant with meds. Mental status exam: General Appearance: Patient appears to be stated age, hairstyle in [place] with buzzed in the back, tattoos Behavior: Patient was wandering the hallways, cooperative. mild paranoia Speech: Patient's speech is fluent and non-pressured. Mood/Affect: Mood is up and down. Endorsing anxiety. affect is congruent and constricted. improving mildly Suicidality/Homicidality: Patient denies having any suicidal or homicidal ideation intent or plan. Perceptions: Patient denies any auditory or visual hallucinations currently, but was clearly paranoid about being seeing someone watching her earlier today. improving mildly Though content/process: There is evidence of paranoid delusional thought content and thought process is generally linear. Memory and concentration: AOX3, grossly intact for the purposes of this session Judgment and insight: poor, improving mildly Assessment Bipolar 2 disorder, mixed episode Borderline personality disorder Opiate use disorder, in remission Stimulant use disorder, in remission Plan: Continue with current diagnosis. Patient continues to meet criteria for inpatient psychiatric admission for symptom stabilization and safety. Medications: Seroquel 300 mg QHS for psychosis. Seroquel 50 mg QAM with plan to increase as tolerated. [place] 450mg daily for mood stabilization Geodon/Ativan PRN for psychosis/anxiety. Monitor for medication compliance and for any psychotropic medication side effects. Will continue to monitor ongoing response to treatment. Encouraged participation in milieu.
[2023-10-20] MEDS: LITHIUM CARBONATE ER 450 MG TABLET.ER PO SCH (11:55)
[2023-10-21] MEDS ORDERED: LORazepam 2 MG/ML INJ IM PRN (11:06)
--- NOTE | 2023-10-21 11:22 | P.PN ---
Progress Note - Text Progress Note Date: 10/21/23 Interval history: Patient was seen in the hallway, and agreeable to talk to the contract technical writer in the o ffice. Patient stated that she is still having anxiety, and her mood is ok. She is still endorsing paranoia, thinking people is watching her from "the cameras in the elevator shaft". Patient is going to groups, and her appetite is good. States she is having a hard time sitting still, and she is sleeping good at night. She complains of "feeling off, not feeling like myself today". Patient encouraged to drink more fluids. At this time patient denies any suicidal or homicidal ideation intent or plan. She denies any auditory or visual hallucinations. Patient denies any side effects from the medications and has been compliant with meds. Mental status exam: General Appearance: Patient appears to be stated age, hairstyle in [place] with buzzed in the back, tattoos Behavior: Patient was wandering the hallways, cooperative. mild paranoia Speech: Patient's speech is fluent and non-pressured. Mood/Affect: Mood is up and down. Endorsing anxiety. affect is congruent and constricted. improving mildly Suicidality/Homicidality: Patient denies having any suicidal or homicidal ideation intent or plan. Perceptions: Patient denies any auditory or visual hallucinations currently, but was clearly paranoid about being seeing someone watching her earlier today. improving mildly Though content/process: There is evidence of paranoid delusional thought content and thought process is generally linear. Memory and concentration: AOX3, grossly intact for the purposes of this session Judgment and insight: poor, improving mildly Assessment Bipolar 2 disorder, mixed episode Borderline personality disorder Opiate use disorder, in remission Stimulant use disorder, in remission Plan: Continue with current diagnosis. Patient continues to meet criteria for inpatient psychiatric admission for symptom stabilization and safety. Medications: Seroquel 300 mg QHS for psychosis. Seroquel 50 mg QAM. [place] 450mg daily for mood stabilization Geodon and Ativan PRN for psychosis/anxiety. Monitor for medication compliance and for any psychotropic medication side effects. Will continue to monitor ongoing response to treatment. Encouraged participation in milieu. Likely discharge toward the end of the week, when patient is more psychiatrically stable.
[2023-10-21] MEDS ORDERED: chlorproMAZINE 25 MG/ML 2 ML AMP IM PRN (14:20)
[2023-10-21] MEDS: chlorproMAZINE 25 MG TAB PO PRN (14:27)
[2023-10-21] MEDS: LORazepam 1 MG TAB PO PRN (15:16)
[2023-10-22] MEDS: OLANZapine 10 MG TAB PO ONE (03:05)
[2023-10-22] MEDS: OLANZapine 10 MG VIAL IM STA (03:05)
[2023-10-22] MEDS: ONDANSETRON 4 MG TAB PO PRN (10:44)
[2023-10-22] MEDS ORDERED: OLANZapine 10 MG VIAL IM PRN (10:59)
[2023-10-22] MEDS ORDERED: OLANZapine 10 MG TAB PO PRN ×2 (10:59→11:03)
[2023-10-22] MEDS ORDERED: traZODone HCL 100 MG TAB PO PRN (10:59)
[2023-10-22] MEDS ORDERED: hydrOXYzine pamoate 25 MG CAP PO PRN ×2 (11:00→11:01)
--- NOTE | 2023-10-22 11:05 | P.PN ---
Progress Note - Text Progress Note Date: 10/22/23 Interval history: Patient was seen in the hallway, and agreeable to talk to the teletypewriter operator in the o ffice. Patient stated that she is still having anxiety, and her mood is ok. She is still endorsing mild paranoia, thinking the new patient was out to get her. Patient is requesting controlled substances, teletypewriter operator told patient that was not going to prescribed on this unit. Patient is mildly argumentive during the interview, due to her seeking meds. Patient is going to groups, and her appetite is good. At this time patient denies any suicidal or homicidal ideation intent or plan. She denies any auditory or visual hallucinations. Patient denies any side effects from the medications and has been compliant with meds. Mental status exam: General Appearance: Patient appears to be stated age, hairstyle in [place] with buzzed in the back, tattoos Behavior: Patient was wandering the hallways, cooperative. mild paranoia, med seeking, improving mildly Speech: Patient's speech is fluent and non-pressured. Mood/Affect: Mood is up and down. Endorsing anxiety. affect is congruent and constricted. improving mildly Suicidality/Homicidality: Patient denies having any suicidal or homicidal ideation intent or plan. Perceptions: Patient denies any auditory or visual hallucinations currently, but was clearly paranoid about being seeing someone watching her earlier today. improving mildly, focused on controlled meds Though content/process: There is evidence of paranoid delusional thought content and thought process is generally linear. improving Memory and concentration: AOX3, grossly intact for the purposes of this session Judgment and insight: chronically poor/manipulative, improving mildly Assessment: Bipolar 2 disorder, mixed episode Borderline personality disorder Opiate use disorder, in remission Stimulant use disorder, in remission Plan: Continue with current diagnosis. Patient continues to meet criteria for inpatient psychiatric admission for symptom stabilization and safety. Medications: increase Seroquel 400 mg QHS for psychosis. Seroquel 50 mg QAM. change [place] 300mg bid for mood stabilization add visteral 50mg TID prn for anxiety, add trazodone 100mg qhs PRN for sleep Zyprexa 10mg tid prn for agitation -Check [place] level in AM. Geodon and Ativan PRN for psychosis/anxiety. Monitor for medication compliance and for any psychotropic medication side effects. Will continue to monitor ongoing response to treatment. Encouraged participation in milieu. Likely discharge tomorrow back to home.
[2023-10-22] MEDS: LITHIUM CARBONATE 300 MG CAP PO SCH (12:02)
[2023-10-22] MEDS: QUEtiapine 400 MG TAB PO SCH (21:53)
--- NOTE | 2023-10-23 09:33 | P.PN ---
Progress Note - Text Progress Note Date: 10/23/23 Interval history: Patient was seen in the hallway, and agreeable to talk to the medical technical writer in the o ffice. Patient stated that she is still having anxiety, and she is still endorsing paranoia. She states that she is not having suicidal ideations, however, is having homicidal ideations due to her paranoia. She states she does not have a target, but she just needs to "protect herself" and beleives that she may hurt others and is concerned about it. she states that her feels she is not safe to return home at this time. she is continuing to endorse paranoia about others looking at her the wrong way and her needing to protect herself. Patient is going to groups, and her appetite is good. Patient states she slept well last night. At this time patient denies any suicidal ideations, endorses homicidal ideation no plan. She denies any auditory or visual hallucinations. Patient denies any side effects from the medications and has been compliant with meds. Mental status exam: General Appearance: Patient appears to be stated age, hairstyle in [place] with buzzed in the back, tattoos Behavior: Patient was wandering the hallways, cooperative. mild paranoia, med seeking, improving mildly Speech: Patient's speech is fluent and non-pressured. Mood/Affect: Mood is up and down. Endorsing anxiety. affect is congruent and constricted. improving mildly Suicidality/Homicidality: Patient denies having any suicidal or homicidal ideation intent or plan. Perceptions: Patient denies any auditory or visual hallucinations currently, but was clearly paranoid about being seeing someone watching her earlier today. improving mildly, focused on controlled meds Though content/process: There is evidence of paranoid delusional thought content and thought process is generally linear. improving Memory and concentration: AOX3, grossly intact for the purposes of this session Judgment and insight: chronically poor/manipulative, improving mildly Assessment: Bipolar 2 disorder, mixed episode Borderline personality disorder Opiate use disorder, in remission Stimulant use disorder, in remission Plan: Continue with current diagnosis. Patient continues to meet criteria for inpatient psychiatric admission for symptom stabilization and safety. Medications: Seroquel 400 mg QHS for psychosis. d/c Seroquel am dose, Add Invega 3mg po daily for psychosis/paranoia/mood stabilization, [place] 300mg bid for mood stabilization, visteral 50mg TID prn for anxiety, trazodone 100mg qhs PRN for sleep Zyprexa 10mg tid prn for agitation -Check [place] level in AM. Geodon and Ativan PRN for psychosis/anxiety. Monitor for medication compliance and for any psychotropic medication side effects. Will continue to monitor ongoing response to treatment. Encouraged participation in milieu. Likely discharge once patient is more psychiatrically stable.
[2023-10-23] MEDS: PALIPERIDONE 3 MG TAB.ER.24 PO SCH (09:38)
[2023-10-23] MEDS: LORazepam 0.5 MG TAB PO PRN (10:35)
[2023-10-23] MEDS: IBUPROFEN 600 MG TAB PO PRN (10:36)
[2023-10-24 07:11] VITALS: BP 117/74; PULSE 89; RESP 14; TEMP 97.3
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
== END 2023-10-24 13:40 | disposition home or self-care (01) | DRG 885 ==
LOC: EC 04:14 → 3MHU 14:35 → 3NCARDOBS 10-21 10:43 → 3MHU 10-21 10:43
PROVIDERS: ADMIT Psychiatry & Neurology Psychiatry; ATTEND Psychiatry & Neurology Psychiatry
DX: F31.60 Bipolar disorder, current episode mixed, unspecified (principal); R47.01 Aphasia; R45.1 Restlessness and agitation; F11.21 Opioid dependence, in remission; F14.11 Cocaine abuse, in remission; Z71.89 Other specified counseling; F43.10 Post-traumatic stress disorder, unspecified; G47.00 Insomnia, unspecified; F60.3 Borderline personality disorder; F15.11 Other stimulant abuse, in remission; F17.200 Nicotine dependence, unspecified, uncomplicated; F60.89 Other specific personality disorders; J45.909 Unspecified asthma, uncomplicated; R45.850 Homicidal ideations; Z79.899 Other long term (current) drug therapy
CPT/HCPCS: 36415; 76536; 80053; 80061; 80143; 80178; 80179; 80306; 81003; 81025; 82075; 83036; 84443; 85025; 87635; 99285

== ENCOUNTER → 2024-02-13 | Outpatient (CLI) | payer MEDICARE, MEDICAID ==
--- NOTE | 2024-02-13 13:28 | XR ---
EXAMINATION TYPE: XR cervical spine 3 views, XR thoracic spine 4 views complete DATE OF EXAM: 02/13/2024 Comparison: 12/30/2011 Clinical History: 43-year-old female numbness and tightness in the neck for one week, M54.2 M54.6 R20 .2 Findings: Cervical spine: Mild uncovertebral joint and facet arthropathy lower lumbar spine. Mild degenerative disc disease C5- C6 and C6-C7 with mild anterior spondylosis. Reversal of the normal cervical lordosis but with preser yu alignment. No predental space widening or prevertebral soft tissue swelling. Normal odontoid view . Thoracic spine: 12-appearing thoracic vertebral bodies. All pedicles are visualized. Trace grade 1 retrolisthesis kelley r the thoracolumbar junction and very minimal endplate spondylosis lower thoracic spine. Vertebral leonie dy heights are preserved. Remaining alignment is maintained. Impression: 1. Cervical spine: Mild degenerative disc disease and facet/uncovertebral joint arthropathy especiall y C5-C7 levels. Reversal of the normal cervical lordosis but with preserved alignment. No prevertebra l soft tissue swelling. 2. Thoracic spine: There is a trace grade 1 retrolisthesis near the thoracolumbar junction. Minimal d egenerative disc disease lower thoracic spine. No vertebral compression collapse or other malalignmen t. [facility] Dang, , 02/13/2024 1:26 PM
[2024-02-13 20:03] LABS: HCT 40.4 % (37.2-46.3); HGB 12.8 g/dL (12.0-15.0); MCH 29.6 pg (27.0-32.0); MCHC 31.7 g/dL (32.0-37.0); MCV 93.5 FL (80.0-97.0); Mean Platelet Volume 16.1 FL (9.5-12.2); NRBC Per 100 WBC 0 X 10*3/uL (0.00-0.01); Platelet Count 92 X 10*3/uL (140-440); RBC 4.32 X 10*6/uL (4.10-5.20); RDW 13.2 % (11.5-14.5); WBC 8.11 X 10*3/uL (4.50-10.00)
[2024-02-13 20:32] LABS: ALT 38 U/L (8-44); AST 28 U/L (13-35); Albumin 4.5 g/dL (3.8-4.9); Albumin/Globulin Ratio 1.88 Ratio (1.60-3.17); Alkaline Phosphatase 40 U/L (41-126); BUN/Creat Ratio 19.75 Ratio (12.00-20.00); Blood Urea Nitrogen 15.8 mg/dL (9.0-27.0); Carbon Dioxide 22.3 mmol/L (21.6-31.8); Chloride 107 mmol/L (96-109); Globulin 2.4 g/dL (1.6-3.3); Glucose 105 mg/dL (70-110); Potassium 4.7 mmol/L (3.5-5.5); Sodium 139 mmol/L (135-145); Total Bilirubin <0.2 mg/dL (0.3-1.2); Total Protein 6.9 g/dL (6.2-8.2)
== END | disposition home or self-care (01) ==
LOC: LABWHC1 11:45
PROVIDERS: ATTEND Family Medicine
DX: G90.09 Other idiopathic peripheral autonomic neuropathy (principal); M62.81 Muscle weakness (generalized); M54.6 Pain in thoracic spine; M47.812 Spondylosis without myelopathy or radiculopathy, cervical region; M50.30 Other cervical disc degeneration, unspecified cervical region; R20.2 Paresthesia of skin; R20.0 Anesthesia of skin
CPT/HCPCS: 36415; 72040; 72072; 80053; 82607; 83036; 83735; 85027

== ENCOUNTER 2024-02-17 19:17 | Inpatient (IN) | payer MEDICARE, MEDICAID ==
--- NOTE | 2024-02-17 19:45 | ED ---
Psych HPI - General Source: patient, RN notes reviewed, old records reviewed Mode of arrival: ambulatory Limitations: no limitations - History of Present Illness MD Complaint: suicidal ideation, feels depressed, altered mental status -: days(s) Associated Psychiatric Symptoms: depression, suicidal ideation History of same: Yes Quality: constant Improves With: none Worsens With: none Associated Symptoms: denies other symptoms Treatments Prior to Arrival: placed on mental health hold If Self Harm: admits thoughts of self harm <Eric Logan - Last Filed: 02/17/24 19:44> - General Source: patient, police, RN notes reviewed, old records reviewed Limitations: no limitations <Farzad Vera - Last Filed: 02/18/24 02:34> - General Chief Complaint: Psychiatric Symptoms Stated Complaint: Mental Health Time Seen by Provider: 02/17/24 19:30 - History of Present Illness Initial Comments: QN-50 female here for evaluation of psychiatric illness. Patient comes in with acute suicidal thoughts after psychiatric and therapy appointment today with homicidal thoughts (Eric Logan) 43-year-old female presents emergency department chief complaint of depression, suicide nation. Patient was seen her psychiatrist and she started talking about her daily thoughts of jumping in front of the vehicle. Patient discussed with [facility] mobile crisis unit and advised to come over for evaluation. Patient denies any alcohol or drug abuse. Patient has a history of bipolar disorder. (Farzad Vera) - Related Data Home Medications Medication Instructions Recorded Confirmed Melatonin 5 - 10 mg PO HS PRN 06/05/22 10/16/23 Vitamin B Complex 1 cap PO DAILY 10/16/23 10/16/23 Previous Rx's Medication Instructions Recorded Cholecalciferol [Vitamin D3 (125 125 mcg PO DAILY 30 Days #30 tab 10/24/23 Mcg = 5000 Iu)] Ferrous Sulfate [Iron (65 MG 325 mg PO DAILY 30 Days #30 tab 10/24/23 Elemental)] [place] Carbonate 300 mg PO BID 30 Days #60 cap 10/24/23 Nicotine Gum (Polacrilex) 2 mg BUCCAL Q4HR PRN 30 Days #180 10/24/23 [Nicorette] pieceofgum Paliperidone [Invega] 3 mg PO DAILY 30 Days #30 tab 10/24/23 QUEtiapine [SEROquel] 400 mg PO HS 30 Days #30 tab 10/24/23 hydrOXYzine pamoate [Vistaril] 50 mg PO BID PRN 30 Days #120 cap 10/24/23 traZODone HCL [Desyrel] 50 - 100 mg PO HS PRN 14 Days #14 10/24/23 tab Allergies Allergy/AdvReac Type Severity Reaction Status Date / Time haloperidol [From Haldol] AdvReac Body Verified 02/17/24 19:31 Cramps/muscle cramps Review of Systems ROS Other: All systems not noted in ROS Statement are negative. <Eric Logan - Last Filed: 02/17/24 19:44> ROS Other: All systems not noted in ROS Statement are negative. <Farzad Vera - Last Filed: 02/18/24 02:34> ROS Statement: Those systems with pertinent positive or pertinent negative responses have been documented in the HPI. 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 [place], le[place] History of Any Multi-Drug Resistant Organisms: MRSA Date of last positivie culture/infection: 07/03/21 MDRO Source:: [place] Past Surgical History: Tonsillectomy Additional Past Surgical History / Comment(s): left knee surgery Past Anesthesia/Blood Transfusion Reactions: No Reported Reaction Additional Past Anesthesia/Blood Transfusion Reaction / Comment(s): n/a Past Psychological History: Anxiety, Bipolar, Depression, PTSD Smoking Status: Vaper Past Alcohol Use History: Occasional Past Drug Use History: Cocaine, Heroin, Marijuana - Past Family History Mother Family Medical History: Hypertension <Eric Logan - Last Filed: 02/17/24 19:44> General Exam Limitations: no limitations General appearance: anxious Head exam: Present: atraumatic, normocephalic, normal inspection Eye exam: Present: normal appearance, PERRL, EOMI. Absent: scleral icterus, conjunctival injection, periorbital swelling ENT exam: Present: normal exam, mucous membranes moist Neck exam: Present: normal inspection. Absent: tenderness, meningismus, lymphadenopathy Respiratory exam: Present: normal lung sounds bilaterally. Absent: respiratory distress, wheezes, rales, rhonchi, stridor Cardiovascular Exam: Present: regular rate, normal rhythm, normal heart sounds. Absent: systolic murmur, diastolic murmur, rubs, gallop, clicks GI/Abdominal exam: Present: soft, normal bowel sounds. Absent: distended, tenderness, guarding, rebound, rigid Extremities exam: Present: normal inspection, full ROM, normal capillary refill. Absent: tenderness, pedal edema, joint swelling, calf tenderness Back exam: Present: normal inspection Neurological exam: Present: alert, oriented X3, CN II-XII intact Psychiatric exam: Present: normal affect, normal mood Skin exam: Present: warm, dry, intact, normal color. Absent: rash <Eric Logan - Last Filed: 02/17/24 19:44> Limitations: no limitations General appearance: alert, in no apparent distress Head exam: Present: atraumatic, normocephalic, normal inspection Eye exam: Present: normal appearance, PERRL, EOMI. Absent: scleral icterus, conjunctival injection, periorbital swelling ENT exam: Present: normal exam, mucous membranes moist Neck exam: Present: normal inspection. Absent: tenderness, meningismus, lympha denopathy Respiratory exam: Present: normal lung sounds bilaterally. Absent: respiratory distress, wheezes, rales, rhonchi, stridor Cardiovascular Exam: Present: regular rate, normal rhythm, normal heart sounds. Absent: systolic murmur, diastolic murmur, rubs, gallop, clicks Neurological exam: Present: alert, oriented X3, CN II-XII intact Psychiatric exam: Present: normal affect, normal mood Skin exam: Present: warm, dry, intact, normal color. Absent: rash <Farzad Vera - Last Filed: 02/18/24 02:34> Course <Eric Logan - Last Filed: 02/17/24 19:44> Vital Signs 02/17/24 19:31 Temperature 98.4 F Pulse Rate 107 H Respiratory 18 Rate Blood Pressure 139/81 O2 Sat by Pulse 97 Oximetry - Reevaluation(s) Reevaluation #1: 02/17/24 19:44 QN completed by myself Dr Logan (Eric Logan) Medical Decision Making <Farzad Vera - Last Filed: 02/18/24 02:34> - Medical Decision Making Was pt. sent in by a medical professional or institution (ORALIA Chavez, INTERNET SALES REPRESENTATIVE, urgent care, hospital, or long term...) When possible be specific @ -No Did you speak to anyone other than the patient for history (EMS, parent, family, police, friend...)? What history was obtained from this source @ -No Did you review nursing and triage notes (agree or disagree)? Why? @ -I reviewed and agree with nursing and triage notes Were old charts reviewed (outside hosp., previous admission, EMS record, old EKG, old radiological studies, urgent care reports/EKG's, long term records)? Report findings @ -No old charts were reviewed Differential Diagnosis (chest pain, altered mental status, abdominal pain women, abdominal pain men, vaginal bleeding, weakness, fever, dyspnea, syncope, headache, dizziness, GI bleed, back pain, seizure, CVA, palpatations, mental health, musculoskeletal)? @ -@Differential Mental Health Depression, anxiety, bipolar, psychosis, schizophrenia, borderline personality, situational depression, adjustment disorder, behavioral disorder, brain tumor, malingering, substance abuse, encephalopathy, medication reaction, dementia, hypothyroidism, degenerative neurologic disorder, lupus.... This is not meant to be all-inclusive list EKG interpreted by me (3pts min.). @ -None X-rays interpreted by me (1pt min.). @ -None done CT interpreted by me (1pt min.). @ -None done U/S interpreted by me (1pt. min.). @ -None done What testing was considered but not performed or refused? (CT, X-rays, U/S, labs)? Why? @ -None What meds were considered but not given or refused? Why? @ -None Did you discuss the management of the patient with other professionals (professionals i.e. ORALIA Chavez, INTERNET SALES REPRESENTATIVE, lab, RT, psych nurse, social media marketing analyst, hand binder cutter, teacher, parking control officer, onsite case manager)? Give summary @ -EPS evaluated patient and recommended inpatient treatment Was smoking cessation discussed for >3mins.? @ -No Was critical care preformed (if so, how long)? @ -No Were there social determinants of health that impacted care today? How? (Homelessness, low income, unemployed, alcoholism, drug addiction, transportation, low edu. Level, literacy, decrease access to med. care, [place] [facility], rehab)? @ -No Was there de-escalation of care discussed even if they declined (Discuss DNR or withdrawal of care, Hospice)? DNR status @ -No What co-morbidities impacted this encounter? (DM, HTN, Smoking, COPD, CAD, Cancer, CVA, ARF, Chemo, Hep., AIDS, mental health diagnosis, sleep apnea, morbid obesity)? @ -None Was patient admitted / discharged? Hospital course, mention meds given and route, prescriptions, significant lab abnormalities, going to OR and other pertinent info. @ -Admitted to 3 W. Undiagnosed new problem with uncertain prognosis? @ -No Drug Therapy requiring intensive monitoring for toxicity (Heparin, Nitro, Insulin, Cardizem)? @ -No Were any procedures done? @ -No Diagnosis/symptom? @ -[Depression, suicide ideation Acute, or Chronic, or Acute on Chronic? @ -Acute Uncomplicated (without systemic symptoms) or Complicated (systemic symptoms)? @ -Uncomplicated Side effects of treatment? @ -No Exacerbation, Progression, or Severe Exacerbation? @ -No Poses a threat to life or bodily function? How? (Chest pain, [place], [place], pneumonia, PE, COPD, DKA, ARF, appy, cholecystitis, CVA, Diverticulitis, Homicidal, Suicidal, threat to staff... and all critical care pts) @ -No (Farzad Vera) - Lab Data Lab Results 02/17/24 Range/Units 19:41 SARS-CoV-2 (PCR) Not Detected (Not Detectd) Disposition <Eric Logan - Last Filed: 02/17/24 19:44> Time of Disposition: 02:33 <Farzad Vera - Last Filed: 02/18/24 02:34> Clinical Impression: Suicidal ideation, Depression Disposition: TRANSFER TO PSYCH HOSP/UNIT Referrals: Jeffrey Ferguson MD [Primary Care Provider] - 1-2 days
[2024-02-18 02:50] LABS: Amphetamine Screen,Urine Not Detected (NotDetected); Barbiturate Screen,Urine Not Detected (NotDetected); Benzodiazepines Screen,Urine Detected (NotDetected); Cocaine Screen,Urine Not Detected (NotDetected); Methadone Screen, Urine Not Detected (NotDetected); Opiate Screen,Urine Not Detected (NotDetected); Oxycodone Screen, Urine Not Detected (NotDetected); Phencyclidine Screen,Urine Not Detected (NotDetected); Tricyclic Antidepressant,Urine Not Detected (NotDetected); Urn Cannabinoid Scrn Not Detected (NotDetected)
[2024-02-18] MEDS ORDERED: ACETAMINOPHEN TAB 325 MG TAB PO PRN (03:33)
[2024-02-18] MEDS ORDERED: LORazepam 2 MG/ML INJ IM PRN (03:33)
[2024-02-18] MEDS ORDERED: IBUPROFEN 600 MG TAB PO PRN (03:33)
[2024-02-18] MEDS ORDERED: MAG HYDROX/AL HYDROX/SIMETH 355 ML BOTTLE PO PRN (03:33)
[2024-02-18] MEDS ORDERED: MAGNESIUM HYDROXIDE 2,400 MG/30 ML CUP PO PRN (03:33)
[2024-02-18] MEDS ORDERED: hydrOXYzine pamoate 25 MG CAP PO PRN (03:37)
[2024-02-18] MEDS: LORazepam 1 MG TAB PO PRN (04:12)
[2024-02-18 06:48] LABS: Appearance,Urine Clear (Clear); Bilirubin,Urine Negative (Negative); Blood,Urine Negative (Negative); Color,Urine Colorless; Glucose,Urine (UA) Negative (Negative); Ketones,Urine Negative (Negative); Leukocyte Esterase,Urine Negative (Negative); Nitrite,Urine Negative (Negative); PH, Urine 6.5 (5.0-8.0); Protein,Urine Negative (Negative); Specific Gravity,Urine 1.011 (1.001-1.035); Urobilinogen,Urine <2.0 mg/dL (<2.0)
[2024-02-18] MEDS: LITHIUM CARBONATE 300 MG CAP PO SCH (09:36)
[2024-02-18] MEDS: PALIPERIDONE 3 MG TAB.ER.24 PO SCH (09:36)
[2024-02-18] MEDS: NICOTINE 21MG/24HR PATCH TRANSDERM SCH (09:39)
[2024-02-18] MEDS: NICOTINE GUM (POLACRILEX) 2 MG GUM BUCCAL PRN (10:12)
--- NOTE | 2024-02-18 11:29 | P.HP ---
Psychiatric H&P - . H&P Date: 02/18/24 History & Physical: Allergies Allergy/AdvReac Type Severity Reaction Status Date / Time haloperidol [From Haldol] AdvReac Body Verified 02/17/24 19:31 Cramps/muscle cramps Vital Signs Temp 98.0 F 02/18/24 04:23 Pulse 78 02/18/24 04:23 Resp 16 02/18/24 04:23 BP 133/85 02/18/24 04:23 Pulse Ox 98 02/18/24 04:23 FiO2 Intake & Output 02/17/24 02/18/24 02/18/24 18:59 06:59 18:59 Weight 93 kg Laboratory Last Values Urine Color Colorless 02/18/24 01:22 Urine Appearance Clear (Clear) 02/18/24 01:22 Urine pH 6.5 (5.0-8.0) 02/18/24 01:22 Ur Specific [place] 1.011 (1.001-1.035) 02/18/24 01:22 Urine Protein Negative (Negative) 02/18/24 01:22 Urine Glucose (UA) Negative (Negative) 02/18/24 01:22 Urine Ketones Negative (Negative) 02/18/24 01:22 Urine Blood Negative (Negative) 02/18/24 01:22 Urine Nitrite Negative (Negative) 02/18/24 01:22 Urine Bilirubin Negative (Negative) 02/18/24 01:22 Urine Urobilinogen <2.0 mg/dL (<2.0) 02/18/24 01:22 Ur Leukocyte Esterase Negative (Negative) 02/18/24 01:22 Urine HCG, Qual Not Detected (Not Detectd) 02/18/24 01:22 Urine Opiates Screen Not Detected (NotDetected) 02/18/24 01:22 Ur Oxycodone Screen Not Detected (NotDetected) 02/18/24 01:22 Urine Methadone Screen Not Detected (NotDetected) 02/18/24 01:22 Ur Barbiturates Screen Not Detected (NotDetected) 02/18/24 01:22 U Tricyclic Antidepress Not Detected (NotDetected) 02/18/24 01:22 Ur Phencyclidine Scrn Not Detected (NotDetected) 02/18/24 01:22 Ur Amphetamines Screen Not Detected (NotDetected) 02/18/24 01:22 U Methamphetamines Scrn Not Detected (NotDetected) 02/18/24 01:22 U Benzodiazepines Scrn Detected (NotDetected) H 02/18/24 01:22 Urine Cocaine Screen Not Detected (NotDetected) 02/18/24 01:22 U Marijuana (THC) Screen Not Detected (NotDetected) 02/18/24 01:22 SARS-CoV-2 (PCR) Not Detected (Not Detectd) 02/17/24 19:41 02/18/24 08:59 IDENTIFYING DATA: Patient is a 43-year-old white female, who is , and lives with her . Has 4 children that do not live with her. Unemployed. Collects disability. HPI: Patient presented to the hospital on 02/16. As per EPS note, "Patient was referred by [facility] with screening form stating "Lashay reports SI with plan to run into traffic with wavering intent, doesn't know if she can remain safe. SI daily and intermittent has been watching vehicles and speed to see which could do the most damage, increased SI and paranoia over the last 3 weeks, no triggers identified. Reports carrying a knife at times for protection due to paranoia". Patient agreeable to speak with greeting card writer and was laying on stretcher in ER Room 13. Patient continues to admit SI with plan to ride her bike in front of a car. Patient states she has been watching to make sure if she does it the car is going fast enough to kill her and not just hurt her. Patient denies A/V Hallucinations, admits to increased paranoia. Patient states she feels people may be out to get her so she carries her knife and is starting to scare herself. Patient states she went to [facility] appnt today for a medication increase/ change but they referred her here. Impulse control: poor, judgment: poor, sleep : poor c/o restlessness. Patient states she only has her to talk to but not about mental health "stuff because she just thinks I am mad". Patient unable to safety plan." Upon today's assessment, she states that she was at her therapist office, and she was talking to her about thoughts of her riding her bike into traffic. [facility] was called, and she was brought into the hospital. She states that her paranoia has been coming back for the past month. She has had passive suicidal thoughts, and she has had bouts of anxiety, and the feeling of crawling out of her skin, and a lot of irritability. She claims she is restless sometimes at night, and does not always sleep well. She claims her appetite is good. Patient denies any suicidal or homicidal ideations intent or plan. At this time patient denies any auditory or visual hallucinations. Patient denies any flight of ideas racing thoughts and increased in goal directed behavior. Patient admits to using cigarettes. She did take a couple xanax the other day when she was agitated. PAST PSYCHIATRIC HISTORY: Patient is open with [facility]. She has had multiple psychiatric hospitalizations. Her last admission to this unit was in September 2023. She was discharged on Seroquel 400 mg nightly, Invega p.o. 3 mg daily, lithium 300 mg twice daily. She alleges that she has been in psychiatric hospital more than 20 times beginning at the age of 22. At [facility] she was involved in a DBT program she has had multiple diagnoses but the most consistent help and substance abuse diagnoses as well as borderline personality disorder. Has a hi story of a residential rehabilitation programs at [place] and [place]. PMH:As per ER note ALLERGIES: as per EMR CHEMICAL DEPENDENCY HISTORY: as per HPI FAMILY PSYCHIATRIC/SUBSTANCE USE HISTORY: [denies] SOCIAL HISTORY: Patient was born in [place] and raised in [place]. She lives with her Shahnaz. This is her second marriage. She has 4 children who stay with their biological father or are adults. She receives disability. She attended some college. She reports that she is Catholic. She denies any current legal issues. MENTAL STATUS EXAM: General Appearance: Patient appears to be stated age is alert, [directable, and attempts to cooperate]. Patient appears to have adequate hygiene and grooming. Masculine appearance, dressed casually, hair pulled into a pony tail, shaved around the bottom. Behavior: Patient is seated without any agitated behavior. Speech: Patient's speech is [fluent and nonpressured.] Mood/Affect: Patient reports their mood is [depressed], affect is congruent and constricted. Suicidality/Homicidality: Patient denies having any homicidal ideation intent or plan. [Denies any suicidal ideations intent or plan] Perceptions: Patient denies any visual hallucinations [and denies any auditory hallucinations] Though content/process: [There is no evidence of any delusional thought content and thought process mildly paranoid Memory and concentration: AOX3, grossly intact for the purposes of this session. Can spell "WORLD" backwards Judgment and insight: [poor] STRENGTHS/WEAKNESSES: strength is that patient is [resilient]. Weakness is that patient [has poor judgment and is impulsive] INTELLECT: [average] IMPRESSIONS: Bipolar disorder, current episode depressed Cluster B personality disorder Opiate use disorder, in remission Stimulant use disorder, in remission Nicotine dependence benzodiazipine abuse. PLAN: -Patient is admitted under [voluntary] status to MHU for stabilization of psychiatric symptoms and safety. Patient has signed [adult voluntary form and] [medication consent] and is placed in patient's chart. -Medications : Will start patient on invega 6mg daily for psychosis, lithium 600mg bid for mood stabilization, Cymbalta 30mg daily for depression/anxiety. Seroquel 400mg qhs for sleep/mood, visteral 50mg q8 prn for anxiety -Check lithium level in the am. -Ativan [and Haldol] PRN for agitation/aggression -Patient was informed of the risks, benefits and side effects of the medication [and patient verbally consented to taking the medications. ] -Internal Medicine consult to perform medical evaluation and physical. -NRT - [nicotine patch] -SW on board for discharge planning. Encourage patient to participate in groups to work on coping skills.
[2024-02-18] MEDS: DULoxetine HCL 30 MG CAPSULE.DR PO SCH (11:33)
[2024-02-18] MEDS: QUEtiapine 400 MG TAB PO SCH (21:54)
--- NOTE | 2024-02-19 03:59 | P.PN ---
Progress Note - Text Progress Note Date: 02/19/24 Attempted to see the patient in the MHU. The patient refused to be seen or be evaluated. Will attempt to see the patient tomorrow.
[2024-02-19] MEDS: PALIPERIDONE 6 MG TAB.ER.24 PO SCH (08:56)
[2024-02-19] MEDS: LORazepam 1 MG TAB PO PRN (11:12)
--- NOTE | 2024-02-19 11:13 | P.PN ---
Progress Note - Text Progress Note Date: 02/19/24 Interval History: Patient was seen [wandering the hallways] and was directable and agreeable to speak with marketing copywriter in the office. She states that she feels that people are messing with her. She thinks that her room mate is moving things around the room. Still endorsing paranoia. She states she has a "fuck it" attitude today. She states that she slept well, and her appetite is fine. Field Counsel spoke to the patient about lowering her ativan, due to her confusion, patient agreeable. At this time patient denies any suicidal or homicidal ideations, intent or plan. Patient denies any auditory, visual hallucinations and endorses paranoia, no delusions. Patient denies any side effects from the medications and has been compliant with meds. MENTAL STATUS EXAM: General Appearance: Patient appears to be stated age is alert, directable, and attempts to cooperate. Patient appears to have adequate hygiene and grooming. Masculine appearance, has tattoos dressed casually, hair pulled into a pony tail, shaved around the bottom. Behavior: Patient is seated without any agitated behavior. Speech: Patient's speech is fluent and nonpressured. Mood/Affect: Patient reports their mood is paranoid, affect is congruent and constricted. Suicidality/Homicidality: Patient denies having any homicidal ideation intent or plan. Denies any suicidal ideations intent or plan Perceptions: Patient denies any visual hallucinations and denies any auditory hallucinations Though content/process: There is no evidence of any delusional thought content and thought process mildly paranoid Memory and concentration: AOX3, grossly intact for the purposes of this session. Judgment and insight: poor, mildly improving IMPRESSIONS: Bipolar disorder, current episode depressed Cluster B personality disorder Opiate use disorder, in remission Stimulant use disorder, in remission Nicotine dependence benzodiazipine abuse. PLAN: -Patient is admitted under [voluntary] status to MHU for stabilization of psychiatric symptoms and safety. -Medications : invega 6mg daily for psychosis, lithium 600mg bid for mood stab ilization, Cymbalta 30mg daily for depression/anxiety. Seroquel 400mg qhs for sleep/mood, visteral 50mg q8 prn for anxiety -awaiting lithium level and other blood work. -Ativan [and Haldol] PRN for agitation/aggression -NRT - [nicotine patch] -SW on board for discharge planning. Encourage patient to participate in groups to work on coping skills.
[2024-02-19 12:57] LABS: Basophils # (A) 0.1 k/uL (0-0.2); Basophils % (A) 1 %; Eosinophils # (A) 0.3 k/uL (0-0.7); Eosinophils % (A) 5 %; HCT 37.9 % (34.0-46.0); HGB 12.4 gm/dL (11.4-16.0); Lymphocytes % (A) 17 %; MCHC 32.7 g/dL (31.0-37.0); MCV 91.6 fL (80.0-100.0); Mean Platelet Volume 14.1; Monocytes # (A) 0.3 k/uL (0-1.0); Monocytes % (A) 5 %; Neutrophils # (A) 4.4 k/uL (1.3-7.7); Neutrophils % (A) 71 %; RBC 4.13 m/uL (3.80-5.40); RDW 13.3 % (11.5-15.5); WBC 6.1 k/uL (3.8-10.6)
[2024-02-19 13:14] LABS: ALT 43 U/L (4-34); AST 42 U/L (14-36); African American GFR (CKD) >90 (>60 ml/min/1.73 sqM); Albumin 4.3 g/dL (3.5-5.0); Alkaline Phosphatase 39 U/L (38-126); Anion Gap 6 mmol/L; Bilirubin, Delta 0.2 mg/dL (0.0-0.2); Bilirubin,Unconjugated 0.5 mg/dL (0.0-1.1); Blood Urea Nitrogen 19 mg/dL (7-17); Calcium 10.2 mg/dL (8.4-10.2); Carbon Dioxide 19 mmol/L (22-30); Chloride 111 mmol/L (98-107); Glucose 83 mg/dL (74-99); Non-African American GFR(CKD) >90 (>60 ml/min/1.73 sqM); Sodium 136 mmol/L (137-145); Total Bilirubin 0.7 mg/dL (0.2-1.3)
[2024-02-19 13:15] LABS: Platelet Count 89 k/uL (150-450)
[2024-02-19 14:07] LABS: Large Platelets Present
[2024-02-19 23:09] LABS: Chol/HDL Ratio 2.18 Ratio; LDL Cholesterol,Calculated 54.4 mg/dL (0.0-131.0)
--- NOTE | 2024-02-20 00:54 | P.CONS ---
History of Present Illness - Reason for Consult Consult date: 02/20/24 - History of Present Illness The patient is a 43-year-old female who had presented emergency room with complaints of depression with suicidal ideation as well as paranoid thoughts. The patient was admitted to the mental health unit where she was seen and evaluated while accompanied by a MHU RN. The patient reports feeling significantly better at the time of interview. She denied any active complaints. She did report a history of genetic thrombocytopenia as well as anemia and asthma. She denied experiencing chest discomfort, shortness breath, fever, chills, cough, nausea, vomiting, abdominal pain, diarrhea. She reports smoking half pack of cigarettes daily but denied illicit substance or alcohol use. Review of systems: Pertinent positives and negatives as discussed in HPI, a complete review of systems was performed and all other systems are negative. Physical examination: General: non toxic, no distress, appears at stated age, obese Derm: no unusual rashes/lesions, no unusual ecchymoses, warm, dry Head: atraumatic, normocephalic, symmetric Eyes: EOMI, no lid lag, anicteric sclera ENT: Nose and ears atraumatic, no thrush, no pharyngeal erythema Neck: trachea midline, supple Mouth: no lip lesion, mucus membranes moist Cardiovascular: S1S2 reg, no murmur, no edema Lungs: CTA bilateral, no rhonchi, no rales , no accessory muscle use Abdominal: soft, nontender to palpation, no guarding Ext: no gross muscle atrophy, no contractures, Neuro: No gross focal neuro deficits noted Psych: Alert, oriented, appropriate affect Assessment: Thrombocytopenia, at baseline Mild transaminitis, unclear etiology Mild intermittent asthma, not on inhalers Depression with suicidal ideation and paranoid Imaging: None performed Data Review: Reviewed with platelet count 89, sodium 136, CO2 19, BUN 19, AST 843, ALT 43, with urine toxicology positive for benzodiazepines and UA unremarkable. Plan: Monitor CMP for resolution of transaminitis Defer management of depression and suicidal ideation to primary psychiatry service Thank you for allowing us to participate in the care of this patient. We will follow peripherally. Do not hesitate to contact us with questions. Someone can be reached from the [facility] hospitalist group at all hours of the day at [phone]. Past Medical History Past Medical History: Asthma, Seizure Disorder Additional Past Medical History / Comment(s): anemia, hx low platelets History of Any Multi-Drug Resistant Organisms: MRSA Year Discovered:: 07/03/21 MDRO Source:: [place] Past Surgical History: Tonsillectomy Additional Past Surgical History / Comment(s): left knee surgery Past Anesthesia/Blood Transfusion Reactions: No Reported Reaction Additional Past Anesthesia/Blood Transfusion Reaction / Comm: n/a Smoking Status: Current every day smoker, Vaper - Past Family History Mother Family Medical History: Hypertension Medications and Allergies Home Medications Medication Instructions Recorded Confirmed Type Paliperidone [Invega] 3 mg PO DAILY 30 Days #30 tab 10/24/23 02/18/24 Rx QUEtiapine [SEROquel] 400 mg PO HS 30 Days #30 tab 10/24/23 02/18/24 Rx hydrOXYzine pamoate [Vistaril] 50 mg PO BID PRN 30 Days #120 cap 10/24/23 02/18/24 Rx [place] Carbonate 600 mg PO BID 02/18/24 02/18/24 History Multivitamins, Thera [Multivitamin 1 tab PO DAILY 02/18/24 02/18/24 History (formulary)] Allergies Allergy/AdvReac Type Severity Reaction Status Date / Time haloperidol [From Haldol] AdvReac Body Verified 02/18/24 09:27 Cramps/muscle cramps Physical Exam Vitals: Vital Signs Temp Pulse Resp BP 02/19/24 11:35 96.9 F L 77 18 125/86 Results CBC & Chem 7: 02/19/24 11:40 02/19/24 11:40 Labs: Abnormal Lab Results - Last 24 Hours (Table) 02/19/24 02/19/24 Range/Units 11:40 11:40 Plt Count 89 L (150-450) k/uL Sodium 136 L (137-145) mmol/L Chloride 111 H (98-107) mmol/L Carbon Dioxide 19 L (22-30) mmol/L BUN 19 H (7-17) mg/dL AST 42 H (14-36) U/L ALT 43 H (4-34) U/L Triglycerides 153.00 H (0.00-149.00) mg/dL HDL Cholesterol 72.00 H (40.00-60.00) mg/dL
--- NOTE | 2024-02-20 11:50 | P.PN ---
Progress Note - Text Progress Note Date: 02/20/24 Interval History: Patient was seen wandering the hallways and was directable and agreeable to jose sanders with specification writer in the office. She states that she is a bit tired today. She states the seroquel made her restless last night. Outside Salesman spoke with patient about starting requip for the restless legs, patient agreeable. She states that she slept well, however, had problems initiating sleep. Her appetite is fine. Patient is attending groups. Patient offered no other complaints. At this time patient denies any suicidal or homicidal ideations, intent or plan. Patient denies any auditory, visual hallucinations and endorses paranoia, no delusions. Patient denies any side effects from the medications and has been compliant with meds. MENTAL STATUS EXAM: General Appearance: Patient appears to be stated age is alert, directable, and attempts to cooperate. Patient appears to have adequate hygiene and grooming. Masculine appearance, has tattoos dressed casually, hair pulled into a pony tail, shaved around the bottom. Behavior: Patient is seated without any agitated behavior. Speech: Patient's speech is fluent and nonpressured. Mood/Affect: Patient reports their mood is ok, affect is congruent and constricted. mildly improving Suicidality/Homicidality: Patient denies having any homicidal ideation intent or plan. Denies any suicidal ideations intent or plan Perceptions: Patient denies any visual hallucinations and denies any auditory hallucinations Though content/process: There is no evidence of any delusional thought content and thought process more linear Memory and concentration: AOX3, grossly intact for the purposes of this session. Judgment and insight: poor, mildly improving IMPRESSIONS: Bipolar disorder, current episode depressed Cluster B personality disorder Opiate use disorder, in remission Stimulant use disorder, in remission Nicotine dependence benzodiazipine abuse. PLAN: -Patient is admitted under voluntary status to MHU for stabilization of psychiatric symptoms and safety. -Medications : invega 6mg daily for psychosis, lithium 600mg bid for mood stabilization, increase Cymbalta 60mg daily for depression/anxiety. Seroquel 400mg qhs for sleep/mood, visteral 50mg q8 prn for anxiety, add Requip 0.25mg qhs for restless leg syndrome symptoms. -[place] level 1.0, therapeutic range. -Ativan [and Haldol] PRN for agitation/aggression -NRT - [nicotine patch] -SW on board for discharge planning. Encourage patient to participate in groups to work on coping skills. Possible discharge Friday vs Friday if patient continues to improve.
[2024-02-20] MEDS: DULoxetine HCL 30 MG CAPSULE.DR PO ONE (12:04)
[2024-02-20 12:44] LABS: ALT 43 U/L (4-34); AST 39 U/L (14-36); African American GFR (CKD) >90 (>60 ml/min/1.73 sqM); Albumin 4.4 g/dL (3.5-5.0); Alkaline Phosphatase 36 U/L (38-126); Anion Gap 5 mmol/L; Blood Urea Nitrogen 18 mg/dL (7-17); Calcium 9.7 mg/dL (8.4-10.2); Carbon Dioxide 23 mmol/L (22-30); Chloride 111 mmol/L (98-107); Glucose 94 mg/dL (74-99); Non-African American GFR(CKD) >90 (>60 ml/min/1.73 sqM); Potassium 4.3 mmol/L (3.5-5.1); Sodium 139 mmol/L (137-145); Total Bilirubin 0.6 mg/dL (0.2-1.3)
[2024-02-20] MEDS: NICOTINE GUM (POLACRILEX) 2 MG GUM BUCCAL PRN (13:37)
[2024-02-21] MEDS: DULoxetine HCL 60 MG CAPSULE.DR PO SCH (09:26)
[2024-02-21] MEDS: ZIPRASIDONE 20 MG VIAL IM STA (13:55)
--- NOTE | 2024-02-21 14:22 | P.PN ---
Progress Note - Text Interval history: Patient was seenand was directable and agreeable to speak with screen writer. reports paranoia which is leading to some homicidal ideations. Overall the paranoia is improving. Also reports intermittent suicidal ideations but no current suicidal ideations. Reports intermittent anxiety and mild irritability. A Denies any Auditory or visual hallucinations. Patient denies any side effects from the medications and has been compliant with meds. later in the day, patient needed an IM because she was getting agitated in response to another patient making homophobic comments to her Mental status exam: General Appearance: [Patient appears to be stated age is alert, directable, and cooperative.] Behavior: [Patient is directable] Speech: Patient's speech is fluent and nonpressured. Mood/Affect: Mood is "going down", affect is congruent and constricted. Suicidality/Homicidality: intermittent suicidal and homicidal ideations Perceptions: Patient denies any auditory or visual hallucinations. Though content/process: ports paranoia Memory and concentration: AOX3, grossly intact for the purposes of this session Judgment and insight: improving mildly Assessment/Plan: Continue with current diagnosis. Patient continues to meet criteria for inpatient psychiatric admission for symptom stabilization and safet y.[Patient will be maintained on current psychotropic medication regimen.] Monitor for medication compliance and for any psychotropic medication side effects. Will continue to monitor ongoing response to treatment. Encouraged participation in milieu.
--- NOTE | 2024-02-22 22:24 | P.PN ---
Progress Note - Text Interval history: Patient was seenand was directable and agreeable to speak with show card writer. reports paranoia, int SI, and int HI. Denies any Auditory or visual hallucinations. Patient denies any side effects from the medications and has been compliant with meds. Mental status exam: General Appearance: [Patient appears to be stated age is alert, directable, and cooperative.] Behavior: [Patient is directable] Speech: Patient's speech is fluent and nonpressured. Mood/Affect: Mood is "little down", affect is congruent and constricted. Suicidality/Homicidality: intermittent suicidal and homicidal ideations, no intent/plan Perceptions: Patient denies any auditory or visual hallucinations. Though content/process: ports paranoia Memory and concentration: AOX3, grossly intact for the purposes of this session Judgment and insight: improving mildly Assessment/Plan: Continue with current diagnosis. Patient continues to meet criteria for inpatient psychiatric admission for symptom stabilization and safety.[Patient will be maintained on current psychotropic medication regimen.] Monitor for medication compliance and for any psychotropic medication side effects. Will continue to monitor ongoing response to treatment. Encouraged participation in milieu
[2024-02-23] MEDS: PALIPERIDONE IM 234 MG/1.5 ML SYG IM STA (10:56)
--- NOTE | 2024-02-23 11:03 | P.PN ---
Progress Note - Text Progress Note Date: 02/23/24 Interval History: Patient was seen wandering the hallways and was directable and agreeable to jose sanders with content writer in the office. She states that she is still endorsing some paranoia today. She is feeling a bit anxious, and feeling mildly depressed today. Career And Guidance Counselor spoke to patient about receiving a IBARRA, to help stabilize her. Patient agreeable. Patient states she is sleeping pretty good at night. Appetite is fine. Patient is attending groups. Patient offered no other complaints. At this time patient denies any suicidal or homicidal ideations, intent or plan. Patient denies any auditory, visual hallucinations and endorses paranoia, no delusions. Patient denies any side effects from the medications and has been compliant with meds. MENTAL STATUS EXAM: General Appearance: Patient appears to be stated age is alert, directable, and attempts to cooperate. Patient appears to have adequate hygiene and grooming. Masculine appearance, has tattoos dressed casually, hair pulled into a pony tail, shaved around the bottom. Behavior: Patient is seated without any agitated behavior. Speech: Patient's speech is fluent and nonpressured. Mood/Affect: Patient reports their mood is ok, affect is congruent and constricted. mildly improving Suicidality/Homicidality: Patient denies having any homicidal ideation intent or plan. Denies any suicidal ideations intent or plan Perceptions: Patient denies any visual hallucinations and denies any auditory hallucinations Though content/process: There is no evidence of any delusional thought content and thought process linear Memory and concentration: AOX3, grossly intact for the purposes of this session. Judgment and insight: poor, mildly improving IMPRESSIONS: Bipolar disorder, current episode depressed Cluster B personality disorder Opiate use disorder, in remission Stimulant use disorder, in remission Nicotine dependence benzodiazipine abuse. PLAN: -Patient is admitted under voluntary status to MHU for stabilization of psychiatric symptoms and safety. -Medications : invega 6mg daily for psychosis, lithium 600mg bid for mood stabi lization, Cymbalta 60mg daily for depression/anxiety. Seroquel 400mg qhs for sleep/mood, visteral 50mg q8 prn for anxiety, increase Requip 0.50mg qhs for restless leg syndrome symptoms. Add Invega [place] 234mg IM today, 02/23/24, next dose due 03/01/23 of 156mg and monthly dose of 117 mg IM will be due on 03/29 -[place] level in am -Ativan [and Haldol] PRN for agitation/aggression -NRT - [nicotine patch] -SW on board for discharge planning. Encourage patient to participate in groups to work on coping skills. Possible discharge Friday if patient continues to improve.
[2024-02-24 07:09] VITALS: BP 110/75; PULSE 89; RESP 16; TEMP 97.3
--- NOTE | 2024-02-24 10:13 | P.DS ---
Providers Date of admission: 02/18/24 03:28 Expected date of discharge: 02/24/24 Attending physician: Ajay Ann MD Consults: 02/18/24 03:33 Consult Physician Routine Consulting Provider: Olga Pepe Consult Reason/Comments: H & P Do you want consulting provider notified?: Yes Primary care physician: Jeffrey Ferguson MD - Discharge Diagnosis(es) (1) Bipolar disorder current episode depressed Current Visit: Yes Status: Acute Priority: High (2) Cluster B personality disorder Current Visit: Yes Status: Acute Priority: High (3) Opioid use disorder in remission Current Visit: Yes Status: Acute Priority: Medium (4) Stimulant use disorder Current Visit: Yes Status: Acute Priority: Medium (5) Nicotine dependence Current Visit: Yes Status: Acute Priority: Low (6) Benzodiazepine abuse Current Visit: Yes Status: Acute Priority: Medium Hospital Course: Admission HPI: Admission note was completed by remote mortgage underwriter "patient is a 43-year-old white female, who is , and lives with her . Has 4 children that do not live with her. Unemployed. Collects disability. Patient presented to the hospital on 02/16. As per EPS note, "Patient was referred by [facility] with screening form stating " Lashay reports SI with plan to run into traffic with wavering intent, doesn't know if she can remain safe. SI daily and intermittent has been watching vehicles and speed to see which could do the most damage, increased SI and paranoia over the last 3 weeks, no triggers identified. Reports carrying a knife at times for protection due to paranoia". Patient agreeable to speak with remote mortgage underwriter and was laying on stretcher in ER Room 13. Patient continues to admit SI with plan to ride her bike in front of a car. Patient states she has been watching to make sure if she does it the car is going fast enough to kill her and not just hurt her. Patient denies A/V Hallucinations, admits to increased paranoia. Patient states she feels people may be out to get her so she carries her knife and is starting to scare herself. Patient states she went to [facility] appnt today for a medication increase/ change but they referred her here. Impulse control: poor, judgment: poor, sleep : poor c/o restlessness. Patient states she only has her to talk to but not about mental health "stuff because she just thinks I am mad". Patient unable to safety plan." Upon today's assessment, she states that she was at her therapist office, and she was talking to her about thoughts of her riding her bike into traffic. [facility] was called, and she was brought into the hospital. She states that her paranoia has been coming back for the past month. She has had passive suicidal thoughts, and she has had bouts of anxiety, and the feeling of crawling out of her skin, and a lot of irritability. She claims she is restless sometimes at night, and does not always sleep well. She claims her appetite is good. Patient denies any suicidal or homicidal ideations intent or plan. At this time patient denies any auditory or visual hallucinations. Patient denies any flight of ideas racing thoughts and increased in goal directed behavior. Patient admits to using cigarettes. She did take a couple xanax the other day when she was agitated." Hospital course: Upon admission to the unit patient was directable and agreeable to commence treatment and signed adult voluntary form. Patient got along well with other patients on the unit and followed unit protocol. Patient was compliant with the medications and denied any side effects throughout hospital course. Patient was started on Invega increased to dose of 6 mg daily for psychosis/paranoia, lithium remained at home dose of 600 mg twice daily for mood stabilization/suicidal thoughts, Cymbalta 60 mg daily for depression/anxiety, Seroquel 400 mg nightly for sleep/mood stabilization/psychosis, Vistaril as needed for anxiety, Requip 0.5 mg nightly for restless leg symptoms, patient was agreeable to be transition onto Invega Sustenna, given loading dose of 234 mg IM on 02/22, next dose of 156 mg IM will be due on 03/01, monthly maintenance dose will be due on 03/29 of 117 mg IM.. Patient spoke of her stressors and engaged in therapy both group and individual. Patient was also seen by medical team for history and physical exam. Throughout the course of the hospitalization patient gradually improved with regards to mood, anxiety, psychosis, paranoia, sleep and returned back to their baseline level of functioning. On the day of discharge patient denied any suicidal or homicidal ideations intent or plan denied any auditory or visual hallucinations. Patient endorsed wanting to live for their health and family. The patient denied any access to guns or weapons. Patient denied any paranoia and did not endorse any delusions. Patient does have a significant history of substance abuse and was counseled on abstaining from all substances including alcohol and marijuana. Patient elected to do outpatient substance use treatment program through their outpatient provider.. Patient was also counseled on the medications and need for regular compliance and was encouraged to follow-up with their outpatient appointment for mental health and also for primary care. Prior to discharge a family meeting will be arranged by psychotherapist social worker to answer any questions and ensure safety upon discharge incuding making sure that guns/weapons are either removed from the home or locked away. Patient will be discharged back home today with close [facility] monitoring and follow- up. Mental status exam: General Appearance: Patient appears to be mildly overweight, short hair, several tattoos, stated age is alert, pleasant, and cooperative. Patient is in no acute distress and has improved hygiene and grooming Behavior: Patient is calmly seated without any agitated behavior. Speech: Patient's speech is fluent and nonpressured. Mood/Affect: Patient reports their mood is "good", affect is congruent and euthymic. Suicidality/Homicidality: Patient denies having any suicidal or homicidal ideation intent or plan. Perceptions: Patient denies any auditory or visual hallucinations. Though content/process: There is no evidence of any delusional thought content and thought process is linear and goal-directed. More future oriented Memory and concentration: AOX3, grossly intact for the purposes of this session. Can spell "WORLD" backwards correctly. Judgment and insight: Chronically poor, however has improved with guarded prognosis Impression: Bipolar disorder, current episode depressed Cluster B personality disorder Opioid use disorder in remission Stimulant use disorder Benzodiazepine abuse Nicotine dependence Plan: -Continue with discharge today as patient has improved and stabilized psychiatrically and is not currently an imminent threat to themself and/or others. Patient will remain at chronically elevated risk for harm to self and/or others due to their impulsivity and substance abuse. -Continue medications: Continue with Invega p.o. 3 mg for 2 more days then discontinue. Patient was transitioned onto Invega Sustenna given loading dose on 02/22 of 234 mg IM. Second dose of 156 mg IM will be due on 03/01 at [facility], monthly maintenance dose of 170 mg IM will be due on 03/29 at [facility]. Cymbalta 60 mg daily for mood/anxiety, Seroquel 400 mg nightly for sleep/mood stabilization/psychosis, Vistaril 50 mg as needed for anxiety, Requip 0.5 mg nightly for restless leg symptoms, lithium 600 mg twice daily for mood stabilization/suicidal thoughts, will check lithium level on morning of discharge. He was recommended that patient get a lithium level checked again at [facility] in 1 to 2 weeks. -Patient was counseled on the need for medication compliance and appropriate follow-up at mental health and also primary care for medical issues. Patient verbalized understanding and agreed. -Social work to help coordinate patients discharge today arrange for and conduct family meeting to ensure safety upon discharge and answer any questions/concerns. also to ensure safe home environment that guns/weapons are either removed from the home or locked away. Social work also to arrange for patients follow up appointments with [facility] for psychiatric care along with follow up with primary care provider. -Patient counseled on abstaining from recreational drugs and marijuana and alcohol. Was informed/educated on the adverse effects on their physical and mental health. Patient verbally agreed and understood. Patient was offered substance abuse treatment however declined at this time. -Patient was instructed to return to the hospital or seek immediate medical care if their psychiatric or medical symptoms do worsen or reoccur. Allergies Allergy/AdvReac Type Severity Reaction Status Date / Time haloperidol [From Haldol] AdvReac Body Verified 02/18/24 09:27 Cramps/muscle cramps Laboratory Results WBC 6.1 k/uL (3.8-10.6) 02/19/24 11:40 RBC 4.13 m/uL (3.80-5.40) 02/19/24 11:40 Hgb 12.4 gm/dL (11.4-16.0) 02/19/24 11:40 Hct 37.9 % (34.0-46.0) 02/19/24 11:40 MCV 91.6 fL (80.0-100.0) 02/19/24 11:40 MCH 30.0 pg (25.0-35.0) 02/19/24 11:40 MCHC 32.7 g/dL (31.0-37.0) 02/19/24 11:40 RDW 13.3 % (11.5-15.5) 02/19/24 11:40 Plt Count 89 k/uL (150-450) L 02/19/24 11:40 MPV 14.1 02/19/24 11:40 Neutrophils % 71 % 02/19/24 11:40 Lymphocytes % 17 % 02/19/24 11:40 Monocytes % 5 % 02/19/24 11:40 Eosinophils % 5 % 02/19/24 11:40 Basophils % 1 % 02/19/24 11:40 Neutrophils # 4.4 k/uL (1.3-7.7) 02/19/24 11:40 Lymphocytes # 1.0 k/uL (1.0-4.8) 02/19/24 11:40 Monocytes # 0.3 k/uL (0-1.0) 02/19/24 11:40 Eosinophils # 0.3 k/uL (0-0.7) 02/19/24 11:40 Basophils # 0.1 k/uL (0-0.2) 02/19/24 11:40 Large Platelets Present 02/19/24 11:40 Sodium 139 mmol/L (137-145) 02/20/24 11:53 Potassium 4.3 mmol/L (3.5-5.1) 02/20/24 11:53 Chloride 111 mmol/L (98-107) H 02/20/24 11:53 Carbon Dioxide 23 mmol/L (22-30) 02/20/24 11:53 Anion Gap 5 mmol/L 02/20/24 11:53 BUN 18 mg/dL (7-17) H 02/20/24 11:53 Creatinine 0.77 mg/dL (0.52-1.04) 02/20/24 11:53 Est GFR (CKD-EPI)AfAm >90 (>60 ml/min/1.73 sqM) 02/20/24 11:53 Est GFR (CKD-EPI)NonAf >90 (>60 ml/min/1.73 sqM) 02/20/24 11:53 Glucose 94 mg/dL (74-99) 02/20/24 11:[address] Glu mg/dL 103 mg/dL 02/19/24 11:40 Hemoglobin A1c 5.2 % (<=6.0) 02/19/24 11:40 Calcium 9.7 mg/dL (8.4-10.2) 02/20/24 11:53 Total Bilirubin 0.6 mg/dL (0.2-1.3) 02/20/24 11:53 Conjugated Bilirubin 0.0 mg/dL (0.0-0.3) 02/19/24 11:40 Unconjugated Bilirubin 0.5 mg/dL (0.0-1.1) 02/19/24 11:40 Delta Bilirubin 0.2 mg/dL (0.0-0.2) 02/19/24 11:40 AST 39 U/L (14-36) H 02/20/24 11:53 ALT 43 U/L (4-34) H 02/20/24 11:53 Alkaline Phosphatase 36 U/L (38-126) L 02/20/24 11:53 Total Protein 7.0 g/dL (6.3-8.2) 02/20/24 11:53 Albumin 4.4 g/dL (3.5-5.0) 02/20/24 11:53 Triglycerides 153.00 mg/dL (0.00-149.00) H 02/19/24 11:40 Cholesterol 157.00 mg/dL (0.00-200.00) 02/19/24 11:40 LDL Cholesterol, Calc 54.4 mg/dL (0.0-131.0) 02/19/24 11:40 VLDL Cholesterol, Calc 30.60 mg/dL (5.00-40.00) 02/19/24 11:40 HDL Cholesterol 72.00 mg/dL (40.00-60.00) H 02/19/24 11:40 Cholesterol/HDL Ratio 2.18 Ratio 02/19/24 11:40 TSH 1.660 mIU/L (0.465-4.680) 02/19/24 11:40 Urine Color Colorless 02/18/24 01:22 Urine Appearance Clear (Clear) 02/18/24 01:22 Urine pH 6.5 (5.0-8.0) 02/18/24 01:22 Ur Specific [place] 1.011 (1.001-1.035) 02/18/24 01:22 Urine Protein Negative (Negative) 02/18/24 01:22 Urine Glucose (UA) Negative (Negative) 02/18/24 01:22 Urine Ketones Negative (Negative) 02/18/24 01:22 Urine Blood Negative (Negative) 02/18/24 01:22 Urine Nitrite Negative (Negative) 02/18/24 01:22 Urine Bilirubin Negative (Negative) 02/18/24 01:22 Urine Urobilinogen <2.0 mg/dL (<2.0) 02/18/24 01:22 Ur Leukocyte Esterase Negative (Negative) 02/18/24 01:22 Urine HCG, Qual Not Detected (Not Detectd) 02/18/24 01:22 Urine Opiates Screen Not Detected (NotDetected) 02/18/24 01:22 Ur Oxycodone Screen Not Detected (NotDetected) 02/18/24 01:22 Urine Methadone Screen Not Detected (NotDetected) 02/18/24 01:22 Ur Barbiturates Screen Not Detected (NotDetected) 02/18/24 01:22 U Tricyclic Antidepress Not Detected (NotDetected) 02/18/24 01:22 Ur Phencyclidine Scrn Not Detected (NotDetected) 02/18/24 01:22 Ur Amphetamines Screen Not Detected (NotDetected) 02/18/24 01:22 U Methamphetamines Scrn Not Detected (NotDetected) 02/18/24 01:22 U Benzodiazepines Scrn Detected (NotDetected) H 02/18/24 01:22 [place] 1.0 mmol/L 02/19/24 11:40 Urine Cocaine Screen Not Detected (NotDetected) 02/18/24 01:22 U Marijuana (THC) Screen Not Detected (NotDetected) 02/18/24 01:22 SARS-CoV-2 (PCR) Not Detected (Not Detectd) 02/17/24 19:41 Vital Signs Temp 97.3 F L 02/24/24 06:29 Pulse 89 02/24/24 06:29 Resp 16 02/24/24 06:29 BP 110/75 02/24/24 06:29 Pulse Ox 97 02/24/24 06:29 FiO2 Vital Signs Temp 97.3 F L 02/24/24 06:29 Pulse 89 02/24/24 06:29 Resp 16 02/24/24 06:29 BP 110/75 02/24/24 06:29 Pulse Ox 97 02/24/24 06:29 FiO2 Patient Condition at Discharge: Stable Plan - Discharge Summary Discharge Rx Participant: No New Discharge Prescriptions: New Nicotine Gum (Polacrilex) [Nicorette] 2 mg BUCCAL Q2HR PRN 30 Days #180 p ieceofgum PRN Reason: Nicotine Cravings rOPINIRole HCL [Requip] 0.5 mg PO HS 30 Days #60 tab DULoxetine HCL [Cymbalta] 60 mg PO DAILY 30 Days #30 cap Paliperidone IM [Invega Sustenna] 156 mg IM ONCE #1 ml Paliperidone Palmitate [Invega Sustenna] 117 mg IM QMONTHLY #1 each [place] Carbonate 600 mg PO BID 15 Days #60 cap Continue Multivitamins, Thera [Multivitamin (formulary)] 1 tab PO DAILY Paliperidone [Invega] 3 mg PO DAILY 2 Days #2 tab hydrOXYzine pamoate [Vistaril] 50 mg PO BID PRN 30 Days #60 cap PRN Reason: Anxiety QUEtiapine [SEROquel] 400 mg PO HS 30 Days #30 tab Discontinued [place] Carbonate 600 mg PO BID Discharge Medication List Multivitamins, Thera [Multivitamin (formulary)] 1 tab PO DAILY 02/18/24 [History] DULoxetine HCL [Cymbalta] 60 mg PO DAILY 30 Days #30 cap 02/24/24 [Rx] [place] Carbonate 600 mg PO BID 15 Days #60 cap 02/24/24 [Rx] Nicotine Gum (Polacrilex) [Nicorette] 2 mg BUCCAL Q2HR PRN 30 Days #180 pieceofgum 02/24/24 [Rx] Paliperidone IM [Invega Sustenna] 156 mg IM ONCE #1 ml 02/24/24 [Rx] Paliperidone Palmitate [Invega Sustenna] 117 mg IM QMONTHLY #1 each 02/24/24 [Rx] Paliperidone [Invega] 3 mg PO DAILY 2 Days #2 tab 02/24/24 [Rx] QUEtiapine [SEROquel] 400 mg PO HS 30 Days #30 tab 02/24/24 [Rx] hydrOXYzine pamoate [Vistaril] 50 mg PO BID PRN 30 Days #60 cap 02/24/24 [Rx] rOPINIRole HCL [Requip] 0.5 mg PO HS 30 Days #60 tab 02/24/24 [Rx] Follow up Appointment(s)/Referral(s): [facility] [Outside] - 03/03/24 10:00 am (03/03 at 10am with Tyra Galvan 03/04 at 11am with Brenda Dumont NP) Jeffrey Ferguson MD [Primary Care Provider] - 1-2 days Patient Instructions/Handouts: Bipolar Disorder (DC), Depression (DC) Activity/Diet/Wound Care/Special Instructions: [facility] Discharge Info Avoid the use of street drugs and alcohol. Take all medications as prescribed. When you are in need of refills on your medications, please contact your outpatient medical provider and/or outpatient psychiatrist. Please go to your scheduled outpatient appointments for aftercare treatment. If symptoms return or become worse, call the crisis line at or and/or visit the nearest emergency room for assistance. National Suicide and Crisis Lifeline - call or text 987. Discharge Disposition: HOME SELF-CARE
== END 2024-02-24 11:06 | disposition home or self-care (01) | DRG 885 ==
LOC: EC 19:17 → 3MHU 02-18 03:28
PROVIDERS: ADMIT Psychiatry & Neurology Psychiatry; ATTEND Psychiatry & Neurology Psychiatry
DX: F31.30 Bipolar disorder, current episode depressed, mild or moderate severity, unspecified (principal); R45.851 Suicidal ideations; D69.6 Thrombocytopenia, unspecified; F22 Delusional disorders; F60.89 Other specific personality disorders; F11.11 Opioid abuse, in remission; F13.10 Sedative, hypnotic or anxiolytic abuse, uncomplicated; F15.11 Other stimulant abuse, in remission; R45.850 Homicidal ideations; G25.81 Restless legs syndrome; F17.290 Nicotine dependence, other tobacco product, uncomplicated; F17.210 Nicotine dependence, cigarettes, uncomplicated; Z79.899 Other long term (current) drug therapy
CPT/HCPCS: 80053; 80061; 80178; 80306; 81003; 81025; 82075; 82248; 83036; 84443; 85025; 87635; 99285

== ENCOUNTER → 2024-04-15 | Outpatient (CLI) | payer MEDICARE ==
--- NOTE | 2024-04-15 17:04 | XR ---
EXAMINATION TYPE: XR lumbar spine 2 or 3V DATE OF EXAM: 04/15/2024 4:42 PM COMPARISON: 12/30/2011 CLINICAL INDICATION: Female, 43 years old with history of M53.3, M54.18; [facility] TECHNIQUE: XR lumbar spine 2 or 3V - Frontal, lateral and coned in L5-S1 lateral views of the spine. FINDINGS: No evidence of any acute osseous pathology. No evidence of loss of vertebral body height i s seen. There is normal alignment of the lumbar vertebral bodies. Scattered disc space narrowing. Mul tilevel marginal osteophyte formation throughout the visualized spine. There is facet joint arthropat hy throughout the spine. Scattered at least mild neural foraminal stenosis. IMPRESSION: 1. No acute fracture. 2. Mild multilevel disc degeneration. [facility], , 04/15/2024 5:01 PM
== END | disposition home or self-care (01) ==
LOC: RADXRMAIN 16:12
PROVIDERS: ATTEND Nurse Practitioner Family
DX: M54.18 Radiculopathy, sacral and sacrococcygeal region (principal); M53.3 Sacrococcygeal disorders, not elsewhere classified; M99.73 Connective tissue and disc stenosis of intervertebral foramina of lumbar region; M47.897 Other spondylosis, lumbosacral region
CPT/HCPCS: 72100

== ENCOUNTER 2024-04-28 13:10 | Emergency (ER) | payer MEDICARE ==
[2024-04-28 14:50] LABS: Basophils % (A) 1 %; Eosinophils # (A) 0.4 k/uL (0-0.7); Eosinophils % (A) 5 %; HCT 37.1 % (34.0-46.0); HGB 11.7 gm/dL (11.4-16.0); Hypochromasia Slight; Lymphocytes # (A) 1.1 k/uL (1.0-4.8); Lymphocytes % (A) 16 %; MCH 27.6 pg (25.0-35.0); MCHC 31.4 g/dL (31.0-37.0); MCV 87.9 fL (80.0-100.0); Mean Platelet Volume 13.3; Monocytes # (A) 0.3 k/uL (0-1.0); Monocytes % (A) 5 %; Neutrophils # (A) 4.8 k/uL (1.3-7.7); Neutrophils % (A) 71 %; Platelet Count 106 k/uL (150-450); RBC 4.22 m/uL (3.80-5.40); RDW 13.5 % (11.5-15.5); WBC 6.7 k/uL (3.8-10.6)
--- NOTE | 2024-04-28 14:55 | ED ---
General Adult HPI - General Chief complaint: Recheck/Abnormal Lab/Rx Stated complaint: legs/arms shaking Time Seen by Provider: 04/28/24 13:29 Source: patient, RN notes reviewed Mode of arrival: ambulatory Limitations: no limitations - History of Present Illness Initial comments: 43-year-old female presents emergency department chief complaint of tremoring primarily upper extremities occasionally lower extremities and neck discomfort. Denies any headache, facial symptoms, blurred vision, focal weakness/chest pain shortness of breath. She is on psychiatric medications with no recent medication changes. She states symptoms come and go. She states they are more with certain movements. Patient denies any trauma denies any illicit drug use no alcohol abuse - Related Data Home Medications Medication Instructions Recorded Confirmed Multivitamins, Thera [Multivitamin 1 tab PO DAILY 02/18/24 02/18/24 (formulary)] Previous Rx's Medication Instructions Recorded DULoxetine HCL [Cymbalta] 60 mg PO DAILY 30 Days #30 cap 02/24/24 [place] Carbonate 600 mg PO BID 15 Days #60 cap 02/24/24 Nicotine Gum (Polacrilex) 2 mg BUCCAL Q2HR PRN 30 Days #180 02/24/24 [Nicorette] pieceofgum Paliperidone IM [Invega Sustenna] 156 mg IM ONCE #1 ml 02/24/24 Paliperidone Palmitate [Invega 117 mg IM QMONTHLY #1 each 02/24/24 Sustenna] Paliperidone [Invega] 3 mg PO DAILY 2 Days #2 tab 02/24/24 QUEtiapine [SEROquel] 400 mg PO HS 30 Days #30 tab 02/24/24 hydrOXYzine pamoate [Vistaril] 50 mg PO BID PRN 30 Days #60 cap 02/24/24 rOPINIRole HCL [Requip] 0.5 mg PO HS 30 Days #60 tab 02/24/24 Cyclobenzaprine [Flexeril] 10 mg PO TID PRN #15 tab 04/28/24 Allergies Allergy/AdvReac Type Severity Reaction Status Date / Time haloperidol [From Haldol] AdvReac Body Verified 04/28/24 13:23 Cramps/muscle cramps Review of Systems ROS Statement: Those systems with pertinent positive or pertinent negative responses have been documented in the HPI. ROS Other: All systems not noted in ROS Statement are negative. Past Medical History Past Medical History: Asthma, Seizure Disorder Additional Past Medical History / Comment(s): anemia, hx low platelets History of Any Multi-Drug Resistant Organisms: MRSA Date of last positivie culture/infection: 07/03/21 MDRO Source:: [place] Past Surgical History: Tonsillectomy Additional Past Surgical History / Comment(s): left knee surgery Past Anesthesia/Blood Transfusion Reactions: No Reported Reaction Additional Past Anesthesia/Blood Transfusion Reaction / Comment(s): n/a Past Psychological History: Anxiety, Bipolar, Depression, PTSD Smoking Status: Current every day smoker, Vaper - Past Family History Mother Family Medical History: Hypertension General Exam Limitations: no limitations General appearance: alert, in no apparent distress Head exam: Present: atraumatic, normocephalic, normal inspection Eye exam: Present: normal appearance, PERRL, EOMI. Absent: scleral icterus, conjunctival injection, periorbital swelling ENT exam: Present: normal exam, normal oropharynx, mucous membranes moist Neck exam: Present: normal inspection, full ROM. Absent: tenderness, meningismus, lymphadenopathy Respiratory exam: Present: normal lung sounds bilaterally. Absent: respiratory distress, wheezes, rales, rhonchi, stridor Cardiovascular Exam: Present: regular rate, normal rhythm, normal heart sounds. Absent: systolic murmur, diastolic murmur, rubs, gallop, clicks GI/Abdominal exam: Present: soft, normal bowel sounds. Absent: distended, tenderness, guarding, rebound, rigid Neurological exam: Present: alert, oriented X3, CN II-XII intact, reflexes normal. Absent: motor sensory deficit Skin exam: Present: warm, dry, intact, normal color. Absent: rash Course Vital Signs 04/28/24 13:19 Temperature 97.9 F Pulse Rate 78 Respiratory 18 Rate Blood Pressure 152/97 O2 Sat by Pulse 100 Oximetry Medical Decision Making - Medical Decision Making Was pt. sent in by a medical professional or institution (, PA, TRUCK DRIVER HEAVY, urgent care, hospital, or [facility]...) When possible be specific @ -No Did you speak to anyone other than the patient for history (EMS, parent, family, police, friend...)? What history was obtained from this source @ -No Did you review nursing and triage notes (agree or disagree)? Why? @ -I reviewed and agree with nursing and triage notes Were old charts reviewed (outside hosp., previous admission, EMS record, old EKG, old radiological studies, urgent care reports/EKG's, [facility] records)? Report findings @ -No old charts were reviewed Differential Diagnosis (chest pain, altered mental status, abdominal pain women, abdominal pain men, vaginal bleeding, weakness, fever, dyspnea, syncope, headache, dizziness, GI bleed, back pain, seizure, CVA, palpatations, mental health, musculoskeletal)? @ -Tremors, anxiety, muscle spasms, electrolyte imbalance, and EKG interpreted by me (3pts min.). @ -None X-rays interpreted by me (1pt min.). @ -X-ray cervical spine showing abnormal curvature possibly the muscle spasms CT interpreted by me (1pt min.). @ -None done U/S interpreted by me (1pt. min.). @ -None done What testing was considered but not performed or refused? (CT, X-rays, U/S, labs)? Why? @ -None What meds were considered but not given or refused? Why? @ -None Did you discuss the management of the patient with other professionals (professionals i.e. , PA, TRUCK DRIVER HEAVY, lab, RT, psych nurse, social research assistant, administrative office clerk, teacher, co founder and chief strategy officer, family preservation caseworker)? Give summary @ -No Was smoking cessation discussed for >3mins.? @ -No Was critical care preformed (if so, how long)? @ -No Were there social determinants of health that impacted care today? How? (Homelessness, low income, unemployed, alcoholism, drug addiction, tra nsportation, low edu. Level, literacy, decrease access to med. care, [facility], rehab)? @ -No Was there de-escalation of care discussed even if they declined (Discuss DNR or withdrawal of care, Hospice)? DNR status @ -No What co-morbidities impacted this encounter? (DM, HTN, Smoking, COPD, CAD, Cancer, CVA, ARF, Chemo, Hep., AIDS, mental health diagnosis, sleep apnea, morbid obesity)? @ -None Was patient admitted / discharged? Hospital course, mention meds given and route, prescriptions, significant lab abnormalities, going to OR and other pertinent info. @Discharge patient felt better after Valium laboratory studies unremarkable x- ray was abnormal consistent with muscle spasms we discharged on muscle relaxers return parameters wendy. Undiagnosed new problem with uncertain prognosis? @ -No Drug Therapy requiring intensive monitoring for toxicity (Heparin, Nitro, Insulin, Cardizem)? @ -No Were any procedures done? @ -No Diagnosis/symptom? @ -Muscle spasms Acute, or Chronic, or Acute on Chronic? @ -Acute Uncomplicated (without systemic symptoms) or Complicated (systemic symptoms)? @ -Uncomplicated Side effects of treatment? @ -No Exacerbation, Progression, or Severe Exacerbation? @ -No Poses a threat to life or bodily function? How? (Chest pain, USA, [place], pneumonia, PE, COPD, DKA, ARF, appy, cholecystitis, CVA, Diverticulitis, Homicidal, Suicidal, threat to staff... and all critical care pts) @ -No - Lab Data Result diagrams: 04/28/24 14:40 04/28/24 14:40 Lab Results 04/28/24 04/28/24 Range/Units 14:40 14:40 WBC 6.7 (3.8-10.6) k/uL RBC 4.22 (3.80-5.40) m/uL Hgb 11.7 (11.4-16.0) gm/dL Hct 37.1 (34.0-46.0) % MCV 87.9 (80.0-100.0) fL MCH 27.6 (25.0-35.0) pg MCHC 31.4 (31.0-37.0) g/dL RDW 13.5 (11.5-15.5) % Plt Count 106 L (150-450) k/uL MPV 13.3 Neutrophils % 71 % Lymphocytes % 16 % Monocytes % 5 % Eosinophils % 5 % Basophils % 1 % Neutrophils # 4.8 (1.3-7.7) k/uL Lymphocytes # 1.1 (1.0-4.8) k/uL Monocytes # 0.3 (0-1.0) k/uL Eosinophils # 0.4 (0-0.7) k/uL Basophils # 0.0 (0-0.2) k/uL Manual Slide Review Performed Large Platelets Present RBC Morphology Normal Hypochromasia Slight Sodium 137 (137-145) mmol/L Potassium 4.4 (3.5-5.1) mmol/L Chloride 109 H (98-107) mmol/L Carbon Dioxide 24 (22-30) mmol/L Anion Gap 4 mmol/L BUN 11 (7-17) mg/dL Creatinine 0.69 (0.52-1.04) mg/dL Est GFR (CKD-EPI)AfAm >90 (>60 ml/min/1.73 sqM) Est GFR (CKD-EPI)NonAf >90 (>60 ml/min/1.73 sqM) Glucose 95 (74-99) mg/dL Calcium 9.3 (8.4-10.2) mg/dL Magnesium 2.6 H (1.6-2.3) mg/dL Total Bilirubin 0.5 (0.2-1.3) mg/dL AST 33 (14-36) U/L ALT 30 (4-34) U/L Alkaline Phosphatase 42 (38-126) U/L Total Protein 7.0 (6.3-8.2) g/dL Albumin 4.1 (3.5-5.0) g/dL TSH 2.980 (0.465-4.680) mIU/L Disposition Clinical Impression: Muscle spasm Disposition: HOME SELF-CARE Condition: Stable Instructions (If sedation given, give patient instructions): Muscle Spasm (ED) Additional Instructions: Please return to the Emergency Department if symptoms worsen or any other concerns. Prescriptions: Cyclobenzaprine [Flexeril] 10 mg PO TID PRN #15 tab PRN Reason: Muscle Spasm Is patient prescribed a controlled substance at d/c from ED?: No Referrals: Jeffrey Ferguson MD [Primary Care Provider] - 1-2 days Time of Disposition: 15:53
--- NOTE | 2024-04-28 15:07 | XR ---
EXAMINATION TYPE: XR cervical spine comp DATE OF EXAM: 04/28/2024 3:03 PM COMPARISON: 02/13/2024 CLINICAL INDICATION: Female, 43 years old with history of pain, TECHNIQUE: 5 view(s) obtained. FINDINGS: Prevertebral space is normal. Some subtle kyphosis may be centered at C5. Posterior spinal lamellar l ine is intact. Neural foramen are patent. Odontoid is nondiagnostic overlying occiput. Findings are unchanged from comparison. IMPRESSION: 1. Mild kyphosis which can be related to patient positioning or muscle spasm [facility], , 04/28/2024 3:04 PM
[2024-04-28 15:16] LABS: ALT 30 U/L (4-34); AST 33 U/L (14-36); African American GFR (CKD) >90 (>60 ml/min/1.73 sqM); Albumin 4.1 g/dL (3.5-5.0); Alkaline Phosphatase 42 U/L (38-126); Anion Gap 4 mmol/L; Blood Urea Nitrogen 11 mg/dL (7-17); Calcium 9.3 mg/dL (8.4-10.2); Carbon Dioxide 24 mmol/L (22-30); Chloride 109 mmol/L (98-107); Glucose 95 mg/dL (74-99); Magnesium 2.6 mg/dL (1.6-2.3); Non-African American GFR(CKD) >90 (>60 ml/min/1.73 sqM); Potassium 4.4 mmol/L (3.5-5.1); Sodium 137 mmol/L (137-145); Total Bilirubin 0.5 mg/dL (0.2-1.3)
[2024-04-28 15:47] LABS: Large Platelets Present; RBC Morphology Normal
[2024-04-28 16:08] VITALS: BP 139/92; PULSE 74; RESP 20; TEMP 98.3
== END 2024-04-28 16:04 | disposition home or self-care (01) ==
LOC: EC 13:10
DX: M62.838 Other muscle spasm (principal); F17.290 Nicotine dependence, other tobacco product, uncomplicated; Z88.8 Allergy status to other drugs, medicaments and biological substances
CPT/HCPCS: 36415; 80053; 84443; 83735; 85025; 72050; 99283; 96374; J3360

== ENCOUNTER → 2024-05-06 | Outpatient (CLI) | payer MEDICARE ==
--- NOTE | 2024-05-06 19:17 | CT ---
EXAMINATION TYPE: CT brain wo/w con DATE OF EXAM: 05/06/2024 4:40 PM COMPARISON: 10/15/2022 CLINICAL INDICATION: Female, 43 years old with history of R25 AN HEAD MOVMTS G45.9 TIA R41.0 DISORIEN TATION; Episodes of shaking and confusion x2wks. TECHNIQUE: Axial CT images were obtained with coronal and sagittal reformats created and reviewed. Contrast used:100 ml mL of Isovue 300 without and with IV Contrast, Oral contrast used: none. CT DLP: 2148.0 mGycm, Automated exposure control for dose reduction was used. FINDINGS: Extra-axial spaces: No abnormal extra-axial fluid collections. Ventricular system: Within normal limits Cerebral parenchyma: No acute intraparenchymal hemorrhage or mass effect. The see-white junction is well differentiated. No abnormal enhancement is seen after the administration of intravenous contras t. Cerebellum: Unremarkable. Mass effect: No evidence of midline shift. Intracranial vasculature: No evidence for high-grade stenosis or vascular occlusion. No aneurysmal di lation. Soft tissues: Normal. Calvarium/osseous structures: No depressed skull fracture. Paranasal sinuses and mastoid air cells: Clear. Visualized orbits: Orbital contents are intact. IMPRESSION: . No acute intracranial process and no evidence to suggest intracranial mass. [facility], , 05/06/2024 7:14 PM
== END | disposition home or self-care (01) ==
LOC: RADCTMAIN 15:20
PROVIDERS: ATTEND Nurse Practitioner Family
DX: R25.0 Abnormal head movements (principal); G45.9 Transient cerebral ischemic attack, unspecified; R41.0 Disorientation, unspecified
CPT/HCPCS: 70470; Q9967

== ENCOUNTER → 2024-07-26 | Outpatient (CLI) | payer MEDICARE, OTHER ==
--- NOTE | 2024-07-26 15:08 | MR ---
EXAMINATION TYPE: MR brain wo/w con DATE OF EXAM: 07/26/2024 2:48 PM COMPARISON: 05/06/2024. CLINICAL INDICATION: Female, 43 years old with history of R20.2 PARESTHESIA OF SKIN Z87.898 PERSONAL HX COND; PHH, Weakness in legs and arms, shaking TECHNIQUE: Multi planar, multi sequence imaging was performed through the brain including: T1, T2, In version recovery, susceptibility weighted imaging and gradient echo imaging and Diffusion weighted im aging. The patient was then given intravenous contrast and multi planar, T1 fat-saturation images wer e obtained. IV Contrast: 9 mL Gadobutrol FINDINGS: The see-white junctions, ventricular system, basal cisterns appear unremarkable. Diffusion-weighted imaging shows no evidence of restricted diffusion to suggest acute/subacute infarct. Intracranial ar terial flow voids are maintained. Midline structures show no abnormality. . The susceptibility weight ed images do not reveal any evidence for micro-hemorrhage. After administration of gadolinium, no abn ormal enhancement is seen. The bone marrow signal is within normal limits. Paranasal sinuses and mastoid air cells: No significant paranasal sinus disease. Visualized orbits: Orbital contents are intact. IMPRESSION: No evidence of intracranial mass, acute/subacute infarct, or abnormal enhancement. [facility], , 07/26/2024 3:04 PM
== END | disposition home or self-care (01) ==
LOC: RADMRIMAIN 14:06
PROVIDERS: ATTEND Psychiatry & Neurology Neurology
DX: R20.2 Paresthesia of skin (principal); R25.1 Tremor, unspecified; R53.1 Weakness; Z87.898 Personal history of other specified conditions
CPT/HCPCS: 70553; A9585

== ENCOUNTER 2024-10-19 18:41 | Inpatient (IN) | payer MEDICARE, MEDICAID ==
--- NOTE | 2024-10-19 19:04 | ED ---
General Adult HPI - General Source: patient Mode of arrival: ambulatory Limitations: no limitations <Clark Miner - Last Filed: 10/19/24 20:38> <Shayan Romero - Last Filed: 10/20/24 01:02> - General Chief complaint: Psychiatric Symptoms Stated complaint: Mental Health eval Time Seen by Provider: 10/19/24 18:56 - History of Present Illness Initial comments: Dictation was produced using TVTY dictation software. please excuse any grammatical, word or spelling errors. Chief Complaint: 44-year-old female with suicidal behavior History of Present Illness: Patient is a 44-year-old female presents to the emergency department for suicidal behavior. Patient states this morning she was so depressed she tried to harm herself. She used a clean knife to cause a laceration on her left forearm. Patient has history of depression states she is suicidal not taking her medications. Denies homicidal ideation. No paranoia or visual auditory hallucinations. The ROS documented in this emergency department record has been reviewed and confirmed by me. Those systems with pertinent positive or negative responses have been documented in the HPI. All other systems are other negative and/or noncontributory. (Clark Miner) - Related Data Home Medications Medication Instructions Recorded Confirmed Multivitamins, Thera [Multivitamin 1 tab PO DAILY 02/18/24 02/18/24 (formulary)] Previous Rx's Medication Instructions Recorded DULoxetine HCL [Cymbalta] 60 mg PO DAILY 30 Days #30 cap 02/24/24 [place] Carbonate 600 mg PO BID 15 Days #60 cap 02/24/24 Nicotine Gum (Polacrilex) 2 mg BUCCAL Q2HR PRN 30 Days #180 02/24/24 [Nicorette] pieceofgum Paliperidone IM [Invega Sustenna] 156 mg IM ONCE #1 ml 02/24/24 Paliperidone Palmitate [Invega 117 mg IM QMONTHLY #1 each 02/24/24 Sustenna] Paliperidone [Invega] 3 mg PO DAILY 2 Days #2 tab 02/24/24 QUEtiapine [SEROquel] 400 mg PO HS 30 Days #30 tab 02/24/24 hydrOXYzine pamoate [Vistaril] 50 mg PO BID PRN 30 Days #60 cap 02/24/24 rOPINIRole HCL [Requip] 0.5 mg PO HS 30 Days #60 tab 02/24/24 Cyclobenzaprine [Flexeril] 10 mg PO TID PRN #15 tab 04/28/24 Allergies Allergy/AdvReac Type Severity Reaction Status Date / Time haloperidol [From Haldol] AdvReac Body Verified 04/28/24 13:23 Cramps/muscle cramps Review of Systems ROS Other: All systems not noted in ROS Statement are negative. <Clark Miner - Last Filed: 10/19/24 20:38> ROS Other: All systems not noted in ROS Statement are negative. <Shayan Romero - Last Filed: 10/20/24 01:02> ROS Statement: Those systems with pertinent positive or pertinent negative responses have been documented in the HPI. Past Medical History Past Medical History: Asthma, Seizure Disorder Additional Past Medical History / Comment(s): anemia, hx low platelets History of Any Multi-Drug Resistant Organisms: MRSA Date of last positivie culture/infection: 07/03/21 MDRO Source:: [place] Past Surgical History: Tonsillectomy Additional Past Surgical History / Comment(s): left knee surgery Past Anesthesia/Blood Transfusion Reactions: No Reported Reaction Additional Past Anesthesia/Blood Transfusion Reaction / Comment(s): n/a Past Psychological History: Anxiety, Bipolar, Depression, PTSD Smoking Status: Current every day smoker, Vaper Past Alcohol Use History: None Reported Past Drug Use History: None Reported - Past Family History Mother Family Medical History: Hypertension <Clark Miner - Last Filed: 10/19/24 20:38> General Exam Limitations: no limitations <Clark Miner - Last Filed: 10/19/24 20:38> - General Exam Comments Initial Comments: General: Well-appearing, nontoxic, no acute distress. Head: Normocephalic, atraumatic Eyes: PERRLA, EOMI ENT: Airway patent Chest: Nonlabored breathing Skin: No visual rash, normal skin tone, 3 cm left medial forearm laceration with exposed fat tissue Neuro: Alert and oriented 3 Musculoskeletal: No gross abnormalities (Clark Miner) Course Vital Signs 10/19/24 10/19/24 18:50 21:38 Temperature 99.1 F 97.5 F L Pulse Rate 83 65 Respiratory 20 18 Rate Blood Pressure 99/63 O2 Sat by Pulse 98 99 Oximetry Medical Decision Making <Clark Miner - Last Filed: 10/19/24 20:38> <Shayan Romero - Last Filed: 10/20/24 01:02> - Medical Decision Making Was pt. sent in by a medical professional or institution (, PA, CONFIGURATION CONSULTANT, urgent care, hospital, or penitentiary...) When possible be specific @ -No Did you speak to anyone other than the patient for history (EMS, parent, family, police, friend...)? What history was obtained from this source @ -No Did you review nursing and triage notes (agree or disagree)? Why? @ -I reviewed and agree with nursing and triage notes Were old charts reviewed (outside hosp., previous admission, EMS record, old EKG, old radiological studies, urgent care reports/EKG's, penitentiary records)? Report findings @ -No old charts were reviewed Differential Diagnosis (chest pain, altered mental status, abdominal pain women, abdominal pain men, vaginal bleeding, musculoskeletal, weakness, fever, dyspnea, syncope, headache, dizziness, GI bleed, back pain, seizure, CVA, palpatations, mental health)? @ -Differential Mental Health: Depression, anxiety, bipolar, psychosis, schizophrenia, borderline personality, situational depression, adjustment disorder, behavioral disorder, brain tumor, malingering, substance abuse, encephalopathy, medication reaction, dementia, hypothyroidism, degenerative neurologic disorder, lupus.... This is not meant to be all-inclusive list EKG interpreted by me (3pts min.). @ -None done X-rays interpreted by me (1pt min.). @ -None done CT interpreted by me (1pt min.). @ -None done U/S interpreted by me (1pt. min.). @ -None done What testing was considered but not performed or refused? (CT, X-rays, U/S, labs)? Why? @ -None What meds were considered but not given or refused? Why? @ -None Was smoking cessation discussed for >3mins.? @ -No Were there social determinants of health that impacted care today? How? (Homelessness, low income, unemployed, alcoholism, drug addiction, transportation, low edu. Level, literacy, decrease access to med. care, prison, rehab)? @ -No Was there de-escalation of care discussed even if they declined (Discuss DNR or withdrawal of care, Hospice)? DNR status @ -No What co-morbidities impacted this encounter? (DM, HTN, Smoking, COPD, CAD, Cancer, CVA, ARF, Chemo, Hep., AIDS, mental health diagnosis, sleep apnea, morbid obesity)? @ -None Was patient admitted / discharged? Hospital course, mention meds given and route, prescriptions, significant lab abnormalities, going to OR and other pertinent info. @ -44-year-old female suicidal behavior. Vital signs stable she does have a self-inflicted laceration to the left forearm repaired by resident physician, Dr. Tate. Patient will have EPS evaluation. Patient care signed out to oncoming physician for follow-up of EPS recommendations Did you discuss the management of the patient with other professionals (professionals i.e. , PA, CONFIGURATION CONSULTANT, lab, RT, psych nurse, social security specialist, college president, teacher, learning officer, casework manager)? Give summary @ -No Was critical care preformed (if so, how long)? @ -No Undiagnosed new problem with uncertain prognosis? @ -No Drug Therapy requiring intensive monitoring for toxicity (Heparin, Nitro, Insulin, Cardizem)? @ -No Were any procedures done? @ -No Diagnosis/symptom? Acute, or Chronic, or Acute on Chronic? Uncomplicated (without systemic symptoms) or Complicated (systemic symptoms)? @ -Suicidal behavior Side effects of treatment? @ -No Exacerbation, Progression, or Severe Exacerbation? @ -No Poses a threat to life or bodily function? How? (Chest pain, [place], [place], pneumonia, PE, COPD, DKA, ARF, appy, cholecystitis, CVA, Diverticulitis, Homicidal, Suicidal, threat to staff... and all critical care pts) @ -yes (Clark Miner) Patient signed out to me pending results of EPS evaluation. Was medically cleared by previous provider. EPS evaluated the patient and determined that she does not meet inpatient psychiatric arteria. Patient will be admitted to inpatient psychiatry. Diagnosis/symptom? @ -Suicidal behavior Acute, or Chronic, or Acute on Chronic? @ -Acute Uncomplicated (without systemic symptoms) or Complicated (systemic symptoms)? @ -Complicated Side effects of treatment? @ -None Exacerbation, Progression, or Severe Exacerbation] @ -No Poses a threat to life or bodily function? @ -Yes (Shayan Romero) Disposition <Clark Miner - Last Filed: 10/19/24 20:38> <Shayan Romero - Last Filed: 10/20/24 01:02> Clinical Impression: Suicidal ideation Disposition: TRANSFER TO PSYCH HOSP/UNIT Condition: Stable Referrals: Jeffrey Ferguson MD [Primary Care Provider] - 1-2 days
[2024-10-19] MEDS: LIDOCAINE 1%-EPI 1:100,000 20 ML VIAL SQ STA (19:45)
[2024-10-19] MEDS: DIPH,PERTUS(ACELL)TETVAC-LF 0.5 ML VIAL IM ONE (21:03)
[2024-10-20] MEDS ORDERED: MAG HYDROX/AL HYDROX/SIMETH 355 ML BOTTLE PO PRN (05:28)
[2024-10-20] MEDS ORDERED: ACETAMINOPHEN TAB 325 MG TAB PO PRN (05:28)
[2024-10-20] MEDS ORDERED: MAGNESIUM HYDROXIDE 2,400 MG/30 ML CUP PO PRN (05:28)
[2024-10-20] MEDS ORDERED: OLANZapine 5 MG TAB PO PRN (05:28)
[2024-10-20] MEDS ORDERED: OLANZapine 10 MG VIAL IM PRN (05:28)
[2024-10-20] MEDS ORDERED: hydrOXYzine HCL 50 MG/ML 1 ML VIAL IM PRN (05:28)
[2024-10-20] MEDS: NICOTINE 14MG/24HR PATCH TRANSDERM SCH (11:10)
[2024-10-20] MEDS: NICOTINE GUM (POLACRILEX) 2 MG GUM BUCCAL PRN ×2 (11:11→16:57)
[2024-10-20] MEDS: LORazepam 1 MG TAB PO STA (11:17)
--- NOTE | 2024-10-20 14:14 | P.HP ---
Psychiatric H&P - . H&P Date: 10/20/24 History & Physical: Allergies Allergy/AdvReac Type Severity Reaction Status Date / Time haloperidol from Haldol AdvReac Body Verified 10/20/24 09:13 Cramps/muscle cramps Vital Signs Temp 98.0 F 10/20/24 08:11 Pulse 61 10/20/24 08:51 Resp 18 10/20/24 08:51 BP 138/92 10/20/24 08:51 Pulse Ox 98 10/20/24 08:51 FiO2 Intake & Output 10/19/24 10/20/24 10/20/24 18:59 06:59 18:59 Weight 90.718 kg 103.8 kg Laboratory Last Values [place] <0.2 mmol/L 10/20/24 07:16 SARS-CoV-2 (PCR) Not Detected (Not Detectd) 10/20/24 02:32 10/20/24 12:13 IDENTIFYING DATA: Patient is a 44-year-old white female, who is , and lives with her . Has 4 children that do not live with her. Unemployed. Collects disability. HPI: Patient presented to the hospital yesterday and As per EPS nurse note, "Patient presented to ER for suicidal ideation with attempt to cut wrist. Lac repaired with sutures in ER. Patient assessed from [id number]. Patient states she stopped taking her home medications about 1 month ago. Patient states she felt like she was doing better and even improving, and then "all of a sudden I got hit with everything". Patient verbalizes feeling like she wanted to , intrusive thoughts constantly. Patient verbalizes history of OCD, PTSD, Bipolar Disorder. Patient currently seeing [facility] and has been compliant with services. Patient denies access to guns, but stated "If I wanted to I would". Patient verbalizes that she is still feeling suicidal with a plan to cut her wrists "better this time" or overdosing on medications. Patient verbalizes history of multiple suicide attempts but states "it's been awhile" and could not state when last attempt was. Patient states "sometimes" when asked about homicidal ideations, and for target states "that dawood that tried to kill me, but he is currently hiding in [place]". Patient endorses paranoia at this time. Patient denies hallucinations. Patient verbalizes good appetite but poor sleep. Patient states she sleeps "a couple hours" but states she is waking up more than hourly and struggles with nightmares. Patient verbalizes being unable to enjoy anything in life that she used to enjoy. Patient states she does not think she has anything to live for." Patient is seen today and agreeable to speak to fiction and nonfiction prose writer in the office. She needed taking her Ativan dose earlier today for agitation and yelling while on the phone. She claims that she has stopped her medications for about a month now. Claims that she was very depressed reading about the side effects of her medications and claims that she was experiencing side effects including shakiness weight gain and also weakness. She claims that she felt that she was doing well on the medication however was not able to tolerate side effects. Claims that since then she has been feeling more anxious increasing depression increasing anger and mood lability. Claims that she has also been having suicidal thoughts, no specific plan. Claims that she is been having more arguments with her as well. Also has endorsing some paranoia. Claims that she is still having suicidal thoughts however no specific plan. Denies any homicidal ideations at this time. Claims that her sleep has been on and off appetite is been fair. At this time patient denies any auditory or visual hallucinations. Patient denies any flight of ideas racing thoughts and increased in goal directed behavior. Patient admits to using cigarettes. She does claim that she uses Xanax every now and again off the street. Denies any other recreational drug use. PAST PSYCHIATRIC HISTORY: Patient is open with [facility]. She has had multiple psychiatric hospitalizations. Her last admission to this unit was in August 2023. She was previously on Seroquel, Invega, lithium, and several different medications in the past. She alleges that she has been in psychiatric hospital more than 20 times beginning at the age of 22. At [facility] she was involved in a DBT program she has had multiple diagnoses but the most consistent help and substance abuse diagnoses as well as borderline personality disorder. She sees the nurse practitioner at [facility]. Has a history of a residential rehabilitation programs at [place] and [place]. PMH:As per ER note ALLERGIES: as per EMR CHEMICAL DEPENDENCY HISTORY: as per HPI FAMILY PSYCHIATRIC/SUBSTANCE USE HISTORY: Denies SOCIAL HISTORY: Patient was born in [place] and raised in [place]. She lives with her Shahnaz. This is her second marriage. She has 4 children who stay with their biological father or are adults. She receives disability. She attended some college. She reports that she is [employer]. She denies any current legal issues. MENTAL STATUS EXAM: General Appearance: Patient appears to be overweight, short hair, several tattoos, stated age is alert, directable, and attempts to cooperate. Patient appears to have adequate hygiene and grooming. Masculine appearance, dressed casuall Behavior: Patient is seated without any agitated behavior. Attempts to cooperate Speech: Patient's speech is fluent and nonpressured. Mood/Affect: Patient reports their mood is depressed and anxious, affect is congruent and constricted. Suicidality/Homicidality: Patient denies having any homicidal ideation intent or plan. Admits to having suicidal thoughts, no specific plan or intent Perceptions: Patient denies any visual hallucinations and denies any auditory hallucinations Though content/process: [There is no evidence of any delusional thought content and thought process mildly paranoid. Focused on her medications. Memory and concentration: AOX3, grossly intact for the purposes of this session. Can spell "WORLD" backwards Judgment and insight: Poor STRENGTHS/WEAKNESSES: strength is that patient is resilient. Weakness is that patient has poor judgment and is impulsive INTELLECT: Average IMPRESSIONS: Bipolar disorder, current episode depressed Cluster B personality disorder Opiate use disorder, in remission Stimulant use disorder, in remission Nicotine dependence benzodiazipine abuse PLAN: -Patient is admitted under voluntary status to MHU for stabilization of psychiatric symptoms and safety. Patient has signed adult voluntary form and medication consent and is placed in patient's chart. -Medications : Patient is agreeable to try Abilify 5 mg daily for mood stabilization, Effexor XR 37.5 mg daily for mood/anxiety. Requip 0.5 mg nightly for restless leg symptoms, trazodone 50 mg nightly for insomnia. -Ativan and Prolixin PRN for agitation/aggression -Patient was informed of the risks, benefits and side effects of the medication and patient verbally consented to taking the medications. Patient was offered medication information and accepted it. -Internal Medicine consult to perform medical evaluation and physical. -NRT -nicotine patch plus nicotine gum -SW on board for discharge planning. Encourage patient to participate in groups to work on coping skills. 10/20/24 12:14 10/20/24 14:09
[2024-10-20] MEDS ORDERED: LORazepam 2 MG/ML INJ IM PRN (14:15)
[2024-10-20] MEDS ORDERED: flUPHENAZine 2.5 MG/ML (MDV) 10 ML VIAL IM PRN (14:15)
[2024-10-20] MEDS ORDERED: hydrOXYzine pamoate 25 MG CAP PO PRN (14:16)
[2024-10-20] MEDS: ARIPiprazole 5 MG TAB PO SCH (14:51)
[2024-10-20] MEDS: VENLAFAXINE HCL ER 37.5 MG CAP PO SCH (14:51)
[2024-10-20] MEDS: LORazepam 1 MG TAB PO PRN (18:19)
[2024-10-20] MEDS: traZODone HCL 50 MG TAB PO SCH (21:22)
[2024-10-20] MEDS: IBUPROFEN 600 MG TAB PO PRN (21:43)
[2024-10-21] MEDS ORDERED: ONDANSETRON ODT 8 MG TAB.RAPDIS PO PRN (09:27)
[2024-10-21] MEDS ORDERED: tiZANidine 4 MG TAB PO PRN (09:30)
--- NOTE | 2024-10-21 09:50 | P.PN ---
Progress Note - Text Progress Note Date: 10/21/24 Interval history: [facility] agreeable to speak to copywriter. Claims that she is still having some mood instability, claims that her depression has improved mildly since yesterday. States that she was feeling a bit nauseous from the medications however does not know which one. She was agreeable to try Zofran as needed for nausea. Claims that she had some difficulty sleeping last night and was agreeable to try an increased dose of trazodone. Claims that it was likely not related to restless leg symptoms. We went over other options for sleeping aids however she is agreeable to continue on trazodone. She also states that she would like to have her home medications restarted, they were reviewed and reordered for today. Patient appears to be more pleasant today and more directable during conversation. Claims that she is going to groups. She is claiming that she is not having any auditory or visual hallucinations however is "hearing my own thoughts". She denies any suicidal or homicidal ideations intent or plan. MENTAL STATUS EXAM: General Appearance: Patient appears to be overweight, short hair, several tattoos, stated age is alert, directable, and attempts to cooperate. Patient appears to have adequate hygiene and grooming. Masculine appearance, dressed casually Behavior: Patient is seated without any agitated behavior. Attempts to cooperate, improving Speech: Patient's speech is fluent and nonpressured. Mood/Affect: Patient reports their mood is depressed and anxious, improving mildly, affect is congruent Suicidality/Homicidality: Patient denies having any homicidal ideation intent or plan. denies having any suicidal thoughts, no specific plan or intent Perceptions: Patient denies any visual hallucinations and denies any auditory hallucinations Though content/process: There is no evidence of any delusional thought content. denies any paranoia today. Focused on her medications. Memory and concentration: AOX3, grossly intact for the purposes of this session Judgment and insight: Poor, improving mildly IMPRESSIONS: Bipolar disorder, current episode depressed Cluster B personality disorder Opiate use disorder, in remission Stimulant use disorder, in remission Nicotine dependence benzodiazipine abuse PLAN: -Patient is admitted under voluntary status to MHU for stabilization of psychiatric symptoms and safety. Patient has signed adult voluntary form and medication consent and is placed in patient's chart. -Medications : increase Abilify 7.5 mg daily for mood stabilization, Effexor XR 37.5 mg daily for mood/anxiety. Requip 0.5 mg nightly for restless leg symptoms, increase trazodone 100 mg nightly for insomnia. -Ativan and Prolixin PRN for agitation/aggression -zofran prn for nausea, neurontin and zanaflex reordered for pain. -NRT -nicotine patch plus nicotine gum -SW on board for discharge planning. Encourage patient to participate in groups to work on coping skills. hopeful for discharge early next week if patient is improving psychiatrically.
[2024-10-21] MEDS: GABAPENTIN 300 MG CAP PO SCH (10:00)
[2024-10-21] MEDS: PANTOPRAZOLE 40 MG TABLET PO SCH (10:00)
[2024-10-21] MEDS: ZIPRASIDONE 20 MG VIAL IM STA (11:43)
[2024-10-21] MEDS: LORazepam 1 MG TAB PO STA (11:44)
[2024-10-21] MEDS ORDERED: MELATONIN 3 MG TABLET PO SCH (21:00)
[2024-10-21] MEDS: traZODone HCL 100 MG TAB PO SCH (21:32)
[2024-10-21] MEDS: MELATONIN 5 MG TABLET PO SCH (21:32)
--- NOTE | 2024-10-22 05:22 | P.MDCNMH ---
History of Present Illness H&P Date: 10/22/24 44-year-old female with history of intermittent asthma and anemia Patient coming in for mental health evaluation due to suicidal ideation The patient currently denies any medical concerns , denies any fever, chills, cough, sore throat, chest pain , trouble breathing , nausea , vomiting, abd pain , changes in urinary or bowel habits. Patient admits to tobacco smoking denies any illicit drugs or alcohol review of systems Pertinent positives as noted in HPI. All other systems were reviewed and are negative on exam Constitutional: No acute distress Eyes: Anicteric sclerae, moist conjunctiva, Pupils equal round reactive to light Lungs: Clear to auscultation Clear to percussion Normal respiratory effort, no accessory muscle use Cardiovascular: Heart regular in rate and rhythm, No murmurs, gallops, or rubs No peripheral edema Abdominal: Soft Nontender, no guarding, rebound or rigidity Abdomen moving with respiration Normoactive bowel sounds Extremities: Left forearm with healing sutured cut no swelling no bruising no surrounding erythema no tenderness palpation No clubbing Pedal pulses intact and symmetrical Radial pulses intact and symmetrical No calf tenderness Psychiatric: Alert and oriented to person, place and time Neuro Muscles Strength 5/5 in all 4 extremities Sensation to light touch grossly present throughout Assessment and plan Self-inflicted wound status post suturing Local wound care Healing properly for now Remove stitches in 7 to 10 days GERD Continue with Protonix Tobacco smoking Spent 5 minutes counseling patient to quit smoking Intermittent asthma As needed albuterol inhaler for shortness of breath No labs to review COVID-negative Stable from medical standpoint Thank you for this consultation Past Medical History Past Medical History: Asthma, Seizure Disorder Additional Past Medical History / Comment(s): anemia, hx low platelets History of Any Multi-Drug Resistant Organisms: MRSA Date of last positivie culture/infection: 07/03/21 MDRO Source:: [place] Past Surgical History: Tonsillectomy Additional Past Surgical History / Comment(s): left knee surgery Past Anesthesia/Blood Transfusion Reactions: No Reported Reaction Additional Past Anesthesia/Blood Transfusion Reaction / Comment(s): n/a Past Psychological History: Anxiety, Bipolar, Depression, PTSD Smoking Status: Current every day smoker, Vaper Past Alcohol Use History: None Reported Past Drug Use History: None Reported - Past Family History Mother Family Medical History: Hypertension Medications and Allergies Home Medications Medication Instructions Recorded Confirmed Type DULoxetine HCL [Cymbalta] 60 mg PO BID 10/20/24 10/20/24 History Gabapentin 600 mg PO TID 10/20/24 10/20/24 History [place] Carbonate 300 mg PO BID 10/20/24 10/20/24 History [place] Carbonate 600 mg PO BID 10/20/24 10/20/24 History Paliperidone [Invega] 9 mg PO DAILY 10/20/24 10/20/24 History Pantoprazole Sodium [Protonix] 40 mg PO DAILY 10/20/24 10/20/24 History Phentermine HCl [Adipex-P] 37.5 mg PO DAILY 10/20/24 10/20/24 History QUEtiapine [SEROquel] 50 mg PO HS 10/20/24 10/20/24 History hydrOXYzine pamoate [Vistaril] 50 mg PO BID PRN 10/20/24 10/20/24 History rOPINIRole HCL [Requip] 0.25 mg PO BID PRN 10/20/24 10/20/24 History tiZANidine [Zanaflex] 4 mg PO BID PRN 10/20/24 10/20/24 History Allergies Allergy/AdvReac Type Severity Reaction Status Date / Time haloperidol [From Haldol] AdvReac Body Verified 10/20/24 09:13 Cramps/muscle cramps Physical Exam Vitals: Vital Signs Temp Pulse Resp BP Pulse Ox 10/21/24 21:00 97.8 F 83 16 134/82 100 10/21/24 09:00 97.0 F L 93 16 115/83 97 Cranial Nerve Examination - Cranial Nerves Cranial Nerve II- Optic: Intact Cranial Nerve III- Oculomotor: Intact Cranial Nerve IV- Trochlear: Intact Cranial Nerve V- Trigeminal: Intact Cranial Nerve - Abducens: Intact Cranial Nerve VII- Facial: Intact Cranial Nerve VIII- Auditory: Intact Cranial Nerve IX- Glossopharyngeal: Intact Cranial Nerve X- Vagus: Intact Cranial Nerve XI- Accessory: Intact Cranial Nerve XII- Hypoglossal: Intact
[2024-10-22] MEDS: ARIPiprazole 15 MG TAB PO SCH (08:41)
--- NOTE | 2024-10-22 12:20 | P.PN ---
Progress Note - Text Progress Note Date: 10/22/24 Interval history: Patient was seen today in the lounge and also doing activities with others. P ceferino was agreeable to speak to card writer hand in the office today. She appeared to be fairly directable, was questioning why she needs these medications to begin with. Claims that she fears several different side effects despite having any side effects at this time. She was agreeable to continue on with medications at this time we reviewed the benefits and potential risks of being off medications. She claims that her mood is more stable, claims that she has been provoked since yesterday by the patient who has been targeting her on the unit. Claims that she slept about for 5 hours last night. Does claim that she feels a bit tired in the morning likely after taking the Abilify. Patient appears to be more pleasant today and more directable during conversation. Claims that she is going to groups. Improvement in appetite. Denies any auditory or visual hallucinations. She denies any suicidal or homicidal ideations intent or plan. MENTAL STATUS EXAM: General Appearance: Patient appears to be overweight, short hair, several tattoos, stated age is alert, directable, and attempts to cooperate. Patient appears to have adequate hygiene and grooming. Masculine appearance, dressed casually Behavior: Patient is seated without any agitated behavior. Attempts to cooperate, improving Speech: Patient's speech is fluent and nonpressured. Mood/Affect: Patient reports their mood improving mildly, affect is congruent Suicidality/Homicidality: Patient denies having any homicidal ideation intent or plan. denies having any suicidal thoughts, no specific plan or intent Perceptions: Patient denies any visual hallucinations and denies any auditory hallucinations Though content/process: There is no evidence of any delusional thought content. denies any paranoia today. Focused on her medications. Memory and concentration: AOX3, grossly intact for the purposes of this session Judgment and insight: Poor, improving mildly IMPRESSIONS: Bipolar disorder, current episode depressed Cluster B personality disorder Opiate use disorder, in remission Stimulant use disorder, in remission Nicotine dependence benzodiazipine abuse PLAN: -Patient is admitted under voluntary status to MHU for stabilization of psychiatric symptoms and safety. Patient has signed adult voluntary form and medication consent and is placed in patient's chart. -Medications : change Abilify 7.5 mg qhs for mood stabilization/agitation, Effexor XR 37.5 mg daily for mood/anxiety. Requip 0.5 mg nightly for restless leg symptoms, trazodone 100 mg nightly for insomnia, can consider increasing this over the weekend if needed. -Ativan and Prolixin PRN for agitation/aggression -zofran prn for nausea, neurontin and zanaflex for pain. -NRT -nicotine patch plus nicotine gum -SW on board for discharge planning. Encourage patient to participate in groups to work on coping skills. hopeful for discharge friday if patient is improving psychiatrically.
[2024-10-22] MEDS: ARIPiprazole 5 MG TAB PO ONE (20:35)
[2024-10-22] MEDS: hydrOXYzine HCL 25 MG TAB PO PRN (21:56)
--- NOTE | 2024-10-23 12:31 | P.PN ---
Progress Note - Text Progress Note Date: 10/23/24 Dictation was produced using [employer] dictation software. Please excuse any grammatical, word or spelling errors. Interval history: Patient was seen in the hallway and was directable and agreeable to speak with the teletypewriter operator in the office for psychiatric follow-up. The patient states that she is feeling a little down, and wierd, states that she is planning on going without medications, unless she find something without any side effects, states that she had the Abilify last night and she had hard time sleeping. States that her mood is "okay." She admitted to moderate depression and anxiety which she rated at 8/10, and 7/10 respectively. Denied any current SI/HI or self harm. Admitted to good appetite. She denied any current AVH, states that she used to have AVH prior to this hospitalization. Reported that her sleep was not great however it is reported that 6 hours per night. She has been complaint with her medications, and reported that she does not like the medications. States that she has an inflammation in between her thighs and it hurt at time. MENTAL STATUS EXAM: General Appearance: Patient appears to be overweight, short hair, several tattoos, stated age is alert, directable, and attempts to cooperate. Patient appears to have adequate hygiene and grooming. Masculine appearance, dressed casually Behavior: Patient is seated without any agitated behavior. Attempts to cooperate, improving Speech: Patient's speech is fluent and nonpressured. Mood/Affect: Patient reports their mood improving mildly, affect is congruent Suicidality/Homicidality: Patient denies having any homicidal ideation intent or plan. denies having any suicidal thoughts, no specific plan or intent Perceptions: Patient denies any visual hallucinations and denies any auditory hallucinations Though content/process: There is no evidence of any delusional thought content. denies any paranoia today. Focused on her medications. Memory and concentration: AOX3, grossly intact for the purposes of this session Judgment and insight: Poor, improving mildly IMPRESSIONS: Bipolar disorder, current episode depressed Cluster B personality disorder Opiate use disorder, in remission Stimulant use disorder, in remission Nicotine dependence benzodiazipine abuse Assessment/Plan: Continue with current diagnosis. Patient continues to meet criteria for inpatient psychiatric admission for symptom stabilization and safety. Patient will be maintained on current psychotropic medication regimen which include Abilify 7.5 mg at bedtime, first dose tonight 10/23, Effexor XR 37.5 mg p.o. daily, Requip 0.5 mg p.o. at bedtime, and trazodone 100 mg p.o. at bedtime. The patient requested to switch Abilify back to the morning however was asked to keep trying 1 more night prior to deciding on switching to the morning. Will continue to monitor for medication compliance and for any psychotropic medication side effects, patient denied any current side effects, denied any muscle stiffness, rigidity, abnormal movement, or drooling. Patient reported pain and inflammation between her thighs, will ask internal medicine to assess. Will continue to monitor ongoing response to treatment. Encouraged participation in milieu.
[2024-10-23] MEDS: ZINC OXIDE PASTE (Z-GUARD) 1 APPLIC TOPICAL PRN (19:14)
[2024-10-23] MEDS: ARIPiprazole 15 MG TAB PO SCH (21:11)
--- NOTE | 2024-10-24 09:02 | P.PN ---
Progress Note - Text Progress Note Date: 10/24/24 Dictation was produced using [employer] dictation software. Please excuse any grammatical, word or spelling errors. Interval history: Patient was seen in the hallway and was directable and agreeable to speak with the engineering technical writer in the office for psychiatric follow-up. The patient states that she is tired today, states that she has been hearing voices of her , her voices was telling her that she is worthless, states that it started last night, states that she started to hear voices when she was in shelter few years ago, as well as paranoia. She denied any VH. States that her sleep was not that great, It is reported that patient slept 2 hours overnight. States that her mood is "okay," states that depression and anxiety are at the moderate side, she rated both at 7/10, she reported that she had fleeting suicidal thoughts last night however denied any intention or plan. She admitted to good appetite. She has been taking her medications, she reported that she would like to take the Abilify in the morning. She has no other concerns at this time. MENTAL STATUS EXAM: General Appearance: Patient appears to be overweight, short hair, several tattoos, stated age is alert, directable, and attempts to cooperate. Patient appears to have adequate hygiene and grooming. Masculine appearance, dressed casually Behavior: Patient is seated without any agitated behavior. Attempts to cooperate, improving Speech: Patient's speech is fluent and nonpressured. Mood/Affect: Patient reports their mood improving mildly, affect is congruent Suicidality/Homicidality: Patient denies having any homicidal ideation intent or plan. denies having any suicidal thoughts, no specific plan or intent Perceptions: Patient denies any visual hallucinations and she reported auditory hallucinations of hearing her voice last night Though content/process: There is no evidence of any delusional thought content. denies any paranoia today. Focused on her medications. Memory and concentration: AOX3, grossly intact for the purposes of this session Judgment and insight: Poor, improving mildly IMPRESSIONS: Bipolar disorder, current episode depressed Cluster B personality disorder Opiate use disorder, in remission Stimulant use disorder, in remission Nicotine dependence benzodiazipine abuse Assessment/Plan: Continue with current diagnosis. Patient continues to meet criteria for inpatient psychiatric admission for symptom stabilization and safety. Patient will be maintained on current psychotropic medication regimen with a plan to switch Abilify 7.5 mg at bedtime to the morning, may consider increase the dose over pending the pt toleration, will continue with Effexor XR 37.5 mg p.o. daily, Requip 0.5 mg p.o. at bedtime, and trazodone 100 mg p.o. at bedtime. Will continue to monitor for medication compliance and for any psychotropic medication side effects, patient denied any current side effects, denied any muscle stiffness, rigidity, abnormal movement, or drooling. Patient reported pain and inflammation between her thighs, will ask internal medicine to assess. Will continue to monitor ongoing response to treatment. Encouraged participation in milieu.
[2024-10-24] MEDS: ARIPiprazole 15 MG TAB PO SCH (13:03)
--- NOTE | 2024-10-25 11:53 | P.PN ---
Progress Note - Text Progress Note Date: 10/25/24 Interval history: [place] [facility] [place]. Patient was agreeable to speak to specifications writer in the office today. Patient claims that she did not have a good weekend, claims that she was starting to feel side effects from the Abilify claims that it was making her "hallucinate" and claims that she was hearing more voices, urinary things. Claims that her anxiety level is also fairly elevated. Anxiety was switched from nighttime today because it w as also affecting her sleep. Claims that the medication she believes she is tolerating fairly well. Claims that she did sleep better last night as she did not have to take at nighttime. Claims that she is feeling less restless at nighttime. Claims that she was having suicidal thoughts earlier today. Denied any specific plan. Claims that she has been eating well. We spoke about other options including Geodon and Trilafon she claims that she is willing to try the Geodon due to its better side effect profile. Claims that she also twisted her knee over the weekend and claims that she is still feeling quite a bit of pain, requested to have an x-ray. Claims that she is going to groups. Improvement in appetite. Denies any auditory or visual hallucinations. She denies any suicidal or homicidal ideations intent or plan. MENTAL STATUS EXAM: General Appearance: Patient appears to be overweight, short hair, several tattoos, stated age is alert, directable, and attempts to cooperate. Patient appears to have adequate hygiene and grooming. Masculine appearance, dressed casually Behavior: Patient is seated without any agitated behavior. Attempts to cooperate, appears to be somewhat frustrated today and depressed Speech: Patient's speech is fluent and nonpressured. Mood/Affect: Patient reports their mood endorsing depression and anxiety, affect is congruent Suicidality/Homicidality: Patient denies having any homicidal ideation intent or plan. admits to having suicidal thoughts earlier today, no specific plan or intent Perceptions: Patient denies any visual hallucinations and denies any auditory hallucinations Though content/process: There is no evidence of any delusional thought content. denies any paranoia today. Focused on her medications. Memory and concentration: AOX3, grossly intact for the purposes of this session Judgment and insight: Poor, improving mildly IMPRESSIONS: Bipolar disorder, current episode depressed Cluster B personality disorder Opiate use disorder, in remission Stimulant use disorder, in remission Nicotine dependence benzodiazipine abuse PLAN: -Patient is admitted under voluntary status to [facility] for stabilization of psychiatric symptoms and safety. Patient has signed adult voluntary form and medication consent and is placed in patient's chart. -Medications : Discontinue Abilify due to intolerance/side effects and replace with Geodon 20 mg twice daily for mood stabilization/psychosis. Effexor XR 37.5 mg daily for mood/anxiety. Requip 0.5 mg nightly for restless leg symptoms, decrease trazodone 50 mg nightly for insomnia. -Ordered left knee x-ray due to twisting injury over the weekend, will check UA and also ordered EKG for today. -Ativan and Prolixin PRN for agitation/aggression -zofran prn for nausea, neurontin and zanaflex for pain. -NRT -nicotine patch plus nicotine gum -SW on board for discharge planning. Encourage patient to participate in groups to work on coping skills. hopeful for discharge in the next few days if patient is improving psychiatrically.
[2024-10-25] MEDS: ZIPRASIDONE 20 MG CAP PO SCH (12:56)
--- NOTE | 2024-10-25 14:40 | XR ---
EXAMINATION TYPE: XR knee complete LT DATE OF EXAM: 10/25/2024 CLINICAL INDICATION: Female, 44 years old with history of knee injury, twisted, pain TECHNIQUE: Frontal, lateral, and oblique views of the knee were obtained. COMPARISON: Left knee x-ray December 25, 2011. FINDINGS: There is no acute fracture/dislocation evident in the left knee. Mild to moderate narrowin g medial tibiofemoral compartment. No significant spurring. The overlying soft tissue appears unrema rkable. IMPRESSION: As above. [facility], , 10/25/2024 2:37 PM
[2024-10-25 19:21] LABS: Appearance,Urine Cloudy (Clear); Bilirubin,Urine Negative (Negative); Blood,Urine Negative (Negative); Color,Urine Light Yellow; Glucose,Urine (UA) Negative (Negative); Ketones,Urine Negative (Negative); Leukocyte Esterase,Urine Negative (Negative); Nitrite,Urine Negative (Negative); PH, Urine 6.5 (5.0-8.0); Protein,Urine Negative (Negative); RBC,Urine 2 /hpf (0-5); Specific Gravity,Urine 1.017 (1.001-1.035); Squamous Epithelial Cell,Urine 4 /hpf (0-4); Urobilinogen,Urine <2.0 mg/dL (<2.0); WBC,Urine 3 /hpf (0-5)
[2024-10-25] MEDS: traZODone HCL 50 MG TAB PO SCH (20:31)
[2024-10-26] MEDS: ZIPRASIDONE 40 MG CAP PO SCH (10:15)
--- NOTE | 2024-10-26 10:21 | P.PN ---
Progress Note - Text Progress Note Date: 10/26/24 Interval history: Patient was seen today wandering the hallways. Patient was agreeable to speak to chief writer in the office today. Patient claims that she is doing a bit better today with regards to her mood stability and also her anxiety. Claims that she is taking the Geodon and did not report any side effects at this time. Claims that she was having restlessness with Seroquel and trazodone at nighttime and also in the morning. We spoke about the different side effects of the medications and antipsychotics. She has further questions about her medications which were answered. She was agreeable to have the Geodon increased, still has not got her EKG completed today. Reviewed the urinalysis and also knee x-ray results with her. Claims that she has tried to go to groups, appears to be more cooperative today. Improvement in appetite. Denies any auditory or visual hallucinations. Claims that her suicidal thoughts are improving since yesterday, he denies any homicidal ideations intent or plan. MENTAL STATUS EXAM: General Appearance: Patient appears to be overweight, short hair, several tattoos, stated age is alert, directable, and attempts to cooperate. Patient appears to have adequate hygiene and grooming. Masculine appearance, dressed casually Behavior: Patient is seated without any agitated behavior. Attempts to cooperate, appears to be less frustrated. Speech: Patient's speech is fluent and nonpressured. Mood/Affect: Patient reports their mood endorsing depression and anxiety, improving, affect is congruent Suicidality/Homicidality: Patient denies having any homicidal ideation intent or plan. Admits to improving suicidal thoughts, no specific plan or intent Perceptions: Patient denies any visual hallucinations and denies any auditory hallucinations Though content/process: There is no evidence of any delusional thought content. denies any paranoia today. Focused on her medications. Memory and concentration: AOX3, grossly intact for the purposes of this session Judgment and insight: Poor, improving mildly IMPRESSIONS: Bipolar disorder, current episode depressed Cluster B personality disorder Opiate use disorder, in remission Stimulant use disorder, in remission Nicotine dependence benzodiazipine abuse PLAN: -Patient is admitted under voluntary status to [facility] for stabilization of psychiatric symptoms and safety. Patient has signed adult voluntary form and medication consent and is placed in patient's chart. -Medications : Increase Geodon 40 mg twice daily for mood stabilization/psychosis. Effexor XR 37.5 mg daily for mood/anxiety. Requip 0.5 mg nightly for restless leg symptoms, trazodone 50 mg nightly for insomnia. -Reviewed results of left knee x-ray and UA. Still awaiting EKG to be completed. -Ativan and Prolixin PRN for agitation/aggression -zofran prn for nausea, neurontin and zanaflex for pain. -NRT -nicotine patch plus nicotine gum -SW on board for discharge planning. Encourage patient to participate in groups to work on coping skills. hopeful for discharge in the next 2-3 days if patient is improving psychiatrically.
[2024-10-27] MEDS: VENLAFAXINE HCL ER 37.5 MG CAP PO STA (10:43)
[2024-10-27] MEDS ORDERED: ZINC OXIDE PASTE (Z-GUARD) 1 APPLIC TOPICAL PRN (10:54)
--- NOTE | 2024-10-27 11:17 | P.PN ---
Progress Note - Text Progress Note Date: 10/27/24 Interval history: Patient was seen today wandering the hallways. Patient was agreeable to speak to card writer hand in the office today. Patient claims that she is doing a bit better today, however did state that yesterday she woke up at night and was hallucinating. Claims that she took a Prolixin as needed. Also has been taking Ativan as needed for anxiety. States that she was upset because the Geodon was given to her around 5:00 with her meal. She claims that she would like to take it at nighttime with her other medications, this was adjusted today. Also was agreeable to have her Effexor increased to 75 mg daily. States that she did have difficulty sleeping last night was okay to have her trazodone increased. States that she has been trying to go to groups states that she is feeling a bit better overall, hopeful for discharge tomorrow. Improvement in appetite. Denies any current auditory or visual hallucinations. Claims that her suicidal thoughts are improving since yesterday, he denies any homicidal ideations intent or plan. MENTAL STATUS EXAM: General Appearance: Patient appears to be overweight, short hair, several tattoos, stated age is alert, directable, and attempts to cooperate. Patient appears to have adequate hygiene and grooming. Masculine appearance, dressed casually Behavior: Patient is seated without any agitated behavior. Attempts to cooperate Speech: Patient's speech is fluent and nonpressured. Mood/Affect: Patient reports their mood improving, affect is congruent and improving Suicidality/Homicidality: Patient denies having any homicidal ideation intent or plan. Improving suicidal thoughts, no specific plan or intent Perceptions: Patient denies any visual hallucinations and denies any auditory hallucinations Though content/process: There is no evidence of any delusional thought content. denies any paranoia today. Focused on her medications. Memory and concentration: AOX3, grossly intact for the purposes of this session Judgment and insight: improving mildly IMPRESSIONS: Bipolar disorder, current episode depressed Cluster B personality disorder Opiate use disorder, in remission Stimulant use disorder, in remission Nicotine dependence benzodiazipine abuse PLAN: -Patient is admitted under voluntary status to [facility] for stabilization of psychiatric symptoms and safety. Patient has signed adult voluntary form and medication consent and is placed in patient's chart. -Medications : change to Geodon 40 mg twice daily for mood stabili zation/psychosis. increase Effexor XR 75 mg daily for mood/anxiety. Requip 0.5 mg nightly for restless leg symptoms, increase trazodone 100 mg nightly for insomnia. -Ativan and Prolixin PRN for agitation/aggression -zofran prn for nausea, neurontin and zanaflex for pain. -NRT -nicotine patch plus nicotine gum -SW on board for discharge planning. Encourage patient to participate in groups to work on coping skills. hopeful for discharge tomorrow vs friday if patient is improving psychiatrically.
[2024-10-27] MEDS: ZIPRASIDONE 40 MG CAP PO SCH (20:08)
[2024-10-27] MEDS: traZODone HCL 100 MG TAB PO SCH (20:09)
[2024-10-28] MEDS: VENLAFAXINE HCL ER 75 MG CAP PO SCH (08:22)
--- NOTE | 2024-10-28 10:11 | P.DS ---
Providers Date of admission: 10/20/24 04:50 Expected date of discharge: 10/28/24 Attending physician: Ajay Ann MD Consults: 10/20/24 05:28 Consult Physician Routine Consulting Provider: Jamarcus Shipman Consult Reason/Comments: Medical managment Do you want consulting provider notified?: Yes Primary care physician: Jeffrey Ferguson MD - Discharge Diagnosis(es) (1) Bipolar disorder current episode depressed Current Visit: Yes Status: Acute Priority: High (2) Cluster B personality disorder Current Visit: Yes Status: Acute Priority: High (3) Opioid use disorder, mild, in sustained remission Current Visit: Yes Status: Acute Priority: Medium (4) Nicotine dependence Current Visit: Yes Status: Acute Priority: Low (5) Benzodiazepine abuse Current Visit: Yes Status: Acute Hospital Course: Admission HPI: Admission note was completed by publications writer "Patient is a 44-year-old white female, who is , and lives with her . Has 4 children that do not live with her. Unemployed. Collects disability. Patient presented to the hospital yesterday and As per EPS nurse note, "Patient presented to ER for suicidal ideation with attempt to cut wrist. Lac repaired with sutures in ER. Patient assessed from [id number]. Patient states she stopped taking her home medications about 1 month ago. Patient states she felt like she was doing better and even improving, and then "all of a sudden I got hit with everything". Patient verbalizes feeling like she wanted to , intrusive thoughts constantly. Patient verbalizes history of OCD, PTSD, Bipolar Disorder. Patient currently seeing [facility] and has been compliant with services. Patient denies access to guns, but stated "If I wanted to I would". Patient verbalizes that she is still feeling suicidal with a plan to cut her wrists "better this time" or overdosing on medications. Patient verbalizes history of multiple suicide attempts but states "it's been awhile" and could not state when last attempt was. Patient states "sometimes" when asked about homicidal ideations, and for target states "that dawood that tried to kill me, but he is currently hiding in [place]". Patient endorses paranoia at this time. Patient denies hallucinations. Patient verbalizes good appetite but poor sleep. Patient states she sleeps "a couple hours" but states she is waking up more than hourly and struggles with nightmares. Patient verbalizes being unable to enjoy anything in life that she used to enjoy. Patient states she does not think she has anything to live for." Patient is seen today and agreeable to speak to publications writer in the office. She needed taking her Ativan dose earlier today for agitation and yelling while on the phone. She claims that she has stopped her medications for about a month now. Claims that she was very depressed reading about the side effects of her medications and claims that she was experiencing side effects including shakiness weight gain and also weakness. She claims that she felt that she was doing well on the medication however was not able to tolerate side effects. Claims that since then she has been feeling more anxious increasing depression increasing anger and mood lability. Claims that she has also been having suicidal thoughts, no specific plan. Claims that she is been having more arguments with her as well. Also has endorsing some paranoia. Claims that she is still having suicidal thoughts however no specific plan. Denies any homicidal ideations at this time. Claims that her sleep has been on and off appetite is been fair. At this time patient denies any auditory or visual hallucinations. Patient denies any flight of ideas racing thoughts and increased in goal directed behavior. Patient admits to using cigarettes. She does claim that she uses Xanax every now and again off the street. Denies any other recreational drug use." Hospital course: Upon admission to the unit patient was directable and agreeable to commence treatment and signed adult voluntary form. Patient was initially intrusive agitated, however with time and treatment patient got along well with other patients on the unit and followed unit protocol. Patient was compliant with the medications and denied any side effects throughout hospital course. Patient was started on Geodon increased to a dose of 40 mg twice daily for mood stabilization/psychosis, Effexor increased to 75 mg daily for mood/anxiety, Requip 0.5 mg nightly for restless leg symptoms, trazodone 150 mg nightly for insomnia/mood, Vistaril as needed for anxiety/sleep. Patient spoke of her stressors and engaged in therapy both group/activity therapy. Patient was also seen by medical team for history and physical exam. Throughout the course of the hospitalization patient gradually improved with regards to mood, anxiety, sleep and returned back to their baseline level of functioning. On the day of discharge patient denied any suicidal or homicidal ideations intent or plan denied any auditory or visual hallucinations. Patient endorsed wanting to live for their health and family. The patient denied any access to guns or weapons. Patient denied any paranoia and did not endorse any delusions. Patient does have a significant history of substance abuse and was counseled on abstaining from all substances including alcohol and marijuana. Patient elected to do outpatient substance use treatment program through their outpatient provider. Patient was also counseled on the medications and need for regular compliance and was encouraged to follow-up with their outpatient appointment for mental health and also for primary care. Prior to discharge a family meeting will be arranged by social work assistant to answer any questions and ensure safety upon discharge incuding making sure that guns/weapons are either removed from the home or locked away. Mental status exam: General Appearance: Patient appears to be overweight, short hair, wearing glas ses, stated age is alert, pleasant, and cooperative. Patient is in no acute distress and has improved hygiene and grooming Behavior: Patient is calmly seated without any agitated behavior. Speech: Patient's speech is fluent and nonpressured. Mood/Affect: Patient reports their mood is "good", affect is congruent and euthymic. Suicidality/Homicidality: Patient denies having any suicidal or homicidal ideation intent or plan. Perceptions: Patient denies any auditory or visual hallucinations. Though content/process: There is no evidence of any delusional thought content and thought process is linear and goal-directed. More future oriented Memory and concentration: AOX3, grossly intact for the purposes of this session. Can spell "WORLD" backwards correctly. Judgment and insight: Chronically poor, however has improved with guarded prognosis Impression: Bipolar disorder, current episode depressed Cluster B personality disorder Opioid use disorder, in sustained remission Benzodiazepine abuse Nicotine dependence Plan: -Continue with discharge today as patient has improved and stabilized psychiatrically and is not currently an imminent threat to themself and/or others. Patient will remain at chronically elevated risk for harm to self and/or others due to their impulsivity . -Continue medications: Geodon 40 mg twice daily for mood stabilization/psychosis, Effexor 75 mg daily for mood/anxiety, Requip 0.5 mg nightly for restless leg symptoms, trazodone 150 mg nightly for insomnia/mood, Vistaril 50 mg nightly as needed for insomnia/anxiety -Patient was counseled on the need for medication compliance and appropriate follow-up at mental health and also primary care for medical issues. Patient verbalized understanding and agreed. -Social work to help coordinate patients discharge today. also to ensure safe home environment that guns/weapons are either removed from the home or locked away. Social work also to arrange for patients follow up appointments with [facility] for psychiatric care along with follow up with primary care provider. -Patient counseled on abstaining from recreational drugs and marijuana and alcohol. Was informed/educated on the adverse effects on their physical and mental health. Patient verbally agreed and understood. -Patient was instructed to return to the hospital or seek immediate medical care if their psychiatric or medical symptoms do worsen or reoccur. Allergies Allergy/AdvReac Type Severity Reaction Status Date / Time haloperidol [From Haldol] AdvReac Body Verified 10/20/24 09:13 Cramps/muscle cramps Laboratory Results Urine Color Light Yellow 10/25/24 18:45 Urine Appearance Cloudy (Clear) H 10/25/24 18:45 Urine pH 6.5 (5.0-8.0) 10/25/24 18:45 Ur Specific [place] 1.017 (1.001-1.035) 10/25/24 18:45 Urine Protein Negative (Negative) 10/25/24 18:45 Urine Glucose (UA) Negative (Negative) 10/25/24 18:45 Urine Ketones Negative (Negative) 10/25/24 18:45 Urine Blood Negative (Negative) 10/25/24 18:45 Urine Nitrite Negative (Negative) 10/25/24 18:45 Urine Bilirubin Negative (Negative) 10/25/24 18:45 Urine Urobilinogen <2.0 mg/dL (<2.0) 10/25/24 18:45 Ur Leukocyte Esterase Negative (Negative) 10/25/24 18:45 Urine RBC 2 /hpf (0-5) 10/25/24 18:45 Urine WBC 3 /hpf (0-5) 10/25/24 18:45 Ur Squamous Epith Cells 4 /hpf (0-4) 10/25/24 18:45 [place] <0.2 mmol/L 10/20/24 07:16 SARS-CoV-2 (PCR) Not Detected (Not Detectd) 10/20/24 02:32 Vital Signs Temp 98.7 F 10/27/24 22:06 Pulse 81 10/27/24 22:06 Resp 18 10/27/24 22:06 BP 127/68 10/27/24 22:06 Pulse Ox 97 10/27/24 22:06 FiO2 Patient Condition at Discharge: Stable Plan - Discharge Summary Discharge Rx Participant: No New Discharge Prescriptions: New Venlafaxine HCl ER [Effexor XR] 75 mg PO DAILY 30 Days #30 cap Ziprasidone [Geodon] 40 mg PO BID 30 Days #60 cap Melatonin 10 mg PO HS 30 Days #60 tab rOPINIRole HCL [Requip] 0.5 mg PO HS 30 Days #60 tab hydrOXYzine pamoate [Vistaril] 50 mg PO HS PRN #60 cap PRN Reason: Anxiety/insomnia Ibuprofen [Motrin] 600 mg PO Q6HR PRN tab PRN Reason: Moderate Pain (Scale 4 To 6) Nicotine Gum (Polacrilex) [Nicorette] 2 mg BUCCAL Q4HR PRN 30 Days #180 pieceofgum PRN Reason: Nicotine Cravings traZODone HCL 150 mg PO HS 30 Days #30 tablet Continue tiZANidine [Zanaflex] 4 mg PO BID PRN PRN Reason: Muscle Spasm Gabapentin 600 mg PO TID Phentermine HCl [Adipex-P] 37.5 mg PO DAILY Pantoprazole Sodium [Protonix] 40 mg PO DAILY 30 Days #30 tab Discontinued Paliperidone [Invega] 9 mg PO DAILY [place] Carbonate 300 mg PO BID [place] Carbonate 600 mg PO BID hydrOXYzine pamoate [Vistaril] 50 mg PO BID PRN PRN Reason: Anxiety/Insomnia QUEtiapine [SEROquel] 50 mg PO HS DULoxetine HCL [Cymbalta] 60 mg PO BID rOPINIRole HCL [Requip] 0.25 mg PO BID PRN PRN Reason: restless legs Discharge Medication List Gabapentin 600 mg PO TID 10/20/24 [History] Phentermine HCl [Adipex-P] 37.5 mg PO DAILY 10/20/24 [History] tiZANidine [Zanaflex] 4 mg PO BID PRN 10/20/24 [History] Ibuprofen [Motrin] 600 mg PO Q6HR PRN tab 06/05/25 [Rx] Melatonin 10 mg PO HS 30 Days #60 tab 10/28/24 [Rx] Nicotine Gum (Polacrilex) [Nicorette] 2 mg BUCCAL Q4HR PRN 30 Days #180 pieceofgum 10/28/24 [Rx] Pantoprazole Sodium [Protonix] 40 mg PO DAILY 30 Days #30 tab 10/28/24 [Rx] Venlafaxine HCl ER [Effexor XR] 75 mg PO DAILY 30 Days #30 cap 10/28/24 [Rx] Ziprasidone [Geodon] 40 mg PO BID 30 Days #60 cap 10/28/24 [Rx] hydrOXYzine pamoate [Vistaril] 50 mg PO HS PRN #60 cap 10/28/24 [Rx] rOPINIRole HCL [Requip] 0.5 mg PO HS 30 Days #60 tab 10/28/24 [Rx] traZODone HCL 150 mg PO HS 30 Days #30 tablet 10/28/24 [Rx] Follow up Appointment(s)/Referral(s): [facility] [Outside] - 11/02/24 3:00 pm (10/26/2024 3:00PM - 4:00PM MELINDA BOOKER 11/10/2024 1:00PM - 1:30PM TYSON HAYDEN ) Jeffrey Ferguson MD [Primary Care Provider] - 1-2 days Patient Instructions/Handouts: How to Stop Smoking (DC), Bipolar Disorder (DC), Borderline Personality Disorder (DC), Opioid Use Disorder (DC) Activity/Diet/Wound Care/Special Instructions: Avoid the use of street drugs and alcohol. Take all medications as prescribed. When you are in need of refills on your medications, please contact your medical provider and/or outpatient psychiatrist/provider to have this done. Please go to your scheduled outpatient appointment for aftercare treatment. If symptoms return or become worse, call the crisis line at and/or go to the nearest emergency room for evaluation. National Suicide Hotline [address] [facility] confidentiality statement: "The information contained in this communication, including attachments, is confidential, may be privileged, and is intended only for the use of the named recipient(s). Unauthorized use, disclosure, forwarding or copying is strictly prohibited and may be unlawful. If you have received this communication in error, please notify me IMMEDIATELY at the phone number or pager listed above. Important reminder that Geodon should be taken with food for best absorption and therapeutic effect. Discharge Disposition: HOME SELF-CARE
[2024-10-28 10:25] VITALS: BP 121/76; PULSE 98; RESP 16; TEMP 97.4
--- NOTE | 2024-11-02 07:25 | CDI ---
Documentation Clarification Form Date: 12/02/24 From: Keara Poole Phone: Admit Date: 10/20/2024 04:50:00 AM Patient Name: Lashay De La Rosa Visit Number: [id number] Discharge Date: 10/28/2024 11:43:00 AM ATTENTION: The Clinical Documentation Specialists (CDI) and [facility] Coding Staff appreciate your assistance in clarifying documentation. Please respond to the clarification below the line at the bottom and electronically sign. The CDI & [facility] Coding staff will review the response and follow-up if needed. Please note: Queries are made part of the Legal Health Record. If you have any questions, please contact the author of this message via ITS. Doctor/Provider: Nikilachelle, Self-inflicted 3 cm laceration to left medial forearm is documented in the ED Note under General Exam on 10/19 Additional clarification regarding the procedure is requested. History/Risk factors: Bipolar disorder, current episode depressed, unspecified; poly drug abuse, RLS, mild intermittent asthma Pre-Operative Diagnosis: 3 cm left medial forearm laceration Postoperative Diagnosis: 3 cm left medial forearm laceration Clinical Indicators: See above Treatment: Repair of laceration Please dictate the procedure note for repair of the 3 cm left medial forearm laceration. or do addendum to your ED note. MTDD
== END 2024-10-28 11:43 | disposition home or self-care (01) | DRG 885 ==
LOC: EC 18:41 → 3MHU 10-20 04:50
PROVIDERS: ADMIT Psychiatry & Neurology Psychiatry; ATTEND Psychiatry & Neurology Psychiatry
PROC: 3E0234Z Introduction of Serum, Toxoid and Vaccine into Muscle, Percutaneous Approach (ICD-10-PCS; principal; 2024-10-19)
PROC: 0HQEXZZ Repair Left Lower Arm Skin, External Approach (ICD-10-PCS; 2024-10-19)
DX: F31.30 Bipolar disorder, current episode depressed, mild or moderate severity, unspecified (principal); F11.11 Opioid abuse, in remission; S51.812A Laceration without foreign body of left forearm, initial encounter; G25.81 Restless legs syndrome; J45.20 Mild intermittent asthma, uncomplicated; F60.89 Other specific personality disorders; F13.10 Sedative, hypnotic or anxiolytic abuse, uncomplicated; F15.11 Other stimulant abuse, in remission; F60.3 Borderline personality disorder; X78.1XXA Intentional self-harm by knife, initial encounter; F43.10 Post-traumatic stress disorder, unspecified; F42.9 Obsessive-compulsive disorder, unspecified; F41.9 Anxiety disorder, unspecified; K21.9 Gastro-esophageal reflux disease without esophagitis; G47.00 Insomnia, unspecified; F17.210 Nicotine dependence, cigarettes, uncomplicated; Z56.0 Unemployment, unspecified; Z79.899 Other long term (current) drug therapy; Z91.51 Personal history of suicidal behavior; Z71.6 Tobacco abuse counseling; Z86.14 Personal history of Methicillin resistant Staphylococcus aureus infection; Z88.8 Allergy status to other drugs, medicaments and biological substances; Z23 Encounter for immunization; Z71.51 Drug abuse counseling and surveillance of drug abuser
CPT/HCPCS: 80178; 81001; 82075; 87635; 90471; 90715; 93005; 99285

== ENCOUNTER 2024-11-15 14:43 | Inpatient (IN) | payer MEDICARE, MEDICAID ==
--- NOTE | 2024-11-15 14:58 | ED ---
Psych HPI - General Source: patient, RN notes reviewed Mode of arrival: ambulatory Limitations: no limitations <Sonya Ortega - Last Filed: 11/15/24 14:57> <Mitra Salgado - Last Filed: 11/15/24 18:25> <Daja Barnes - Last Filed: 11/15/24 23:36> - General Stated Complaint: mental health Time Seen by Provider: 11/15/24 14:57 - History of Present Illness Initial Comments: Quick note: 44-year-old female presented the ER for mental health evaluation. Patient states over the past couple of weeks she has been having worsening depression. She states last night she was extremely depressed and slept with a machete under her bed. Patient states this morning she attempted to cut her wrist. Tetanus is up-to-date. Patient admits to MO last night. Denies drug or alcohol use. (Sonya Ortega) This is a 44-year-old female with reported history of bipolar presenting to emergency department for mental health evaluation. She states that she has been having depressed mood that has been worsening over the past few weeks. Patient endorses associated suicidal ideation and had self harming behavior yesterday evening. She states that she is hearing voices that are telling her to harm other people. She states that she slept with a machete under her bed yesterday. She denies drug or alcohol use. States that she was recently admitted to the mental health unit a month ago. (Mitra Salgado) - Related Data Home Medications Medication Instructions Recorded Confirmed Gabapentin 600 mg PO TID 10/20/24 10/20/24 Phentermine HCl [Adipex-P] 37.5 mg PO DAILY 10/20/24 10/20/24 tiZANidine [Zanaflex] 4 mg PO BID PRN 10/20/24 10/20/24 Previous Rx's Medication Instructions Recorded Ibuprofen [Motrin] 600 mg PO Q6HR PRN tab 10/28/24 Melatonin 10 mg PO HS 30 Days #60 tab 10/28/24 Nicotine Gum (Polacrilex) 2 mg BUCCAL Q4HR PRN 30 Days #180 10/28/24 [Nicorette] pieceofgum Pantoprazole Sodium [Protonix] 40 mg PO DAILY 30 Days #30 tab 10/28/24 Venlafaxine HCl ER [Effexor XR] 75 mg PO DAILY 30 Days #30 cap 10/28/24 Ziprasidone [Geodon] 40 mg PO BID 30 Days #60 cap 10/28/24 hydrOXYzine pamoate [Vistaril] 50 mg PO HS PRN #60 cap 10/28/24 rOPINIRole HCL [Requip] 0.5 mg PO HS 30 Days #60 tab 10/28/24 traZODone HCL 150 mg PO HS 30 Days #30 tablet 10/28/24 Allergies Allergy/AdvReac Type Severity Reaction Status Date / Time haloperidol [From Haldol] AdvReac Body Verified 11/15/24 15:34 Cramps/muscle cramps Review of Systems ROS Other: All systems not noted in ROS Statement are negative. <Sonya Ortega - Last Filed: 11/15/24 14:57> ROS Other: All systems not noted in ROS Statement are negative. <Mitra Salgado - Last Filed: 11/15/24 18:25> ROS Other: All systems not noted in ROS Statement are negative. <Daja Barnes - Last Filed: 11/15/24 23:36> ROS Statement: Those systems with pertinent positive or pertinent negative responses have been documented in the HPI. Past Medical History Past Medical History: Asthma, Seizure Disorder Additional Past Medical History / Comment(s): anemia, hx low platelets History of Any Multi-Drug Resistant Organisms: MRSA Date of last positivie culture/infection: 07/03/21 MDRO Source:: [place] Past Surgical History: Tonsillectomy Additional Past Surgical History / Comment(s): left knee surgery Past Anesthesia/Blood Transfusion Reactions: No Reported Reaction Additional Past Anesthesia/Blood Transfusion Reaction / Comment(s): n/a Past Psychological History: Anxiety, Bipolar, Depression, PTSD Smoking Status: Current every day smoker, Vaper Past Alcohol Use History: None Reported Past Drug Use History: Marijuana - Past Family History Mother Family Medical History: Hypertension <Sonya Ortega - Last Filed: 11/15/24 14:57> General Exam <Sonya Ortega - Last Filed: 11/15/24 14:57> General appearance: alert, in no apparent distress Neck exam: Present: normal inspection. Absent: tenderness, meningismus, lymphadenopathy Respiratory exam: Present: normal lung sounds bilaterally. Absent: respiratory distress, wheezes, rales, rhonchi, stridor Cardiovascular Exam: Present: regular rate, normal rhythm, normal heart sounds. Absent: systolic murmur, diastolic murmur, rubs, gallop, clicks GI/Abdominal exam: Present: soft, normal bowel sounds. Absent: distended, tend erness, guarding, rebound, rigid Left Hand Wrist exam: Present: laceration (anterior wrist, bleeding controlled) Neuro motor exam: Present: wrist extension intact, thumb opposition intact Vascular: Absent: vascular compromise Psychiatric exam: Present: depressed, flat affect, homicidal ideation, suicidal ideation. Absent: normal affect, normal mood <Mitra Salgado - Last Filed: 11/15/24 18:25> - General Exam Comments Initial Comments: Visual Physical Exam Vital signs reviewed General: Well-appearing, nontoxic, no acute distress. Head: Normocephalic, atraumatic Eyes: PERRLA, EOMI ENT: Airway patent Chest: Nonlabored breathing Skin: No visual rash, normal skin tone, superficial excoriations right forearm Neuro: Alert and oriented 3 Musculoskeletal: No gross abnormalities (Sonya Ortega) Course Vital Signs 11/15/24 11/15/24 15:30 19:29 Temperature 98.1 F Pulse Rate 95 72 Respiratory 18 18 Rate Blood Pressure 131/79 134/88 O2 Sat by Pulse 98 97 Oximetry Medical Decision Making <Sonya Ortega - Last Filed: 11/15/24 14:57> <Mitra Salgado - Last Filed: 11/15/24 18:25> <Daja Barnes - Last Filed: 11/15/24 23:36> - Medical Decision Making I performed the quick note portion of this chart. Electronically signed by Sonya Ortega PA-C (Sonya Ortega) Was pt. sent in by a medical professional or institution (ORALIA Chavez, CHIEF FINANCIAL OFFICER, urgent care, hospital, or senior living...) When possible be specific @ -[No] Did you speak to anyone other than the patient for history (EMS, parent, family, police, friend...)? What history was obtained from this source @ -[No] Did you review nursing and triage notes (agree or disagree)? Why? @ -[I reviewed and agree with nursing and triage notes] Were old charts reviewed (outside hosp., previous admission, EMS record, old EKG, old radiological studies, urgent care reports/EKG's, senior living records)? Report findings @ -[No old charts were reviewed] Differential Diagnosis (chest pain, altered mental status, abdominal pain women, abdominal pain men, vaginal bleeding, weakness, fever, dyspnea, syncope, headache, dizziness, GI bleed, back pain, seizure, CVA, palpatations, mental health, musculoskeletal)? @ -Differential Musculoskeletal Muscular strain, contusion, ligament sprain, fracture, arthritis, septic arthritis, bursitis, cellulitis, muscle spasm, nerve compression, DVT, arterial occlusion, herpes zoster, electrolyte abnormality, tumor.... This is not meant to be in all inclusive list EKG interpreted by me (3pts min.). @ -None X-rays interpreted by me (1pt min.). @ -[None done] CT interpreted by me (1pt min.). @ -[None done] U/S interpreted by me (1pt. min.). @ -[None done] What testing was considered but not performed or refused? (CT, X-rays, U/S, labs)? Why? @ -[None] What meds were considered but not given or refused? Why? @ -[None] Did you discuss the management of the patient with other professionals (professionals i.e. , PA, CHIEF FINANCIAL OFFICER, lab, RT, psych nurse, social sciences instructor, staff submarine warfare officer, teacher, chief digital officer, rehabilitation caseworker)? Give summary @ -[No] Was smoking cessation discussed for >3mins.? @ -[No] Was critical care preformed (if so, how long)? @ -[No] Were there social determinants of health that impacted care today? How? (Homelessness, low income, unemployed, alcoholism, drug addiction, transportation, low edu. Level, literacy, decrease access to med. care, assisted, rehab)? @ -[No] Was there de-escalation of care discussed even if they declined (Discuss DNR or withdrawal of care, Hospice)? DNR status @ -[No] What co-morbidities impacted this encounter? (DM, HTN, Smoking, COPD, CAD, Cancer, CVA, ARF, Chemo, Hep., AIDS, mental health diagnosis, sleep apnea, mor bid obesity)? @ -[None] Was patient admitted / discharged? Hospital course, mention meds given and route, prescriptions, significant lab abnormalities, going to OR and other pertinent info. @ -44-year-old female was in the emergency room for mental-health evaluation. Patient is cleared for EPS evaluation. Undiagnosed new problem with uncertain prognosis? @ -[No] Drug Therapy requiring intensive monitoring for toxicity (Heparin, Nitro, Insulin, Cardizem)? @ -[No] Were any procedures done? @ -[No] Diagnosis/symptom? @ -[default] Acute, or Chronic, or Acute on Chronic? @ -[default] Uncomplicated (without systemic symptoms) or Complicated (systemic symptoms)? @ -[default] Side effects of treatment? @ -[No] Exacerbation, Progression, or Severe Exacerbation? @ -[No] Poses a threat to life or bodily function? How? (Chest pain, USA, AR, pneumonia, PE, COPD, DKA, ARF, appy, cholecystitis, CVA, Diverticulitis, Homicidal, Suicidal, threat to staff... and all critical care pts) @ -[No] (Mitra Salgado) Patient signed out to me pending EPS evaluation. EPS recommends admission. Patient agreeable with this plan. My attending is Dr. Gaviria. Diagnosis/symptom? Homicidal ideation Acute, or Chronic, or Acute on Chronic? @Acute Uncomplicated (without systemic symptoms) or Complicated (systemic symptoms)? @Complicated Side effects of treatment? @None Exacerbation, Progression, or Severe Exacerbation] @No Poses a threat to life or bodily function? @Yes (Daja Barnes) - Lab Data Lab Results 11/15/24 11/15/24 Range/Units 16:35 20:50 Urine Opiates Screen Detected H (NotDetected) Ur Oxycodone Screen Not Detected (NotDetected) Urine Methadone Screen Not Detected (NotDetected) Ur Barbiturates Screen Not Detected (NotDetected) U Tricyclic Antidepress Not Detected (NotDetected) Ur Phencyclidine Scrn Not Detected (NotDetected) Ur Amphetamines Screen Detected H (NotDetected) U Methamphetamines Scrn Not Detected (NotDetected) U Benzodiazepines Scrn Detected H (NotDetected) Urine Cocaine Screen Not Detected (NotDetected) U Marijuana (THC) Screen Not Detected (NotDetected) Influenza Type A (PCR) Not Detected (Not Detectd) Influenza Type B (PCR) Not Detected (Not Detectd) RSV (PCR) Not Detected (Not Detectd) SARS-CoV-2 (PCR) Not Detected (Not Detectd) Disposition <Sonya Ortega - Last Filed: 11/15/24 14:57> <Mitra Salgado - Last Filed: 11/15/24 18:25> Time of Disposition: 20:41 <Daja Barnes - Last Filed: 11/15/24 23:36> Clinical Impression: Suicidal ideation, Acute psychosis Disposition: ADMITTED IP TO THIS HOSP Condition: Fair
[2024-11-15 16:57] LABS: Barbiturate Screen,Urine Not Detected (NotDetected); Benzodiazepines Screen,Urine Detected (NotDetected); Opiate Screen,Urine Detected (NotDetected); Oxycodone Screen, Urine Not Detected (NotDetected); Phencyclidine Screen,Urine Not Detected (NotDetected); Tricyclic Antidepressant,Urine Not Detected (NotDetected); Urn Cannabinoid Scrn Not Detected (NotDetected)
[2024-11-15] MEDS: LORazepam 1 MG TAB PO STA (19:28)
[2024-11-15] MEDS: GABAPENTIN 300 MG CAP PO STA (20:33)
[2024-11-15 21:37] LABS: RSV Not Detected (Not Detectd)
[2024-11-15] MEDS ORDERED: OLANZapine 10 MG VIAL IM PRN (21:40)
[2024-11-15] MEDS ORDERED: MAGNESIUM HYDROXIDE 2,400 MG/30 ML CUP PO PRN (21:40)
[2024-11-15] MEDS: LORazepam 1 MG TAB PO PRN (22:36)
[2024-11-16 03:48] LABS: Bilirubin,Urine Negative (Negative); Blood,Urine Negative (Negative); Color,Urine Yellow; Glucose,Urine (UA) Negative (Negative); Ketones,Urine Negative (Negative); Leukocyte Esterase,Urine Negative (Negative); Nitrite,Urine Negative (Negative); PH, Urine 5.5 (5.0-8.0); Protein,Urine Negative (Negative); Specific Gravity,Urine 1.016 (1.001-1.035); Urobilinogen,Urine <2.0 mg/dL (<2.0)
[2024-11-16] MEDS: MAG HYDROX/AL HYDROX/SIMETH 355 ML BOTTLE PO PRN (08:54)
[2024-11-16] MEDS: NICOTINE 14MG/24HR PATCH TRANSDERM SCH (08:54)
[2024-11-16] MEDS: NICOTINE GUM (POLACRILEX) 2 MG GUM BUCCAL PRN ×2 (09:23→12:44)
--- NOTE | 2024-11-16 12:08 | P.HP ---
Psychiatric H&P - . H&P Date: 11/16/24 History & Physical: Allergies Allergy/AdvReac Type Severity Reaction Status Date / Time haloperidol [From Haldol] AdvReac Body Verified 11/15/24 15:34 Cramps/muscle cramps Vital Signs Temp 97.8 F 11/16/24 08:44 Pulse 87 11/16/24 08:44 Resp 16 11/16/24 08:44 BP 111/76 11/16/24 08:44 Pulse Ox 96 11/16/24 08:44 FiO2 Intake & Output 11/15/24 11/16/24 11/16/24 18:59 06:59 18:59 Weight 97.069 kg 101.179 kg Laboratory Last Values Urine Color Yellow 11/15/24 16:35 Urine Appearance Clear (Clear) 11/15/24 16:35 Urine pH 5.5 (5.0-8.0) 11/15/24 16:35 Ur Specific [place] 1.016 (1.001-1.035) 11/15/24 16:35 Urine Protein Negative (Negative) 11/15/24 16:35 Urine Glucose (UA) Negative (Negative) 11/15/24 16:35 Urine Ketones Negative (Negative) 11/15/24 16:35 Urine Blood Negative (Negative) 11/15/24 16:35 Urine Nitrite Negative (Negative) 11/15/24 16:35 Urine Bilirubin Negative (Negative) 11/15/24 16:35 Urine Urobilinogen <2.0 mg/dL (<2.0) 11/15/24 16:35 Ur Leukocyte Esterase Negative (Negative) 11/15/24 16:35 Urine Opiates Screen Detected (NotDetected) H 11/15/24 16:35 Ur Oxycodone Screen Not Detected (NotDetected) 11/15/24 16:35 Urine Methadone Screen Not Detected (NotDetected) 11/15/24 16:35 Ur Barbiturates Screen Not Detected (NotDetected) 11/15/24 16:35 U Tricyclic Antidepress Not Detected (NotDetected) 11/15/24 16:35 Ur Phencyclidine Scrn Not Detected (NotDetected) 11/15/24 16:35 Ur Amphetamines Screen Detected (NotDetected) H 11/15/24 16:35 U Methamphetamines Scrn Not Detected (NotDetected) 11/15/24 16:35 U Benzodiazepines Scrn Detected (NotDetected) H 11/15/24 16:35 Urine Cocaine Screen Not Detected (NotDetected) 11/15/24 16:35 U Marijuana (THC) Screen Not Detected (NotDetected) 11/15/24 16:35 Influenza Type A (PCR) Not Detected (Not Detectd) 11/15/24 20:50 Influenza Type B (PCR) Not Detected (Not Detectd) 11/15/24 20:50 RSV (PCR) Not Detected (Not Detectd) 11/15/24 20:50 SARS-CoV-2 (PCR) Not Detected (Not Detectd) 11/15/24 20:50 11/16/24 10:29 IDENTIFYING DATA: Patient is a 44-year-old white female, who is , and lives with her . Has 4 children that do not live with her. Unemployed. Collects disability. HPI: Patient presented to the hospital yesterday and as per EPS note "Pt brought self in after sleeping with a machete under her pillow last night, pt has multiple superficial cuts on arms stating "I was trying to kill myself last night but the knives weren't sharp enough". Pt continues to endorse SI with a plan to overdose on medication, cut or "go crazy on everyone". Pt admits to not taking oral medications consistently since being discharged from [facility] earlier this month. Pt states [facility] did give a IBARRA, brief writer verified pt was given Invega Sustenna 234 mg IM 11/02/24, with next dose due 11/30/24. Pt reports taking "effexor some days". Pt admits to , command to hurt herself and others. Pt reports HI last night towards "everyone and anyone". Pt denies HI currently but reports increase in aggression and agitation. Pt reports lack of support system and in unable to contract for safety to discharge." Patient was recently discharged from mental health unit about a month ago on Geodon and Effexor Requip trazodone and Vistaril. Patient was admitted voluntarily to the mental health unit. She claims that she has not been doing well recently. Claims that after being released from the hospital she was sporadically taking her medications, she apparently told her [facility] nurse practitioner that she was not taking her Geodon consistently and not with food and apparently states that she put her on a injection at that time. She received Invega Sustenna loading dose on 11/02 at [facility]. She claims that since receiving the injection she has been feeling more depressed, claims that she has poor energy and not sleeping well and was having suicidal/homicidal thoughts. She claims today that she is adamant that she does not want to be restarted back on the injection and would rather take pills. She was agreeable to be restarted back on the previous medications. Claims that she is feeling depressed and anxious. She claims that she is hearing voices at this time however they are mild. Claims that she is still having suicidal thoughts however no specific plan. Denies any homicidal ideations at this time. Claims that her sleep has been on and off appetite is been fair. At this time patient denies any visual hallucinations. Patient denies any flight of ideas racing thoughts and increased in goal directed behavior. Patient admits to using cigarettes. Denies any other recreational drug use. PAST PSYCHIATRIC HISTORY: Patient is open with [facility]. She has had multiple psychiatric hospitalizations. Her last admission to this unit was in September 2024. She was previously on Geodon, Vistaril, Effexor, trazodone, Seroquel, Invega, lithium, and several different medications in the past. She alleges that she has been in psychiatric hospital more than 20 times beginning at the age of 22. At [facility] she was involved in a DBT program she has had multiple diagnoses but the most consistent help and substance abuse diagnoses as well as borderline personality disorder. She sees the nurse practitioner at [facility]. Has a history of a residential rehabilitation programs at [place] and [place]. PMH:As per ER note ALLERGIES: as per EMR CHEMICAL DEPENDENCY HISTORY: as per HPI FAMILY PSYCHIATRIC/SUBSTANCE USE HISTORY: Denies SOCIAL HISTORY: Patient was born in [place] and raised in [place]. She lives wi th her Shahnaz. This is her second marriage. She has 4 children who stay with their biological father or are adults. She receives disability. She attended some college. She reports that she is [employer]. She denies any current legal issues. MENTAL STATUS EXAM: General Appearance: Patient appears to be overweight, short hair, several tattoos, stated age is alert, directable, and attempts to cooperate. Patient appears to have adequate hygiene and grooming. Masculine appearance, dressed casually Behavior: Patient is seated without any agitated behavior. Attempts to cooperate, guarded and evasive Speech: Patient's speech is fluent and nonpressured. Mood/Affect: Patient reports their mood is depressed and anxious, affect is congruent and constricted. Suicidality/Homicidality: Patient denies having any homicidal ideation intent or plan. Admits to having suicidal thoughts, no specific plan or intent Perceptions: Patient denies any visual hallucinations and denies any auditory hallucinations Though content/process: [There is no evidence of any delusional thought content and thought process mildly paranoid. Focused on her medications and her symptoms. Memory and concentration: AOX3, grossly intact for the purposes of this session. Can spell "WORLD" backwards Judgment and insight: Poor STRENGTHS/WEAKNESSES: strength is that patient is resilient. Weakness is that patient has poor judgment and is impulsive INTELLECT: Average IMPRESSIONS: Bipolar disorder, current episode depressed Noncompliance with medication regimen Cluster B personality disorder Opiate use disorder, in remission Stimulant use disorder, in remission Nicotine dependence benzodiazipine abuse PLAN: -Patient is admitted under voluntary status to [facility] for stabilization of psychiatric symptoms and safety. Patient has signed adult voluntary form and medication consent and is placed in patient's chart. -Medications : Patient is adamant that she does not be restarted back on injection medication at this time and would prefer to take pills. Restart Effexor XR 75 mg daily for mood/anxiety. Requip 0.5 mg nightly for restless leg symptoms, trazodone 150 mg nightly for insomnia/mood. Vistaril 50 mg scheduled nightly for anxiety/sleep, Geodon 20 mg twice daily for mood stabilization/psychosis. -Check EKG -Ativan and Prolixin PRN for agitation/aggression -Patient was informed of the risks, benefits and side effects of the medication and patient verbally consented to taking the medications. Patient was offered medication information and declined it. -Internal Medicine consult to perform medical evaluation and physical. -NRT -nicotine patch plus nicotine gum -SW on board for discharge planning. Encourage patient to participate in groups to work on coping skills. 11/16/24 12:02 11/16/24 12:03
[2024-11-16] MEDS: VENLAFAXINE HCL ER 75 MG CAP PO SCH (12:43)
[2024-11-16] MEDS: GABAPENTIN 300 MG CAP PO SCH (12:43)
[2024-11-16] MEDS: ZIPRASIDONE 20 MG CAP PO SCH (12:43)
[2024-11-16] MEDS: LORazepam 1 MG TAB PO PRN (16:54)
[2024-11-16] MEDS: MELATONIN 5 MG TABLET PO SCH (19:57)
--- NOTE | 2024-11-17 12:08 | P.PN ---
Progress Note - Text Progress Note Date: 11/17/24 Interval History: Patient was seen today for psychiatric follow up. Patient was seen earlier at [facility]. She appears to be a bit more drowsy today, claims that she is feeling more tired. Claims that the Geodon has been making her feel this way. We spoke about switching it to nighttime dosing which she is okay to try. She states that she has been eating fairly, showering. Claims that she is still feeling a bit depressed and was having mild suicidal thoughts this morning, claims that she is still hearing voices at this time was fairly vague about what they are saying to her, she states that she has been trying to stay distracted while on the unit. She claims that she is still feeling restless during the day apparently added a daytime dose of Requip. Denying any visual hallucinations. Denies any homicidal ideations. MENTAL STATUS EXAM: General Appearance: Patient appears to be overweight, short hair, several tattoos, stated age is alert, directable, and attempts to cooperate. Patient appears to have adequate hygiene and grooming. Masculine appearance, dressed casually. Appears to be more drowsy Behavior: Patient is seated without any agitated behavior. Attempts to cooperate, guarded and evasive, improving mildly. Speech: Patient's speech is fluent and nonpressured. Soft tone Mood/Affect: Patient reports their mood is depressed and anxious, affect is congruent and constricted. Suicidality/Homicidality: Patient denies having any homicidal ideation intent o r plan. Admits to having suicidal thoughts, no specific plan or intent Perceptions: Patient denies any visual hallucinations and admits to having auditory hallucinations Though content/process: [There is no evidence of any delusional thought content and thought process mildly paranoid. Memory and concentration: AOX3, grossly intact for the purposes of this session Judgment and insight: Poor, improving mildly IMPRESSIONS: Bipolar disorder, current episode depressed Noncompliance with medication regimen Cluster B personality disorder Opiate use disorder, in remission Stimulant use disorder, in remission Nicotine dependence benzodiazipine abuse PLAN: -Patient is admitted under voluntary status to [facility] for stabilization of psychiatric symptoms and safety. Patient has signed adult voluntary form and medication consent and is placed in patient's chart. -Medications : Effexor XR 75 mg daily for mood/anxiety. Increase Requip 0.5 mg twice daily for restless leg symptoms, decrease trazodone 100 mg nightly for insomnia/mood. Vistaril 50 mg scheduled nightly for anxiety/sleep, change Geodon to 40 mg qhs for mood stabilization/psychosis. -reviewed EKG -Ativan and Prolixin PRN for agitation/aggression -NRT -nicotine patch plus nicotine gum -SW on board for discharge planning. Encourage patient to participate in groups to work on coping skills.
[2024-11-17] MEDS: ZIPRASIDONE 40 MG CAP PO SCH (20:32)
[2024-11-17] MEDS: IBUPROFEN 600 MG TAB PO PRN (21:15)
[2024-11-17] MEDS: OLANZapine 5 MG TAB PO PRN (22:52)
--- NOTE | 2024-11-18 11:21 | P.PN ---
Progress Note - Text Progress Note Date: 11/18/24 Interval History: Patient was seen today for psychiatric follow up. Patient was seen earlier at [facility] earlier today. Patient was of wandering the hallways agreeable to speak to poem writer in the office today. States that her energy level has improved today he is less drowsy during the day however states that she only slept about 5 or so hours last night. Claims that she is still hearing voices however was fairly vague about what they are saying. Claims that she is also still feeling fairly depressed was inquiring about increasing her Effexor to the area. States that she is trying to go to groups, has been participating on the unit. Has been showering regularly. Eating fairly.Denying any visual hallucinations. Denies any homicidal ideations, she denies any suicidal ideations today no intent or plan. MENTAL STATUS EXAM: General Appearance: Patient appears to be overweight, short hair, several tattoos, stated age is alert, directable, and attempts to cooperate. Patient appears to have adequate hygiene and grooming. Masculine appearance, dressed casually. Appears to be less drowsy Behavior: Patient is seated without any agitated behavior. Attempts to cooperate,, improving mildly improving mildly. Speech: Patient's speech is fluent and nonpressured. Soft tone Mood/Affect: Patient reports their mood is "still depressed", affect is congruent and constricted. Suicidality/Homicidality: Patient denies having any homicidal ideation intent or plan. Denies any suicidal thoughts, no specific plan or intent Perceptions: Patient denies any visual hallucinations and admits to having auditory hallucinations Though content/process: [There is no evidence of any delusional thought content. Focused on her symptoms and medications. Memory and concentration: AOX3, grossly intact for the purposes of this session Judgment and insight: Poor, improving mildly IMPRESSIONS: Bipolar disorder, current episode depressed Noncompliance with medication regimen Cluster B personality disorder Opiate use disorder, in remission Stimulant use disorder, in remission Nicotine dependence benzodiazipine abuse PLAN: -Patient is admitted under voluntary status to MHU for stabilization of psychiatric symptoms and safety. Patient has signed adult voluntary form and medication consent and is placed in patient's chart. -Medications : Increase Effexor XR 150 mg daily for mood/anxiety. Requip 0.5 mg twice daily for restless leg symptoms, trazodone 100 mg nightly for insomnia/moo d. Vistaril 50 mg scheduled nightly for anxiety/sleep, increase Geodon 60 mg qhs for mood stabilization/psychosis. -Ativan and Prolixin PRN for agitation/aggression -NRT -nicotine patch plus nicotine gum -SW on board for discharge planning. Encourage patient to participate in groups to work on coping skills. possible discharge tomorrow vs friday if patient is improving psychiatrically.
[2024-11-18] MEDS: VENLAFAXINE HCL ER 75 MG CAP PO STA (13:54)
[2024-11-18] MEDS: ZIPRASIDONE 60 MG CAP PO SCH (20:45)
[2024-11-19] MEDS: VENLAFAXINE HCL ER 150 MG CAP PO SCH (08:45)
--- NOTE | 2024-11-19 10:29 | P.PN ---
Progress Note - Text Progress Note Date: 11/19/24 Interval History: Patient was seen today for psychiatric follow up. Patient was seen wandering the hallways earlier. Patient apparently was in distress this morning stating that she wanted to hurt herself and told her to the nurse. Patient was seen in the office today agreeable to speak to technical writer and editor. Claims that she is still feeling depressed, claims that she had suicidal thoughts of wanting to hurt herself with a spoon. She claims that she threw the spoon away, told nursing staff. States that she slept fairly last night has been eating well. Going to some groups attempting to participate. Claims that she is hearing voices however was fairly vague about what they are saying. Denying any visual hallucinations. Denies any homicidal ideations MENTAL STATUS EXAM: General Appearance: Patient appears to be overweight, short hair, several tattoos, stated age is alert, directable, and attempts to cooperate. Patient appears to have adequate hygiene and grooming. Masculine appearance, dressed casually. Appears to be less drowsy Behavior: Patient is seated without any agitated behavior. Attempts to cooperate,, improving mildly improving mildly. Speech: Patient's speech is fluent and nonpressured. Soft tone Mood/Affect: Patient reports their mood is "not good", affect is congruent and constricted. Suicidality/Homicidality: Patient denies having any homicidal ideation intent or plan. Denies any suicidal thoughts, no specific plan or intent Perceptions: Patient denies any visual hallucinations and admits to having auditory hallucinations Though content/process: [There is no evidence of any delusional thought content. Focused on her symptoms and medications. Memory and concentration: AOX3, grossly intact for the purposes of this session Judgment and insight: Poor, improving mildly IMPRESSIONS: Bipolar disorder, current episode depressed Noncompliance with medication regimen Cluster B personality disorder Opiate use disorder, in remission Stimulant use disorder, in remission Nicotine dependence benzodiazipine abuse PLAN: -Patient is admitted under voluntary status to MHU for stabilization of psychiatric symptoms and safety. Patient has signed adult voluntary form and medication consent and is placed in patient's chart. -Medications : Effexor XR 150 mg daily for mood/anxiety. Requip 0.5 mg twice daily for restless leg symptoms, trazodone 100 mg nightly for insomnia/mood. Vistaril 50 mg scheduled nightly for anxiety/sleep, Geodon 60 mg qhs for mood s tabilization/psychosis. Consider increasing medications over the weekend as tolerated/needed -Ativan and Prolixin PRN for agitation/aggression -NRT -nicotine patch plus nicotine gum -SW on board for discharge planning. Encourage patient to participate in groups to work on coping skills. possible discharge early next week friday vs friday if patient is improving psychiatrically.
--- NOTE | 2024-11-19 17:29 | P.MDCNMH ---
History of Present Illness H&P Date: 11/19/24 Chief Complaint: Medical management 44-year-old woman with medical history of asthma, seizure disorder, neuropathy presented for mental health evaluation. Medicine was consulted for medical management. Patient has no acute complaints at this time. Patient is hemodynamically stable. Urinalysis unremarkable. Urine tox screen is positive for opiates, amphetamines, benzodiazepines. Influenza A, B, RSV, COVID are negative. No images to review. All Systems reviewed and pertinent positives and negatives noted in HPI, all other symptoms are negative Gen: In NAD, non-toxic HEENT: normocephalic, atraumatic, hearing acuity is intant, mucous membranes moist CVS: perfusing all extremities well, no pitting edema, Respiratory: symmetric chest expansion, no accessory muscle use, GI: soft, NTTP, ND, : no suprapubic tenderness, no CVA tenderness MSK/Derm: no rashes, cyanosis Neuro: CN II-XII intact, no motor weakness, Psych: cooperative, euthymic mood, judgment and insight is intact Labs and imaging as above Assessment/plan: Asthma - Albuterol as needed Seizure disorder Neuropathy -Resume gabapentin Thank for this consult, please reach out with any questions or concerns Past Medical History Past Medical History: Asthma, Seizure Disorder Additional Past Medical History / Comment(s): anemia, hx low platelets History of Any Multi-Drug Resistant Organisms: MRSA Date of last positivie culture/infection: 07/03/21 MDRO Source:: [place] Past Surgical History: Orthopedic Surgery, Tonsillectomy Additional Past Surgical History / Comment(s): left knee surgery Past Anesthesia/Blood Transfusion Reactions: No Reported Reaction Additional Past Anesthesia/Blood Transfusion Reaction / Comment(s): n/a Smoking Status: Current every day smoker, Vaper - Past Family History Mother Family Medical History: Hypertension Medications and Allergies Home Medications Medication Instructions Recorded Confirmed Type Gabapentin 600 mg PO TID 10/20/24 10/20/24 History Phentermine HCl [Adipex-P] 37.5 mg PO DAILY 10/20/24 10/20/24 History tiZANidine [Zanaflex] 4 mg PO BID PRN 10/20/24 10/20/24 History Ibuprofen [Motrin] 600 mg PO Q6HR PRN tab 10/28/24 Rx Melatonin 10 mg PO HS 30 Days #60 tab 10/28/24 Rx Nicotine Gum (Polacrilex) 2 mg BUCCAL Q4HR PRN 30 Days #180 10/28/24 Rx [Nicorette] pieceofgum Pantoprazole Sodium [Protonix] 40 mg PO DAILY 30 Days #30 tab 10/28/24 Rx Venlafaxine HCl ER [Effexor XR] 75 mg PO DAILY 30 Days #30 cap 10/28/24 Rx Ziprasidone [Geodon] 40 mg PO BID 30 Days #60 cap 10/28/24 Rx hydrOXYzine pamoate [Vistaril] 50 mg PO HS PRN #60 cap 10/28/24 Rx rOPINIRole HCL [Requip] 0.5 mg PO HS 30 Days #60 tab 10/28/24 Rx traZODone HCL 150 mg PO HS 30 Days #30 tablet 10/28/24 Rx Allergies Allergy/AdvReac Type Severity Reaction Status Date / Time haloperidol [From Haldol] AdvReac Body Verified 11/15/24 15:34 Cramps/muscle cramps Physical Exam Osteopathic Statement: *. No significant issues noted on an osteopathic structural exam other than those noted in the History and Physical/Consult. Vitals: Vital Signs Temp Pulse Resp BP Pulse Ox 11/19/24 11:01 104 H 109/77 11/19/24 10:12 104 H 134/85 11/19/24 08:47 97.5 F L 98 16 109/76 98 11/18/24 21:00 97.8 F 90 16 135/82 98 Cranial Nerve Examination - Cranial Nerves Cranial Nerve II- Optic: Intact Cranial Nerve III- Oculomotor: Intact Cranial Nerve IV- Trochlear: Intact Cranial Nerve V- Trigeminal: Intact Cranial Nerve - Abducens: Intact Cranial Nerve VII- Facial: Intact Cranial Nerve VIII- Auditory: Intact Cranial Nerve IX- Glossopharyngeal: Intact Cranial Nerve X- Vagus: Intact Cranial Nerve XI- Accessory: Intact Cranial Nerve XII- Hypoglossal: Intact
--- NOTE | 2024-11-20 10:10 | P.PN ---
Subjective Progress Note Date: 11/20/24 Principal diagnosis: Bipolar I Multiple substance use Patient was seen today for psychiatric follow up. Patient was seen wandering the hallways earlier. Patient was seen in the office today agreeable to speak to abstract writer. . States that she slept fairly last night has been eating well. Going to some groups attempting to participate. Claims that she is hearing voices however was fairly vague about what they are saying. Denying any visual hallucinations. Denies any homicidal ideations. She is tolerating her medications with just a little drowsiness in the morning. MENTAL STATUS EXAM: General Appearance: Patient appears to be overweight, short hair, several tattoos, stated age is alert, directable, and attempts to cooperate. Patient appears to have adequate hygiene and grooming. Masculine appearance, dressed casually. Appears to be less drowsy Behavior: Patient is seated without any agitated behavior. Attempts to cooperate,, improving mildly improving mildly. Speech: Patient's speech is fluent and nonpressured. Soft tone Mood/Affect: Patient reports their mood is "not good", affect is congruent and constricted. Suicidality/Homicidality: Patient denies having any homicidal ideation intent or plan. Denies any suicidal thoughts, no specific plan or intent Perceptions: Patient denies any visual hallucinations and admits to having auditory hallucinations Though content/process: [There is no evidence of any delusional thought content. Focused on her symptoms and medications. Memory and concentration: AOX3, grossly intact for the purposes of this session Judgment and insight: Poor, improving mildly IMPRESSIONS: Bipolar disorder, current episode depressed Noncompliance with medication regimen Cluster B personality disorder Opiate use disorder, in remission Stimulant use disorder, in remission Nicotine dependence benzodiazipine abuse PLAN: -Patient is admitted under voluntary status to MHU for stabilization of psychiatric symptoms and safety. Patient has signed adult voluntary form and medication consent and is placed in patient's chart. -Medications : Effexor XR 150 mg daily for mood/anxiety. Requip 0.5 mg twice daily for restless leg symptoms, trazodone 100 mg nightly for insomnia/mood. Vistaril 50 mg scheduled nightly for anxiety/sleep, Geodon 60 mg qhs for mood stabilization/psychosis. She wants more help with anxiety so I am going to increase the Geodon to 60 at supper and 60 at bed and the prn ativans to q 6 till the increased Geodon kicks in. -Ativan and Prolixin PRN for agitation/aggression -NRT -nicotine patch plus nicotine gum -SW on board for discharge planning. Encourage patient to participate in groups to work on coping skills. possible discharge early next week friday vs friday if patient is improving psychiatrically. Objective - Vital Signs Vital signs: Vital Signs Temp 97.9 F 11/20/24 08:17 Pulse 105 H 11/20/24 08:17 Resp 18 11/19/24 21:54 BP 130/87 11/20/24 08:17 Pulse Ox 97 11/20/24 08:17 FiO2
[2024-11-20] MEDS: LORazepam 1 MG TAB PO PRN (11:11)
[2024-11-20] MEDS: NICOTINE GUM (POLACRILEX) 2 MG GUM BUCCAL PRN (11:18)
[2024-11-20] MEDS: ZIPRASIDONE 60 MG CAP PO SCH (17:44)
--- NOTE | 2024-11-21 09:35 | P.PN ---
Subjective Progress Note Date: 11/21/24 Principal diagnosis: Bipolar I Multiple substance use Patient was seen today for psychiatric follow up. Patient was seen in the office today agreeable to speak to fha underwriter. States that she slept well last night and is not too sleepy today. She has been eating well. Going to some groups attempting to participate. Claims that she is hearing voices however was fairly vague about what they are saying. Denying any visual hallucinations. Denies any homicidal ideations. She is tolerating her medications with just a little drowsiness in the morning. She just had the increase in Geodon yesterday but feels calmer already today. MENTAL STATUS EXAM: General Appearance: Patient appears to be overweight, short hair, several tattoos, stated age is alert, directable, and attempts to cooperate. Patient appears to have adequate hygiene and grooming. Masculine appearance, dressed casually. Appears to be less drowsy Behavior: Patient is seated without any agitated behavior. Attempts to cooperate,, improving mildly improving mildly. Speech: Patient's speech is fluent and nonpressured. Soft tone Mood/Affect: Patient reports their mood is "not good", affect is congruent and constricted. Suicidality/Homicidality: Patient denies having any homicidal ideation intent or plan. Denies any suicidal thoughts, no specific plan or intent Perceptions: Patient denies any visual hallucinations and admits to having auditory hallucinations Though content/process: [There is no evidence of any delusional thought content. Focused on her symptoms and medications. Memory and concentration: AOX3, grossly intact for the purposes of this session Judgment and insight: Poor, improving mildly IMPRESSIONS: Bipolar disorder, current episode depressed Noncompliance with medication regimen Cluster B personality disorder Opiate use disorder, in remission Stimulant use disorder, in remission Nicotine dependence benzodiazipine abuse PLAN: -Patient is admitted under voluntary status to MHU for stabilization of psychiatric symptoms and safety. Patient has signed adult voluntary form and medication consent and is placed in patient's chart. -Medications : Effexor XR 150 mg daily for mood/anxiety. Requip 0.5 mg twice daily for restless leg symptoms, trazodone 100 mg nightly for insomnia/mood. Vistaril 50 mg scheduled nightly for anxiety/sleep, Geodon 60 mg qhs for mood stabilization/psychosis. She wants more help with anxiety so I am going to continue the Geodon to 60 at supper and 60 at bed and the prn ativans to q 6 till the increased Geodon kicks in. -Ativan and Prolixin PRN for agitation/aggression -NRT -nicotine patch plus nicotine gum -SW on board for discharge planning. Encourage patient to participate in groups to work on coping skills. possible discharge early next week friday vs friday if patient is improving psychiatrically. Objective - Vital Signs Vital signs: Vital Signs Temp 97.9 F 11/20/24 21:00 Pulse 98 11/20/24 21:00 Resp 16 11/20/24 21:00 BP 113/76 11/20/24 21:00 Pulse Ox 98 11/20/24 21:00 FiO2
[2024-11-22] MEDS ORDERED: NICOTINE GUM (POLACRILEX) 2 MG GUM BUCCAL PRN (11:04)
--- NOTE | 2024-11-22 11:12 | P.PN ---
Progress Note - Text Progress Note Date: 11/22/24 Chief complaint: Suicidal thoughts Interval History: Patient was seen wandering the hallways and was directable and agreeable to speak with sheet writer in the office. The patient notes that she tried to cut herself last night. She rates her depression as 7/10 and her anxiety 5/10 with 10 being worst. She notes that she is having suicidal thoughts and does not feel safe leaving because she does not know if she would react on others. She denies any homicidal thoughts. She notes that she has auditory hallucinations of her 's mother instead telling her to hang herself. She does note that the Geodon has helped decrease auditory hallucinations. She currently slept last night but describes her energy level as "fair". She notes that her appetite is good. She notes that her concentration is fair. She denies any side effects with the increase Geodon or any other medications at this time. Mental Status Exam: General Appearance: Patient appears to be stated age is alert, directable, and cooperative. Behavior: Patient is calmly seated without any agitated behavior. Speech: Patient's speech is fluent and nonpressured. Mood/Affect: Mood is improving mildly, affect is congruent and constricted. Suicidality/Homicidality: The patient is having suicidal thoughts with no intent or plan at this time. The patient denies any homicidal ideation intent or plan. Perceptions: Patient denies any visual hallucinations The patient is having auditory hallucinations at this time. Though content/process: The patient presents slightly paranoid. Memory and concentration: AOX3, grossly intact for the purposes of this session Judgment and insight: Improving mildly Diagnosis: Bipolar disorder, current episode depressed Noncompliance with medication regimen Cluster B personality disorder Opiate use disorder, in remission Stimulant use disorder, in remission Nicotine dependence benzodiazipine abuse Assessment: The patient is expressing suicidal thoughts with inability to ensure that she be safe upon leaving. Additionally she continues to have psychotic symptoms. At this time this is the least restrictive level of care that is required. PLAN: -Patient is admitted under voluntary status to MHU for stabilization of psychiatric symptoms and safety. Patient has signed adult voluntary form and medication consent and is placed in patient's chart. -Medications : Effexor XR 150 mg daily for mood/anxiety Requip 0.5 mg twice daily for restless leg symptoms, Trazodone 100 mg nightly for insomnia/mood Vistaril 50 mg scheduled nightly for anxiety/sleep Geodon 60 mg twice dialy for mood stabilization/psychosis Start Protonix 40 mg take 1 capsule by mouth once daily for GERD -Ativan and Prolixin PRN for agitation/aggression -NRT -nicotine patch plus nicotine gum -SW on board for discharge planning. Encourage patient to participate in groups to work on coping skills. possible discharge early next week friday vs friday if patient is improving psychiatrically.
[2024-11-22] MEDS: PANTOPRAZOLE 40 MG TABLET PO SCH (11:43)
[2024-11-22] MEDS: ACETAMINOPHEN TAB 325 MG TAB PO PRN (23:47)
--- NOTE | 2024-11-23 12:17 | P.PN ---
Progress Note - Text Progress Note Date: 11/23/24 Chief complaint: Suicidal thoughts Interval History: Patient was seen wandering the hallways and was directable and agreeable to speak with ticket writer in the office. The patient notes that she is feeling a little bit better. She currently rates her depression 7/10 and her anxiety 6/10 with 10 being worst (previous depression 7/10, anxiety 5/10). She notes that her urge to self-harm is roughly 5/10. She notes that she continues to have suicidal thoughts and feels that she needs more time. She notes that the auditory hallucinations were present last night but not now. She notes that she struggled with sleep because of another patient. She notes that her energy is low but notes improvements in her concentration and notes that her appetite remains normal. She denies any side effects with the medication. Mental Status Exam: General Appearance: Patient appears to be stated age is alert, directable, and cooperative. Behavior: Patient is calmly seated without any agitated behavior. Speech: Patient's speech is fluent and nonpressured. Mood/Affect: Mood is improving mildly, affect is congruent and constricted. Suicidality/Homicidality: Patient having any suicidal thought, denies any homicidal ideation intent or plan. Perceptions: Patient denies any visual hallucinations and notes that she continues to have auditory hallucinations Though content/process: There is no evidence of any delusional thought content and thought process is linear and goal-directed. Memory and concentration: AOX3, grossly intact for the purposes of this session Judgment and insight: Improving mildly Diagnosis: Bipolar disorder, current episode depressed Noncompliance with medication regimen Cluster B personality disorder Opiate use disorder, in remission Stimulant use disorder, in remission Nicotine dependence benzodiazipine abuse Assessment: The patient remains suicidal and is unsafe to leave at this time. This is the least restrictive mental health environment currently because of this. Adjustments to medication will be made. PLAN: -Patient is admitted under voluntary status to MHU for stabilization of psychiatric symptoms and safety. Patient has signed adult voluntary form and medication consent and is placed in patient's chart. -Medications : Protonix 40 mg take 1 capsule by mouth once daily for GERD Requip 0.5 mg twice daily for restless leg symptoms, Trazodone 100 mg nightly for insomnia/mood Vistaril 50 mg scheduled nightly for anxiety/sleep Geodon 60 mg twice dialy for mood stabilization/psychosis Increase Effexor XR 300 mg daily for mood/anxiety -Ativan and Prolixin PRN for agitation/aggression -NRT -nicotine patch plus nicotine gum -SW on board for discharge planning. Encourage patient to participate in groups to work on coping skills. possible discharge early next week friday vs friday if patient is improving psychiatrically.
[2024-11-23 23:41] VITALS: RESP 18
[2024-11-24] MEDS: VENLAFAXINE HCL ER 150 MG CAP PO SCH (08:48)
[2024-11-24 08:57] VITALS: BP 105/78; PULSE 104; TEMP 97.1
--- NOTE | 2024-11-24 09:58 | P.PN ---
Progress Note - Text Progress Note Date: 11/24/24 Chief complaint: Suicidal thoughts Interval History: Patient was seen wandering the hallways and was directable and agreeable to speak with process description writer in the office. "I do not feel ready today". The patient notes that an hour ago she started having trouble with "my brain working". She denies any self harming thoughts versus yesterday where she had the thoughts 5/10 with 10 being worse. She notes no suicidal thoughts which she has the first time since yesterday. She rates her depression 5/10 and her anxiety 6/10 with 10 being worst (previous depression 7/10, anxiety 6/10). She notes that her sleep improved last night and she describes it as "good". She does feel fatigued and rundown. She notes that her appetite is normal. She states that her concentration is low. At the patient notes that she is having auditory hallucinations and describes them as mild. Overall she denies any side effects with the newly started medication. Mental Status Exam: General Appearance: Patient appears to be stated age is alert, dressed appropriately and obese. The patient's gait was normal Behavior: Patient appeared to be restless and fidgety. Speech: Patient's speech is fluent and nonpressured. Mood/Affect: Mood is improving mildly, affect is congruent and constricted. Suicidality/Homicidality: Patient denies having any suicidal or homicidal ideation intent or plan. Perceptions: Patient denies any visual hallucinations and the patient notes that her auditory hallucinations are mild. Though content/process: There is no evidence of any delusional thought content and thought process is linear and goal-directed. Memory and concentration: AOX3, grossly intact for the purposes of this session Judgment and insight: Improving mildly Diagnosis: Bipolar disorder, current episode depressed Noncompliance with medication regimen Cluster B personality disorder Opiate use disorder, in remission Stimulant use disorder, in remission Nicotine dependence benzodiazipine abuse Assessment: The patient presented restless after her first increased dose of Effexor we will keep an eye on her it is hard to tell whether this is behavioral or actual side effect with the medication. Additionally this is the first day she is voiced that she was not suicidal but was still having auditory hallucinations. It is felt that she is not completely stabilized at this point and needs further time in order to prevent relapse. It is felt at this time this is the least restrictive level of care. PLAN: -Patient is admitted under voluntary status to [facility]HU for stabilization of psychiatric symptoms and safety. Patient has signed adult voluntary form and medication consent and is placed in patient's chart. -Medications : Protonix 40 mg take 1 capsule by mouth once daily for GERD Requip 0.5 mg twice daily for restless leg symptoms, Trazodone 100 mg nightly for insomnia/mood Vistaril 50 mg scheduled nightly for anxiety/sleep Geodon 60 mg twice dialy for mood stabilization/psychosis Effexor XR 300 mg daily for mood/anxiety -Ativan and Prolixin PRN for agitation/aggression -NRT -nicotine patch plus nicotine gum -SW on board for discharge planning. Encourage patient to participate in groups to work on coping skills. possible discharge early next week friday vs friday if patient is improving psychiatrically.
--- NOTE | 2024-11-24 11:25 | P.DS ---
Providers Date of admission: 11/15/24 21:39 Admission HPI: Admission note was completed by Dr. Ann "Patient presented to the hospital yesterday and as per EPS note "Pt brought self in after sleeping with a machete under her pillow last night, pt has multiple superficial cuts on arms stating "I was trying to kill myself last night but the knives weren't sharp enough". Pt continues to endorse SI with a plan to overdose on medication, cut or "go crazy on everyone". Pt admits to not taking oral medications consistently since being discharged from [facility] earlier this month. Pt states [facility] did give a IBARRA, bond underwriter verified pt was given Invega Sustenna 234 mg IM 11/02/24, with next dose due 11/30/24. Pt reports taking "effexor some days". Pt admits to , command to hurt herself and others. Pt reports HI last night towards "everyone and anyone". Pt denies HI currently but reports increase in aggression and agitation. Pt reports lack of support system and in unable to contract for safety to discharge." Patient was recently discharged from mental health unit about a month ago on Geodon and Effexor Requip trazodone and Vistaril. Patient was admitted voluntarily to the mental health unit. She claims that she has not been doing well recently. Claims that after being released from the hospital she was sporadically taking her medications, she apparently told her [facility] nurse practitioner that she was not taking her Geodon consistently and not with food and apparently states that she put her on a injection at that time. She received Invega Sustenna loading dose on 11/02 at [facility]. She claims that since receiving the injection she has been feeling more depressed, claims that she has poor energy and not sleeping well and was having suicidal/homicidal thoughts. She claims today that she is adamant that she does not want to be restarted back on the injection and would rather take pills. She was agreeable to be restarted back on the previous medications. Claims that she is feeling depressed and anxious. She claims that she is hearing voices at this time however they are mild. Claims that she is still having suicidal thoughts however no specific plan. Denies any homicidal ideations at this time. Claims that her sleep has been on and off appetite is been fair. At this time patient denies any visual hallucinations. Patient denies any flight of ideas racing thoughts and increased in goal directed behavior. Patient admits to using cigarettes. Denies any other recreational drug use." Hospital course: Upon admission to the unit patient was directable and agreeable to commence treatment and signed adult voluntary form. Patient got along well with other patients on the unit and followed unit protocol. Patient was compliant with the medications and denied any side effects throughout hospital course. Patient was started on Protonix 40 mg, Requip 0.5 mg twice daily, Trazodone 100 mg, Vistaril 50 mg at night, Geodon 60 mg twice daily, Effexor XR 150 mg daily. Patient spoke of her stressors and engaged in therapy both group and individual. Patient was also seen by medical team for history and physical exam. Throughout the course of the hospitalization patient gradually improved with regards to mood, anxiety, sleep and returned back to their baseline level of functioning became more future oriented with improved insight and judgment. On the day of discharge patient denied any suicidal or homicidal ideations intent or plan denied any auditory or visual hallucinations. Patient endorsed wanting to live for their health and family. The patient denied any access to guns or weapons. Patient denied any paranoia and did not endorse any delusions. Patient does have a significant history of substance abuse and was counseled on abstaining from all substances including alcohol and marijuana. Patient was offered however declined inpatient substance-abuse rehab. Patient was also counseled on the medications and need for regular compliance and was encouraged to follow-up with their outpatient appointment for mental health and also for primary care. Prior to discharge a family meeting will be arranged by geriatric social work professor to answer any questions and ensure safety upon discharge incuding making sure that guns/weapons are either removed from the home or locked away. Patient was seen wandering the hallways and was directable and agreeable to speak with bond underwriter in the office. "I do not feel ready today". The patient notes that an hour ago she started having trouble with "my brain working". She denies any self harming thoughts versus yesterday where she had the thoughts 5/10 with 10 being worse. She notes no suicidal thoughts which she has the first time since yesterday. She rates her depression 5/10 and her anxiety 6/10 with 10 being worst (previous depression 7/10, anxiety 6/10). She notes that her sleep improved last night and she describes it as "good". She does feel fatigued and rundown. She notes that her appetite is normal. She states that her concentration is low. At the patient notes that she is having auditory hallucinations and describes them as mild. Patient was placed back on the 150 mg of her venlafaxine due to her feelings after taking the medication. Patient is currently ready for discharge. Mental Status Exam: General Appearance: Patient appears to be stated age is alert, dressed appropriately and obese. The patient's gait was normal Behavior: Patient appeared to be restless and fidgety. Speech: Patient's speech is fluent and nonpressured. Mood/Affect: Mood is improving mildly, affect is congruent and constricted. Suicidality/Homicidality: Patient denies having any suicidal or homicidal ideation intent or plan. Perceptions: Patient denies any visual hallucinations and the patient notes that her auditory hallucinations are mild. Though content/process: There is no evidence of any delusional thought content and thought process is linear and goal-directed. Memory and concentration: AOX3, grossly intact for the purposes of this session Judgment and insight: Improving mildly Diagnosis: Bipolar disorder, current episode depressed Noncompliance with medication regimen Cluster B personality disorder Opiate use disorder, in remission Stimulant use disorder, in remission Nicotine dependence benzodiazipine abuse Plan: -Continue with discharge today as patient has improved and stabilized psychiatrically and is not currently an imminent threat to themself and/or others. Patient will remain at chronically elevated risk for harm to self and/o r others due to their impulsivity and substance abuse. -Continue medications: Protonix 40 mg take 1 capsule by mouth once daily for GERD Requip 0.5 mg twice daily for restless leg symptoms, Trazodone 100 mg nightly for insomnia/mood Vistaril 50 mg scheduled nightly for anxiety/sleep Geodon 60 mg twice dialy for mood stabilization/psychosis Effexor XR 150 mg daily for mood/anxiety -Patient was counseled on the need for medication compliance and appropriate follow-up at mental health and also primary care for medical issues. Patient verbalized understanding and agreed. -Social work to help coordinate patients discharge today arrange for and conduct family meeting to ensure safety upon discharge and answer any questions/concerns. also to ensure safe home environment that guns/weapons are e ither removed from the home or locked away. Social work also to arrange for patients follow up appointments with [facility] for psychiatric care along with follow up with primary care provider. -Patient counseled on abstaining from recreational drugs and marijuana and alcohol. Was informed/educated on the adverse effects on their physical and mental health. Patient verbally agreed and understood. Patient was offered substance abuse treatment however declined at this time. -Patient was instructed to return to the hospital or seek immediate medical care if their psychiatric or medical symptoms do worsen or reoccur. Expected date of discharge: 11/24/24 Attending physician: Ajay Ann MD Consults: 11/15/24 21:40 Consult Physician Routine Consulting Provider: [facility] Consult Reason/Comments: H & P Do you want consulting provider notified?: Yes Primary care physician: Jeffrey Ferguson MD - Discharge Diagnosis(es) (1) Acute psychosis Current Visit: Yes Status: Chronic Priority: Low (2) Suicidal ideation Current Visit: Yes Status: Resolved Priority: Low (3) Bipolar II disorder Current Visit: No Status: Chronic Priority: Medium (4) Borderline personality disorder Current Visit: No Status: Chronic Priority: Medium Plan - Discharge Summary Discharge Rx Participant: No New Discharge Prescriptions: No Action tiZANidine [Zanaflex] 4 mg PO BID PRN PRN Reason: Muscle Spasm Gabapentin 600 mg PO TID Venlafaxine HCl ER [Effexor XR] 75 mg PO DAILY 30 Days #30 cap Ziprasidone [Geodon] 40 mg PO BID 30 Days #60 cap Melatonin 10 mg PO HS 30 Days #60 tab rOPINIRole HCL [Requip] 0.5 mg PO HS 30 Days #60 tab hydrOXYzine pamoate [Vistaril] 50 mg PO HS PRN #60 cap PRN Reason: Anxiety/insomnia Phentermine HCl [Adipex-P] 37.5 mg PO DAILY Ibuprofen [Motrin] 600 mg PO Q6HR PRN tab PRN Reason: Moderate Pain (Scale 4 To 6) Nicotine Gum (Polacrilex) [Nicorette] 2 mg BUCCAL Q4HR PRN 30 Days #180 pieceofgum PRN Reason: Nicotine Cravings traZODone HCL 150 mg PO HS 30 Days #30 tablet Pantoprazole Sodium [Protonix] 40 mg PO DAILY 30 Days #30 tab Discharge Medication List Gabapentin 600 mg PO TID 10/20/24 [History] Phentermine HCl [Adipex-P] 37.5 mg PO DAILY 10/20/24 [History] tiZANidine [Zanaflex] 4 mg PO BID PRN 10/20/24 [History] Ibuprofen [Motrin] 600 mg PO Q6HR PRN tab 10/28/24 [Rx] Melatonin 10 mg PO HS 30 Days #60 tab 10/28/24 [Rx] Nicotine Gum (Polacrilex) [Nicorette] 2 mg BUCCAL Q4HR PRN 30 Days #180 pieceofgum 10/28/24 [Rx] Pantoprazole Sodium [Protonix] 40 mg PO DAILY 30 Days #30 tab 10/28/24 [Rx] Venlafaxine HCl ER [Effexor XR] 75 mg PO DAILY 30 Days #30 cap 10/28/24 [Rx] Ziprasidone [Geodon] 40 mg PO BID 30 Days #60 cap 10/28/24 [Rx] hydrOXYzine pamoate [Vistaril] 50 mg PO HS PRN #60 cap 10/28/24 [Rx] rOPINIRole HCL [Requip] 0.5 mg PO HS 30 Days #60 tab 10/28/24 [Rx] traZODone HCL 150 mg PO HS 30 Days #30 tablet 10/28/24 [Rx] Follow up Appointment(s)/Referral(s): [place] [Outside] - 11/25/24 9:00 am (11/25/2024 9:00AM - 10:00AM MARCO A WILLIAMSON 11/30/2024 11:00AM - 11:30AM TYSON HAYDEN 11/30/2024 11:30AM - 11:45AM Nursing ) Jeffrey Ferguson MD [Primary Care Provider] - 1-2 days Patient Instructions/Handouts: How to Stop Smoking (DC), Bipolar Disorder (DC) Activity/Diet/Wound Care/Special Instructions: Avoid the use of street drugs and alcohol. Take all medications as prescribed. When you are in need of refills on your medications, please contact your medical provider and/or outpatient psychiatrist/provider to have this done. Please go to your scheduled outpatient appointment for aftercare treatment. If symptoms return or become worse, call the crisis line at and/or go to the nearest emergency room for evaluation. National Suicide Hotline [address] [facility] confidentiality statement: "The information contained in this communication, including attachments, is confidential, may be privileged, and is intended only for the use of the named recipient(s). Unauthorized use, disclosure, forwarding or copying is strictly prohibited and may be unlawful. If you have received this communication in error, please notify me IMMEDIATELY at the phone number or pager listed above.
== END 2024-11-24 13:30 | disposition home or self-care (01) | DRG 885 ==
LOC: EC 14:43 → 3MHU 21:39
PROVIDERS: ADMIT Psychiatry & Neurology Psychiatry; ATTEND Psychiatry & Neurology Psychiatry
DX: F23 Brief psychotic disorder (principal); Z91.148 Patient's other noncompliance with medication regimen for other reason; F11.11 Opioid abuse, in remission; S61.512A Laceration without foreign body of left wrist, initial encounter; G40.909 Epilepsy, unspecified, not intractable, without status epilepticus; F31.81 Bipolar II disorder; F15.11 Other stimulant abuse, in remission; G25.81 Restless legs syndrome; J45.909 Unspecified asthma, uncomplicated; F13.10 Sedative, hypnotic or anxiolytic abuse, uncomplicated; F60.89 Other specific personality disorders; X78.9XXA Intentional self-harm by unspecified sharp object, initial encounter; F60.3 Borderline personality disorder; K21.9 Gastro-esophageal reflux disease without esophagitis; F17.210 Nicotine dependence, cigarettes, uncomplicated; F17.290 Nicotine dependence, other tobacco product, uncomplicated; F41.9 Anxiety disorder, unspecified; F43.10 Post-traumatic stress disorder, unspecified; G47.00 Insomnia, unspecified; G62.9 Polyneuropathy, unspecified; Z79.899 Other long term (current) drug therapy; Z86.14 Personal history of Methicillin resistant Staphylococcus aureus infection; Z71.51 Drug abuse counseling and surveillance of drug abuser
CPT/HCPCS: 80306; 81003; 82075; 87636; 99285

== ENCOUNTER 2024-12-02 01:32 | Inpatient (IN) | payer MEDICARE, MEDICAID ==
--- NOTE | 2024-12-02 02:55 | ED ---
General Adult HPI - General Chief complaint: Psychiatric Symptoms Stated complaint: SI/mental health Time Seen by Provider: 12/02/24 01:46 Source: patient Mode of arrival: ambulatory Limitations: no limitations - History of Present Illness Initial comments: Patient is a 44-year-old female the past medical history of bipolar disorder, BPD, polysubstance abuse presenting today for suicidal and homicidal thoughts as well as paranoia. Patient was recently admitted to the hospital for similar she states when she was discharged her symptoms had not improved. Symptoms have been persistent since discharge. She states that she is paranoid that someone is going to try to break into her house. She has been sitting on the front porch with a machete, considering killing people or herself. She also self harms by cutting her wrists. States she takes her medications as prescribed. Denies auditory or visual hallucinations. Endorses prior suicide attempts via overdosing on pills. She did states she took a few extra Vistaril today to help with her anxiety but denies additional dose of other medications. - Related Data Home Medications Medication Instructions Recorded Confirmed Phentermine HCl [Adipex-P] 37.5 mg PO DAILY 10/20/24 10/20/24 tiZANidine [Zanaflex] 4 mg PO BID PRN 10/20/24 10/20/24 Previous Rx's Medication Instructions Recorded Ibuprofen [Motrin] 600 mg PO Q6HR PRN tab 10/28/24 Melatonin 10 mg PO HS 30 Days #60 tab 10/28/24 Gabapentin 600 mg PO TID 30 Days #90 tab 11/24/24 Ibuprofen [Motrin] 600 mg PO Q6HR PRN tab 11/24/24 Melatonin 10 mg PO HS tab 11/24/24 Pantoprazole Sodium [Protonix] 40 mg PO DAILY 30 Days #30 tab 11/24/24 Pantoprazole [Protonix] 40 mg PO AC-BRKFST tab 11/24/24 Venlafaxine HCl ER [Effexor XR] 150 mg PO DAILY 30 Days #30 cap 11/24/24 Ziprasidone [Geodon] 60 mg PO BID 30 Days #60 cap 11/24/24 hydrOXYzine pamoate [Vistaril] 50 mg PO HS cap 11/24/24 hydrOXYzine pamoate [Vistaril] 50 mg PO HS PRN #60 cap 11/24/24 rOPINIRole HCL [Requip] 0.5 mg PO BID tab 11/24/24 rOPINIRole HCL [Requip] 0.5 mg PO HS 30 Days #60 tab 11/24/24 traZODone HCL [Desyrel] 100 mg PO HS 30 Days #30 tab 11/24/24 Allergies Allergy/AdvReac Type Severity Reaction Status Date / Time haloperidol [From Haldol] AdvReac Body Verified 12/02/24 01:38 Cramps/muscle cramps Review of Systems ROS Statement: Those systems with pertinent positive or pertinent negative responses have been documented in the HPI. ROS Other: All systems not noted in ROS Statement are negative. Past Medical History Past Medical History: Asthma, Seizure Disorder Additional Past Medical History / Comment(s): anemia, hx low platelets History of Any Multi-Drug Resistant Organisms: MRSA Date of last positivie culture/infection: 07/03/21 MDRO Source:: [place] Past Surgical History: Orthopedic Surgery, Tonsillectomy Additional Past Surgical History / Comment(s): left knee surgery Past Anesthesia/Blood Transfusion Reactions: No Reported Reaction Additional Past Anesthesia/Blood Transfusion Reaction / Comment(s): n/a Past Psychological History: Anxiety, Bipolar, Depression, PTSD Smoking Status: Current every day smoker, Vaper - Past Family History Mother Family Medical History: Hypertension General Exam - General Exam Comments Initial Comments: Visual Physical Exam Vital signs reviewed General: Well-appearing, nontoxic, no acute distress. Head: Normocephalic, atraumatic Eyes: PERRLA, EOMI ENT: Airway patent Chest: Nonlabored breathing Skin: No visual rash, normal skin tone. Multiple horizontal linear superficial abrasions across left forearm of various stages of healing. Neuro: Alert and oriented 3 Musculoskeletal: No gross abnormalities Psychiatric: Flat affect, makes poor eye contact, endorses SI/HI, does not appear to be responding to internal stimuli Limitations: no limitations Course Vital Signs 12/02/24 01:35 Temperature 98.2 F Pulse Rate 82 Respiratory 18 Rate Blood Pressure 111/64 O2 Sat by Pulse 96 Oximetry EKG Findings - EKG Comments: EKG Findings:: Sinus rhythm, rate 78 beats minute intervals in acceptable limits, no significant ST elevations or depressions, no arrhythmia Medical Decision Making - Medical Decision Making Was pt. sent in by a medical professional or institution (Dr., PA, CHEMICAL ENGINEERING PROFESSOR, urgent care, hospital, or penitentiary...) When possible be specific @ -No Did you speak to anyone other than the patient for history (EMS, parent, family, police, friend...)? What history was obtained from this source @ -No Did you review nursing and triage notes (agree or disagree)? Why? @ -I reviewed nursing and triage notes Were old charts reviewed (outside hosp., previous admission, EMS record, old EKG, old radiological studies, urgent care reports/EKG's, penitentiary records)? Report findings @ -Medical records reviewed reviewed discharge summary from patient's recent admission on 11/15/2024, summary reads that patient had presented for sleeping with a machete under her pillow with multiple super cuts and superficial cuts on her arms, stating that she was trying to kill herself last night but the knives were not sharp enough, continue to endorse SI with plans to overdose or go crazy on everyone. Patient endorsed noncompliance with medications she was discharged with diagnoses of acute psychosis, SI, bipolar disorder and borderline personality disorder Differential Diagnosis (chest pain, altered mental status, abdominal pain women, abdominal pain men, vaginal bleeding, weakness, fever, dyspnea, syncope, headache, dizziness, GI bleed, back pain, seizure, CVA, palpatations, mental health, musculoskeletal)? @Differential Mental Health Depression, anxiety, bipolar, psychosis, schizophrenia, borderline personality, situational depression, adjustment disorder, behavioral disorder, brain tumor, malingering, substance abuse, encephalopathy, medication reaction, dementia, hypothyroidism, degenerative neurologic disorder, lupus.... This is not meant to be all-inclusive list EKG interpreted by me (3pts min.). @ -As above X-rays interpreted by me (1pt min.). @ -None done CT interpreted by me (1pt min.). @ -None done U/S interpreted by me (1pt. min.). @ -None done What testing was considered but not performed or refused? (CT, X-rays, U/S, labs)? Why? @ -None What meds were considered but not given or refused? Why? @ -None Did you discuss the management of the patient with other professionals (professionals i.e. ORALIA Chavez, CHEMICAL ENGINEERING PROFESSOR, lab, RT, psych nurse, case management social worker, armoured corps officer, teacher, electrical engineering drafting officer, caseworker)? Give summary @ -No Was smoking cessation discussed for >3mins.? @ -No Was critical care preformed (if so, how long)? @ -No Were there social determinants of health that impacted care today? How? (Homelessness, low income, unemployed, alcoholism, drug addiction, transportation, low edu. Level, literacy, decrease access to med. care, long-term, rehab)? @ -No Was there de-escalation of care discussed even if they declined (Discuss DNR or withdrawal of care, Hospice)? @ -No What co-morbidities impacted this encounter? (DM, HTN, Smoking, COPD, CAD, Cancer, CVA, ARF, Chemo, Hep., AIDS, mental health diagnosis, sleep apnea, morbid obesity)? Borderline personality disorder, BPD Was patient admitted / discharged? Hospital course, mention meds given and route, prescriptions, significant lab abnormalities, going to OR and other pertinent info. @ -Admission to [facility]./psychiatric [id number]-old female presenting for SI/HI. Has multiple superficial linear lacerations across left forearm of varying stages of healing. Bleeding controlled, no full thickness lacerations. UTD on vaccintions. Flat affect. Pt did note taking 7 extra tablets of vistaril over the course of the day yesterday to help with anxiety so will obtain an EKG to ensure no prolonged QTc. Otherwise, pt medically cleared for EPS eval. Pt evaluated by EPS, admitted to [facility]. Undiagnosed new problem with uncertain prognosis? @ -No Drug Therapy requiring intensive monitoring for toxicity (Heparin, Nitro, Insulin, Cardizem)? @ -No Were any procedures done? @ -No Diagnosis/symptom? @ Acute psychosis, SI/HI, self harming behaviors Acute, or Chronic, or Acute on Chronic? @acute Uncomplicated (without systemic symptoms) or Complicated (systemic symptoms)? @uncomplicated Side effects of treatment? @ -No Exacerbation, Progression, or Severe Exacerbation? @ -No Poses a threat to life or bodily function? How? (Chest pain, USA, SD, pneumonia, PE, COPD, DKA, ARF, appy, cholecystitis, CVA, Diverticulitis, Homicidal, Suicidal, threat to staff... and all critical care pts) @yes - Lab Data Lab Results 12/02/24 Range/Units 04:51 SARS-CoV-2 (PCR) Not Detected (Not Detectd) Disposition Clinical Impression: Suicidal ideation, Homicidal ideation, Paranoia, Self-harming behavior Disposition: TRANSFER TO PSYCH HOSP/UNIT Condition: Stable
[2024-12-02] MEDS ORDERED: LORazepam 1 MG/0.5 ML VIAL IM PRN (05:59)
[2024-12-02] MEDS ORDERED: MAGNESIUM HYDROXIDE 2,400 MG/30 ML CUP PO PRN (05:59)
[2024-12-02] MEDS: NICOTINE 14MG/24HR PATCH TRANSDERM SCH (09:07)
[2024-12-02] MEDS: LORazepam 1 MG TAB PO PRN (10:44)
[2024-12-02] MEDS: NICOTINE GUM (POLACRILEX) 2 MG GUM BUCCAL PRN ×2 (12:00→18:35)
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
[2024-12-02] MEDS: PANTOPRAZOLE 40 MG TABLET PO SCH (13:03)
[2024-12-02] MEDS: GABAPENTIN 300 MG CAP PO SCH (16:43)
[2024-12-02] MEDS: ZIPRASIDONE 60 MG CAP PO SCH (17:45)
[2024-12-02] MEDS: OLANZapine ODT 5 MG TAB PO PRN (18:35)
[2024-12-02] MEDS: MELATONIN 5 MG TABLET PO SCH (20:24)
[2024-12-02] MEDS: IBUPROFEN 600 MG TAB PO PRN (20:52)
[2024-12-03 08:03] LABS: Basophils # (A) 0.07 10*3/uL (0.00-0.10); Basophils % (A) 1.8 %; Eosinophils # (A) 0.29 10*3/uL (0.04-0.35); Eosinophils % (A) 7.5 %; HCT 28.5 % (37.2-46.3); HGB 8.2 g/dL (12.0-15.0); Lymphocytes # (A) 1.48 10*3/uL (0.90-5.00); Lymphocytes % (A) 38.2 %; MCH 20.7 pg (27.0-32.0); MCHC 28.8 g/dL (32.0-37.0); MCV 71.8 fL (80.0-97.0); Monocytes # (A) 0.27 10*3/uL (0.20-1.00); Monocytes % (A) 7.0 %; Neutrophils # (A) 1.74 10*3/uL (1.80-7.70); Neutrophils % (A) 45.0 %; Platelet Count 107 10*3/uL (140-440); RBC 3.97 10*6/uL (4.10-5.20); RDW 16.7 % (11.5-14.5); WBC 3.87 10*3/uL (4.50-10.00)
[2024-12-03 08:25] LABS: ALT 31 U/L (4-34); AST 51 U/L (14-36); African American GFR (CKD) >90 (>60 ml/min/1.73 sqM); Albumin 3.3 g/dL (3.5-5.0); Alkaline Phosphatase 44 U/L (38-126); Anion Gap 7 mmol/L; Bilirubin, Delta 0.2 mg/dL (0.0-0.2); Bilirubin,Unconjugated 0.1 mg/dL (0.0-1.1); Blood Urea Nitrogen 15 mg/dL (7-17); Calcium 9.0 mg/dL (8.4-10.2); Carbon Dioxide 25 mmol/L (22-30); Chloride 109 mmol/L (98-107); Glucose 98 mg/dL (74-99); Non-African American GFR(CKD) >90 (>60 ml/min/1.73 sqM); Potassium 3.9 mmol/L (3.5-5.1); Sodium 141 mmol/L (137-145); Total Protein 5.8 g/dL (6.3-8.2)
[2024-12-03] MEDS: VENLAFAXINE HCL ER 150 MG CAP PO SCH (08:41)
--- NOTE | 2024-12-03 14:19 | P.PN ---
Progress Note - Text Progress Note Date: 12/03/24 Interval History: Patient was seen laying in bed and was directable and agreeable to speak with scientific technical writer in the room. Patient states, Im just waking up for the day so its [place] hard to tell how Im feeling so far. But I havent heard any voices since last night. Pt currently denies SI/HI and reports a decrease in the paranoid thoughts. She reports okay sleep last night except did report waking up in the middle of the night due to wetting the bed which is a new occurrence for her. She does report burning during urination at home but denies any current urinary complaints. A urinalysis and urine drug screen has been ordered to be collected today. Pt has 2 superficial lacerations on her left forearm from when she cut herself with a kitchen knife prior to admission. Pt denies thoughts of self- harm at this time. Pt has been withdrawn to her room this morning, pt encouraged to socialize with peers and attend groups. When asked about substance use, pt states I did crack one time a couple days ago but that was the first time in 9 months. Pt reports a decrease in anxiety and depression at this time and is cooperative with plan of care and titration of medications. Mental Status Exam: General Appearance: Patient appears to be stated age is alert, directable, and cooperative. She is overweight Behavior: Patient is calmly laying without any agitated behavior. Speech: Patient's speech is fluent and nonpressured. Mood/Affect: Mood is improving mildly, affect is congruent and constricted. Suicidality/Homicidality: Patient denies having any suicidal or homicidal ideation intent or plan. Perceptions: Patient denies any visual hallucinations and denies any auditory hallucinations Though content/process: There is evidence of paranoia, lessening in intensity Memory and concentration: AOX3, grossly intact for the purposes of this session Judgment and insight: Improving mildly Assessment Bipolar disorder, current episode depressed Cluster B personality disorder Stimulant use disorder Opiate use disorder Benzodiazepine abuse Nicotine dependence Plan: -Patient continues to meet criteria for inpatient psychiatric admission for symptom stabilization and safety. Patient has signed adult voluntary form and medication consent and was placed in patient's chart. -Medications: Continue Geodon 60 mg twice daily with food for bipolar disorder, Effexor XR 150 mg daily for depression/anxiety, trazodone 150 mg at bedtime for insomnia, hydroxyzine 50 mg twice daily for anxiety -When necessary hydroxyzine for agitation/aggression. -Labs: Reviewed -NRT - nicotine patch -SW on board for discharge planning. Encouraged the patient to participate in milieu.
[2024-12-03 15:22] LABS: Cholesterol 115.00 mg/dL (0.00-200.00); HDL Cholesterol 43.30 mg/dL (40.00-60.00); LDL Cholesterol,Calculated 55.0 mg/dL (0.0-131.0); Triglycerides 83.60 mg/dL (0.00-149.00); VLDL Calculation 16.72 mg/dL (5.00-40.00)
[2024-12-03] MEDS: hydrOXYzine HCL 25 MG TAB PO PRN (16:24)
[2024-12-03 17:30] LABS: Bilirubin,Urine Negative (Negative); Blood,Urine Moderate (Negative); Color,Urine Yellow; Glucose,Urine (UA) Negative (Negative); Ketones,Urine Negative (Negative); Leukocyte Esterase,Urine Negative (Negative); Mucus,Urine Occasional /hpf; Nitrite,Urine Negative (Negative); PH, Urine 5.5 (5.0-8.0); Protein,Urine Negative (Negative); RBC,Urine 1 /hpf (0-5); Specific Gravity,Urine 1.025 (1.001-1.035); Squamous Epithelial Cell,Urine <1 /hpf (0-4); Urobilinogen,Urine <2.0 mg/dL (<2.0); WBC,Urine 2 /hpf (0-5)
[2024-12-03] MEDS: ACETAMINOPHEN TAB 325 MG TAB PO PRN (20:30)
[2024-12-04 03:36] LABS: Urine Alcohol Negative (Negative); Urine Barbiturate Negative (Negative)
[2024-12-04] MEDS: hydrOXYzine HCL 25 MG TAB PO PRN (05:16)
[2024-12-04] MEDS: BENZTROPINE MESYLATE 1 MG TAB PO SCH (07:41)
[2024-12-04] MEDS: ZIPRASIDONE 60 MG CAP PO SCH (18:37)
[2024-12-04] MEDS: OLANZapine 10 MG VIAL IM STA (22:32)
[2024-12-04] MEDS: diphenhydrAMINE 50 MG/ML 1 ML VIAL IM STA (22:33)
[2024-12-05] MEDS: ZIPRASIDONE 40 MG CAP PO SCH (08:41)
--- NOTE | 2024-12-05 17:52 | P.PN ---
Progress Note - Text Progress Note Date: 12/04/24 Interval History: Patient was seen laying in bed and was directable and agreeable to speak with maxi corbett in the room. She appears withdrawn, has been isolating to her room. She complains of tense muscles and feels throat spasms and tongue movements that are not visible on assessment. She was given a dose of Benadryl earlier for the EPS and reports this helped. We discussed Cogentin and Benadryl for EPS. She currently denies SI/HI, AVH. She has been compliant with her medications and denies any other medication side effects except as above. She asks to lower the dose of the Geodon due to the EPS. Mental Status Exam: General Appearance: Patient appears to be stated age, obese, short hair. Behavior: Patient is calmly laying without any agitated behavior. Speech: Patient's speech is fluent and non-pressured. Mood/Affect: Mood is improving mildly, affect is congruent and constricted. Suicidality/Homicidality: Patient denies having any suicidal or homicidal ideation intent or plan. Perceptions: Patient denies any visual hallucinations and denies any auditory hallucinations Though content/process: There is evidence of paranoia/mistrust lessening in intensity Memory and concentration: AOX3, grossly intact for the purposes of this session Judgment and insight: Improving mildly Assessment/Plan: -Continue current diagnosis. -Patient continues to meet criteria for inpatient psychiatric admission for symptom stabilization and safety. Patient has signed adult voluntary form and medication consent and was placed in patient's chart. -Continue current medications with the following changes: Decrease Geodon 60 mg BID to 40 mg QAM/60 mg QHS due to EPS. Start Cogentin 1 mg BID for EPS and Benadryl 50 mg BID PRN for EPS. Discontinue Hydroxyzine as daytime PRN to minimize polypharmacy but Hydroxyzine 50 mg QHS PRN order for sleep/anxiety. -When necessary hydroxyzine for agitation/aggression. -Labs: Reviewed -NRT - nicotine patch -SW on board for discharge planning. Encouraged the patient to participate in milieu.
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
--- NOTE | 2024-12-05 18:06 | P.MDCNMH ---
History of Present Illness H&P Date: 12/05/24 Chief Complaint: Medical management 44-year-old woman with medical history of asthma, seizure disorder, restless leg syndrome presented for mental health evaluation. Medicine was consulted for medical management. Patient has no complaints at this time. Chronic medical conditions are well-controlled. Patient is hemodynamically stable. Mildly hypotensive at 132/84. CBC shows anemia down to 8.2, with low MCV of 71.8. Basic metabolic panel, liver function test, lipid panel are unremarkable. TSH is 0.60. Urinalysis shows moderate blood, otherwise unremarkable. EKG demonstrated normal sinus rhythm with normal axis, normal intervals, no evidence of ischemia. All Systems reviewed and pertinent positives and negatives noted in HPI, all other symptoms are negative Gen: In NAD, non-toxic HEENT: normocephalic, atraumatic, hearing acuity is intant, mucous membranes moist CVS: perfusing all extremities well, no pitting edema, Respiratory: symmetric chest expansion, no accessory muscle use, GI: soft, NTTP, ND, : no suprapubic tenderness, no CVA tenderness MSK/Derm: no rashes, cyanosis Neuro: CN II-XII intact, no motor weakness, Psych: cooperative, euthymic mood, judgment and insight is intact Labs and imaging as above Assessment/plan: Microcytic anemia - Iron panel - Initiate daily oral iron Asthma Seizure disorder Restless leg syndrome - Home medications reviewed and reconciled Obesity class III - Outpatient weight loss referral - Diet and exercise counseling Thank you for this consult, please reach out with any further questions or conc erns Past Medical History Past Medical History: Asthma, Seizure Disorder Additional Past Medical History / Comment(s): anemia, hx low platelets History of Any Multi-Drug Resistant Organisms: MRSA Date of last positivie culture/infection: 07/03/21 MDRO Source:: [place] Past Surgical History: Orthopedic Surgery, Tonsillectomy Additional Past Surgical History / Comment(s): left knee surgery Past Anesthesia/Blood Transfusion Reactions: No Reported Reaction Additional Past Anesthesia/Blood Transfusion Reaction / Comment(s): n/a Past Psychological History: Anxiety, Bipolar, Depression, PTSD Smoking Status: Current every day smoker, Vaper - Past Family History Mother Family Medical History: Hypertension Medications and Allergies Home Medications Medication Instructions Recorded Confirmed Type Phentermine HCl [Adipex-P] 37.5 mg PO DAILY 10/20/24 10/20/24 History tiZANidine [Zanaflex] 4 mg PO BID PRN 10/20/24 10/20/24 History Ibuprofen [Motrin] 600 mg PO Q6HR PRN tab 10/28/24 Rx Melatonin 10 mg PO HS 30 Days #60 tab 10/28/24 Rx Gabapentin 600 mg PO TID 30 Days #90 tab 11/24/24 Rx Ibuprofen [Motrin] 600 mg PO Q6HR PRN tab 11/24/24 Rx Melatonin 10 mg PO HS tab 11/24/24 Rx Pantoprazole Sodium [Protonix] 40 mg PO DAILY 30 Days #30 tab 11/24/24 Rx Pantoprazole [Protonix] 40 mg PO AC-BRKFST tab 11/24/24 Rx Venlafaxine HCl ER [Effexor XR] 150 mg PO DAILY 30 Days #30 cap 11/24/24 Rx Ziprasidone [Geodon] 60 mg PO BID 30 Days #60 cap 11/24/24 Rx hydrOXYzine pamoate [Vistaril] 50 mg PO HS cap 11/24/24 Rx hydrOXYzine pamoate [Vistaril] 50 mg PO HS PRN #60 cap 11/24/24 Rx rOPINIRole HCL [Requip] 0.5 mg PO BID tab 11/24/24 Rx rOPINIRole HCL [Requip] 0.5 mg PO HS 30 Days #60 tab 11/24/24 Rx traZODone HCL [Desyrel] 100 mg PO HS 30 Days #30 tab 11/24/24 Rx Allergies Allergy/AdvReac Type Severity Reaction Status Date / Time haloperidol [From Haldol] AdvReac Body Verified 12/02/24 01:38 Cramps/muscle cramps Physical Exam Osteopathic Statement: *. No significant issues noted on an osteopathic structural exam other than those noted in the History and Physical/Consult. Vitals: Vital Signs Temp Pulse Resp BP Pulse Ox 12/05/24 13:36 97.8 F 80 18 132/84 98 Intake and Output 12/05/24 12/05/24 12/05/24 06:59 14:59 22:59 Other: Weight 102.3 kg Cranial Nerve Examination - Cranial Nerves Cranial Nerve II- Optic: Intact Cranial Nerve III- Oculomotor: Intact Cranial Nerve IV- Trochlear: Intact Cranial Nerve V- Trigeminal: Intact Cranial Nerve - Abducens: Intact Cranial Nerve VII- Facial: Intact Cranial Nerve VIII- Auditory: Intact Cranial Nerve IX- Glossopharyngeal: Intact Cranial Nerve X- Vagus: Intact Cranial Nerve XI- Accessory: Intact Cranial Nerve XII- Hypoglossal: Intact Results CBC & Chem 7: 12/03/24 07:25 12/03/24 07:25
[2024-12-06] MEDS: clonazePAM 0.5 MG TAB PO PRN (13:24)
--- NOTE | 2024-12-06 13:30 | P.PN ---
Progress Note - Text Progress Note Date: 12/06/24 Interval History: Patient was seen wandering the hallways and was directable and agreeable to sp tommy with typewriter mechanic in the office. She reports an increase in her depression, rating this a 7/10 in severity today along with intermittent suicidal ideations. She denies any overt triggers however did report EPS on Friday that required her to start Cogentin and Benadryl. She continues to report intermittent auditory hallucinations. She reports previously doing better on Invega than Geodon and given her ongoing symptoms with recent EPS, she was agreeable with returning to this medication for psychosis. She otherwise reports sleeping and eating okay. At this time patient denies any homicidal ideations, intent or plan. Patient denies any visual hallucinations and denies any paranoia or delusions. Patient denies any side effects from the medications and has been compliant with meds. Mental Status Exam: General Appearance: Patient appears to be stated age is alert, directable, and cooperative. She is overweight Behavior: Patient is calmly seated without any agitated behavior. Speech: Patient's speech is fluent and nonpressured. Mood/Affect: Mood is improving mildly, affect is congruent and constricted. Suicidality/Homicidality: Patient denies having any homicidal ideation intent or plan. Patient reports suicidal ideations, no plan or intent Perceptions: Patient denies any visual hallucinations however she reports auditory hallucinations, coming and going Though content/process: There is no evidence of any delusional thought content and thought process is linear and goal-directed. Memory and concentration: AOX3, grossly intact for the purposes of this session Judgment and insight: Improving mildly Assessment Bipolar disorder, current episode depressed Cluster B personality disorder Stimulant use disorder Opiate use disorder Benzodiazepine abuse Nicotine dependence Plan: -Patient continues to meet criteria for inpatient psychiatric admission for symptom stabilization and safety. Patient has signed adult voluntary form and medication consent and was placed in patient's chart. -Medications: Discontinue Geodon start Invega 3 mg at bedtime for psychosis, continue Effexor XR 150 mg daily for depression/anxiety, trazodone 150 mg at bedtime for insomnia, hydroxyzine 50 mg twice daily for anxiety, Cogentin 1 mg twice daily for EPS, melatonin 10 mg at bedtime for insomnia -When necessary Klonopin/hydroxyzine for agitation/aggression. -Labs: Reviewed -NRT - nicotine patch -SW on board for discharge planning. Encouraged the patient to participate in milieu.
[2024-12-06] MEDS: PALIPERIDONE 3 MG TAB.ER.24 PO SCH (20:26)
[2024-12-07] MEDS: MAG HYDROX/AL HYDROX/SIMETH 355 ML BOTTLE PO PRN (08:26)
[2024-12-07] MEDS: ONDANSETRON ODT 4 MG TAB PO PRN (10:38)
--- NOTE | 2024-12-07 12:32 | P.PN ---
Progress Note - Text Progress Note Date: 12/07/24 Interval History: Patient was seen wandering the hallways and was directable and agreeable to sp tommy with production underwriter in the office. Patient reports nausea that began this morning that is persistent. She was agreeable with taking Zofran as needed for this, does not appear to be related to the medications and could be related to GERD. She otherwise is expresses difficulties with depression, feeling more isolated however was seen socializing with peers later that morning. She reports moderate auditory hallucinations and continues to express suicidal ideations. She states she has not felt like speaking to her which is not typical. At this time patient denies any homicidal ideations, intent or plan. Patient denies any visual hallucinations and denies any paranoia or delusions. Patient denies any side effects from the medications and has been compliant with meds. Mental Status Exam: General Appearance: Patient appears to be stated age is alert, directable, and cooperative. She is overweight, wears glasses Behavior: Patient is calmly seated without any agitated behavior. Speech: Patient's speech is fluent and nonpressured. Mood/Affect: Mood is improving mildly, affect is congruent and constricted. Suicidality/Homicidality: Patient denies having any homicidal ideation intent or plan. Patient reports suicidal ideations Perceptions: Patient denies any visual hallucinations however reports auditory hallucinations, not appearing internally preoccupied during encounter Though content/process: There is no evidence of any delusional thought content and thought process is linear and goal-directed. Memory and concentration: AOX3, grossly intact for the purposes of this session Judgment and insight: Improving mildly Assessment Bipolar disorder, current episode depressed Cluster B personality disorder Stimulant use disorder Opiate use disorder Benzodiazepine abuse Nicotine dependence Plan: -Patient continues to meet criteria for inpatient psychiatric admission for symptom stabilization and safety. Patient has signed adult voluntary form and medication consent and was placed in patient's chart. -Medications: Continue Invega 3 mg at bedtime for psychosis, Effexor XR 150 mg daily for depression/anxiety, trazodone 150 mg at bedtime for insomnia, Cogentin 1 mg twice daily for EPS, melatonin 10 mg at bedtime for insomnia -When necessary hydroxyzine for agitation/aggression. -Labs: Reviewed, UDS is positive for benzos and cocaine -NRT - nicotine patch -SW on board for discharge planning. Encouraged the patient to participate in milieu. Anticipate discharge home with on . Will look into establishing a diversion plan given patient's frequent readmissions with predominant personality symptoms
--- NOTE | 2024-12-08 12:50 | P.PN ---
Progress Note - Text Progress Note Date: 12/08/24 Interval History: Patient was seen wandering the hallways and was directable and agreeable to sp tommy with casualty underwriter in the office. She reports continuous nausea that is somewhat helpful with the Zofran however that is contributing to poor appetite. Patient requests as needed benzodiazepines however given her history of abuse in addition to ongoing use of stimulants this was discouraged to which patient initially was adamant about not using cocaine in 10 months however she did admit to using it once over a week ago. She was agreeable with using as needed hydroxyzine instead for anxiety. She claims the machete was thrown in the trash today by her and that she has no access to other weapons of that nature. She reports ongoing auditory hallucinations however did state that they were somewhat quiet. She continues to express suicidal ideations, no plan or intent. At this time patient denies any homicidal ideations, intent or plan. Patient denies any auditory, visual hallucinations and denies any paranoia or delusions. Patient denies any side effects from the medications and has been compliant with meds. Mental Status Exam: General Appearance: Patient appears to be stated age is alert, directable, and cooperative. She is overweight, has short hair and wears glasses Behavior: Patient is calmly seated without any agitated behavior. Speech: Patient's speech is fluent and nonpressured. Mood/Affect: Mood is improving mildly, affect is congruent and blunted. Suicidality/Homicidality: Patient denies having any homicidal ideation intent or plan. Patient reports suicidal ideations Perceptions: Patient denies any visual hallucinations however continues to express auditory hallucinations, lessening in intensity Though content/process: There is no evidence of any delusional thought content and thought process is linear and goal-directed. Memory and concentration: AOX3, grossly intact for the purposes of this session Judgment and insight: Improving mildly Assessment Bipolar disorder, current episode depressed Cluster B personality disorder Stimulant use disorder Opiate use disorder Benzodiazepine abuse Nicotine dependence Plan: -Patient continues to meet criteria for inpatient psychiatric admission for symptom stabilization and safety. Patient has signed adult voluntary form and medication consent and was placed in patient's chart. -Medications: Increase Invega to 6 mg at bedtime for psychosis, continue Effexor XR 150 mg daily for depression/anxiety, trazodone 150 mg at bedtime for insomnia, Cogentin 1 mg twice daily for EPS, melatonin 10 mg at bedtime for insomnia -When necessary hydroxyzine for agitation/aggression. -Labs: Reviewed -NRT - nicotine patch -SW on board for discharge planning. Encouraged the patient to participate in milieu. Anticipate discharge tomorrow, home with
[2024-12-08] MEDS: ONDANSETRON ODT 8 MG TAB.RAPDIS PO PRN (19:11)
[2024-12-08] MEDS: hydrOXYzine HCL 25 MG TAB PO PRN (19:12)
[2024-12-08] MEDS: PALIPERIDONE 6 MG TAB.ER.24 PO SCH (20:33)
[2024-12-08 21:46] VITALS: RESP 18
[2024-12-09 08:50] VITALS: BP 117/76; PULSE 76; TEMP 98.2
--- NOTE | 2024-12-09 12:40 | P.DS ---
Providers Date of admission: 12/02/24 05:58 Expected date of discharge: 12/09/24 Attending physician: Betsy Dorado MD Consults: 12/02/24 05:59 Consult Physician Routine Consulting Provider: Johny Terry Consult Reason/Comments: medical H&P Do you want consulting provider notified?: Yes Primary care physician: Jeffrey Ferguson MD - Discharge Diagnosis(es) (1) Bipolar disorder current episode depressed Status: Acute Priority: High (2) Cluster B personality disorder Status: Chronic Priority: High (3) Opioid abuse Status: Acute Priority: Medium (4) Stimulant use disorder Status: Acute Priority: High (5) Nicotine dependence Status: Chronic Priority: Low (6) Benzodiazepine abuse Status: Acute Priority: Medium Hospital Course: Admission HPI: Admission note was completed by Dr. Morrison "HPI: The patient presented to the hospital requesting admission due to suicidal thoughts. She also notes that she is having thoughts of self harming by cutting herself with a machete. She notes paranoia that people are going to break in the house and keeps a machete handy. She notes that her plan for suicide is overdosing. She notes half of her day she spends severely depressed. Currently she rates her depression 8/10 and her anxiety 7/10. She notes that she was recently released from [facility] and has been compliant with medications. Patient notes that she has not been sleeping and has no energy. She notes that her appetite is good but her concentration is fair. She feels helpless, hopeless and worthless. She notes some bouts of crying and feelings of guilt. She is unable to tell me if she would be safe going home at this time. She denies any homicidal thoughts or access to guns. Stressors: Unemployment, Financial stressors Review of psychiatric systems: Bipolar-positive patient has had a manic episode over a year ago. She notes during that time she is not sleeping and has excessive energy and is impulsive. OCD-positive patient has a history of counting and having to touch things PTSD-negative patient has nightmares of people trying to hurt her, she avoids crowds and is hypervigilant Anxiety-positive is a chronic worrywart, grinds her teeth Psychosis-positive paranoia and auditory hallucinations" Hospital course: Upon admission to the unit patient was directable and agreeable to commence treatment and signed adult voluntary form.. Patient got along well with other patients on the unit and followed unit protocol. Patient was compliant with the medications and denied any side effects throughout hospital course. Patient was started on Effexor XR 150 mg daily for depression/anxiety, trazodone 150 mg at bedtime for insomnia, melatonin 10 mg at bedtime for insomnia, Geodon 60 mg twice daily however patient did experience EPS and she was started on Cogentin 1 mg twice daily and Geodon was discontinued and she was restarted on Invega 6 mg at bedtime for psychosis. Patient spoke of her stressors and engaged in therapy both group and individual. Patient was also seen by medical team for history and physical exam. Throughout the course of the hospitalization patient gradually improved with regards to mood, anxiety, sleep and returned back to their baseline level of functioning. On the day of discharge patient denied any homicidal ideations intent or plan denied any visual hallucinations. She re ports stable, chronic suicidal ideations with lessening in intensity and the auditory hallucinations. The patient denied any access to guns or weapons. Patient denied any paranoia and did not endorse any delusions. Patient does have a significant history of substance abuse and was counseled on abstaining from all substances including alcohol and marijuana. Patient elected to do outpatient substance use treatment program through their outpatient provider. She is currently involved with [facility]. Patient was also counseled on the medications and need for regular compliance and was encouraged to follow-up with their outpatient appointment for mental health and also for primary care. Prior to discharge a family meeting will be arranged by social media senior associate to answer any questions and ensure safety upon discharge including making sure that guns/weapons are either removed from the home or locked away. Patient to be discharged home with and will follow-up with [facility]. Mental status exam: General Appearance: Patient appears to be stated age is alert, pleasant, and cooperative. Patient is in no acute distress and has improved hygiene and grooming Behavior: Patient is calmly seated without any agitated behavior. Speech: Patient's speech is fluent and nonpressured. Mood/Affect: Patient reports their mood is "good", affect is congruent and euthymic. Suicidality/Homicidality: Patient denies having any homicidal ideation intent or plan. She reports stable, chronic suicidal ideations, no plan or intent Perceptions: Patient denies any visual hallucinations. She reports lessening in intensity in her chronic auditory hallucinations Though content/process: There is no evidence of any delusional thought content and thought process is linear and goal-directed. Memory and concentration: AOX3, grossly intact for the purposes of this session. Can spell "WORLD" backwards correctly. Judgment and insight: Chronically poor, however has improved with guarded prognosis Impression: Bipolar disorder, current episode depressed Cluster B personality disorder Stimulant use disorder Opiate abuse Benzodiazepine abuse Nicotine dependence Plan: -Continue with discharge today as patient has improved and stabilized psychiatrically and is not currently an imminent threat to themself and/or others. Patient will remain at chronically elevated risk for harm to self and/or others due to their impulsivity and substance abuse. -Continue medications: Invega 6 mg at bedtime, Effexor XR 150 mg daily, trazodone 50 mg at bedtime, Cogentin 1 mg twice daily, melatonin 10 mg at bedtime. Discussed with patient with the potential to decrease and taper off Cogentin and encouraged her to speak to her outpatient provider regarding this -Patient was counseled on the need for medication compliance and appropriate follow-up at mental health and also primary care for medical issues. Patient verbalized understanding and agreed. -Social work to help coordinate patients discharge today arrange for and conduct family meeting to ensure safety upon discharge and answer any questions/concerns. also to ensure safe home environment that guns/weapons are either removed from the home or locked away. Social work also to arrange for patients follow up appointments with [facility] for psychiatric care along with follow up with primary care provider. -Patient counseled on abstaining from recreational drugs and marijuana and alcohol. Was informed/educated on the adverse effects on their physical and mental health. Patient verbally agreed and understood. -Patient was instructed to return to the hospital or seek immediate medical care if their psychiatric or medical symptoms do worsen or reoccur. Abnormal Labs 12/03/24 12/03/24 12/03/24: 07: 17:00 WBC 3.87 L RBC 3.97 L Hgb 8.2 L Hct 28.5 L MCV 71.8 L MCH 20.7 L MCHC 28.8 L Plt Count 107 L Neutrophils # 1.74 L Chloride 109 H AST 51 H Total Protein 5.8 L Albumin 3.3 L Urine Blood Moderate H Urine Mucus Occasional H U Benzodiazepines Scrn Urine Cocaine Screen 12/03/24 17:00 WBC RBC Hgb Hct MCV MCH MCHC Plt Count Neutrophils # Chloride AST Total Protein Albumin Urine Blood Urine Mucus U Benzodiazepines Scrn Positive A Urine Cocaine Screen Positive A Allergies Allergy/AdvReac Type Severity Reaction Status Date / Time haloperidol [From Haldol] AdvReac Body Verified 12/02/24 01:38 Cramps/muscle cramps Vital Signs Temp 98.2 F 12/09/24 08:49 Pulse 76 12/09/24 08:49 Resp 18 12/09/24 08:49 BP 117/76 12/09/24 08:49 Pulse Ox 98 12/08/24 21:44 FiO2 Patient Condition at Discharge: Stable Plan - Discharge Summary Discharge Rx Participant: Yes New Discharge Prescriptions: New diphenhydrAMINE [Benadryl] 50 mg PO BID PRN 30 Days #30 cap PRN Reason: Extrapyramidal Effects Benztropine Mesylate [Cogentin] 1 mg PO BID 30 Days #60 tab traZODone HCL [Desyrel] 150 mg PO HS 30 Days #90 tab Paliperidone [Invega] 6 mg PO HS 30 Days #30 tab Continue Venlafaxine HCl ER [Effexor XR] 150 mg PO DAILY 30 Days #30 cap Gabapentin 600 mg PO TID 30 Days #90 tab Melatonin 10 mg PO HS 30 Days #60 tab Pantoprazole [Protonix] 40 mg PO AC-BRKFST 30 Days #30 tab rOPINIRole HCL [Requip] 0.5 mg PO BID 30 Days #120 tab hydrOXYzine pamoate [Vistaril] 50 mg PO HS PRN #90 cap PRN Reason: Anxiety/insomnia Discontinued tiZANidine [Zanaflex] 4 mg PO BID PRN PRN Reason: Muscle Spasm Ibuprofen [Motrin] 600 mg PO Q6HR PRN tab PRN Reason: Moderate Pain (Scale 4 To 6) Phentermine HCl [Adipex-P] 37.5 mg PO DAILY Ibuprofen [Motrin] 600 mg PO Q6HR PRN tab PRN Reason: Moderate Pain (Scale 4 To 6) Ziprasidone [Geodon] 60 mg PO BID 30 Days #60 cap hydrOXYzine pamoate [Vistaril] 50 mg PO HS cap Pantoprazole Sodium [Protonix] 40 mg PO DAILY 30 Days #30 tab Discharge Medication List Benztropine Mesylate [Cogentin] 1 mg PO BID 30 Days #60 tab 12/09/24 [Rx] Gabapentin 600 mg PO TID 30 Days #90 tab 12/09/24 [Rx] Melatonin 10 mg PO HS 30 Days #60 tab 12/09/24 [Rx] Paliperidone [Invega] 6 mg PO HS 30 Days #30 tab 12/09/24 [Rx] Pantoprazole [Protonix] 40 mg PO AC-BRKFST 30 Days #30 tab 12/09/24 [Rx] Venlafaxine HCl ER [Effexor XR] 150 mg PO DAILY 30 Days #30 cap 12/09/24 [Rx] diphenhydrAMINE [Benadryl] 50 mg PO BID PRN 30 Days #30 cap 12/09/24 [Rx] hydrOXYzine pamoate [Vistaril] 50 mg PO HS PRN #90 cap 12/09/24 [Rx] rOPINIRole HCL [Requip] 0.5 mg PO BID 30 Days #120 tab 12/09/24 [Rx] traZODone HCL [Desyrel] 150 mg PO HS 30 Days #90 tab 12/09/24 [Rx] Follow up Appointment(s)/Referral(s): [facility] [Outside] - 12/10/24 12:30 pm (12/10/2024 12:30PM - 1:30PM MARCO A WILLIAMSON 12/14/2024 11:30AM - 12:00PM TYSON HAYDEN 02/04/2025 12:30PM - 1:00PM TYSON HAYDEN ) Jeffrey Ferguson MD [Primary Care Provider] - 1-2 days Patient Instructions/Handouts: How to Stop Smoking (DC), Bipolar Disorder (DC) Activity/Diet/Wound Care/Special Instructions: [facility] Discharge Info Avoid the use of street drugs and alcohol. Take all medications as prescribed. When you are in need of refills on your medications, please contact your outpatient medical provider and/or outpatient psychiatrist. Please go to your scheduled outpatient appointments for aftercare treatment. If symptoms return or become worse, call the crisis line at or and/or visit the nearest emergency room for assistance. National Suicide and Crisis Lifeline - call or text 988. Discharge Disposition: HOME SELF-CARE
== END 2024-12-09 11:45 | disposition home or self-care (01) | DRG 885 ==
LOC: EC 01:32 → 3MHU 05:58
PROVIDERS: ADMIT Psychiatry & Neurology Psychiatry; ATTEND Psychiatry & Neurology Psychiatry
DX: F31.30 Bipolar disorder, current episode depressed, mild or moderate severity, unspecified (principal); F22 Delusional disorders; D50.9 Iron deficiency anemia, unspecified; E66.813 Obesity, class 3; F11.10 Opioid abuse, uncomplicated; D64.9 Anemia, unspecified; G40.909 Epilepsy, unspecified, not intractable, without status epilepticus; J45.909 Unspecified asthma, uncomplicated; G25.81 Restless legs syndrome; F13.10 Sedative, hypnotic or anxiolytic abuse, uncomplicated; F15.10 Other stimulant abuse, uncomplicated; F60.89 Other specific personality disorders; Z11.52 Encounter for screening for COVID-19; F17.210 Nicotine dependence, cigarettes, uncomplicated; Z68.37 Body mass index [BMI] 37.0-37.9, adult; F41.9 Anxiety disorder, unspecified; F42.9 Obsessive-compulsive disorder, unspecified; F43.10 Post-traumatic stress disorder, unspecified; G47.00 Insomnia, unspecified; R45.850 Homicidal ideations; Z82.49 Family history of ischemic heart disease and other diseases of the circulatory system; Z79.899 Other long term (current) drug therapy; Z91.51 Personal history of suicidal behavior; Z91.52 Personal history of nonsuicidal self-harm; Z71.6 Tobacco abuse counseling; Z88.8 Allergy status to other drugs, medicaments and biological substances
CPT/HCPCS: 80053; 80061; 80306; 81001; 82075; 82248; 83036; 84443; 85025; 87635; 93005; 99285